=== PATIENT | female | born 1970 | race American Indian/Alaskan Native ===

== ENCOUNTER 2016-11-16 16:31 | Emergency (ER) | payer MEDICAID ==
[2016-11-16 16:31] VITALS: BMI 25.8
--- NOTE | 2016-11-16 17:23 | C.PDOC ---
History Of Present Illness 46 y/o female presents to the ED with complains of chest pain and abdominal pain. Pt has been seen multiple times in ED for the same. Pt was being seen by Lacey Corley today complaining of chest pain so sent patient to ED for evaluation. Pt also complains of productive cough with yellow sputum and fever. Denies vomiting, SOB, or any other complaints. History limited. PMHx parkinson's disease. Time Seen by Provider: 11/16/16 17:04 Chief Complaint (Nursing): Chest Pain History Per: Patient History/Exam Limitations: no limitations Onset/Duration Of Symptoms: Hrs Current Symptoms Are (Timing): Still Present Severity: Mild Quality: "Pain" Alleviating Factors: None Recent travel outside of the [place]: No Past Medical History Reviewed: Historical Data, Nursing Documentation, Vital Signs Vital Signs: Last Vital Signs Temp 98.5 F 11/16/16 16:43 Pulse 92 H 11/16/16 16:43 Resp 18 11/16/16 16:43 BP Pulse Ox 95 11/16/16 17:29 - Medical History PMH: Anemia (secondary to heavy menstruation), Anxiety, Arthritis, Asthma, CAD, CHF, CVA, Depression, Diabetes, Gastritis, Gastrointestinal Ulcer, HTN, Hypercholesterolemia, Hyperlipidemia, Hyperthyroidism (HYPERPARATHYROID), Kidney Stones, Multiple Sclerosis, Parkinson's Disease, Pneumonia (06-04-15), Chronic Kidney Disease, TIA Surgical History: Hernia Repair (Umbilical hernia repair) - [facility] Procedures CLOSURE SKIN & SUBCUTANEOUS NEC (01/07/13) ESOPHAGOGASTRODUODENOSCOPY [EGD] W/CLOSED BIOPSY (02/05/15) INJECT/INFUSE NEC (02/17/15) NEBULIZER THERAPY (06/20/13) PACKED CELL TRANSFUSION (01/28/15) TETANUS TOXOID ADMINIST (01/07/13) VACCINATION NEC (08/03/14) Family History: States: Unknown Family Hx - Social History Hx Tobacco Use: No Hx Alcohol Use: No Hx Substance Use: No - Immunization History Hx Tetanus Toxoid Vaccination: Yes Hx Influenza Vaccination: Yes Hx Pneumococcal Vaccination: Yes Review Of Systems Except As Marked, All Systems Reviewed And Found Negative. Constitutional: Positive for: Fever Cardiovascular: Positive for: Chest Pain Respiratory: Positive for: Cough. Negative for: Shortness of Breath Gastrointestinal: Positive for: Abdominal Pain. Negative for: Vomiting Physical Exam - Physical Exam Appears: Non-toxic, No Acute Distress, Other (constant involuntary movements) Skin: Warm, Dry, No Rash Head: Atraumatic, Normacephalic Neck: Normal, Normal ROM, Supple Chest: Symmetrical, No Tenderness Cardiovascular: Rhythm Regular, No Murmur Respiratory: Normal Breath Sounds, No Rales, No Rhonchi, No Wheezing Gastrointestinal/Abdominal: Normal Exam, Soft, No Tenderness, No Guarding, No Rebound Extremity: Bilateral: Atraumatic Neurological/Psych: Oriented x3, Normal Speech ED Course And Treatment - Laboratory Results Result Diagrams: 11/16/16 17:45 11/16/16 17:34 Lab Interpretation: Abnormal Interpretation Of Abnormal: Mild anemia, K+ 2.8 corrected orally with 60meq Kdur ECG: Interpreted By Me ECG Rhythm: Sinus Rhythm ECG Interpretation: No Acute Changes O2 Sat by Pulse Oximetry: 95 (room air) Pulse Ox Interpretation: Normal Progress Note: Plan: EKG, labs, CXR, IV fluids Reevaluation Time: 20:21 Reassessment Condition: Improved (She is resting quietly. Patient requesting Motrin and something to eat.) - Physician Consult Information Time Consulting Physician Contacted: 20:21 Physician Contacted: Ranulfo Corley Outcome Of Conversation: he will see her in the office in follow up Disposition Counseled Patient/Family Regarding: Studies Performed, Diagnosis, Need For Followup - Disposition Disposition: HOME/ ROUTINE Disposition Time: 20:25 Condition: IMPROVED Instructions: Noncardiac Chest Pain (ED) - Clinical Impression Clinical Impression: Atypical chest pain - Scribe Statement The provider has reviewed the documentation as recorded by the Christina Burdick Provider Attestation: All medical record entries made by the Christina were at my direction and personally dictated by me. I have reviewed the chart and agree that the record accurately reflects my personal performance of the history, physical exam, medical decision making, and the department course for this patient. I have also personally directed, reviewed, and agree with the discharge instructions and disposition.
[2016-11-16 17:39] LABS: BASO # 0.1 K/uL (0.0-0.2); BASO % 1.1 % (0.0-2.0); EOS % 0.9 % (0.0-4.0); HEMATOCRIT 30.6 % (34.0-47.0); LYMPH # 1.6 K/uL (1.0-4.3); LYMPH % 32.2 % (20.0-40.0); MEAN CELL VOLUME 78.4 fL (81.0-99.0); MEAN CORPUSCULAR HEMOGLOBIN 23.8 pg (27.0-31.0); MEAN CORPUSCULAR HGB CONC 30.4 g/dL (33.0-37.0); MEAN PLATELET VOLUME 8.2 fL (7.2-11.7); MONO # 0.4 K/uL (0.0-0.8); MONO % 7.9 % (0.0-10.0); NRBC % 0.1 % (0.0-2.0); RED CELL DISTRIBUTION WIDTH 16.3 % (11.5-14.5); WHITE BLOOD COUNT 5.1 K/uL (4.8-10.8)
[2016-11-16 17:46] LABS: CHLORIDE 100 mmol/L (98-107)
[2016-11-16 17:47] LABS: POTASSIUM 2.8 mmol/L (3.6-5.2); SODIUM 140 mmol/L (132-148)
[2016-11-16 17:49] LABS: ALB/GLOB RATIO 1.2 (1.0-2.1); ALKALINE PHOSPHATASE 54 U/L (38-126); ALT/SGPT 17 U/L (9-52); AST/SGOT 20 U/L (14-36); BILIRUBIN,TOTAL 0.6 mg/dL (0.2-1.3); BLOOD UREA NITROGEN 17 mg/dL (7-17); CARBON DIOXIDE 30 mmol/L (22-30); GFR AFRICAN-AMERICAN > 60; TOTAL PROTEIN 7.4 g/dL (6.3-8.3)
[2016-11-16 17:50] LABS: CALCIUM 10.2 mg/dl (8.6-10.4); GLUCOSE,RANDOM 104 mg/dL (65-105)
--- NOTE | 2016-11-16 17:56 | RAD ---
HISTORY: chest pain COMPARISON: Chest x-ray performed 08/04/16 TECHNIQUE: Chest, one view. FINDINGS: Examination limited by habitus. LUNGS: Mild pulmonary venous congestion. No focal consolidation. Please note that chest x-ray has limited sensitivity for the detection of pulmonary masses. PLEURA: No significant pleural effusion identified. No definite pneumothorax . CARDIOVASCULAR: Enlargement of the cardiomediastinal silhouette. OSSEOUS STRUCTURES: High-riding right humeral head may be seen in setting of chronic rotator cuff injury. VISUALIZED UPPER ABDOMEN: Unremarkable. OTHER FINDINGS: None. IMPRESSION: Enlarged cardiomediastinal silhouette. Recommend further evaluation of the mediastinum with contrast-enhanced CT of the chest. Mild pulmonary venous congestion.
[2016-11-16] MEDS ORDERED: Potassium Chloride 20 mEq ER Tab PO STA (18:27)
[2016-11-16] MEDS ORDERED: Potassium Chloride 20 mEq/15 ml LIQ UD ONE (18:40)
[2016-11-16 21:18] VITALS: BP 155/111; PULSE 87; RESP 20; TEMP 98.8; O2SAT 100
--- NOTE | 2016-11-18 19:38 | CARD ---
APPROVED REPORT EKG Measurement Heart [id number] FL 166P [id number] <Conclusion> Arm leads reversal Baseline artifact Abnormal ECG PLEASE REPEAT
== END 2016-11-16 21:17 | disposition home or self-care (01) ==
LOC: C.ER 16:31
DX: R07.89 Other chest pain (principal)

== ENCOUNTER 2016-11-30 17:43 | Inpatient (IN) | payer MEDICAID ==
[2016-11-30 17:48] VITALS: BMI 22.7
[2016-11-30] MEDS ORDERED: Albuterol-Ipratrop 3 mg / 0.5 (3 ml) UD IH STA (19:04)
[2016-11-30 19:45] LABS: CHLORIDE 105 mmol/L (98-107)
[2016-11-30 19:46] LABS: SODIUM 140 mmol/L (132-148)
[2016-11-30 19:47] LABS: BASO % 0.3 % (0.0-2.0); EOS # 0.1 K/uL (0.0-0.7); EOS % 1.1 % (0.0-4.0); HEMATOCRIT 30.1 % (34.0-47.0); LYMPH # 1.7 K/uL (1.0-4.3); LYMPH % 31.8 % (20.0-40.0); MEAN CELL VOLUME 78.1 fL (81.0-99.0); MEAN CORPUSCULAR HEMOGLOBIN 23.8 pg (27.0-31.0); MEAN CORPUSCULAR HGB CONC 30.5 g/dL (33.0-37.0); MEAN PLATELET VOLUME 8.7 fL (7.2-11.7); MONO # 0.6 K/uL (0.0-0.8); MONO % 10.2 % (0.0-10.0); POTASSIUM 3.4 mmol/L (3.6-5.2); RED CELL DISTRIBUTION WIDTH 16.5 % (11.5-14.5); WHITE BLOOD COUNT 5.5 K/uL (4.8-10.8)
[2016-11-30 19:49] LABS: ALB/GLOB RATIO 1.2 (1.0-2.1); ALKALINE PHOSPHATASE 62 U/L (38-126); ALT/SGPT 18 U/L (9-52); AST/SGOT 32 U/L (14-36); BILIRUBIN,TOTAL 0.7 mg/dL (0.2-1.3); BLOOD UREA NITROGEN 19 mg/dL (7-17); CARBON DIOXIDE 30 mmol/L (22-30); GFR AFRICAN-AMERICAN > 60; GLUCOSE,RANDOM 74 mg/dL (65-105); TOTAL PROTEIN 7.6 g/dL (6.3-8.3)
--- NOTE | 2016-11-30 20:38 | C.PDOC ---
History Of Present Illness 46 year old patient presents to the ED complaining of chest pain that returned today. Patient also complains of a cough with yellow-rain sputum and a low grade fever of 100.1. Patient states she has been using her Ventolin without relief. She was seen by her tare worker, Dr. Duarte, and PMD, Dr. Lacey Corley, recently. Her PMD sent her to the ED for further evaluation. Patient denies nausea, vomiting or shortness of breath. Time Seen by Provider: 11/30/16 18:50 Chief Complaint (Nursing): Chest Pain History Per: Patient History/Exam Limitations: clinical condition Onset/Duration Of Symptoms: Worse Since (today) Current Symptoms Are (Timing): Still Present Context: Other Severity: Mild Pain Scale Rating Of: 3 Quality: "Pain" Exacerbating Factors: None Alleviating Factors: None Recent travel outside of the [place]: No Past Medical History Reviewed: Historical Data, Nursing Documentation, Vital Signs Vital Signs: Last Vital Signs Temp 99 F 11/30/16 17:56 Pulse 79 11/30/16 17:56 Resp 18 11/30/16 17:56 BP 186/84 H 11/30/16 17:56 Pulse Ox 100 11/30/16 21:02 - Medical History PMH: Anemia (secondary to heavy menstruation), Anxiety, Arthritis, Asthma, CAD, CHF, CVA, Depression, Diabetes, Gastritis, Gastrointestinal Ulcer, HTN, Hypercholesterolemia, Hyperlipidemia, Hyperthyroidism (HYPERPARATHYROID), Kidney Stones, Multiple Sclerosis, Parkinson's Disease, Pneumonia (06-04-15), Chronic Kidney Disease, TIA Surgical History: Hernia Repair (Umbilical hernia repair) - [facility] Procedures CLOSURE SKIN & SUBCUTANEOUS NEC (01/07/13) ESOPHAGOGASTRODUODENOSCOPY [EGD] W/CLOSED BIOPSY (02/05/15) INJECT/INFUSE NEC (02/17/15) NEBULIZER THERAPY (06/20/13) PACKED CELL TRANSFUSION (01/28/15) TETANUS TOXOID ADMINIST (01/07/13) VACCINATION NEC (08/03/14) Family History: States: Unknown Family Hx - Social History Hx Tobacco Use: No Hx Alcohol Use: No Hx Substance Use: No - Immunization History Hx Tetanus Toxoid Vaccination: Yes Hx Influenza Vaccination: Yes Hx Pneumococcal Vaccination: Yes Review Of Systems Except As Marked, All Systems Reviewed And Found Negative. Constitutional: Positive for: Fever Cardiovascular: Positive for: Chest Pain Respiratory: Positive for: Cough. Negative for: Shortness of Breath Gastrointestinal: Negative for: Nausea, Vomiting Physical Exam - Physical Exam Appears: Well, No Acute Distress, Other (hx of cerebral palsy. speech is not comprehensible. ) Skin: Normal Color, Warm, Dry Head: Atraumatic Oral Mucosa: Moist Tongue: Normal Appearing Neck: Normal, Supple Lymphatic: No Adenopathy Cardiovascular: Rhythm Regular Respiratory: No Decreased Breath Sounds, No Rales, No Rhonchi, Wheezing (mild diffuse) Gastrointestinal/Abdominal: Soft, No Tenderness Back: No CVA Tenderness Extremity: Bilateral: Atraumatic ED Course And Treatment - Laboratory Results Result Diagrams: 11/30/16 19:28 11/30/16 19:28 Lab Interpretation: No Changes Compared To Prior Results ECG: Interpreted By Me, Viewed By Me ECG Rhythm: Sinus Rhythm ECG Interpretation: Normal Interpretation Of ECG: LVH. No acute ST-T wave changes. Rate From EC (bpm) O2 Sat by Pulse Oximetry: 100 (room air) Pulse Ox Interpretation: Normal - Radiology CXR: Interpreted by Me CXR Interpretation: Yes: No Acute Disease, Other (Unchanged from prior films) Reevaluation Time: 20:57 Reassessment Condition: Improved - Physician Consult Information Time Consulting Physician Contacted: 21:58 Physician Contacted: Ranulfo Corley Outcome Of Conversation: Patient to be admitted for chest pain observation and exacerbation of asthma. Medical Decision Making Medical Decision Making: Plan: * EKG * Chest x-ray * Duoneb * Labs Disposition - Disposition Disposition: HOSPITALIZED Disposition Time: 21:59 Condition: STABLE - POA Present On Arrival: None - Clinical Impression Clinical Impression: Chest discomfort, Bronchial asthma - Scribe Statement The provider has reviewed the documentation as recorded by the Christina Corley Provider Attestation: All medical record entries made by the Owenibsoha were at my direction and personally dictated by me. I have reviewed the chart and agree that the record accurately reflects my personal performance of the history, physical exam, medical decision making, and the department course for this patient. I have also personally directed, reviewed, and agree with the discharge instructions and disposition.
[2016-11-30] MEDS ORDERED: Albuterol-Ipratrop 3 mg / 0.5 (3 ml) UD ONE (21:10)
[2016-12-01 01:01] VITALS: RESP 20
[2016-12-01] MEDS ORDERED: Potassium Chloride 20 mEq ER Tab PO STA ×2 (01:57→07:33)
[2016-12-01 04:49] LABS: CHLORIDE 100 mmol/L (98-107)
[2016-12-01 04:50] LABS: POTASSIUM 3.5 mmol/L (3.6-5.2); SODIUM 139 mmol/L (132-148)
[2016-12-01 04:52] LABS: ALB/GLOB RATIO 1.2 (1.0-2.1); AST/SGOT 23 U/L (14-36); BASO % 0.6 % (0.0-2.0); BILIRUBIN,TOTAL 0.5 mg/dL (0.2-1.3); CARBON DIOXIDE 30 mmol/L (22-30); EOS # 0.1 K/uL (0.0-0.7); EOS % 1.6 % (0.0-4.0); GFR AFRICAN-AMERICAN > 60; HEMATOCRIT 29.9 % (34.0-47.0); LYMPH # 1.8 K/uL (1.0-4.3); LYMPH % 36.4 % (20.0-40.0); MEAN CELL VOLUME 77.9 fL (81.0-99.0); MEAN CORPUSCULAR HEMOGLOBIN 23.6 pg (27.0-31.0); MEAN CORPUSCULAR HGB CONC 30.3 g/dL (33.0-37.0); MEAN PLATELET VOLUME 8.4 fL (7.2-11.7); MONO # 0.5 K/uL (0.0-0.8); MONO % 11.3 % (0.0-10.0); RED CELL DISTRIBUTION WIDTH 15.8 % (11.5-14.5); TOTAL PROTEIN 7.2 g/dL (6.3-8.3); WHITE BLOOD COUNT 4.8 K/uL (4.8-10.8)
[2016-12-01 04:53] LABS: ALKALINE PHOSPHATASE 63 U/L (38-126); ALT/SGPT 25 U/L (9-52); BLOOD UREA NITROGEN 14 mg/dL (7-17); CALCIUM 10.6 mg/dl (8.6-10.4); GLUCOSE,RANDOM 85 mg/dL (65-105)
[2016-12-01] MEDS: Moxifloxacin IV 400mg/250ml NS 400 MG/250 ML BAG IVPB SCH ×2 (08:35→15:43)
[2016-12-01] MEDS: Enoxaparin 40 mg Syringe SC SCH (09:06)
--- NOTE | 2016-12-01 09:50 | RAD ---
PROCEDURE: CHEST RADIOGRAPH, 1 VIEW HISTORY: chest pain COMPARISON: None available. FINDINGS: LUNGS: Patchy consolidative markings in both lungs. PLEURA: As above. CARDIOVASCULAR: Cardiomegaly. OSSEOUS STRUCTURES: Degenerative changes in the spine and shoulders. VISUALIZED UPPER ABDOMEN: Normal. OTHER FINDINGS: None. IMPRESSION: Patchy consolidative markings in both lungs. Clinical correlation.
--- NOTE | 2016-12-01 12:46 | CT ---
CT chest without IV contrast Indication: Pneumonia Technique: Contiguous axial images were obtained through the chest without intravenous contrast enhancement. Sagittal and coronal reconstructions were generated and reviewed. This CT exam was performed using 1 or more of the falling dose reduction techniques: Automated exposure control, adjustment of the MAA and/or kV according to patient size, and/or use of iterative reconstruction technique. Radiation dose (DLP): 351.08 MGy-cm. Comparison: Chest x-ray performed 11/30/16 Findings: Visualized portions of the inferior thyroid gland appear heterogeneous. The unenhanced mediastinal and hilar vascular structures appear grossly unremarkable. The heart appears within normal limits of size. Hazy nodular soft tissue densities within prevascular space. Mild linear atelectasis, left lung base. No focal consolidation. No pleural effusion. No pneumothorax. No suspicious pulmonary nodules measuring greater than 5 mm. Limited visualization of the noncontrast upper abdomen demonstrates hyperdense foci at the level the gallbladder, possibly calculi. Degenerative changes of the spine. Impression: Heterogeneous appearance of the included inferior thyroid gland. Recommend correlation with thyroid function tests and dedicated ultrasound. Hazy nodular soft tissue densities within the anterior mediastinum/ prevascular space, possibly residual thymic tissue. Alternatives including tiny lymph nodes considered less likely but not excluded. Recommend clinical correlation and short-term follow-up CT with IV contrast upon resolution of treatment for acute symptoms, if indicated. Mild linear atelectasis, left lung base. Hyperdense foci at the level the gallbladder, possibly calculi. Right upper quadrant ultrasound may be considered for further evaluation if indicated.
--- NOTE | 2016-12-01 15:51 | CP.PCM.PN ---
Subjective - Date & Time of Evaluation Date of Evaluation: 12/01/16 Time of Evaluation: 10:15 - Subjective Subjective: PGY2 Medicine Note - Dr. Lacey Corley's service: Patient is 46 year old female with PMHx of cerebral palsy, anemia, anxiety, cAD , CHF, CVA, depression, DM, gastritis, GI ulcer, HTN, hyperlipidemia, hyperthyroidism, kidney stones, MS, Parkinson's, pneumonia and CKD who presented to ER for chest tightness. Patient says she has cough productive of yellow phlegm for a few days. She reports history of penumonia so she got scared that she needs abx. Patient reports wheezing. Objective - Vital Signs/Intake and Output Vital Signs (last 24 hours): Temp Pulse Resp BP Pulse Ox 98.1 F 65 20 171/94 H 99 12/01/16 07:35 12/01/16 07:35 12/01/16 07:35 12/01/16 07:35 12/01/16 07:35 Intake and Output: 12/01/16 12/01/16 06:59 18:59 Intake Total 400 Balance 400 - Medications Medications: Current Medications Amlodipine Besylate (Norvasc) 10 mg PO DAILY [facility] Last Admin: 12/01/16 09:06 Dose: 10 mg Aspirin (Aspirin) 325 mg PO DAILY [facility] Last Admin: 12/01/16 09:06 Dose: 325 mg Enoxaparin Sodium (Lovenox) 40 mg SC DAILY [facility] Last Admin: 12/01/16 09:06 Dose: 40 mg Famotidine (Pepcid) 20 mg PO BID [facility] Last Admin: 12/01/16 09:06 Dose: 20 mg Gabapentin (Neurontin) 300 mg PO BID [facility] Last Admin: 12/01/16 09:06 Dose: 300 mg Moxifloxacin HCl (Avelox Iv 400mg/250ml Ns) 400 mg in 250 mls @ 167 mls/hr IVPB Q24H [facility] Last Admin: 12/01/16 15:43 Dose: Not Given Losartan Potassium (Cozaar) 100 mg PO DAILY [facility] Last Admin: 12/01/16 09:06 Dose: 100 mg - Labs Labs: 12/01/16 04:38 12/01/16 04:38 - Constitutional Appears: Non-toxic, No Acute Distress, Chronically Ill - Head Exam Head Exam: NORMAL INSPECTION - Eye Exam Eye Exam: EOMI - Respiratory Exam Respiratory Exam: Wheezes, NORMAL BREATHING PATTERN. absent: Clear to Ausculation Bilateral, Rhonchi, Respiratory Distress - Cardiovascular Exam Cardiovascular Exam: REGULAR RHYTHM, +S1, +S2. absent: Gallop, Rubs - GI/Abdominal Exam GI & Abdominal Exam: Soft, Normal Bowel Sounds. absent: Tenderness - Extremities Exam Extremities Exam: absent: Pedal Edema - Neurological Exam Neurological Exam: Alert, Awake, Oriented x3 Additional comments: slurred speech - Psychiatric Exam Psychiatric exam: Normal Affect, Normal Mood - Skin Skin Exam: Normal Color, Warm Assessment and Plan - Assessment and Plan (Free Text) Assessment: Chest Pain ROMIs neg x 3 Likely secondary to cough ASA 81mg PO daily Asthma Duonebs Q6 [facility] Solu-Medrol 40mg IV Q12 Pneumonia CXR 11/30/16 - patchy consolidative markings in both lungs. (please see full report) Chest CT 12/01/16 - heterogeneous appearance of the included inferior thyroid gland. Hazy nodular soft tissue densities within the anterior mediastinum/ prevascular space, possibly residual thymic tissue. Alternatives including tiny lymph nodes considerely less likely but not excluded. Mild linear atelectasis, left lung base. Hyperdense foci at the level of the gallbladder, possibly calculi. Right upper quadrant ultrasound may be considered for further evaluation if indicated. (please see full report) Patient does not have IV access Avelox 400mg PO daily Midline tomorrow Hyperthyroid F/U TSH F/U thyroid US HTN Norvasc 10mg PO daily added Losartan 100mg PO daily (home med) Hydralazine 25mg PO QID added Prophylaxis Pepcid 20mg PO BID Lovenox 40mg SC daily Management per dr. Lacey Corley
--- NOTE | 2016-12-01 17:13 | US ---
THYROID ULTRASOUND HISTORY: THYROID NODULE. COMPARISON: CT SCAN 12/01/2016 Technique: Real-time sonography was performed through the thyroid. Findings: Right lobe: 5.3 x 2.1 x 2.3 centimeters. Heterogeneous echotexture. Normal flow. Midpole complex mixed echogenic solid/cystic nodule measuring 1.6 x 1.1 x 1.8 centimeters. Left lobe: 3.3 x 1.3 x 1.8 centimeters. Heterogeneous echotexture. Normal flow. Thyroid isthmus measures 2 millimeters. Heterogeneous echotexture. Normal flow. Impression: Midpole complex mixed echogenic solid/cystic nodule in the right lobe of the thyroid measuring 1.8 centimeters.
--- NOTE | 2016-12-01 17:15 | CP.PCM.HP ---
Past Patient History - Infectious Disease Hx of Infectious Diseases: None - Tetanus Immunizations Tetanus Immunization: Unknown - Past Medical History & Family History Past Medical History?: Yes - Past Social History Smoking Status: Never Smoked - CARDIAC Hx Cardiac Disorders: Yes Hx Congestive Heart Failure: Yes Hx Hypercholesterolemia: Yes Hx Hypertension: Yes - PULMONARY Hx Respiratory Disorders: Yes Hx Asthma: Yes Hx Pneumonia: Yes (06-04-15) - NEUROLOGICAL Hx Neurological Disorder: Yes Hx Multiple Sclerosis: Yes Hx Parkinson's Disease: Yes Hx Transient Ischemic Attacks (TIA): Yes - HEENT Hx HEENT Problems: No - RENAL Hx Chronic Kidney Disease: Yes Hx Kidney Stones: Yes - ENDOCRINE/METABOLIC Hx Endocrine Disorders: Yes Hx Diabetes Mellitus Type 2: Yes Hx Hyperthyroidism: Yes (hyperthyroidism) - HEMATOLOGICAL/ONCOLOGICAL Hx Blood Disorders: Yes Hx Anemia: Yes (secondary to heavy menstruation) - INTEGUMENTARY Hx Dermatological Problems: No - MUSCULOSKELETAL/RHEUMATOLOGICAL Hx Musculoskeletal Disorders: Yes Hx Arthritis: Yes Hx Falls: Yes - GASTROINTESTINAL Hx Gastrointestinal Disorders: Yes Hx Gastritis: Yes - GENITOURINARY/GYNECOLOGICAL Hx Genitourinary Disorders: Yes Hx Urinary Tract Infection: Yes - PSYCHIATRIC Hx Psychophysiologic Disorder: Yes Hx Anxiety: Yes Hx Depression: Yes Hx Substance Use: No - SURGICAL HISTORY Hx Surgeries: Yes Hx Section: Yes (1994) Hx Herniorrhaphy: Yes - ANESTHESIA Hx Anesthesia: Yes Hx Anesthesia Reactions: No Hx Malignant Hyperthermia: No Meds Allergies/Adverse Reactions: Allergies Allergy/AdvReac Type Severity Reaction Status Date / Time aspirin Allergy SHORTNESS Verified 11/30/16 17:45 OF BREATH codeine Allergy RASH Verified 11/30/16 17:45 iodine Allergy SHORTNESS Verified 11/30/16 17:45 OF BREATH ketorolac Allergy SHORTNESS Verified 11/30/16 17:45 OF BREATH ketorolac tromethamine Allergy RASH Verified 11/30/16 17:45 [From Toradol] Latex, Natural Rubber Allergy SHORTNESS Verified 11/30/16 17:45 OF BREATH metoprolol Allergy SHORTNESS Verified 11/30/16 17:45 OF BREATH morphine Allergy SHORTNESS Verified 11/30/16 17:45 OF BREATH orange juice Allergy SHORTNESS Verified 11/30/16 17:45 OF BREATH Penicillins Allergy SHORTNESS Verified 11/30/16 17:45 OF BREATH simvastatin Allergy RASH Verified 11/30/16 17:45 Sulfa (Sulfonamide Allergy RASH Verified 11/30/16 17:45 Antibiotics) tomato Allergy ITCHING Verified 11/30/16 17:45 tramadol Allergy SHORTNESS Verified 11/30/16 17:45 OF BREATH ondansetron HCl AdvReac Intermediate RASH Verified 11/30/16 17:45 [From Zofran (as hydrochloride)] Physical Exam - Constitutional Appears: Well - Head Exam Head Exam: ATRAUMATIC, NORMAL INSPECTION, NORMOCEPHALIC - Eye Exam Eye Exam: EOMI, Normal appearance, PERRL - ENT Exam ENT Exam: Mucous Membranes Moist, Normal Exam - Neck Exam Neck exam: Positive for: Normal Inspection - Respiratory Exam Respiratory Exam: Decreased Breath Sounds - Cardiovascular Exam Cardiovascular Exam: REGULAR RHYTHM, +S1, +S2 - GI/Abdominal Exam GI & Abdominal Exam: Diminished Bowel Sounds, Soft - Rectal Exam Rectal Exam: Deferred Results - Vital Signs Recent Vital Signs: Last Vital Signs Temp 97.7 F 12/01/16 16:00 Pulse 60 12/01/16 16:00 Resp 20 12/01/16 16:00 BP 151/76 H 12/01/16 16:00 Pulse Ox 100 12/01/16 16:00 - Labs Result Diagrams: 12/01/16 04:38 12/01/16 04:38 Labs: Laboratory Results - last 24 hr 12/01/16 12/01/16 12/01/16 01:47 04:38 04:38 WBC 4.8 RBC 3.83 Hgb 9.0 L Hct 29.9 L MCV 77.9 L MCH 23.6 L MCHC 30.3 L RDW 15.8 H Plt Count 234 MPV 8.4 Neut % (Auto) 50.1 Lymph % (Auto) 36.4 Piatt % (Auto) 11.3 H Eos % (Auto) 1.6 Baso % (Auto) 0.6 Neut # 2.4 Lymph # 1.8 Piatt # 0.5 Eos # 0.1 Baso # 0.0 Sodium 139 Potassium 3.5 L Chloride 100 Carbon Dioxide 30 Anion Gap 13 BUN 14 Creatinine 0.7 Est GFR ( Amer) > 60 Est GFR (Non-Af Amer) > 60 POC Glucose (mg/dL) 127 H Random Glucose 85 Calcium 10.6 H Total Bilirubin 0.5 AST 23 ALT 25 Alkaline Phosphatase 63 Total Creatine Kinase CK-MB (Mass) Troponin I, Quant Total Protein 7.2 Albumin 4.0 Globulin 3.2 Albumin/Globulin Ratio 1.2 12/01/16 12/01/16 12/01/16 04:38 07:21 11:18 WBC RBC Hgb Hct MCV MCH MCHC RDW Plt Count MPV Neut % (Auto) Lymph % (Auto) Piatt % (Auto) Eos % (Auto) Baso % (Auto) Neut # Lymph # Piatt # Eos # Baso # Sodium Potassium Chloride Carbon Dioxide Anion Gap BUN Creatinine Est GFR ( Amer) Est GFR (Non-Af Amer) POC Glucose (mg/dL) 80 63 L Random Glucose Calcium Total Bilirubin AST ALT Alkaline Phosphatase Total Creatine Kinase 95 CK-MB (Mass) 3.24 Troponin I, Quant < 0.0120 Total Protein Albumin Globulin Albumin/Globulin Ratio 12/01/16 12/01/16 12/01/16 11:42 13:33 16:21 WBC RBC Hgb Hct MCV MCH MCHC RDW Plt Count MPV Neut % (Auto) Lymph % (Auto) Piatt % (Auto) Eos % (Auto) Baso % (Auto) Neut # Lymph # Piatt # Eos # Baso # Sodium Potassium Chloride Carbon Dioxide Anion Gap BUN Creatinine Est GFR ( Amer) Est GFR (Non-Af Amer) POC Glucose (mg/dL) 74 82 Random Glucose Calcium Total Bilirubin AST ALT Alkaline Phosphatase Total Creatine Kinase 92 CK-MB (Mass) 3.69 H Troponin I, Quant < 0.0120 Total Protein Albumin Globulin Albumin/Globulin Ratio
[2016-12-01] MEDS: Albuterol-Ipratrop 3 mg / 0.5 (3 ml) UD INH SCH (20:07)
[2016-12-01] MEDS: MethylPREDNISolone 40 mg Vial IV SCH ×2 (21:51→21:54)
[2016-12-02] MEDS: Albuterol-Ipratrop 3 mg / 0.5 (3 ml) UD INH SCH ×4 (01:13→21:07)
[2016-12-02 07:38] LABS: BASO % 0.7 % (0.0-2.0); EOS # 0.1 K/uL (0.0-0.7); EOS % 1.6 % (0.0-4.0); HEMATOCRIT 34.1 % (34.0-47.0); LYMPH # 1.6 K/uL (1.0-4.3); LYMPH % 35.8 % (20.0-40.0); MEAN CORPUSCULAR HEMOGLOBIN 24.1 pg (27.0-31.0); MEAN CORPUSCULAR HGB CONC 30.5 g/dL (33.0-37.0); MEAN PLATELET VOLUME 8.7 fL (7.2-11.7); MONO # 0.4 K/uL (0.0-0.8); MONO % 9.2 % (0.0-10.0); NRBC % 0.1 % (0.0-2.0); RED CELL DISTRIBUTION WIDTH 16.8 % (11.5-14.5); WHITE BLOOD COUNT 4.5 K/uL (4.8-10.8)
[2016-12-02 07:42] LABS: CHLORIDE 106 mmol/L (98-107)
[2016-12-02 07:43] LABS: POTASSIUM 3.9 mmol/L (3.6-5.2); SODIUM 143 mmol/L (132-148)
[2016-12-02 07:46] LABS: ALB/GLOB RATIO 1.2 (1.0-2.1); ALKALINE PHOSPHATASE 62 U/L (38-126); ALT/SGPT 13 U/L (9-52); AST/SGOT 20 U/L (14-36); BILIRUBIN,TOTAL 0.7 mg/dL (0.2-1.3); BLOOD UREA NITROGEN 15 mg/dL (7-17); CALCIUM 11.2 mg/dl (8.6-10.4); CARBON DIOXIDE 28 mmol/L (22-30); GFR AFRICAN-AMERICAN > 60; GLUCOSE,RANDOM 65 mg/dL (65-105); TOTAL PROTEIN 7.9 g/dL (6.3-8.3)
[2016-12-02 08:10] LABS: THYROID STIMULATING HORMONE 1.37 mIU/L (0.46-4.68)
[2016-12-02] MEDS: MethylPREDNISolone 40 mg Vial IV SCH ×2 (10:56→21:22)
[2016-12-02] MEDS: Enoxaparin 40 mg Syringe SC SCH (10:56)
--- NOTE | 2016-12-02 12:14 | CP.PCM.PN ---
Subjective - Date & Time of Evaluation Date of Evaluation: 12/02/16 Time of Evaluation: 08:20 - Subjective Subjective: clinically same Objective - Vital Signs/Intake and Output Vital Signs (last 24 hours): Temp Pulse Resp BP Pulse Ox 98.2 F 66 20 155/89 H 98 12/02/16 07:56 12/02/16 07:56 12/02/16 07:56 12/02/16 07:56 12/02/16 07:56 Intake and Output: 12/02/16 12/02/16 06:59 18:59 Intake Total 500 Balance 500 - Medications Medications: Current Medications Acetaminophen (Tylenol 325mg Tab) 650 mg PO Q6 PRN PRN Reason: pain Last Admin: 12/01/16 19:01 Dose: 650 mg Albuterol/Ipratropium (Duoneb 3 Mg/0.5 Mg (3 Ml) Ud) 3 ml INH RQ6 [facility] Last Admin: 12/02/16 09:10 Dose: 3 ml Amlodipine Besylate (Norvasc) 10 mg PO DAILY [facility] Last Admin: 12/02/16 10:59 Dose: 10 mg Aspirin (Aspirin) 325 mg PO DAILY [facility] Last Admin: 12/02/16 10:56 Dose: 325 mg Enoxaparin Sodium (Lovenox) 40 mg SC DAILY [facility] Last Admin: 12/02/16 10:56 Dose: 40 mg Famotidine (Pepcid) 20 mg PO BID [facility] Last Admin: 12/02/16 10:56 Dose: 20 mg Gabapentin (Neurontin) 300 mg PO BID [facility] Last Admin: 12/02/16 10:56 Dose: 300 mg Hydralazine HCl (Apresoline) 50 mg PO QID [facility] Last Admin: 12/02/16 10:57 Dose: 50 mg Losartan Potassium (Cozaar) 100 mg PO DAILY [facility] Last Admin: 12/02/16 10:56 Dose: 100 mg Methylprednisolone (Solu-Medrol) 40 mg IV Q12 [facility] Last Admin: 12/02/16 10:56 Dose: 40 mg Moxifloxacin HCl (Avelox) 400 mg PO DAILY [facility] Last Admin: 12/02/16 10:57 Dose: 400 mg - Labs Labs: 12/02/16 07:16 12/02/16 07:16 - Constitutional Appears: Well - Head Exam Head Exam: ATRAUMATIC, NORMAL INSPECTION, NORMOCEPHALIC - Eye Exam Eye Exam: EOMI, Normal appearance, PERRL Pupil Exam: NORMAL ACCOMODATION, PERRL - ENT Exam ENT Exam: Mucous Membranes Moist, Normal Exam - Neck Exam Neck Exam: Full ROM, Normal Inspection. absent: Lymphadenopathy - Respiratory Exam Respiratory Exam: Decreased Breath Sounds - Cardiovascular Exam Cardiovascular Exam: REGULAR RHYTHM, +S1, +S2 - GI/Abdominal Exam GI & Abdominal Exam: Soft, Diminished Bowel Sounds - Rectal Exam Rectal Exam: Deferred
--- NOTE | 2016-12-02 12:17 | CP.PCM.PN ---
Subjective - Date & Time of Evaluation Date of Evaluation: 12/02/16 Time of Evaluation: 08:40 - Subjective Subjective: clinically same Objective - Vital Signs/Intake and Output Vital Signs (last 24 hours): Temp Pulse Resp BP Pulse Ox 98.2 F 66 20 155/89 H 98 12/02/16 07:56 12/02/16 07:56 12/02/16 07:56 12/02/16 07:56 12/02/16 07:56 Intake and Output: 12/02/16 12/02/16 06:59 18:59 Intake Total 500 Balance 500 - Medications Medications: Current Medications Acetaminophen (Tylenol 325mg Tab) 650 mg PO Q6 PRN PRN Reason: pain Last Admin: 12/01/16 19:01 Dose: 650 mg Albuterol/Ipratropium (Duoneb 3 Mg/0.5 Mg (3 Ml) Ud) 3 ml INH RQ6 [facility] Last Admin: 12/02/16 09:10 Dose: 3 ml Amlodipine Besylate (Norvasc) 10 mg PO DAILY [facility] Last Admin: 12/02/16 10:59 Dose: 10 mg Aspirin (Aspirin) 325 mg PO DAILY [facility] Last Admin: 12/02/16 10:56 Dose: 325 mg Enoxaparin Sodium (Lovenox) 40 mg SC DAILY [facility] Last Admin: 12/02/16 10:56 Dose: 40 mg Famotidine (Pepcid) 20 mg PO BID [facility] Last Admin: 12/02/16 10:56 Dose: 20 mg Gabapentin (Neurontin) 300 mg PO BID [facility] Last Admin: 12/02/16 10:56 Dose: 300 mg Hydralazine HCl (Apresoline) 50 mg PO QID [facility] Last Admin: 12/02/16 10:57 Dose: 50 mg Losartan Potassium (Cozaar) 100 mg PO DAILY [facility] Last Admin: 12/02/16 10:56 Dose: 100 mg Methylprednisolone (Solu-Medrol) 40 mg IV Q12 [facility] Last Admin: 12/02/16 10:56 Dose: 40 mg Moxifloxacin HCl (Avelox) 400 mg PO DAILY [facility] Last Admin: 12/02/16 10:57 Dose: 400 mg - Labs Labs: 12/02/16 07:16 12/02/16 07:16 - Constitutional Appears: Well - Head Exam Head Exam: ATRAUMATIC, NORMAL INSPECTION, NORMOCEPHALIC - Eye Exam Eye Exam: EOMI, Normal appearance, PERRL Pupil Exam: NORMAL ACCOMODATION, PERRL - ENT Exam ENT Exam: Mucous Membranes Moist, Normal Exam - Neck Exam Neck Exam: Full ROM, Normal Inspection. absent: Lymphadenopathy - Respiratory Exam Respiratory Exam: Decreased Breath Sounds - Cardiovascular Exam Cardiovascular Exam: REGULAR RHYTHM, +S1, +S2 - GI/Abdominal Exam GI & Abdominal Exam: Soft, Diminished Bowel Sounds - Rectal Exam Rectal Exam: Deferred
--- NOTE | 2016-12-02 14:21 | CP.PCM.PN ---
Subjective - Date & Time of Evaluation Date of Evaluation: 12/02/16 Time of Evaluation: 08:30 - Subjective Subjective: PGY2 Medicine Note - Dr. Lacey Corley's service: Patient seen and examined at bedside this AM. Patient reports cough and wheezing. Patient reports left shoulder pain that is chronic. Patient denies fever, chills, chest pain. Objective - Vital Signs/Intake and Output Vital Signs (last 24 hours): Temp Pulse Resp BP Pulse Ox 98.2 F 66 20 155/89 H 98 12/02/16 07:56 12/02/16 07:56 12/02/16 07:56 12/02/16 07:56 12/02/16 07:56 Intake and Output: 12/02/16 12/02/16 06:59 18:59 Intake Total 500 Balance 500 - Medications Medications: Current Medications Acetaminophen (Tylenol 325mg Tab) 650 mg PO Q6 PRN PRN Reason: pain Last Admin: 12/02/16 13:55 Dose: 650 mg Albuterol/Ipratropium (Duoneb 3 Mg/0.5 Mg (3 Ml) Ud) 3 ml INH RQ6 [facility] Last Admin: 12/02/16 09:10 Dose: 3 ml Amlodipine Besylate (Norvasc) 10 mg PO DAILY [facility] Last Admin: 12/02/16 10:59 Dose: 10 mg Aspirin (Aspirin) 325 mg PO DAILY [facility] Last Admin: 12/02/16 10:56 Dose: 325 mg Enoxaparin Sodium (Lovenox) 40 mg SC DAILY [facility] Last Admin: 12/02/16 10:56 Dose: 40 mg Famotidine (Pepcid) 20 mg PO BID [facility] Last Admin: 12/02/16 10:56 Dose: 20 mg Gabapentin (Neurontin) 300 mg PO BID [facility] Last Admin: 12/02/16 10:56 Dose: 300 mg Hydralazine HCl (Apresoline) 50 mg PO QID [facility] Last Admin: 12/02/16 13:50 Dose: 50 mg Losartan Potassium (Cozaar) 100 mg PO DAILY [facility] Last Admin: 12/02/16 10:56 Dose: 100 mg Methylprednisolone (Solu-Medrol) 40 mg IV Q12 [facility] Last Admin: 12/02/16 10:56 Dose: 40 mg Moxifloxacin HCl (Avelox) 400 mg PO DAILY [facility] Last Admin: 12/02/16 10:57 Dose: 400 mg - Labs Labs: 12/02/16 07:16 12/02/16 07:16 - Constitutional Appears: Non-toxic, No Acute Distress - Head Exam Head Exam: NORMAL INSPECTION - Eye Exam Eye Exam: EOMI - ENT Exam ENT Exam: Mucous Membranes Moist - Respiratory Exam Respiratory Exam: Wheezes, NORMAL BREATHING PATTERN. absent: Accessory Muscle Use, Respiratory Distress - Cardiovascular Exam Cardiovascular Exam: REGULAR RHYTHM, +S1, +S2. absent: Gallop, Rubs, Murmur - GI/Abdominal Exam GI & Abdominal Exam: Soft, Normal Bowel Sounds. absent: Tenderness - Extremities Exam Extremities Exam: absent: Pedal Edema - Neurological Exam Neurological Exam: Alert, Awake Additional comments: slurred speech, dyskinetic movements - Psychiatric Exam Psychiatric exam: Normal Affect, Normal Mood - Skin Skin Exam: Normal Color, Warm Assessment and Plan - Assessment and Plan (Free Text) Assessment: Chest Pain ROMIs neg x 3 Likely secondary to cough ASA 81mg PO daily Asthma Duonebs Q6 [facility] Solu-Medrol 40mg IV Q12 Pneumonia CXR 11/30/16 - patchy consolidative markings in both lungs. (please see full report) Chest CT 12/01/16 - heterogeneous appearance of the included inferior thyroid gland. Hazy nodular soft tissue densities within the anterior mediastinum/ prevascular space, possibly residual thymic tissue. Alternatives including tiny lymph nodes considerely less likely but not excluded. Mild linear atelectasis, left lung base. Hyperdense foci at the level of the gallbladder, possibly calculi. Right upper quadrant ultrasound may be considered for further evaluation if indicated. (please see full report) Patient does not have IV access Avelox 400mg PO daily Midline tomorrow Hyperthyroid TSH within normal limits thyroid US shows a midpole complex mixed echogenic solid/cystic 1.8 cm nodule in the right lobe Endocrinology consult - Dr. Villareal - f/u recs Biopsy consult HTN Norvasc 10mg PO daily added Losartan 100mg PO daily (home med) Hydralazine 25mg PO QID added Prophylaxis Pepcid 20mg PO BID Lovenox 40mg SC daily Management per dr. Lacey Corley
[2016-12-03] MEDS: Albuterol-Ipratrop 3 mg / 0.5 (3 ml) UD INH SCH ×4 (01:04→19:17)
[2016-12-03 06:38] LABS: CHLORIDE 104 mmol/L (98-107); POTASSIUM 3.9 mmol/L (3.6-5.2); SODIUM 138 mmol/L (132-148)
[2016-12-03 06:40] LABS: BILIRUBIN,TOTAL 0.6 mg/dL (0.2-1.3); GFR AFRICAN-AMERICAN > 60
[2016-12-03 06:41] LABS: ALB/GLOB RATIO 1.1 (1.0-2.1); ALKALINE PHOSPHATASE 56 U/L (38-126); ALT/SGPT 15 U/L (9-52); AST/SGOT 14 U/L (14-36); BLOOD UREA NITROGEN 19 mg/dL (7-17); CALCIUM 10.7 mg/dl (8.6-10.4); CARBON DIOXIDE 25 mmol/L (22-30); GLUCOSE,RANDOM 117 mg/dL (65-105)
[2016-12-03 06:50] LABS: T4 7.79 ug/dL (5.5-11.0)
[2016-12-03 07:03] LABS: THYROID STIMULATING HORMONE 0.27 mIU/L (0.46-4.68)
[2016-12-03] MEDS: MethylPREDNISolone 40 mg Vial IV SCH ×2 (09:05→21:38)
--- NOTE | 2016-12-03 10:17 | CP.PCM.PN ---
Subjective - Date & Time of Evaluation Date of Evaluation: 12/03/16 Time of Evaluation: 08:20 - Subjective Subjective: clinically same Objective - Vital Signs/Intake and Output Vital Signs (last 24 hours): Temp Pulse Resp BP Pulse Ox 98.4 F 79 20 153/86 H 99 12/03/16 00:00 12/03/16 00:00 12/03/16 00:00 12/03/16 00:00 12/03/16 00:00 Intake and Output: 12/03/16 12/03/16 06:59 18:59 Intake Total 480 240 Balance 480 240 - Medications Medications: Current Medications Acetaminophen (Tylenol 325mg Tab) 650 mg PO Q6 PRN PRN Reason: pain Last Admin: 12/03/16 09:03 Dose: 650 mg Albuterol/Ipratropium (Duoneb 3 Mg/0.5 Mg (3 Ml) Ud) 3 ml INH RQ6 [facility] Last Admin: 12/03/16 07:56 Dose: 3 ml Amlodipine Besylate (Norvasc) 10 mg PO DAILY [facility] Last Admin: 12/03/16 09:03 Dose: 10 mg Aspirin (Aspirin) 325 mg PO DAILY [facility] Last Admin: 12/03/16 09:03 Dose: 325 mg Enoxaparin Sodium (Lovenox) 40 mg SC DAILY [facility] Last Admin: 12/02/16 10:56 Dose: 40 mg Famotidine (Pepcid) 20 mg PO BID [facility] Last Admin: 12/03/16 09:03 Dose: 20 mg Gabapentin (Neurontin) 300 mg PO BID [facility] Last Admin: 12/03/16 09:03 Dose: 300 mg Hydralazine HCl (Apresoline) 50 mg PO QID [facility] Last Admin: 12/03/16 09:03 Dose: 50 mg Losartan Potassium (Cozaar) 100 mg PO DAILY [facility] Last Admin: 12/03/16 09:03 Dose: 100 mg Methylprednisolone (Solu-Medrol) 40 mg IV Q12 [facility] Last Admin: 12/03/16 09:05 Dose: 40 mg Moxifloxacin HCl (Avelox) 400 mg PO DAILY [facility] Last Admin: 12/02/16 10:57 Dose: 400 mg - Labs Labs: 12/03/16 06:13 - Constitutional Appears: Well - Head Exam Head Exam: ATRAUMATIC, NORMAL INSPECTION, NORMOCEPHALIC - Eye Exam Eye Exam: EOMI, Normal appearance, PERRL Pupil Exam: NORMAL ACCOMODATION, PERRL - ENT Exam ENT Exam: Mucous Membranes Moist, Normal Exam - Neck Exam Neck Exam: Full ROM, Normal Inspection. absent: Lymphadenopathy - Respiratory Exam Respiratory Exam: Decreased Breath Sounds - Cardiovascular Exam Cardiovascular Exam: REGULAR RHYTHM, +S1, +S2 - GI/Abdominal Exam GI & Abdominal Exam: Soft, Diminished Bowel Sounds - Rectal Exam Rectal Exam: Deferred
--- NOTE | 2016-12-03 10:36 | CON ---
DATE: 12/02/2016 ROOM: 350. HISTORY OF PRESENT ILLNESS: This is a 46-year-old female with acute exacerbation of COPD and current ly on IV steroid therapy with an incidental finding of a thyroid nodule and is being referred for end ocrine evaluation and management. PAST MEDICAL HISTORY: As mentioned above, history of chronic asthma with underlying COPD and has mul tiple admissions for exacerbations of asthmatic bronchitis, history of coronary artery disease with p revious admissions for congestive heart failure, also history of generalized anxiety and depression a nd psychotropic medications, history of hypertension and dyslipidemia, history of cerebrovascular dis ease with no residual weakness at this time. Also significant history of multiple sclerosis with con comitant Parkinson disease also and is being followed closely by neurology as noted. 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 FAMILY HISTORY: Positive for hypertension and heart disease. SOCIAL HISTORY: The patient has supportive family. Has a previous history of smoking. No other ill icit drug use. REVIEW OF SYSTEMS: As mentioned above, admits to generalized body weakness with easy fatigability an d tiredness and suboptimal energy level with episodic dizziness and lightheadedness, worse on the day of admission. Admits to precordial chest pain with progressive shortness of breath, initially on ex ertion and then at rest with paroxysmal nocturnal dyspnea. Also admits to bronchorrhea with producti ve cough, but denies any pleuritic chest pain. Her oral intake has been variable with nausea, dyspep jaye, and vague upper abdominal pains. No alterations of bowel or urinary patterns. PHYSICAL EXAMINATION: GENERAL: This is an average built female in no apparent distress. VITAL SIGNS: Blood pressure of 150/90, pulse of 70 beats per minute, regular, temperature 98, respir ations 20. Height is 5 feet 7, weight is 165 pounds. HEENT: Head normocephalic. Eyes anicteric with pink conjunctivae. Fundoscopy not possible at this time. Ears, nose and throat otherwise normal. NECK: Supple. Thyroid gland is normal size. No carotid bruits or any cervical adenopathy. CARDIOPULMONARY: Some adynamic precordium. S1, S2 is rapid and regular. LUNGS: Show scattered rhonchi. ABDOMEN: Flat, soft with positive bowel sounds. EXTREMITIES: No peripheral edema. Pulses are +2 bilaterally. LABORATORY DATA: Chemistry showed a BUN of 15, sodium 143, potassium 3.9, chloride 106, CO2 28, gluc ose 65 and creatinine 0.8. Her calcium level is 11.2 and albumin of 4.2. Glucose levels have ranged from 100-137 mg/dL. The thyroid ultrasound showed right lobe measuring 5.3 cm x 2.1 cm and left lob e measuring 3.3 cm x 1.3 cm with bilateral small nodules of mixed echogenicity as noted thereof. Her TSH actually was 1.37. ASSESSMENT: This is a 46-year-old female with acute exacerbation of asthmatic bronchitis, currently on IV steroid therapy and also has an incidental finding of a multinodular goiter confirmed radiologi linda with no overt neck compressive symptoms or obstructive manifestations thereof. She is clinical ly and biochemically euthyroid at this time as noted. PLAN OF MANAGEMENT: There is no indication at this time for any kind of thyroid pharmacotherapy, but we will follow very closely her thyroid studies and do confirmatory thyroid testing tomorrow. We wi ll also send out a thyroglobulin antibody and a thyroid peroxidase antibody, which will confirm and/o r negate the presence of underlying thyroid autoimmunity. There is no indication for any kind of thy roid suppressive therapy at this time and we will observe her clinical and biochemical testing serial ly as noted thereof. There is also no indication for any kind of fine needle aspiration biopsy, as w e are dealing with bilateral nodules in both right and left thyroid lobes with no dominant solid nodu le otherwise. We will also obtain a parathyroid hormone intact level, as she also has concomitant pr imary hyperparathyroidism with hypercalcemia as noted. We will follow and advise accordingly. Edwina Villareal MD cc: [id number] TT: 12/03/2016 10:35:22 Confirmation # [id number] Dictation # [id number]
[2016-12-03] MEDS: Enoxaparin 40 mg Syringe SC SCH (11:18)
[2016-12-03] MEDS: Aluminum Hydroxide/Magnesium Hydroxide Susp (30 mL) PO SCH (17:39)
--- NOTE | 2016-12-03 18:05 | PN ---
DATE: 12/03/2016 ROOM: 350 SUBJECTIVE: This is a 46-year-old female with recent acute exacerbation of asthmatic bronchitis, cur rently on IV steroid therapy and also has a concomitant multinodular goiter noted both clinically and radiologically and is being followed closely for metabolic management. Her latest chemistry showed a BUN of 19, sodium 138, potassium 3.9, chloride 104, CO2 25, glucose 117, and creatinine 0.6. She a lso has underlying known history of hypercalcemia related to hyperparathyroidism and her latest calci um now is 10.7. Her thyroid study showed a T4 of 7.79 with a free T4 of 1.04 and a TSH of 0.27, whic h is expected in the so-called acute sick euthyroid syndrome with transient TSH suppression from the intercurrent IV steroid therapy as given. Her thyroid ultrasound confirmed the presence of a nodular goiter with small bilateral nodules as noted. There is no indication at this time for any kind of t hyroid pharmacotherapy and will obtain serial thyroid studies and serial chemistries and supplement a ccordingly as needed. Edwina Villareal MD cc: [id number] TT: 12/03/2016 18:04:03 Confirmation # [id number] Dictation # [id number]
[2016-12-04] MEDS: Aluminum Hydroxide/Magnesium Hydroxide Susp (30 mL) PO SCH ×5 (00:05→23:52)
[2016-12-04] MEDS: Albuterol-Ipratrop 3 mg / 0.5 (3 ml) UD INH SCH ×4 (00:59→19:49)
[2016-12-04] MEDS: Enoxaparin 40 mg Syringe SC SCH (09:10)
[2016-12-04] MEDS: MethylPREDNISolone 40 mg Vial IV SCH ×2 (09:10→22:41)
--- NOTE | 2016-12-04 14:55 | PN ---
DATE: 12/04/2016 This is a 46-year-old female with recent acute exacerbation of asthmatic bronchitis, currently on IV steroid therapy and was also found to have an incidental finding of a multinodular goiter and is bein g followed closely for metabolic management. She has no overt compressive neck symptoms or any signs of any obstructive manifestations thereof. She remains clinically and biochemically euthyroid at th is time. Her latest chemistries showed a BUN of 19, sodium 138, potassium 3.9, chloride 104, CO2 25, glucose 117, and creatinine 0.6. Her glucose levels are slightly fluctuating, ranging from 107 to 1 29 and 138 mg/dL. Her latest thyroid study showed a T4 of 7.79 mcg/dL with a free T4 of 1.04 and a T SH of 0.27. The transient TSH suppression is related to the intercurrent IV steroid therapy as given and should improve accordingly as her clinical status improves. There is no indication at this time for any kind of thyroid pharmacotherapy. We will obtain serial chemistries and serial thyroid levels accordingly. Edwina Villareal MD cc: [id number] TT: 12/04/2016 14:54:40 Confirmation # [id number] Dictation # [id number]
[2016-12-04 22:05] LABS: BASO % 0.1 % (0.0-2.0); HEMATOCRIT 29.7 % (34.0-47.0); LYMPH # 1.3 K/uL (1.0-4.3); MEAN CELL VOLUME 78.7 fL (81.0-99.0); MEAN CORPUSCULAR HEMOGLOBIN 23.7 pg (27.0-31.0); MEAN CORPUSCULAR HGB CONC 30.1 g/dL (33.0-37.0); MEAN PLATELET VOLUME 8.7 fL (7.2-11.7); MONO # 1.4 K/uL (0.0-0.8); MONO % 8.7 % (0.0-10.0); PLATELET COUNT 268 K/uL (130-400); RED CELL DISTRIBUTION WIDTH 17.5 % (11.5-14.5)
[2016-12-04 22:11] LABS: CHLORIDE 104 mmol/L (98-107); SODIUM 138 mmol/L (132-148)
[2016-12-04 22:12] LABS: POTASSIUM 3.9 mmol/L (3.6-5.2)
[2016-12-04 22:13] LABS: GFR AFRICAN-AMERICAN > 60
[2016-12-04 22:14] LABS: ALB/GLOB RATIO 1.2 (1.0-2.1); ALKALINE PHOSPHATASE 57 U/L (38-126); ALT/SGPT 19 U/L (9-52); AST/SGOT 15 U/L (14-36); BILIRUBIN,TOTAL 0.3 mg/dL (0.2-1.3); BLOOD UREA NITROGEN 21 mg/dL (7-17); CARBON DIOXIDE 26 mmol/L (22-30); GLUCOSE,RANDOM 115 mg/dL (65-105); PHOSPHOROUS 2.1 mg/dL (2.5-4.5); TOTAL PROTEIN 7.4 g/dL (6.3-8.3)
[2016-12-04 22:15] LABS: CALCIUM 10.9 mg/dl (8.6-10.4); MAGNESIUM 2.1 mg/dL (1.6-2.3)
--- NOTE | 2016-12-04 22:22 | PCM.RRTMUL ---
<Lakeshia Villalpando - Last Filed: 12/04/16 22:19> BURNING SUPERVISOR Nurses Assessment - Situation BURNING SUPERVISOR Responder Arrival Time:: 21:00 Room Number:: 350 B BURNING SUPERVISOR Reason for Call: Chest Pain BURNING SUPERVISOR Called By: RN - IV IV Inserted during BURNING SUPERVISOR?: No - Respiratory Oxygen Delivery Method:: Nasal Cannula - Medication Medications Administered During BURNING SUPERVISOR :: Sub lingual Nitro x 1 dose. Dilaudid 0.23 mg IV x 1 dose - Diagnostic Test Ordered EKG:: Yes - Stat Labs Ordered BURNING SUPERVISOR Stat Labs Ordered:: CBC, TROPONIN BURNING SUPERVISOR Other Labs Ordered:: CMP, Mg, Phos CPR started during BURNING SUPERVISOR?: No - Vital Signs Blood Pressure:: 161/98 (Repeat 113/65) Pulse Rate:: 112 Respiratory Rate:: 20 Oxygen Saturation:: 96 - B) Neurological Status (Select all that apply): Alert, Responsive, Oriented, Verbal, Follows Commands - C) Respiratory Oxygen Delivery Method: Nasal Cannula @L/min - Constitutional Appears: Non-toxic, No Acute Distress - Head Head Exam: ATRAUMATIC, NORMAL INSPECTION - Eyes Eye Exam: EOMI, Normal appearance - Respiratory Exam Respiratory Exam: Clear to Ausculation Bilateral, NORMAL BREATHING PATTERN. absent: Rales, Rhonchi, Wheezes - Cardiovascular Exam Cardiovascular Exam: Tachycardia, REGULAR RHYTHM, +S1, +S2 - GI/Abdominal Exam GI & Abdominal Exam: Soft, Normal Bowel Sounds. absent: Distended, Firm, Guarding, Tenderness - Neurological Exam Neurological Exam: Alert, Awake, Oriented x3 Plan - B. Assessment of Findings&Treatment Plan EKG no acute changes, will monitor and follow up labs <Randall Kolb - Last Filed: 12/07/16 14:37> Attending/Attestation - Attestation I have personally seen and examined this patient.: Yes I have fully participated in the care of the patient.: Yes I have reviewed all pertinent clinical information, including history, physical exam and plan: Yes
[2016-12-04] MEDS ORDERED: HYDROmorphone 1 mg/ml ISec IVP ONE (22:30)
[2016-12-05 00:04] LABS: NEUTROPHIL 86 % (50-75); NUCLEATED RED BLOOD CELL 0 % (0-0); TOTAL CELLS COUNTED 100
[2016-12-05] MEDS: Albuterol-Ipratrop 3 mg / 0.5 (3 ml) UD INH SCH ×4 (01:03→18:52)
[2016-12-05] MEDS: Aluminum Hydroxide/Magnesium Hydroxide Susp (30 mL) PO SCH ×3 (06:24→17:53)
--- NOTE | 2016-12-05 07:15 | CP.PCM.PN ---
Subjective - Date & Time of Evaluation Date of Evaluation: 12/05/16 Time of Evaluation: 07:30 - Subjective Subjective: Medicine Note- Dr. Corley's service Patient was seen and examined at bedside. Patient reports that she is doing okay today. She said she had chest pain previously during the night. Communication is limited due to patient's inability to express herself well. She says she wants to go to rehab. Objective - Vital Signs/Intake and Output Vital Signs (last 24 hours): Temp Pulse Resp BP Pulse Ox 98.3 F 95 H 20 155/65 H 100 12/05/16 00:00 12/05/16 00:00 12/05/16 00:00 12/05/16 00:00 12/05/16 00:00 Intake and Output: 12/05/16 12/05/16 06:59 18:59 Intake Total 650 Balance 650 - Medications Medications: Current Medications Acetaminophen (Tylenol 325mg Tab) 650 mg PO Q6 PRN PRN Reason: pain Last Admin: 12/05/16 06:24 Dose: 650 mg Al Hydrox/Mg Hydrox/Simethicone (Maalox 30 Ml) 30 ml PO Q6 [facility] Last Admin: 12/05/16 06:24 Dose: 30 ml Albuterol/Ipratropium (Duoneb 3 Mg/0.5 Mg (3 Ml) Ud) 3 ml INH RQ6 [facility] Last Admin: 12/05/16 01:03 Dose: 3 ml Amlodipine Besylate (Norvasc) 10 mg PO DAILY [facility] Last Admin: 12/04/16 09:09 Dose: 10 mg Aspirin (Aspirin) 325 mg PO DAILY [facility] Last Admin: 12/04/16 09:08 Dose: 325 mg Docusate Sodium (Colace) 100 mg PO DAILY [facility] Last Admin: 12/04/16 09:09 Dose: 100 mg Enoxaparin Sodium (Lovenox) 40 mg SC DAILY [facility] Last Admin: 12/04/16 09:10 Dose: 40 mg Famotidine (Pepcid) 20 mg PO BID [facility] Last Admin: 12/04/16 17:18 Dose: 20 mg Gabapentin (Neurontin) 300 mg PO BID [facility] Last Admin: 12/04/16 17:12 Dose: 300 mg Hydralazine HCl (Apresoline) 50 mg PO QID [facility] Last Admin: 12/04/16 22:40 Dose: 50 mg Losartan Potassium (Cozaar) 100 mg PO DAILY [facility] Last Admin: 12/04/16 09:09 Dose: 100 mg Methylprednisolone (Solu-Medrol) 40 mg IV Q12 [facility] Last Admin: 12/04/16 22:41 Dose: 40 mg Moxifloxacin HCl (Avelox) 400 mg PO DAILY [facility] Last Admin: 12/04/16 09:09 Dose: 400 mg - Labs Labs: 12/04/16 21:57 12/04/16 21:57 - Constitutional Appears: Non-toxic, No Acute Distress - Head Exam Head Exam: ATRAUMATIC, NORMAL INSPECTION, NORMOCEPHALIC - Eye Exam Pupil Exam: NORMAL ACCOMODATION, PERRL - ENT Exam ENT Exam: Mucous Membranes Moist, Normal Exam - Respiratory Exam Respiratory Exam: Rales, NORMAL BREATHING PATTERN - Cardiovascular Exam Cardiovascular Exam: REGULAR RHYTHM, +S1, +S2 - GI/Abdominal Exam GI & Abdominal Exam: Soft, Normal Bowel Sounds. absent: Tenderness, Diminished Bowel Sounds, Hypoactive Bowel Sounds, Pulsatile Mass - Extremities Exam Extremities Exam: Normal Capillary Refill, Normal Inspection - Neurological Exam Neurological Exam: Alert, Awake, Oriented x3 - Psychiatric Exam Psychiatric exam: Normal Affect, Normal Mood - Skin Skin Exam: Dry, Intact, Warm Assessment and Plan - Assessment and Plan (Free Text) Assessment: Chest Pain ROMIs neg x 3 Likely secondary to cough ASA 81mg PO daily Asthma Duonebs Q6 [facility] Solu-Medrol 40mg IV Q12 Pneumonia CXR 11/30/16 - patchy consolidative markings in both lungs. (please see full report) Chest CT 12/01/16 - heterogeneous appearance of the included inferior thyroid gland. Hazy nodular soft tissue densities within the anterior mediastinum/ prevascular space, possibly residual thymic tissue. Alternatives including tiny lymph nodes considerely less likely but not excluded. Mild linear atelectasis, left lung base. Hyperdense foci at the level of the gallbladder, possibly calculi. Right upper quadrant ultrasound may be considered for further evaluation if indicated. (please see full report) Patient does not have IV access Avelox 400mg PO daily Midline tomorrow Hyperthyroid TSH within normal limits thyroid US shows a midpole complex mixed echogenic solid/cystic 1.8 cm nodule in the right lobe Endocrinology consult - Dr. Villareal - f/u recs Biopsy consult HTN Norvasc 10mg PO daily added Losartan 100mg PO daily (home med) Hydralazine 25mg PO QID added Prophylaxis Pepcid 20mg PO BID Lovenox 40mg SC daily Management per dr. Lacey Corley
[2016-12-05 07:42] LABS: BASO % 0.1 % (0.0-2.0); HEMATOCRIT 28.7 % (34.0-47.0); LYMPH # 0.6 K/uL (1.0-4.3); MEAN CORPUSCULAR HEMOGLOBIN 23.9 pg (27.0-31.0); MEAN CORPUSCULAR HGB CONC 30.3 g/dL (33.0-37.0); MEAN PLATELET VOLUME 8.9 fL (7.2-11.7); MONO # 0.5 K/uL (0.0-0.8); MONO % 4.6 % (0.0-10.0); PLATELET COUNT 221 K/uL (130-400); RED CELL DISTRIBUTION WIDTH 17.3 % (11.5-14.5); WHITE BLOOD COUNT 10.3 K/uL (4.8-10.8)
[2016-12-05 08:39] LABS: T4 6.87 ug/dL (5.5-11.0)
[2016-12-05 08:41] LABS: CHLORIDE 102 mmol/L (98-107)
[2016-12-05 08:42] LABS: POTASSIUM 3.9 mmol/L (3.6-5.2); SODIUM 136 mmol/L (132-148)
[2016-12-05 08:44] LABS: ALB/GLOB RATIO 1.2 (1.0-2.1); BILIRUBIN,TOTAL 0.5 mg/dL (0.2-1.3); CARBON DIOXIDE 27 mmol/L (22-30); GFR AFRICAN-AMERICAN > 60; TOTAL PROTEIN 6.5 g/dL (6.3-8.3)
[2016-12-05 08:45] LABS: ALKALINE PHOSPHATASE 51 U/L (38-126); ALT/SGPT 15 U/L (9-52); AST/SGOT 11 U/L (14-36); BLOOD UREA NITROGEN 18 mg/dL (7-17); CALCIUM 10.5 mg/dl (8.6-10.4); GLUCOSE,RANDOM 111 mg/dL (65-105)
[2016-12-05] MEDS ORDERED: Potassium & Sodium Phosphate PO ONE (08:51)
[2016-12-05 08:52] LABS: THYROID STIMULATING HORMONE 0.33 mIU/L (0.46-4.68)
[2016-12-05 09:30] LABS: NEUTROPHIL 92 % (50-75); TOTAL CELLS COUNTED 100
[2016-12-05] MEDS: Enoxaparin 40 mg Syringe SC SCH (11:09)
[2016-12-05] MEDS: MethylPREDNISolone 40 mg Vial IV SCH ×2 (11:10→22:10)
--- NOTE | 2016-12-05 16:00 | CP.PCM.PN ---
Subjective - Date & Time of Evaluation Date of Evaluation: 12/05/16 Time of Evaluation: 08:20 - Subjective Subjective: clinically same Objective - Vital Signs/Intake and Output Vital Signs (last 24 hours): Temp Pulse Resp BP Pulse Ox 97.9 F 72 20 135/81 97 12/05/16 08:05 12/05/16 14:33 12/05/16 08:05 12/05/16 14:33 12/05/16 14:33 Intake and Output: 12/05/16 12/05/16 06:59 18:59 Intake Total 650 300 Balance 650 300 - Medications Medications: Current Medications Acetaminophen (Tylenol 325mg Tab) 650 mg PO Q6 PRN PRN Reason: pain Last Admin: 12/05/16 12:27 Dose: 650 mg Al Hydrox/Mg Hydrox/Simethicone (Maalox 30 Ml) 30 ml PO Q6 [facility] Last Admin: 12/05/16 11:34 Dose: 30 ml Albuterol/Ipratropium (Duoneb 3 Mg/0.5 Mg (3 Ml) Ud) 3 ml INH RQ6 [facility] Last Admin: 12/05/16 15:15 Dose: Not Given Amlodipine Besylate (Norvasc) 10 mg PO DAILY [facility] Last Admin: 12/05/16 11:10 Dose: 10 mg Aspirin (Aspirin) 325 mg PO DAILY [facility] Last Admin: 12/05/16 11:09 Dose: 325 mg Docusate Sodium (Colace) 100 mg PO DAILY [facility] Last Admin: 12/05/16 11:09 Dose: 100 mg Enoxaparin Sodium (Lovenox) 40 mg SC DAILY [facility] Last Admin: 12/05/16 11:09 Dose: 40 mg Famotidine (Pepcid) 20 mg PO BID [facility] Last Admin: 12/05/16 11:09 Dose: 20 mg Gabapentin (Neurontin) 300 mg PO BID [facility] Last Admin: 12/05/16 11:09 Dose: 300 mg Hydralazine HCl (Apresoline) 50 mg PO QID [facility] Last Admin: 12/05/16 14:36 Dose: 50 mg Losartan Potassium (Cozaar) 100 mg PO DAILY [facility] Last Admin: 12/05/16 11:08 Dose: 100 mg Methylprednisolone (Solu-Medrol) 40 mg IV Q12 [facility] Last Admin: 12/05/16 11:10 Dose: 40 mg Moxifloxacin HCl (Avelox) 400 mg PO DAILY [facility] Last Admin: 12/05/16 11:09 Dose: 400 mg - Labs Labs: 12/05/16 07:24 12/05/16 07:24 - Constitutional Appears: Well - Head Exam Head Exam: ATRAUMATIC, NORMAL INSPECTION, NORMOCEPHALIC - Eye Exam Eye Exam: EOMI, Normal appearance, PERRL Pupil Exam: NORMAL ACCOMODATION, PERRL - ENT Exam ENT Exam: Mucous Membranes Moist, Normal Exam - Neck Exam Neck Exam: Full ROM, Normal Inspection. absent: Lymphadenopathy - Respiratory Exam Respiratory Exam: Decreased Breath Sounds - Cardiovascular Exam Cardiovascular Exam: REGULAR RHYTHM, +S1, +S2 - GI/Abdominal Exam GI & Abdominal Exam: Soft, Diminished Bowel Sounds - Rectal Exam Rectal Exam: Deferred
--- NOTE | 2016-12-05 16:28 | PN ---
DATE: 12/05/2016 ROOM: 350 This is a 46-year-old female with recent uncontrolled type 2 insulin-requiring diabetes, now being fo llowed closely for metabolic management. Her glycemic levels are fluctuating, but much improved at t his time and the latest glucose levels have ranged from 102-126 mg/dL. Her latest chemistry showed a BUN of 18, sodium 136, potassium 3.9, chloride 102, CO2 of 27, glucose 111 and creatinine 0.6. Her calcium is 10.5 with albumin of 3.0 and a corrected calcium of 11.5. She is still on the IV Solu-Med rol given at 40 mg IV q. 12 hours as tapered down. She remains clinically and biochemically euthyroi d at this time. She has an underlying multinodular goiter with no overt neck compressive symptoms as noted. Her latest thyroid study showed a T4 of 6.87 with a TSH of 0.33. This is indicative of the so-called acute sick euthyroid syndrome with superimposed TSH suppression from the intercurrent IV st eroid therapy as given. There is no indication at this time for any kind of fine needle aspiration b iopsy of the small thyroid nodules nor any need for initiation of thyroid pharmacotherapy. We will o btain serial chemistries and serial thyroid studies accordingly. Edwina Villareal MD cc: [id number] TT: 12/05/2016 16:27:32 Confirmation # [id number] Dictation # [id number]
--- NOTE | 2016-12-05 20:53 | CARD ---
APPROVED REPORT EKG Measurement Heart [id number] <Conclusion> Normal sinus rhythm Moderate voltage criteria for LVH, may be normal variant Cannot rule out Anterior infarct, age undetermined Abnormal ECG
[2016-12-06] MEDS: Aluminum Hydroxide/Magnesium Hydroxide Susp (30 mL) PO SCH ×4 (00:30→17:22)
[2016-12-06] MEDS: Albuterol-Ipratrop 3 mg / 0.5 (3 ml) UD INH SCH ×4 (01:59→19:55)
[2016-12-06 06:36] LABS: BASO % 0.2 % (0.0-2.0); HEMATOCRIT 31.6 % (34.0-47.0); LYMPH # 0.6 K/uL (1.0-4.3); LYMPH % 5.7 % (20.0-40.0); MEAN CELL VOLUME 79.7 fL (81.0-99.0); MEAN CORPUSCULAR HEMOGLOBIN 23.8 pg (27.0-31.0); MEAN CORPUSCULAR HGB CONC 29.9 g/dL (33.0-37.0); MEAN PLATELET VOLUME 8.9 fL (7.2-11.7); MONO # 0.3 K/uL (0.0-0.8); MONO % 2.4 % (0.0-10.0); PLATELET COUNT 241 K/uL (130-400); RED CELL DISTRIBUTION WIDTH 17.7 % (11.5-14.5); WHITE BLOOD COUNT 11.4 K/uL (4.8-10.8)
[2016-12-06 06:45] LABS: CHLORIDE 103 mmol/L (98-107); SODIUM 140 mmol/L (132-148)
[2016-12-06 06:46] LABS: POTASSIUM 4.3 mmol/L (3.6-5.2)
[2016-12-06 06:47] LABS: GFR AFRICAN-AMERICAN > 60
[2016-12-06 06:48] LABS: ALB/GLOB RATIO 1.2 (1.0-2.1); ALKALINE PHOSPHATASE 56 U/L (38-126); ALT/SGPT 15 U/L (9-52); AST/SGOT 12 U/L (14-36); BILIRUBIN,TOTAL 0.5 mg/dL (0.2-1.3); BLOOD UREA NITROGEN 19 mg/dL (7-17); CARBON DIOXIDE 30 mmol/L (22-30); GLUCOSE,RANDOM 113 mg/dL (65-105); PHOSPHOROUS 2.6 mg/dL (2.5-4.5); TOTAL PROTEIN 7.2 g/dL (6.3-8.3)
[2016-12-06 06:49] LABS: CALCIUM 10.9 mg/dl (8.6-10.4); MAGNESIUM 2.4 mg/dL (1.6-2.3)
[2016-12-06 08:34] LABS: NEUTROPHIL 89 % (50-75); TOTAL CELLS COUNTED 100
--- NOTE | 2016-12-06 09:38 | CP.PCM.PN ---
Subjective - Date & Time of Evaluation Date of Evaluation: 12/06/16 Time of Evaluation: 07:40 - Subjective Subjective: Medicine Note- Dr. Corley's service Patient was seen and examined at bedside. Patient reports that she feels like she was wheezing and that she had diarrhea last night. No additional acute complaints. No events overnight. Objective - Vital Signs/Intake and Output Vital Signs (last 24 hours): Temp Pulse Resp BP Pulse Ox 97.5 F L 70 20 165/83 H 96 12/06/16 07:00 12/06/16 07:00 12/06/16 07:00 12/06/16 07:00 12/06/16 07:00 Intake and Output: 12/06/16 12/06/16 06:59 18:59 Intake Total 700 Balance 700 - Medications Medications: Current Medications Acetaminophen (Tylenol 325mg Tab) 650 mg PO Q6 PRN PRN Reason: pain Last Admin: 12/06/16 01:05 Dose: 650 mg Al Hydrox/Mg Hydrox/Simethicone (Maalox 30 Ml) 30 ml PO Q6 [facility] Last Admin: 12/06/16 06:39 Dose: 30 ml Albuterol/Ipratropium (Duoneb 3 Mg/0.5 Mg (3 Ml) Ud) 3 ml INH RQ6 [facility] Last Admin: 12/06/16 08:26 Dose: 3 ml Amlodipine Besylate (Norvasc) 10 mg PO DAILY [facility] Last Admin: 12/05/16 11:10 Dose: 10 mg Aspirin (Aspirin) 325 mg PO DAILY [facility] Last Admin: 12/05/16 11:09 Dose: 325 mg Docusate Sodium (Colace) 100 mg PO DAILY [facility] Last Admin: 12/05/16 11:09 Dose: 100 mg Enoxaparin Sodium (Lovenox) 40 mg SC DAILY [facility] Last Admin: 12/05/16 11:09 Dose: 40 mg Famotidine (Pepcid) 20 mg PO BID [facility] Last Admin: 12/05/16 17:53 Dose: 20 mg Gabapentin (Neurontin) 300 mg PO BID [facility] Last Admin: 12/05/16 17:53 Dose: 300 mg Hydralazine HCl (Apresoline) 50 mg PO QID [facility] Last Admin: 12/05/16 22:17 Dose: 50 mg Losartan Potassium (Cozaar) 100 mg PO DAILY [facility] Last Admin: 12/05/16 11:08 Dose: 100 mg Methylprednisolone (Solu-Medrol) 40 mg IV Q12 [facility] Last Admin: 12/05/16 22:10 Dose: 40 mg Moxifloxacin HCl (Avelox) 400 mg PO DAILY [facility] Last Admin: 12/05/16 11:09 Dose: 400 mg - Labs Labs: 12/06/16 06:21 12/06/16 06:21 - Constitutional Appears: Non-toxic, No Acute Distress - Head Exam Head Exam: ATRAUMATIC, NORMAL INSPECTION, NORMOCEPHALIC - Eye Exam Eye Exam: EOMI Pupil Exam: NORMAL ACCOMODATION, PERRL - ENT Exam ENT Exam: Mucous Membranes Moist - Respiratory Exam Respiratory Exam: Clear to Ausculation Bilateral, NORMAL BREATHING PATTERN. absent: Prolonged Expiratory Phase, Rales, Rhonchi, Wheezes - Cardiovascular Exam Cardiovascular Exam: REGULAR RHYTHM, +S1, +S2 - Extremities Exam Extremities Exam: Normal Capillary Refill, Normal Inspection - Neurological Exam Neurological Exam: Alert, Awake, Oriented x3 Additional comments: motor tics present - Psychiatric Exam Psychiatric exam: Normal Affect, Normal Mood - Skin Skin Exam: Dry, Intact, Normal Color, Warm Assessment and Plan - Assessment and Plan (Free Text) Assessment: Chest Pain ROMIs neg x 3 Likely secondary to cough ASA 81mg PO daily Asthma Duonebs Q6 [facility] Solu-Medrol 40mg IV Q12 Pneumonia CXR 11/30/16 - patchy consolidative markings in both lungs. (please see full report) Chest CT 12/01/16 - heterogeneous appearance of the included inferior thyroid gland. Hazy nodular soft tissue densities within the anterior mediastinum/ prevascular space, possibly residual thymic tissue. Alternatives including tiny lymph nodes considerely less likely but not excluded. Mild linear atelectasis, left lung base. Hyperdense foci at the level of the gallbladder, possibly calculi. Right upper quadrant ultrasound may be considered for further evaluation if indicated. (please see full report) Patient does not have IV access Avelox 400mg PO daily Midline tomorrow Hyperthyroid TSH within normal limits thyroid US shows a midpole complex mixed echogenic solid/cystic 1.8 cm nodule in the right lobe Endocrinology consult - Dr. Villareal Biopsy consult HTN Norvasc 10mg PO daily added Losartan 100mg PO daily (home med) Hydralazine 25mg PO QID added Prophylaxis Pepcid 20mg PO BID Lovenox 40mg SC daily Management per dr. Lacey Corley DC Planning
[2016-12-06] MEDS: Enoxaparin 40 mg Syringe SC SCH (09:46)
[2016-12-06] MEDS: MethylPREDNISolone 40 mg Vial IV SCH (09:51)
--- NOTE | 2016-12-06 15:24 | PN ---
DATE: 12/06/2016 ENDO FOLLOWUP NOTE LOCATION: Room 350. This is a 46-year-old female with uncontrolled type 2 insulin-requiring diabetes, also precipitated w ith the intercurrent IV steroid therapy for acute exacerbation of COPD and is now being followed clos adam for metabolic management. Her glycemic levels are fluctuating, but much improved at this time an d are ranging from 88-111 and 152 mg/dL. LABORATORY DATA: Her latest chemistries showed a BUN of 19, sodium 140, potassium 4.3, chloride 103, CO2 of 30, glucose 113, and creatinine 0.6. She remains clinically and biochemically euthyroid with transient TSH suppression from the intercurre nt IV steroid therapy as given. Her thyroid ultrasound confirmed the presence of a small nodular goi ter with bilateral nodules as noted thereof. No overt compressive or obstructive symptoms are presen t, and we will hold off on fine-needle aspiration biopsy and also hold off levothyroxine suppressive therapy. We will continue serial chemistries and supplement accordingly as needed. We will follow u p. Edwina Villareal MD cc: [id number] TT: 12/06/2016 15:24:19 Confirmation # [id number] Dictation # [id number]
--- NOTE | 2016-12-06 15:24 | CP.PCM.PN ---
Subjective - Date & Time of Evaluation Date of Evaluation: 12/06/16 Time of Evaluation: 08:20 - Subjective Subjective: clinically same Objective - Vital Signs/Intake and Output Vital Signs (last 24 hours): Temp Pulse Resp BP Pulse Ox 97.5 F L 70 20 138/78 96 12/06/16 07:00 12/06/16 07:00 12/06/16 07:00 12/06/16 14:26 12/06/16 07:00 Intake and Output: 12/06/16 12/06/16 06:59 18:59 Intake Total 700 800 Balance 700 800 - Medications Medications: Current Medications Acetaminophen (Tylenol 325mg Tab) 650 mg PO Q6 PRN PRN Reason: pain Last Admin: 12/06/16 01:05 Dose: 650 mg Al Hydrox/Mg Hydrox/Simethicone (Maalox 30 Ml) 30 ml PO Q6 [facility] Last Admin: 12/06/16 12:44 Dose: 30 ml Albuterol/Ipratropium (Duoneb 3 Mg/0.5 Mg (3 Ml) Ud) 3 ml INH RQ6 [facility] Last Admin: 12/06/16 14:19 Dose: 3 ml Amlodipine Besylate (Norvasc) 10 mg PO DAILY [facility] Last Admin: 12/06/16 09:45 Dose: 10 mg Aspirin (Aspirin) 325 mg PO DAILY [facility] Last Admin: 12/06/16 09:43 Dose: 325 mg Docusate Sodium (Colace) 100 mg PO DAILY [facility] Last Admin: 12/06/16 09:44 Dose: 100 mg Enoxaparin Sodium (Lovenox) 40 mg SC DAILY [facility] Last Admin: 12/06/16 09:46 Dose: 40 mg Famotidine (Pepcid) 20 mg PO BID [facility] Last Admin: 12/06/16 09:43 Dose: 20 mg Gabapentin (Neurontin) 300 mg PO BID [facility] Last Admin: 12/06/16 09:44 Dose: 300 mg Hydralazine HCl (Apresoline) 50 mg PO QID [facility] Last Admin: 12/06/16 13:06 Dose: 50 mg Losartan Potassium (Cozaar) 100 mg PO DAILY [facility] Last Admin: 12/06/16 10:30 Dose: 100 mg Methylprednisolone (Solu-Medrol) 40 mg IV Q12 [facility] Last Admin: 12/06/16 09:51 Dose: 40 mg Moxifloxacin HCl (Avelox) 400 mg PO DAILY [facility] Last Admin: 12/06/16 10:30 Dose: 400 mg - Labs Labs: 12/06/16 06:21 12/06/16 06:21 - Constitutional Appears: Well - Head Exam Head Exam: ATRAUMATIC, NORMAL INSPECTION, NORMOCEPHALIC - Eye Exam Eye Exam: EOMI, Normal appearance, PERRL Pupil Exam: NORMAL ACCOMODATION, PERRL - ENT Exam ENT Exam: Mucous Membranes Moist, Normal Exam - Neck Exam Neck Exam: Full ROM, Normal Inspection. absent: Lymphadenopathy - Respiratory Exam Respiratory Exam: Decreased Breath Sounds - Cardiovascular Exam Cardiovascular Exam: REGULAR RHYTHM, +S1, +S2 - GI/Abdominal Exam GI & Abdominal Exam: Soft, Diminished Bowel Sounds - Rectal Exam Rectal Exam: Deferred
[2016-12-06 17:49] VITALS: BP 131/66; PULSE 81; TEMP 98.8; O2SAT 95
--- NOTE | 2016-12-06 18:41 | CP.PCM.PN ---
Subjective - Date & Time of Evaluation Date of Evaluation: 12/06/16 Time of Evaluation: 06:20 - Subjective Subjective: House Doctor Note: Dr. Orlando (PGY-1) I was called for removal of PICC line in patient's right forearm in order for patient to be discharged. Patient's PICC line was removed with PICC line tip fully intact. Pressure was applied with 4x4 gauze, which was then secured with tegaderm on patient's right forearm. Patient tolerated removal of the PICC line very well. Objective - Vital Signs/Intake and Output Vital Signs (last 24 hours): Temp Pulse Resp BP Pulse Ox 98.8 F 81 20 131/66 95 12/06/16 15:00 12/06/16 15:00 12/06/16 15:00 12/06/16 15:00 12/06/16 15:00 Intake and Output: 12/06/16 12/06/16 06:59 18:59 Intake Total 700 800 Balance 700 800 - Medications Medications: Current Medications Acetaminophen (Tylenol 325mg Tab) 650 mg PO Q6 PRN PRN Reason: pain Last Admin: 12/06/16 01:05 Dose: 650 mg Al Hydrox/Mg Hydrox/Simethicone (Maalox 30 Ml) 30 ml PO Q6 [facility] Last Admin: 12/06/16 17:22 Dose: 30 ml Albuterol/Ipratropium (Duoneb 3 Mg/0.5 Mg (3 Ml) Ud) 3 ml INH RQ6 [facility] Last Admin: 12/06/16 14:19 Dose: 3 ml Amlodipine Besylate (Norvasc) 10 mg PO DAILY [facility] Last Admin: 12/06/16 09:45 Dose: 10 mg Aspirin (Aspirin) 325 mg PO DAILY [facility] Last Admin: 12/06/16 09:43 Dose: 325 mg Docusate Sodium (Colace) 100 mg PO DAILY [facility] Last Admin: 12/06/16 09:44 Dose: 100 mg Enoxaparin Sodium (Lovenox) 40 mg SC DAILY [facility] Last Admin: 12/06/16 09:46 Dose: 40 mg Famotidine (Pepcid) 20 mg PO BID [facility] Last Admin: 12/06/16 17:22 Dose: 20 mg Gabapentin (Neurontin) 300 mg PO BID [facility] Last Admin: 12/06/16 17:22 Dose: 300 mg Hydralazine HCl (Apresoline) 50 mg PO QID [facility] Last Admin: 12/06/16 17:22 Dose: 50 mg Losartan Potassium (Cozaar) 100 mg PO DAILY [facility] Last Admin: 12/06/16 10:30 Dose: 100 mg Methylprednisolone (Solu-Medrol) 40 mg IV Q12 [facility] Last Admin: 12/06/16 09:51 Dose: 40 mg Moxifloxacin HCl (Avelox) 400 mg PO DAILY [facility] Last Admin: 12/06/16 10:30 Dose: 400 mg - Labs Labs: 12/06/16 06:21 12/06/16 06:21
== END 2016-12-06 20:44 | DRG 541 ==
LOC: C.ER 17:43 → C.9E 22:00 → C.3T 22:31 → OBSVTOIN 12-02 11:30
PROVIDERS: ADMIT Internal Medicine Nephrology; ATTEND Internal Medicine Nephrology
PROC: 02PYX3Z Removal of Infusion Device from Great Vessel, External Approach (ICD-10-PCS; principal; 2016-12-06)
DX: J44.0 Chronic obstructive pulmonary disease with (acute) lower respiratory infection (principal); J18.9 Pneumonia, unspecified organism; E11.22 Type 2 diabetes mellitus with diabetic chronic kidney disease; I13.0 Hypertensive heart and chronic kidney disease with heart failure and stage 1 through stage 4 chronic kidney disease, or unspecified chronic kidney disease; G20 Parkinson's disease; I50.9 Heart failure, unspecified; J45.901 Unspecified asthma with (acute) exacerbation; G35 Multiple sclerosis; N18.9 Chronic kidney disease, unspecified; D50.0 Iron deficiency anemia secondary to blood loss (chronic); E05.90 Thyrotoxicosis, unspecified without thyrotoxic crisis or storm; E11.65 Type 2 diabetes mellitus with hyperglycemia; I25.10 Atherosclerotic heart disease of native coronary artery without angina pectoris; J44.1 Chronic obstructive pulmonary disease with (acute) exacerbation; Z86.73 Personal history of transient ischemic attack (TIA), and cerebral infarction without residual deficits; F32.9 Major depressive disorder, single episode, unspecified; E78.00 Pure hypercholesterolemia, unspecified; E78.5 Hyperlipidemia, unspecified; G80.9 Cerebral palsy, unspecified; N92.0 Excessive and frequent menstruation with regular cycle; F41.9 Anxiety disorder, unspecified; K21.9 Gastro-esophageal reflux disease without esophagitis; Z87.891 Personal history of nicotine dependence; E83.52 Hypercalcemia; E07.81 Sick-euthyroid syndrome; Z79.4 Long term (current) use of insulin

== ENCOUNTER 2016-12-14 17:25 | Emergency (ER) | payer MEDICAID ==
[2016-12-14 17:25] VITALS: BMI 22.7
[2016-12-14] MEDS ORDERED: Sodium Chloride 0.9% 1,000 ML IV ONE (18:10)
--- NOTE | 2016-12-14 18:17 | C.PDOC ---
History Of Present Illness 46 y/o female presents to the ED with complaints of chest pain. Pt was admitted last week for chest pain, after 3 days discharged to [facility]. Pt states was well today until chest pain onset radiating to left arm with associated vomiting and diarrhea. prison sent patient to ED for further evaluation. Pt with multiple visits and admissions from ED for same symptoms. Denies fever, chills, SOB or any other complaints. Time Seen by Provider: 12/14/16 17:55 Chief Complaint (Nursing): Chest Pain History Per: Patient History/Exam Limitations: no limitations Onset/Duration Of Symptoms: Hrs Current Symptoms Are (Timing): Still Present Severity: Moderate Quality: "Pain" Modifying Factors: None Alleviating Factors: None Recent travel outside of the [place]: No Past Medical History Reviewed: Historical Data, Nursing Documentation, Vital Signs Vital Signs: Last Vital Signs Temp 98.9 F 12/14/16 17:38 Pulse 95 H 12/14/16 17:38 Resp 18 12/14/16 17:38 BP 128/82 12/14/16 17:38 Pulse Ox 95 12/14/16 18:18 - Medical History PMH: Anemia (secondary to heavy menstruation), Anxiety, Arthritis, Asthma, CAD, CHF, COPD (asthma;bronchitis), CVA, Depression, Diabetes, Gastritis, Gastrointestinal Ulcer, HTN, Hypercholesterolemia, Hyperlipidemia, Hyperthyroidism (hyperthyroidism), Kidney Stones, Multiple Sclerosis, Parkinson' s Disease, Pneumonia (06-04-15), Chronic Kidney Disease, TIA Surgical History: Hernia Repair (Umbilical hernia repair) - [facility] Procedures CLOSURE SKIN & SUBCUTANEOUS NEC (01/07/13) ESOPHAGOGASTRODUODENOSCOPY [EGD] W/CLOSED BIOPSY (02/05/15) INJECT/INFUSE NEC (02/17/15) NEBULIZER THERAPY (06/20/13) PACKED CELL TRANSFUSION (01/28/15) REMOVAL OF INFUSION DEV FROM GREAT VESSEL, ORACLE FUSION MIDDLEWARE ARCHITECT APPROACH (12/02/16) TETANUS TOXOID ADMINIST (01/07/13) VACCINATION NEC (08/03/14) Family History: States: Unknown Family Hx - Social History Hx Tobacco Use: No Hx Alcohol Use: No Hx Substance Use: No - Immunization History Hx Tetanus Toxoid Vaccination: Yes Hx Influenza Vaccination: Yes Hx Pneumococcal Vaccination: Yes Review Of Systems Except As Marked, All Systems Reviewed And Found Negative. Constitutional: Negative for: Fever Cardiovascular: Positive for: Chest Pain (radiating to left arm) Respiratory: Negative for: Shortness of Breath Gastrointestinal: Positive for: Vomiting, Diarrhea Physical Exam - Physical Exam Appears: Non-toxic, No Acute Distress Skin: Warm, Dry, No Rash Head: Atraumatic, Normacephalic Oral Mucosa: Moist Neck: Normal, Normal ROM, Supple Chest: Symmetrical Cardiovascular: Rhythm Regular, No Murmur Respiratory: Normal Breath Sounds, No Rales, No Rhonchi, No Wheezing Gastrointestinal/Abdominal: Normal Exam, Soft, No Tenderness Extremity: Normal ROM, No Tenderness, No Swelling Extremity: Bilateral: Atraumatic Pulses: Left Radial: Normal Neurological/Psych: Oriented x3, Normal Motor, Normal Sensation ED Course And Treatment - Laboratory Results Result Diagrams: 12/14/16 19:05 12/14/16 19:05 Lab Interpretation: Abnormal Interpretation Of Abnormal: chronic anemia Hgb 8.2 ECG: Interpreted By Me ECG Rhythm: Sinus Rhythm ECG Interpretation: Normal O2 Sat by Pulse Oximetry: 95 (room air) Pulse Ox Interpretation: Normal Reevaluation Time: 20:27 Reassessment Condition: Improved - Physician Consult Information Time Consulting Physician Contacted: 20:27 Physician Contacted: Ranulfo Corley Outcome Of Conversation: Patient well known to him. He will follow up and treat with iron at the [facility]. Disposition Counseled Patient/Family Regarding: Studies Performed, Diagnosis, Need For Followup - Disposition Referrals: Ranulfo Corley MD [Staff Provider] - Disposition: TRANSF TO SNF Disposition Time: 20:28 Condition: STABLE Instructions: Chest Pain (ED) - Clinical Impression Clinical Impression: Non-cardiac chest pain - Scribe Statement The provider has reviewed the documentation as recorded by the Christina Burdick Provider Attestation: All medical record entries made by the Christina were at my direction and personally dictated by me. I have reviewed the chart and agree that the record accurately reflects my personal performance of the history, physical exam, medical decision making, and the department course for this patient. I have also personally directed, reviewed, and agree with the discharge instructions and disposition.
[2016-12-14] MEDS ORDERED: Sodium Chloride 0.9% 1,000 ML ONE (18:33)
[2016-12-14 19:15] LABS: BASO % 0.5 % (0.0-2.0); HEMATOCRIT 27.4 % (34.0-47.0); LYMPH # 0.8 K/uL (1.0-4.3); LYMPH % 8.6 % (20.0-40.0); MEAN CELL VOLUME 78.8 fL (81.0-99.0); MEAN CORPUSCULAR HEMOGLOBIN 23.7 pg (27.0-31.0); MEAN CORPUSCULAR HGB CONC 30.1 g/dL (33.0-37.0); MONO # 0.4 K/uL (0.0-0.8); MONO % 4.3 % (0.0-10.0); PLATELET COUNT 233 K/uL (130-400); RED CELL DISTRIBUTION WIDTH 17.6 % (11.5-14.5); WHITE BLOOD COUNT 8.9 K/uL (4.8-10.8)
[2016-12-14 19:22] LABS: CHLORIDE 101 mmol/L (98-107)
[2016-12-14 19:23] LABS: POTASSIUM 4.2 mmol/L (3.6-5.2); SODIUM 134 mmol/L (132-148)
[2016-12-14 19:25] LABS: ALB/GLOB RATIO 1.2 (1.0-2.1); ALKALINE PHOSPHATASE 56 U/L (38-126); AST/SGOT 14 U/L (14-36); BILIRUBIN,TOTAL 0.5 mg/dL (0.2-1.3); BLOOD UREA NITROGEN 20 mg/dL (7-17); CARBON DIOXIDE 26 mmol/L (22-30); GFR AFRICAN-AMERICAN > 60; GLUCOSE,RANDOM 94 mg/dL (65-105); TOTAL PROTEIN 6.2 g/dL (6.3-8.3)
[2016-12-14 19:26] LABS: ALT/SGPT 24 U/L (9-52); CALCIUM 9.8 mg/dl (8.6-10.4)
[2016-12-14 20:10] LABS: NEUTROPHIL 89 % (50-75); NUCLEATED RED BLOOD CELL 1 % (0-0); TOTAL CELLS COUNTED 100
[2016-12-14 22:28] VITALS: BP 142/88; PULSE 82; RESP 16; TEMP 97.6; O2SAT 98
--- NOTE | 2016-12-16 06:40 | CARD ---
APPROVED REPORT EKG Measurement Heart [id number] <Conclusion> Normal sinus rhythm Normal ECG
== END 2016-12-14 22:34 ==
LOC: C.ER 17:25
DX: R07.89 Other chest pain (principal)
CPT/HCPCS: 80053; 84484; 85025; 99284; J7040

== ENCOUNTER 2017-01-15 09:32 | Emergency (ER) | payer MEDICAID ==
[2017-01-15 09:32] VITALS: BMI 22.7
--- NOTE | 2017-01-15 09:53 | C.PDOC ---
History Of Present Illness 46-year-old female, PMHx includes Anemia, Anxiety, Arthritis, Asthma, CAD, CHF, COPD, CVA, Depression, Diabetes, Gastritis, Gastrointestinal Ulcer, Hypertension , Hypercholesterolemia, Hyperlipidemia, Hyperthyroidism, Kidney Stones, Multiple Sclerosis, Parkinson's Disease, brought to the emergency department with complaints of left sided shoulder, chest, B/L knee and hand pain she developed after she fell onto left side. Patient denies head trauma, LOC, syncope, SOB, dizziness, palpitations, sensory changes. 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) Quality: "Pain" Severity: Mild Past Medical History Reviewed: Historical Data, Nursing Documentation, Vital Signs Vital Signs: Last Vital Signs Temp 97.9 F 01/15/17 15:10 Pulse 71 01/15/17 15:10 Resp 19 01/15/17 15:10 BP 159/91 H 01/15/17 15:10 Pulse Ox 97 01/15/17 15:10 - Medical History PMH: Anemia (secondary to heavy menstruation), Anxiety, Arthritis, Asthma, CAD, CHF, COPD (asthma;bronchitis), CVA, Depression, Diabetes, Gastritis, Gastrointestinal Ulcer, HTN, Hypercholesterolemia, Hyperlipidemia, Hyperthyroidism (hyperthyroidism), Kidney Stones, Multiple Sclerosis, Parkinson' s Disease, Pneumonia (06-04-15), Chronic Kidney Disease, TIA Surgical History: Hernia Repair (Umbilical hernia repair) - [facility] Procedures CLOSURE SKIN & SUBCUTANEOUS NEC (01/07/13) ESOPHAGOGASTRODUODENOSCOPY [EGD] W/CLOSED BIOPSY (02/05/15) INJECT/INFUSE NEC (02/17/15) NEBULIZER THERAPY (06/20/13) PACKED CELL TRANSFUSION (01/28/15) REMOVAL OF INFUSION DEV FROM GREAT VESSEL, SENIOR LIVING ADVISOR APPROACH (12/02/16) TETANUS TOXOID ADMINIST (01/07/13) VACCINATION NEC (08/03/14) Family History: States: No Known Family Hx - Social History Hx Tobacco Use: No Hx Alcohol Use: No Hx Substance Use: No - Immunization History Hx Tetanus Toxoid Vaccination: Yes Hx Influenza Vaccination: Yes Hx Pneumococcal Vaccination: Yes Review Of Systems Except As Marked, All Systems Reviewed And Found Negative. Constitutional: Negative for: Fever, Chills Cardiovascular: Positive for: Chest Pain. Negative for: Palpitations Respiratory: Negative for: Cough, Shortness of Breath Gastrointestinal: Negative for: Nausea, Vomiting, Abdominal Pain, Diarrhea Musculoskeletal: Positive for: Shoulder Pain, Arm Pain, Hand Pain, Leg Pain. Negative for: Neck Pain, Back Pain Neurological: Negative for: Weakness, Numbness, Headache, Dizziness Physical Exam - Physical Exam Appears: Well, Non-toxic, In Acute Distress (in mild pain) Skin: Warm, Dry, No Rash Head: Atraumatic, Normacephalic Eye(s): bilateral: Normal Inspection, PERRL, EOMI Oral Mucosa: Moist Neck: Normal, Normal ROM, No Midline Cervical Tenderness, No Paracervical Tenderness, No Step Off Deformity, Supple Chest: Symmetrical, Tenderness (mild diffuse tenderness to palpation at left upper chest), No Ecchymosis, No Subcutaneous Emphysema Cardiovascular: Rhythm Regular Respiratory: Normal Breath Sounds, No Rales, No Rhonchi, No Wheezing, Other ( Equal breath sounds bilaterally) Gastrointestinal/Abdominal: Normal Exam, Bowel Sounds, Soft, No Tenderness Extremity: Normal ROM, Tenderness (diffuse TTP at right hand, upper arm/shoulder ), Capillary Refill (<2 seconds all digits ), No Deformity, No Swelling, Other ( Left upper EXT: Second digit w/ mild swelling and tenderness. L arm and shoulder without deformity or swelling) Extremity: Bilateral: Normal Color And Temperature, Normal ROM Pulses: Left Radial: Normal, Right Radial: Normal Neurological/Psych: Oriented x3, Normal Motor, Normal Sensation Gait: Steady ED Course And Treatment ECG: Interpreted By Me, Viewed By Me (NSR 79 bpm, normal axis, no acute ST/T wave changes) ECG Interpretation: Normal, No Acute Changes O2 Sat by Pulse Oximetry: 97 (RA) Pulse Ox Interpretation: Normal - Other Rad left hand X-Ray: Interpreted by Me, Viewed By Me (left 2nd digits distal fx) left shoulder xray X-Ray: Interpreted by Me, Viewed By Me (no fracture/dislocation) knees B/L Xrays X-Ray: Interpreted by Me, Viewed By Me (no fractures/dislocations) rib series/cxr X-Ray: Interpreted by Me, Viewed By Me (no rib fxs, no ptx) Progress Note: Xrays of left hand, left shoulder, B/L knees, left ribs/chest ordered and reviewed. Patient treated with PO Tylenol for pain. Patient refused Tyenol, PO Tramadol given. Xray of shoulder read by radiologist as dislocation, however on physical exam patient has full ROM left shoulder and no visible deformity. Attempt made to obtain CT scan of LUE, however patient refusing CT at this time. Will discharge patient with shoulder sling, pain medication and instructed for orthopedic follow up withibn 1 week. Patient also seen by PMD in ER, and he is in agreement with discharge and follow up with him in the office. Reevaluation Time: 15:00 Reassessment Condition: Improved (Patient reassessed,states she feels much better, is ambulating normally in ED. Rx given for pain, instructed to follow up with orthopedics within1 week, and with PMD in 1-2 days. Patient understands she should return to ED if symptoms worsen.) - Physician Consult Information Physician Contacted: Ranulfo Corley Outcome Of Conversation: Saw/evaluation his patient in ED Medical Decision Making Medical Decision Making: MYK[facility] RX reviewed: 11/13/2016 1 11/10/2016 TRAMADOL HCL 50 MG TABLET 20.0 5 DORIS [id number] POMAR ( 6640) 0 20.0 [place] 05/14/2016 3 05/14/2016 TRAMADOL HCL 50 MG TABLET 30.0 10 NC EL- [id number] VINLA ( 6706) 0 15.0 [place] 03/21/2016 2 03/19/2016 ALPRAZOLAM 0.25 MG TABLET 30 15 Th Kul [id number] SV PH ( 8083) 0 [place] 03/21/2016 2 03/19/2016 TRAMADOL HCL 50 MG TABLET 40 20 Th Kul [id number] SV PH ( 8083) 0 10.0 [place] Disposition Counseled Patient/Family Regarding: Studies Performed, Diagnosis, Need For Followup, Rx Given - Disposition Referrals: Ranulfo Corley MD [Staff Provider] - Darrell Adkins MD [Staff Provider] - Bryant Staton MD [Staff Provider] - Disposition: HOME/ ROUTINE Disposition Time: 15:00 Condition: STABLE Additional Instructions: FOLLOW UP WITH HAND SURGEON WITHIN 1 WEEK USE PAIN MEDICATION NEEDED RETURN TO ER IF SYMPTOMS WORSEN Prescriptions: traMADol [Ultram] 50 mg PO BID PRN #12 tab PRN Reason: pain Instructions: Knee Sprain (ED), Finger Fracture (ED), Shoulder Sprain (ED), Rib Contusion (ED) Forms: [employer] (Maori) Print Language: YORUBA - POA Present On Arrival: Falls Or Trauma - Clinical Impression Clinical Impression: Fracture of finger of right hand, Contusion, Sprain of shoulder, right - Scribe Statement The provider has reviewed the documentation as recorded by the Scribe (Binta Louis) All medical record entries made by the Scribe were at my direction and personally dictated by me. I have reviewed the chart and agree that the record accurately reflects my personal performance of the history, physical exam, medical decision making, and the department course for this patient. I have also personally directed, reviewed, and agree with the discharge instructions and disposition.
--- NOTE | 2017-01-15 12:09 | RAD ---
PROCEDURE: Radiographs of the Left Shoulder HISTORY: Left shoulder pain after fall COMPARISON: No prior. FINDINGS: BONES: No acute displaced fracture. JOINTS: Posterior superior glenohumeral dislocation. There is mild degenerative osteoarthrosis in the acromioclavicular joint. SOFT TISSUES: Normal. OTHER FINDINGS: None. IMPRESSION: Posterior superior glenohumeral dislocation. No acute displaced fracture.
--- NOTE | 2017-01-15 13:50 | RAD ---
PROCEDURE: Bilateral Knee Radiographs. HISTORY: b/l knee pain after fall COMPARISON: None. FINDINGS: BONES: Right Knee: Normal. No fracture. Left Knee: Normal. No fracture. JOINTS: There is moderate tricompartmental degenerative osteoarthrosis with reduced joint forces and marginal osteophytes, worse in the left medial compartment and right lateral compartment. There are small suprapatellar joint effusions. SOFT TISSUES: Right Knee: Normal. Left Knee: Normal. OTHER FINDINGS: None. IMPRESSION: No acute displaced fracture or dislocation.
[2017-01-15 16:11] VITALS: BP 159/91; PULSE 71; RESP 19; TEMP 97.9; O2SAT 97
--- NOTE | 2017-01-17 08:50 | RAD ---
PROCEDURE: CT chest 12/01/2016 HISTORY: left upper chest/rib pain after fall COMPARISON: CT chest 12/01/2016 TECHNIQUE: Frontal radiograph of the chest and multiple oblique radiographs of the left ribs were obtained. FINDINGS: LEFT RIBS: No fracture or focal lesion visualized. LUNGS: No consolidation. Shallow lung volumes PLEURA: No pneumothorax or pleural fluid. CARDIOVASCULAR: Cardiomegaly with mild central pulmonary vascular congestion suggested. The current cardiomegaly is not specifically suggested on the CT prior exam OTHER FINDINGS: Even allowing for technique, superior mediastinum appears widened -however this is not significantly changed with the prior CT exam. Please note that report. IMPRESSION: No pneumothorax. No left rib fracture. Interval of cardiomegaly with mild central pulmonary venous congestion suspect.
--- NOTE | 2017-01-17 08:52 | RAD ---
PROCEDURE: Left Hand Radiographs. HISTORY: left hand pain after fall . History of parkinsonism COMPARISON: None. FINDINGS: BONES: Comminuted fracture 2nd distal phalanx with mild distraction of fracture fragments 1 to 2 mm. The chronicity of this is not known JOINTS: No gross osteoarthritic changes. SOFT TISSUES: Normal. OTHER FINDINGS: Limited exam given patient's ability to cooperate and motion -involuntary tremors IMPRESSION: Comminuted fracture -distal phalanx -2nd digit appear
--- NOTE | 2017-01-17 12:40 | CARD ---
APPROVED REPORT EKG Measurement Heart [id number] <Conclusion> Normal sinus rhythm Normal ECG
== END 2017-01-15 16:11 | disposition home or self-care (01) ==
LOC: C.ER 09:32
DX: S62.631A Displaced fracture of distal phalanx of left index finger, initial encounter for closed fracture (principal); S43.401A Unspecified sprain of right shoulder joint, initial encounter; T14.8 Other injury of unspecified body region; W19.XXXA Unspecified fall, initial encounter; G35 Multiple sclerosis; E78.00 Pure hypercholesterolemia, unspecified; G20 Parkinson's disease; M19.90 Unspecified osteoarthritis, unspecified site; E11.9 Type 2 diabetes mellitus without complications; I12.9 Hypertensive chronic kidney disease with stage 1 through stage 4 chronic kidney disease, or unspecified chronic kidney disease; N18.9 Chronic kidney disease, unspecified

== ENCOUNTER 2017-01-23 09:36 | Observation (INO) | payer MEDICAID ==
[2017-01-23 09:37] VITALS: BMI 22.7
[2017-01-23] MEDS ORDERED: Albuterol-Ipratrop 3 mg / 0.5 (3 ml) UD INH STA (10:23)
[2017-01-23 10:53] LABS: BASO % 0.8 % (0.0-2.0); EOS # 0.1 K/uL (0.0-0.7); HEMATOCRIT 28.5 % (34.0-47.0); LYMPH # 1.2 K/uL (1.0-4.3); LYMPH % 21.6 % (20.0-40.0); MEAN CELL VOLUME 76.3 fL (81.0-99.0); MEAN CORPUSCULAR HEMOGLOBIN 23.1 pg (27.0-31.0); MEAN CORPUSCULAR HGB CONC 30.3 g/dL (33.0-37.0); MEAN PLATELET VOLUME 8.6 fL (7.2-11.7); MONO # 0.5 K/uL (0.0-0.8); MONO % 8.7 % (0.0-10.0); NRBC % 0.1 % (0.0-2.0); RED CELL DISTRIBUTION WIDTH 17.8 % (11.5-14.5); WHITE BLOOD COUNT 5.7 K/uL (4.8-10.8)
[2017-01-23 10:55] LABS: CHLORIDE 104 mmol/L (98-107); POTASSIUM 4.4 mmol/L (3.6-5.2); SODIUM 139 mmol/L (132-148)
[2017-01-23 10:57] LABS: GFR AFRICAN-AMERICAN > 60
[2017-01-23] MEDS ORDERED: Albuterol-Ipratrop 3 mg / 0.5 (3 ml) UD ONE (10:57)
[2017-01-23 10:58] LABS: ALKALINE PHOSPHATASE 56 U/L (38-126); ALT/SGPT 19 U/L (9-52); AST/SGOT 21 U/L (14-36); BILIRUBIN,TOTAL 0.6 mg/dL (0.2-1.3); BLOOD UREA NITROGEN 12 mg/dL (7-17); CALCIUM 10.2 mg/dl (8.6-10.4); CARBON DIOXIDE 23 mmol/L (22-30); GLUCOSE,RANDOM 71 mg/dL (65-105); TOTAL PROTEIN 6.7 g/dL (6.3-8.3)
--- NOTE | 2017-01-23 11:27 | C.PDOC ---
History Of Present Illness 46 yr old female with PMHx of Parkinson Disease, HTN and gastritis, presents to the ER with complaints of left sided chest pain, radiating to left arm for the past 3 days. Patient denies fever, chills, SOB, nausea, vomiting, abdominal pain , headache or dizziness. Time Seen by Provider: 01/23/17 09:52 Chief Complaint (Nursing): Chest Pain History Per: Patient History/Exam Limitations: no limitations Onset/Duration Of Symptoms: Days (3) Current Symptoms Are (Timing): Still Present Past Medical History Reviewed: Historical Data, Nursing Documentation, Vital Signs Vital Signs: Last Vital Signs Temp 99.3 F 01/23/17 09:41 Pulse 76 01/23/17 09:41 Resp 16 01/23/17 09:41 BP 157/91 H 01/23/17 09:41 Pulse Ox 99 01/23/17 13:36 - Medical History PMH: Anemia (secondary to heavy menstruation), Anxiety, Arthritis, Asthma, CAD, CHF, COPD (asthma;bronchitis), CVA, Depression, Diabetes, Gastritis, Gastrointestinal Ulcer, HTN, Hypercholesterolemia, Hyperlipidemia, Hyperthyroidism (hyperthyroidism), Kidney Stones, Multiple Sclerosis, Parkinson' s Disease, Pneumonia (06-04-15), Chronic Kidney Disease, TIA Surgical History: Hernia Repair (Umbilical hernia repair) - [facility] Procedures CLOSURE SKIN & SUBCUTANEOUS NEC (01/07/13) ESOPHAGOGASTRODUODENOSCOPY [EGD] W/CLOSED BIOPSY (02/05/15) INJECT/INFUSE NEC (02/17/15) NEBULIZER THERAPY (06/20/13) PACKED CELL TRANSFUSION (01/28/15) REMOVAL OF INFUSION DEV FROM GREAT VESSEL, RENEWABLE ENERGY TRADER APPROACH (12/02/16) TETANUS TOXOID ADMINIST (01/07/13) VACCINATION NEC (08/03/14) Family History: States: No Known Family Hx - Social History Hx Tobacco Use: No Hx Alcohol Use: No Hx Substance Use: No - Immunization History Hx Tetanus Toxoid Vaccination: Yes Hx Influenza Vaccination: Yes Hx Pneumococcal Vaccination: Yes Review Of Systems Constitutional: Positive for: Fever. Negative for: Chills Cardiovascular: Positive for: Chest Pain (Left sided chest pain, radiating down to the left arm) Respiratory: Negative for: Shortness of Breath Gastrointestinal: Negative for: Nausea, Vomiting, Abdominal Pain Neurological: Negative for: Headache, Dizziness Physical Exam - Physical Exam Appears: Non-toxic, No Acute Distress, Other ((+) Uncontrolable movements.) Skin: Warm, Dry, No Rash Head: Atraumatic, Normacephalic Oral Mucosa: Moist Teeth: Edentulous Chest: Symmetrical, No Tenderness Cardiovascular: Rhythm Regular, No Murmur Respiratory: No Rales, No Rhonchi, Wheezing (Slight expirtory wheezing left base ) Gastrointestinal/Abdominal: Normal Exam, Soft, No Tenderness, No Guarding, No Rebound Extremity: No Swelling Neurological/Psych: Oriented x3, Normal Speech, Normal Motor ED Course And Treatment - Laboratory Results Result Diagrams: 01/23/17 10:38 01/23/17 10:38 O2 Sat by Pulse Oximetry: 99 (RA) Pulse Ox Interpretation: Normal Medical Decision Making Medical Decision Making: PLAN: * EKG * Troponin * CBC * CMP * HCG * Urinalysis * Albuterol INH * Pepcid IVP 128 pm pt still with chest pain; was not given pepcid yet, (no iv access). discussed with Dr Lorena Corley; will admit for further workup. 135 pm pt not given aspirin due to allergy. Disposition Discussed With Dr.: Ranulfo Corley Doctor Will See Patient In The: Hospital - Disposition Disposition Time: 13:30 Condition: STABLE Forms: [facility] (Macedonian) - Clinical Impression Clinical Impression: Chest pain, Anemia - PA / INTERVENTIONAL RADIOLOGY RN / Resident Statement MD/DO has reviewed & agrees with the documentation as recorded. - Scribe Statement The provider has reviewed the documentation as recorded by the Scribe Dianelys Wong All medical record entries made by the Scribe were at my direction and personally dictated by me. I have reviewed the chart and agree that the record accurately reflects my personal performance of the history, physical exam, medical decision making, and the department course for this patient. I have also personally directed, reviewed, and agree with the discharge instructions and disposition. Decision To Admit - Pt Status Changed To: Hospital Disposition Of: Observation - . Bed Request Type: Telemetry Admitting Physician: Ranulfo Corley Patient Diagnosis: Chest pain, Anemia
[2017-01-23 11:32] LABS: RBC URINE < 1 /hpf (0-3); URINE BILIRUBIN NEGATIVE (NEGATIVE); URINE BLOOD NEGATIVE (NEGATIVE); URINE COLOR Yellow (YELLOW); URINE GLUCOSE (UA) NORMAL (Normal); URINE KETONE NEGATIVE (NEGATIVE); URINE LEUKOCYTE ESTERASE NEG Leu/uL (Negative); URINE PROTEIN NEGATIVE (NEGATIVE); URINE UROBILINOGEN NORMAL mg/dL (0.2-1.0); WBC URINE 3 /hpf (0-5)
--- NOTE | 2017-01-23 16:24 | CT ---
CT chest, abdomen, and pelvis without IV contrast Indication: Epigastric pain Technique: Contiguous axial images of the chest, abdomen, and pelvis without oral or IV contrast. Coronal and Sagittal reformats generated and reviewed. This CT exam was performed using 1 or more of the falling dose reduction techniques: Automated exposure control, adjustment of the MAA and/or kV according to patient size, and/or use of iterative reconstruction technique. Radiation dose: Total exam DLP = 1227.00 MGy-cm. Comparison: CT chest without contrast performed 12/01/16 Findings: Examination limited by streak and motion artifact. Borderline cardiomegaly. Prevascular lymph node, nonspecific. Hazy soft tissue density in the anterior mediastinum, nonspecific. Trace coronary artery calcifications. Question enlarged soft tissue nodule or lymph node this region versus a vascular structure measuring approximately 2.0 x 1.3 cm (for example series 3, image 26). No focal consolidation. No pleural effusion. No pneumothorax. Motion artifact limits evaluation for small nodules ; no suspicious pulmonary nodules are appreciated. Examination limited by paucity of intra-abdominal and intrapelvic fat. Probable gallstone within the gallbladder. The noncontrast liver, spleen, kidneys, pancreas, and adrenal glands appear grossly unremarkable. The stomach is nondistended. Lack of oral contrast limits evaluation for bowel pathology. The bowel loops appear within normal limits of caliber without evidence of intestinal obstruction. There is no definite free air. The appendix appears within normal limits of caliber. No secondary signs of acute appendicitis. [id number] constipation. Uterus is present. Suspect bilateral ovarian cysts. Small pelvic free fluid. The urinary bladder appears unremarkable. Degenerative changes. Impression: Limited study. Hazy soft tissue density in the anterior mediastinum, nonspecific. Trace coronary artery calcifications. Question enlarged soft tissue nodule or lymph node this region versus a vascular structure measuring approximately 2.0 x [address] of the chest with IV contrast for further evaluation. Cholelithiasis. Suspect bilateral ovarian cysts. Small pelvic free fluid. Recommend further evaluation with pelvic ultrasound. Mild moderate constipation. Additional findings as above.
--- NOTE | 2017-01-23 17:50 | CP.PCM.HP ---
History of Present Illness - History of Present Illness History of Present Illness: 46 yo F with extensive PMH including CVA and speech impairment, Multiple Sclerosis, HTN, HLD, DM, Gastritis presents to ED with c/o chest pain radiating down left arm. Chest pain left sided and ongoing since 3 days. Pt reports also epigastric pain. Denies diaphoresis, palpiations, fever, chills, sob, n/v/d, headache, vision changes or dizziness. Review of Systems - Cardiovascular Cardiovascular: As Per HPI, Chest Pain Additional comments: radiating down left arm - Gastrointestinal Gastrointestinal: Abdominal Pain Past Patient History - Infectious Disease Hx of Infectious Diseases: None - Tetanus Immunizations Tetanus Immunization: Unknown - Past Medical History & Family History Past Medical History?: Yes - Past Social History Smoking Status: Never Smoked - CARDIAC Hx Congestive Heart Failure: Yes Hx Hypercholesterolemia: Yes Hx Hypertension: Yes - PULMONARY Hx Asthma: Yes Hx Chronic Obstructive Pulmonary Disease (COPD): Yes (asthma;bronchitis) Hx Pneumonia: Yes (06-04-15) - NEUROLOGICAL Hx Multiple Sclerosis: Yes Hx Parkinson's Disease: Yes Hx Transient Ischemic Attacks (TIA): Yes - HEENT Hx HEENT Problems: No - RENAL Hx Chronic Kidney Disease: Yes Hx Kidney Stones: Yes - ENDOCRINE/METABOLIC Hx Hyperthyroidism: Yes (hyperthyroidism) - HEMATOLOGICAL/ONCOLOGICAL Hx Anemia: Yes (secondary to heavy menstruation) - INTEGUMENTARY Hx Dermatological Problems: No - MUSCULOSKELETAL/RHEUMATOLOGICAL Hx Arthritis: Yes - GASTROINTESTINAL Hx Gastritis: Yes - GENITOURINARY/GYNECOLOGICAL Hx Genitourinary Disorders: Yes Hx Urinary Tract Infection: Yes - PSYCHIATRIC Hx Anxiety: Yes Hx Depression: Yes Hx Substance Use: No - SURGICAL HISTORY Hx Surgeries: Yes Hx Section: Yes (1994) Hx Herniorrhaphy: Yes - ANESTHESIA Hx Anesthesia: Yes Hx Anesthesia Reactions: No Hx Malignant Hyperthermia: No Meds Allergies/Adverse Reactions: Allergies Allergy/AdvReac Type Severity Reaction Status Date / Time acetaminophen Allergy ITCHING Verified 02/08/17 07:37 codeine Allergy RASH Verified 02/08/17 07:37 iodine Allergy ITCHING Verified 02/08/17 07:37 ketorolac Allergy ITCHING Verified 02/08/17 07:37 ketorolac tromethamine Allergy RASH Verified 02/08/17 07:37 [From Toradol] Latex, Natural Rubber Allergy ITCHING Verified 02/08/17 07:37 morphine Allergy ITCHING Verified 02/08/17 07:37 orange juice Allergy ITCHING Verified 02/08/17 07:37 Penicillins Allergy ITCHING Verified 02/08/17 07:37 Sulfa (Sulfonamide Allergy RASH Verified 02/08/17 07:37 Antibiotics) tomato Allergy ITCHING Verified 02/08/17 07:37 tramadol Allergy ITCHING Verified 02/08/17 07:37 ondansetron HCl AdvReac Intermediate RASH Verified 02/08/17 07:37 [From Zofran (as hydrochloride)] Physical Exam - Constitutional Appears: Well - Head Exam Head Exam: ATRAUMATIC, NORMAL INSPECTION, NORMOCEPHALIC - Eye Exam Eye Exam: EOMI, Normal appearance, PERRL Pupil Exam: NORMAL ACCOMODATION, PERRL - ENT Exam ENT Exam: Mucous Membranes Moist, Normal Exam - Neck Exam Neck exam: Positive for: Normal Inspection - Respiratory Exam Respiratory Exam: Decreased Breath Sounds - Cardiovascular Exam Cardiovascular Exam: REGULAR RHYTHM, +S1, +S2 - GI/Abdominal Exam GI & Abdominal Exam: Diminished Bowel Sounds, Soft - Rectal Exam Rectal Exam: Deferred - Neurological Exam Neurological exam: Alert, Oriented x3 Results - Vital Signs Recent Vital Signs: Last Vital Signs Temp 98.4 F 01/23/17 17:17 Pulse 97 H 01/23/17 17:17 Resp 18 01/23/17 17:17 BP 149/92 H 01/23/17 17:17 Pulse Ox 97 01/23/17 14:30 - Labs Result Diagrams: 01/23/17 10:38 01/23/17 10:38 Labs: Laboratory Results - last 24 hr 01/23/17 01/23/17 15:54 16:55 POC Glucose (mg/dL) 77 Total Creatine Kinase 76 CK-MB (Mass) 2.83 Troponin I, Quant < 0.0120 Assessment & Plan (1) Abdominal cramps Status: Acute (2) Abdominal pain Status: Acute Priority: Low Onset Date: 01/13/16 (3) Abdominal pain in female Status: Acute (4) Acute bronchitis Status: Acute (5) Acute gastroenteritis Status: Acute (6) Anemia Status: Acute (7) Anemia Status: Acute (8) Arm pain, left Status: Acute (9) Arthritis Status: Acute (10) Atypical chest pain Status: Acute (11) Bronchitis Status: Acute (12) Chest discomfort Status: Acute (13) Chest pain Status: Acute (14) Chest pain Status: Acute (15) Chest pain at rest Status: Acute (16) Chronic abdominal pain Status: Acute (17) Chronic anemia Status: Acute (18) Chronic pain Status: Acute (19) Chronic pain Status: Acute (20) Common cold Status: Acute (21) Constipation Status: Acute (22) Constipation - functional Status: Acute (23) Contusion Status: Acute (24) DVT prophylaxis Status: Acute (25) Dehydration Status: Acute (26) Depressive disorder Status: Acute (27) Diarrhea Status: Acute (28) Diarrhea Status: Acute (29) Diarrhea with dehydration Status: Acute (30) Drug-seeking behavior Status: Acute (31) Dysmenorrhea Status: Acute (32) Dyspnea Status: Acute (33) Encounter for medical screening examination Status: Acute (34) Enteritis Status: Acute (35) Exacerbation of multiple sclerosis Status: Acute (36) Flu-like symptoms Status: Acute (37) Fracture of finger of right hand Status: Acute (38) Gastroenteritis Status: Acute (39) Generalized pruritus Status: Acute (40) Generalized weakness Status: Acute (41) H/O TIA (transient ischemic attack) and stroke Status: Acute (42) History of CVA (cerebrovascular accident) Status: Acute (43) Hypercalcemia Status: Acute (44) Hyperlipidemia Status: Acute (45) Hyperparathyroidism Status: Acute Priority: High (46) Hypertension Status: Acute (47) Hypokalemia Status: Acute (48) Influenza Status: Acute (49) Influenza-like illness Status: Acute (50) Iron deficiency anemia Status: Acute (51) Knee injury Status: Acute (52) Knee pain Status: Acute (53) Left arm numbness Status: Acute (54) Leukocytopenia Status: Acute (55) Low back pain Status: Acute (56) Malingering Status: Acute (57) Moderate major depression Status: Acute (58) Moderate recurrent major depression Status: Acute (59) Mononucleosis syndrome Status: Acute (60) Multiple somatic complaints Status: Acute (61) Muscle pain Status: Acute (62) Muscle strain Status: Acute (63) Musculoskeletal chest pain Status: Acute (64) Myalgia Status: Acute (65) Narcotic dependence Status: Acute (66) Nausea Status: Acute (67) Non-cardiac chest pain Status: Acute (68) Pain Status: Acute (69) Pleuritic pain Status: Acute (70) Pneumonia Status: Acute (71) Prophylactic measure Status: Acute (72) Sprain of shoulder, right Status: Acute (73) UTI (urinary tract infection) Status: Acute (74) Upper respiratory infection Status: Acute (75) Viral syndrome Status: Acute (76) Vomiting Status: Acute (77) Bronchial asthma Status: Chronic Priority: Medium (78) Cerebral palsy Status: Chronic (79) Chest pain Status: Chronic (80) Diabetes mellitus Status: Chronic (81) History of CVA with residual deficit Status: Chronic Priority: Medium (82) Multiple sclerosis Status: Chronic Priority: Medium (83) Uncontrolled hypertension Status: Chronic Priority: High (84) Hypovitaminosis D Status: Suspected - Assessment and Plan (Free Text) Plan: MAGGI x3 Dr Norris GI Dr munoz cardio pepcid duoneb cyndi other meds as ordered f/u labs regular diet
[2017-01-24] MEDS: Aluminum Hydroxide/Magnesium Hydroxide Susp (30 mL) PO SCH ×5 (00:40→23:53)
[2017-01-24] MEDS: Albuterol-Ipratrop 3 mg / 0.5 (3 ml) UD INH SCH ×4 (01:20→20:25)
--- NOTE | 2017-01-24 08:11 | CARD ---
APPROVED REPORT EKG Measurement Heart [id number] <Conclusion> Normal sinus rhythm Nonspecific ST abnormality Abnormal ECG
--- NOTE | 2017-01-24 08:49 | CP.PCM.CON ---
<Shai Corley - Last Filed: 01/24/17 08:50> History of Present Illness - History of Present Illness History of Present Illness: PGY4 Initial GI Consult Note Bisi Rosales is a 46F w/ multiple comorbidities who presented to the Ed with complaints of left sided arm pain. Pt also concurrently complained of epigastric burning and discomfort. Pt states that the onset of the left arm pain has been for a few day and subsequently is undergoing cardiac work-up; so far troponins and EKG WNL. Pt describes that the epigastric burning as intermittent, which worsens with certain foods and when she lays down. She states that she only gets some relief with Pepcid ans usually supplements with maalox. Pt states that she has tried PPI in the past, but it only worked minimally (unsure of duration and maximum dose reached). Pt denies nay sig weight loss. Denies any abd pain. Denies any hematemsis, melena, Hematachezia. She states that her GI doctor is based out of [facility]. She had an endoscopy last year for recurrent GERD with no sig findings. Denies nay previous colonoscopy PMHx:Anemia (secondary to heavy menstruation), Anxiety, Arthritis, Asthma, CAD, CHF, COPD (asthma;bronchitis), CVA, Depression, Diabetes, Gastritis, Gastrointestinal Ulcer, HTN, Hypercholesterolemia, Hyperlipidemia, Hyperthyroidism (hyperthyroidism), Kidney Stones, Multiple Sclerosis, Parkinson' s Disease, Pneumonia (06-04-15), Chronic Kidney Disease, TIA PSHx: Hernia Repair (Umbilical hernia repair) Social hx: Denies smoking, Etoh, or illicit drugs Family hx: None as per pt Endoscopy hx: EGD 2014: no sig findings other than gastritis, EGD 2016 for recurrent GERD at [facility] (no sig findings as per pt) Past Patient History - Infectious Disease Hx of Infectious Diseases: None - Tetanus Immunizations Tetanus Immunization: Unknown - Past Medical History & Family History Past Medical History?: Yes - Past Social History Smoking Status: Never Smoked - CARDIAC Hx Congestive Heart Failure: Yes Hx Hypercholesterolemia: Yes Hx Hypertension: Yes - PULMONARY Hx Asthma: Yes Hx Chronic Obstructive Pulmonary Disease (COPD): Yes (asthma;bronchitis) Hx Pneumonia: Yes (06-04-15) - NEUROLOGICAL Hx Multiple Sclerosis: Yes Hx Parkinson's Disease: Yes Hx Transient Ischemic Attacks (TIA): Yes - HEENT Hx HEENT Problems: No - RENAL Hx Chronic Kidney Disease: Yes Hx Kidney Stones: Yes - ENDOCRINE/METABOLIC Hx Hyperthyroidism: Yes (hyperthyroidism) - HEMATOLOGICAL/ONCOLOGICAL Hx Anemia: Yes (secondary to heavy menstruation) - INTEGUMENTARY Hx Dermatological Problems: No - MUSCULOSKELETAL/RHEUMATOLOGICAL Hx Arthritis: Yes - GASTROINTESTINAL Hx Gastritis: Yes - GENITOURINARY/GYNECOLOGICAL Hx Genitourinary Disorders: Yes Hx Urinary Tract Infection: Yes - PSYCHIATRIC Hx Anxiety: Yes Hx Depression: Yes Hx Substance Use: No - SURGICAL HISTORY Hx Surgeries: Yes Hx Section: Yes (1994) Hx Herniorrhaphy: Yes - ANESTHESIA Hx Anesthesia: Yes Hx Anesthesia Reactions: No Hx Malignant Hyperthermia: No Meds Allergies/Adverse Reactions: Allergies Allergy/AdvReac Type Severity Reaction Status Date / Time aspirin Allergy SHORTNESS Verified 01/23/17 09:44 OF BREATH codeine Allergy RASH Verified 01/23/17 09:44 iodine Allergy SHORTNESS Verified 01/23/17 09:44 OF BREATH ketorolac Allergy SHORTNESS Verified 01/23/17 09:44 OF BREATH ketorolac tromethamine Allergy RASH Verified 01/23/17 09:44 [From Toradol] Latex, Natural Rubber Allergy SHORTNESS Verified 01/23/17 09:44 OF BREATH metoprolol Allergy SHORTNESS Verified 01/23/17 09:44 OF BREATH morphine Allergy SHORTNESS Verified 01/23/17 09:44 OF BREATH orange juice Allergy SHORTNESS Verified 01/23/17 09:44 OF BREATH Penicillins Allergy SHORTNESS Verified 01/23/17 09:44 OF BREATH simvastatin Allergy RASH Verified 01/15/17 09:51 Sulfa (Sulfonamide Allergy RASH Verified 01/15/17 09:51 Antibiotics) tomato Allergy ITCHING Verified 01/15/17 09:51 tramadol Allergy SHORTNESS Unverified 01/15/17 13:00 OF BREATH ondansetron HCl AdvReac Intermediate RASH Verified 01/15/17 09:51 [From Zofran (as hydrochloride)] - Medications Medications: Current Medications Acetaminophen (Tylenol 325mg Tab) 650 mg PO Q6 PRN PRN Reason: pain Last Admin: 01/23/17 21:52 Dose: 650 mg Al Hydrox/Mg Hydrox/Simethicone (Maalox 30 Ml) 30 ml PO Q6 [facility] Last Admin: 01/24/17 05:14 Dose: 30 ml Albuterol/Ipratropium (Duoneb 3 Mg/0.5 Mg (3 Ml) Ud) 3 ml INH RQ6 [facility] Last Admin: 01/24/17 07:33 Dose: 3 ml Amlodipine Besylate (Norvasc) 10 mg PO DAILY [facility] Aspirin (Aspirin) 325 mg PO DAILY [facility] Docusate Sodium (Colace) 100 mg PO DAILY [facility] Enoxaparin Sodium (Lovenox) 40 mg SC DAILY [facility] Famotidine (Pepcid) 20 mg PO BID [facility] Last Admin: 01/23/17 21:54 Dose: 20 mg Gabapentin (Neurontin) 300 mg PO BID [facility] Last Admin: 01/23/17 21:52 Dose: 300 mg Hydralazine HCl (Apresoline) 50 mg PO QID [facility] Last Admin: 01/23/17 21:52 Dose: 50 mg Losartan Potassium (Cozaar) 100 mg PO DAILY [facility] Tramadol HCl (Ultram) 50 mg PO BID PRN PRN Reason: pain Physical Exam - Head Exam Head Exam: ATRAUMATIC, NORMOCEPHALIC - Eye Exam Eye Exam: Normal appearance - ENT Exam ENT Exam: Mucous Membranes Moist, Normal Exam - Neck Exam Neck exam: Positive for: Normal Inspection - Respiratory Exam Respiratory Exam: Clear to Auscultation Bilateral, NORMAL BREATHING PATTERN. absent: Rales, Rhonchi, Wheezes, Respiratory Distress - Cardiovascular Exam Cardiovascular Exam: REGULAR RHYTHM, +S1, +S2 - GI/Abdominal Exam GI & Abdominal Exam: Normal Bowel Sounds, Soft. absent: Diminished Bowel Sounds , Distended, Guarding, Organomegaly, Rebound, Rigid, Tenderness - Extremities Exam Extremities exam: Negative for: joint swelling, pedal edema, tenderness - Neurological Exam Neurological exam: Alert, Oriented x3 - Psychiatric Exam Psychiatric exam: Normal Affect, Normal Mood - Skin Skin Exam: Dry, Intact, Normal Color, Warm Results - Vital Signs Recent Vital Signs: Last Vital Signs Temp 98.2 F 01/23/17 22:56 Pulse 62 01/24/17 04:36 Resp 18 01/23/17 22:56 BP 164/76 H 01/23/17 22:56 Pulse Ox 98 01/23/17 22:56 - Labs Result Diagrams: 01/23/17 10:38 01/23/17 10:38 Labs: Laboratory Results - last 24 hr 01/23/17 01/23/17 01/23/17 15:54 16:55 21:20 POC Glucose (mg/dL) 77 106 Total Creatine Kinase 76 CK-MB (Mass) 2.83 Troponin I, Quant < 0.0120 01/23/17 01/24/17 23:06 06:48 POC Glucose (mg/dL) 70 Total Creatine Kinase 66 CK-MB (Mass) 2.98 Troponin I, Quant < 0.0120 Assessment & Plan - Assessment and Plan (Free Text) Assessment: Lexi Rosales is a 46F w/ a sig PMHX (see above) including parkinsons who presented to the ED with complaints of CP and epigastric discomfort. Based on her clinical presentation, she has long standing recurrent GERD 1. GERD 2. Anemia 3. Chest pain, rule out ACS Plan: -can switch pepcid to protonix 40mg daily -contine maalox PRN -encourage outpt followup with primary GI -recommend eventual colonoscopy for anemia workup -pt needs lifestyle mod to decrease incidence GERD including diet -will sign off D/W Dr. Norris <Andrew Norris - Last Filed: 01/24/17 12:18> Meds - Medications Medications: Current Medications Acetaminophen (Tylenol 325mg Tab) 650 mg PO Q6 PRN PRN Reason: pain Last Admin: 01/23/17 21:52 Dose: 650 mg Al Hydrox/Mg Hydrox/Simethicone (Maalox 30 Ml) 30 ml PO Q6 [facility] Last Admin: 01/24/17 05:14 Dose: 30 ml Albuterol/Ipratropium (Duoneb 3 Mg/0.5 Mg (3 Ml) Ud) 3 ml INH RQ6 [facility] Last Admin: 01/24/17 07:33 Dose: 3 ml Amlodipine Besylate (Norvasc) 10 mg PO DAILY [facility] Last Admin: 01/24/17 09:18 Dose: 10 mg Aspirin (Aspirin) 325 mg PO DAILY [facility] Last Admin: 01/24/17 09:18 Dose: 325 mg Docusate Sodium (Colace) 100 mg PO DAILY [facility] Last Admin: 01/24/17 09:18 Dose: 100 mg Enoxaparin Sodium (Lovenox) 40 mg SC DAILY [facility] Last Admin: 01/24/17 09:20 Dose: Not Given Gabapentin (Neurontin) 300 mg PO BID [facility] Last Admin: 01/24/17 09:18 Dose: 300 mg Hydralazine HCl (Apresoline) 50 mg PO QID [facility] Last Admin: 01/24/17 08:51 Dose: 50 mg Losartan Potassium (Cozaar) 100 mg PO DAILY [facility] Last Admin: 01/24/17 09:18 Dose: 100 mg Pantoprazole Sodium (Protonix Ec Tab) 40 mg PO DAILY [facility] Tramadol HCl (Ultram) 50 mg PO BID PRN PRN Reason: pain Last Admin: 01/24/17 09:18 Dose: 50 mg Results - Vital Signs Recent Vital Signs: Last Vital Signs Temp 98.3 F 01/24/17 08:00 Pulse 98 H 01/24/17 08:00 Resp 20 01/24/17 08:00 BP 130/79 01/24/17 08:00 Pulse Ox 97 01/24/17 08:00 - Labs Result Diagrams: 01/23/17 10:38 01/23/17 10:38 Labs: Laboratory Results - last 24 hr 01/23/17 01/23/17 01/23/17 15:54 16:55 21:20 POC Glucose (mg/dL) 77 106 Total Creatine Kinase 76 CK-MB (Mass) 2.83 Troponin I, Quant < 0.0120 01/23/17 01/24/17 23:06 06:48 POC Glucose (mg/dL) 70 Total Creatine Kinase 66 CK-MB (Mass) 2.98 Troponin I, Quant < 0.0120 Attending/Attestation - Attestation I have personally seen and examined this patient.: Yes I have fully participated in the care of the patient.: Yes I have reviewed all pertinent clinical information: Yes Notes (Text): 01/24/17 12:13 I have seen and examined patient with GI fellow. Agree with above documentation with the following additions. In brief, this is a 46 year old female with history of asthma, COPD, CHF, DM, HTN, CKD, Parkinson's disease who presents to hospital with complaint of epigastric abdominal discomfort radiating to substernal region with associated L arm pain. She describes symptoms progressively getting worse over the past three days. She does report significant heartburn which is worsened by spicy food consumption and when lying flat after meals. She otherwise denies nausea, vomiting, fever/chills, weight loss, rectal bleeding, or change in bowel habits. She had an EGD one year ago for recurrent GERD symptoms which was normal as per patient, no prior colonoscopy. COPD CHF DM / HTN CKD Parkinson's disease Abdominal / chest pain - h/o heartburn, GERD - Diet as tolerated - Cardiac workup in progress given complaints of substernal chest discomfort with associated L arm pain, follow up recommendations - Had an extensive discussion with patient regarding importance of dietary modification in order to reduce frequency of reflux symptoms - Suggest trial of oral PPI therapy for planned 2 week treatment duration - Patient has outpatient private GI physician who she will follow up with after hospital discharge - No further planned inpatient intervention, will sign off case. Please reconsult as necessary, thank you.
[2017-01-24 09:07] VITALS: RESP 20
[2017-01-24] MEDS: Enoxaparin 40 mg Syringe SC SCH ×2 (09:17→09:20)
[2017-01-24] MEDS: Pantoprazole 40 mg EC Tab PO SCH (10:00)
--- NOTE | 2017-01-24 18:05 | CP.PCM.PN ---
Subjective - Date & Time of Evaluation Date of Evaluation: 01/24/17 Time of Evaluation: 09:40 - Subjective Subjective: clinically same s/p dr blanca Objective - Vital Signs/Intake and Output Vital Signs (last 24 hours): Temp Pulse Resp BP Pulse Ox 98.6 F 80 20 171/103 H 100 01/24/17 16:00 01/24/17 16:00 01/24/17 16:00 01/24/17 16:00 01/24/17 16:00 Intake and Output: 01/24/17 01/24/17 06:59 18:59 Intake Total 350 500 Balance 350 500 - Medications Medications: Current Medications Acetaminophen (Tylenol 325mg Tab) 650 mg PO Q6 PRN PRN Reason: pain Last Admin: 01/23/17 21:52 Dose: 650 mg Al Hydrox/Mg Hydrox/Simethicone (Maalox 30 Ml) 30 ml PO Q6 [facility] Last Admin: 01/24/17 13:07 Dose: 30 ml Albuterol/Ipratropium (Duoneb 3 Mg/0.5 Mg (3 Ml) Ud) 3 ml INH RQ6 [facility] Last Admin: 01/24/17 13:10 Dose: 3 ml Amlodipine Besylate (Norvasc) 10 mg PO DAILY [facility] Last Admin: 01/24/17 09:18 Dose: 10 mg Aspirin (Aspirin) 325 mg PO DAILY [facility] Last Admin: 01/24/17 09:18 Dose: 325 mg Docusate Sodium (Colace) 100 mg PO DAILY [facility] Last Admin: 01/24/17 09:18 Dose: 100 mg Enoxaparin Sodium (Lovenox) 40 mg SC DAILY [facility] Last Admin: 01/24/17 09:20 Dose: Not Given Gabapentin (Neurontin) 300 mg PO BID [facility] Last Admin: 01/24/17 09:18 Dose: 300 mg Hydralazine HCl (Apresoline) 50 mg PO QID [facility] Last Admin: 01/24/17 14:09 Dose: 50 mg Losartan Potassium (Cozaar) 100 mg PO DAILY [facility] Last Admin: 01/24/17 09:18 Dose: 100 mg Pantoprazole Sodium (Protonix Ec Tab) 40 mg PO DAILY [facility] Last Admin: 01/24/17 10:00 Dose: Not Given Tramadol HCl (Ultram) 50 mg PO BID PRN PRN Reason: pain Last Admin: 01/24/17 09:18 Dose: 50 mg - Constitutional Appears: Well - Head Exam Head Exam: ATRAUMATIC, NORMAL INSPECTION, NORMOCEPHALIC - Eye Exam Eye Exam: EOMI, Normal appearance, PERRL Pupil Exam: NORMAL ACCOMODATION, PERRL - ENT Exam ENT Exam: Mucous Membranes Moist, Normal Exam - Neck Exam Neck Exam: Full ROM, Normal Inspection. absent: Lymphadenopathy - Respiratory Exam Respiratory Exam: Decreased Breath Sounds - Cardiovascular Exam Cardiovascular Exam: REGULAR RHYTHM, +S1, +S2 - GI/Abdominal Exam GI & Abdominal Exam: Soft, Diminished Bowel Sounds - Rectal Exam Rectal Exam: Deferred - Neurological Exam Neurological Exam: Alert, Oriented x3 Assessment and Plan (1) Abdominal cramps Status: Acute (2) Abdominal pain Status: Acute (3) Abdominal pain in female Status: Acute (4) Acute bronchitis Status: Acute (5) Acute gastroenteritis Status: Acute (6) Anemia Status: Acute (7) Anemia Status: Acute (8) Arm pain, left Status: Acute (9) Arthritis Status: Acute (10) Atypical chest pain Status: Acute (11) Bronchitis Status: Acute (12) Chest discomfort Status: Acute (13) Chest pain Status: Acute (14) Chest pain Status: Acute (15) Chest pain at rest Status: Acute (16) Chronic abdominal pain Status: Acute (17) Chronic anemia Status: Acute (18) Chronic pain Status: Acute (19) Chronic pain Status: Acute (20) Common cold Status: Acute (21) Constipation Status: Acute (22) Constipation - functional Status: Acute (23) Contusion Status: Acute (24) DVT prophylaxis Status: Acute (25) Dehydration Status: Acute (26) Depressive disorder Status: Acute (27) Diarrhea Status: Acute (28) Diarrhea Status: Acute (29) Diarrhea with dehydration Status: Acute (30) Drug-seeking behavior Status: Acute (31) Dysmenorrhea Status: Acute (32) Dyspnea Status: Acute (33) Encounter for medical screening examination Status: Acute (34) Enteritis Status: Acute (35) Exacerbation of multiple sclerosis Status: Acute (36) Flu-like symptoms Status: Acute (37) Fracture of finger of right hand Status: Acute (38) Gastroenteritis Status: Acute (39) Generalized pruritus Status: Acute (40) Generalized weakness Status: Acute (41) H/O TIA (transient ischemic attack) and stroke Status: Acute (42) History of CVA (cerebrovascular accident) Status: Acute (43) Hypercalcemia Status: Acute (44) Hyperlipidemia Status: Acute (45) Hyperparathyroidism Status: Acute (46) Hypertension Status: Acute (47) Hypokalemia Status: Acute (48) Influenza Status: Acute (49) Influenza-like illness Status: Acute (50) Iron deficiency anemia Status: Acute (51) Knee injury Status: Acute (52) Knee pain Status: Acute (53) Left arm numbness Status: Acute (54) Leukocytopenia Status: Acute (55) Low back pain Status: Acute (56) Malingering Status: Acute (57) Moderate major depression Status: Acute (58) Moderate recurrent major depression Status: Acute (59) Mononucleosis syndrome Status: Acute (60) Multiple somatic complaints Status: Acute (61) Muscle pain Status: Acute (62) Muscle strain Status: Acute (63) Musculoskeletal chest pain Status: Acute (64) Myalgia Status: Acute (65) Narcotic dependence Status: Acute (66) Nausea Status: Acute (67) Non-cardiac chest pain Status: Acute (68) Pain Status: Acute (69) Pleuritic pain Status: Acute (70) Pneumonia Status: Acute (71) Prophylactic measure Status: Acute (72) Sprain of shoulder, right Status: Acute (73) UTI (urinary tract infection) Status: Acute (74) Upper respiratory infection Status: Acute (75) Viral syndrome Status: Acute (76) Vomiting Status: Acute (77) Bronchial asthma Status: Chronic (78) Cerebral palsy Status: Chronic (79) Chest pain Status: Chronic (80) Diabetes mellitus Status: Chronic (81) History of CVA with residual deficit Status: Chronic (82) Multiple sclerosis Status: Chronic (83) Uncontrolled hypertension Status: Chronic (84) Hypovitaminosis D Status: Suspected - Assessment and Plan (Free Text) Plan: CT imaging results appreciated protonix meds as ordered dr blanca on board dr munoz consult f/u labs pt/ot speech therapy
--- NOTE | 2017-01-24 19:30 | CP.PCM.CON ---
History of Present Illness - History of Present Illness History of Present Illness: I was asked to see patient by Dr. Lorena Corley Patient is a 46 ear old female with HTN, CVA, DM who presents with epigastic pain radiating to the chest. The patient states symptoms begin in the upper abdomen. There is no associated dyspnea. By report she had previous endoscopy and is being treated for gastritis. Review of Systems - Constitutional Constitutional: absent: As Per HPI, Anorexia, Chills, Daytime Sleepiness, Excessive Sweating, Fatigue, Fever, Frequent Falls, Headache, Increased Appetite , Lethargy, Malaise, Night Sweats, Snoring, Sleep Apnea, Weight Gain, Weight Loss, Weakness, Other - EENT Eyes: absent: As Per HPI, Blind Spots, Blurred Vision, Change in Vision, Decreased Night Vision, Diplopia, Discharge, Dry Eye, Exophthalmos, Floaters, Irritation, Itchy Eyes, Loss of Peripheral Vision, Pain, Photophobia, Requires Corrective Lenses, Sees Flashes, Spots in Vision, Tunnel Vision, Other Visual Disturbances, Loss of Vision, Other Ears: absent: As Per HPI, Decreased Hearing, Ear Discharge, Ear Pain, Tinnitus, Abnormal Hearing, Disequilibrium, Dizziness, Other Nose/Mouth/Throat: absent: As Per HPI, Epistaxis, Nasal Congestion, Nasal Discharge, Nasal Obstruction, Nasal Trauma, Nose Pain, Post Nasal Drip, Sinus Pain, Sinus Pressure, Bleeding Gums, Change in Voice, Dental Pain, Dry Mouth, Dysphagia, Halitosis, Hoarsness, Lip Swelling, Mouth Lesions, Mouth Pain, Odynophagia, Sore Throat, Throat Swelling, Tongue Swelling, Facial Pain, Neck Pain, Neck Mass, Other - Cardiovascular Cardiovascular: Chest Pain - Respiratory Respiratory: absent: As Per HPI, Cough, Dyspnea, Hemoptysis, Dyspnea on Exertion , Wheezing, Snoring, Stridor, Pain on Inspiration, Chest Congestion, Excessive Mucous Production, Change in Mucous Color, Pain with Coughing, Other - Gastrointestinal Gastrointestinal: Dyspepsia - Musculoskeletal Musculoskeletal: absent: As Per HPI, Abnormal Gait, Arthralgias, Atrophy, Back Pain, Deformity, Joint Swelling, Limited Range of Motion, Loss of Height, Muscle Cramps, Muscle Weakness, Myalgias, Neck Pain, Numbness, Radiating Pain into Limb, Stiffness, Tingling, Other - Integumentary Integumentary: absent: As Per HPI, Acne, Alopecia, Bleeding Lesions, Change in Hair, Change in Nails, Change in Pigmentation, Changing Lesions, Dry Skin, Erythema, Furuncle, Hirsutism, Lesions, New Lesions, Non-Healing Lesions, Photosensitivity, Pruritus, Rash, Skin Pain, Skin Ulcer, Sores, Striae, Swelling , Unusual Bruising, Wounds, Jaundice, Other - Neurological Neurological: absent: As Per HPI, Abnormal Gait, Abnormal Hearing, Abnormal Movements, Abnormal Speech, Behavioral Changes, Burning Sensations, Confusion, Convulsions, Disequilibrium, Dizziness, Numbness, Focal Weakness, Frequent Falls , Headaches, Lack of Coordination, Loss of Vision, Memory Loss, Paresthesias, Radicular Pain, Restless Legs, Sensory Deficit, Syncope, Tingling, Tremor, Vertigo, Weakness, Other Visual Disturbances, Other - Psychiatric Psychiatric: absent: As Per HPI, Abnormal Sleep Pattern, Anhedonia, Anxiety, Auditory Hallucinations, Behavioral Changes, Change in Appetite, Change in Libido, Confusion, Depression, Difficulty Concentrating, Hallucinations, Homicidal Ideation, Hopelessness, Irritability, Memory Loss, Mood Swings, Panic Attacks, Paranoia, Suicidal Ideation, Visual Hallucinations, Tactile Hallucinations, Other - Endocrine Endocrine: absent: As Per HPI, Change in Body Appearance, Change in Libido, Cold Intolorance, Deepening of Voice, Excessive Sweating, Fatigue, Flushing, Heat Intolorance, Increase in Ring/Shoe/Hat Size, Palpitations, Polydipsia, Polyphagia, Polyuria, Other - Hematologic/Lymphatic Hematologic: absent: As Per HPI, Easy Bleeding, Easy Bruising, Lymphadenopathy, Other Past Patient History - Infectious Disease Hx of Infectious Diseases: None - Tetanus Immunizations Tetanus Immunization: Unknown - Past Medical History & Family History Past Medical History?: Yes - Past Social History Smoking Status: Never Smoked - CARDIAC Hx Congestive Heart Failure: Yes Hx Hypercholesterolemia: Yes Hx Hypertension: Yes - PULMONARY Hx Chronic Obstructive Pulmonary Disease (COPD): Yes (asthma;bronchitis) - NEUROLOGICAL Hx Multiple Sclerosis: Yes Hx Parkinson's Disease: Yes Hx Transient Ischemic Attacks (TIA): Yes - HEENT Hx HEENT Problems: No - RENAL Hx Chronic Kidney Disease: Yes Hx Kidney Stones: Yes - ENDOCRINE/METABOLIC Hx Hyperthyroidism: Yes (hyperthyroidism) - HEMATOLOGICAL/ONCOLOGICAL Hx Anemia: Yes (secondary to heavy menstruation) - INTEGUMENTARY Hx Dermatological Problems: No - MUSCULOSKELETAL/RHEUMATOLOGICAL Hx Arthritis: Yes - GASTROINTESTINAL Hx Gastritis: Yes - GENITOURINARY/GYNECOLOGICAL Hx Genitourinary Disorders: Yes Hx Urinary Tract Infection: Yes - PSYCHIATRIC Hx Anxiety: Yes Hx Depression: Yes Hx Substance Use: No - SURGICAL HISTORY Hx Surgeries: Yes Hx Section: Yes (1994) Hx Herniorrhaphy: Yes - ANESTHESIA Hx Anesthesia: Yes Hx Anesthesia Reactions: No Hx Malignant Hyperthermia: No Meds Allergies/Adverse Reactions: Allergies Allergy/AdvReac Type Severity Reaction Status Date / Time aspirin Allergy SHORTNESS Verified 01/23/17 09:44 OF BREATH codeine Allergy RASH Verified 01/23/17 09:44 iodine Allergy SHORTNESS Verified 01/23/17 09:44 OF BREATH ketorolac Allergy SHORTNESS Verified 01/23/17 09:44 OF BREATH ketorolac tromethamine Allergy RASH Verified 01/23/17 09:44 [From Toradol] Latex, Natural Rubber Allergy SHORTNESS Verified 01/23/17 09:44 OF BREATH metoprolol Allergy SHORTNESS Verified 01/23/17 09:44 OF BREATH morphine Allergy SHORTNESS Verified 01/23/17 09:44 OF BREATH orange juice Allergy SHORTNESS Verified 01/23/17 09:44 OF BREATH Penicillins Allergy SHORTNESS Verified 01/23/17 09:44 OF BREATH simvastatin Allergy RASH Verified 01/15/17 09:51 Sulfa (Sulfonamide Allergy RASH Verified 01/15/17 09:51 Antibiotics) tomato Allergy ITCHING Verified 01/15/17 09:51 tramadol Allergy SHORTNESS Unverified 01/15/17 13:00 OF BREATH ondansetron HCl AdvReac Intermediate RASH Verified 01/15/17 09:51 [From Zofran (as hydrochloride)] - Medications Medications: Current Medications Acetaminophen (Tylenol 325mg Tab) 650 mg PO Q6 PRN PRN Reason: pain Last Admin: 01/23/17 21:52 Dose: 650 mg Al Hydrox/Mg Hydrox/Simethicone (Maalox 30 Ml) 30 ml PO Q6 [facility] Last Admin: 01/24/17 18:54 Dose: 30 ml Albuterol/Ipratropium (Duoneb 3 Mg/0.5 Mg (3 Ml) Ud) 3 ml INH RQ6 [facility] Last Admin: 01/24/17 13:10 Dose: 3 ml Amlodipine Besylate (Norvasc) 10 mg PO DAILY [facility] Last Admin: 01/24/17 09:18 Dose: 10 mg Aspirin (Aspirin) 325 mg PO DAILY [facility] Last Admin: 01/24/17 09:18 Dose: 325 mg Docusate Sodium (Colace) 100 mg PO DAILY [facility] Last Admin: 01/24/17 09:18 Dose: 100 mg Enoxaparin Sodium (Lovenox) 40 mg SC DAILY [facility] Last Admin: 01/24/17 09:20 Dose: Not Given Gabapentin (Neurontin) 300 mg PO BID [facility] Last Admin: 01/24/17 18:55 Dose: 300 mg Hydralazine HCl (Apresoline) 50 mg PO QID [facility] Last Admin: 01/24/17 18:55 Dose: 50 mg Losartan Potassium (Cozaar) 100 mg PO DAILY [facility] Last Admin: 01/24/17 09:18 Dose: 100 mg Pantoprazole Sodium (Protonix Ec Tab) 40 mg PO DAILY [facility] Last Admin: 01/24/17 10:00 Dose: Not Given Tramadol HCl (Ultram) 50 mg PO BID PRN PRN Reason: pain Last Admin: 01/24/17 19:01 Dose: 50 mg Physical Exam - Constitutional Appears: Non-toxic - Head Exam Head Exam: NORMAL INSPECTION - Eye Exam Eye Exam: Normal appearance - ENT Exam ENT Exam: Mucous Membranes Moist - Neck Exam Neck exam: Positive for: Full Rom - Respiratory Exam Respiratory Exam: NORMAL BREATHING PATTERN - Cardiovascular Exam Cardiovascular Exam: REGULAR RHYTHM - GI/Abdominal Exam GI & Abdominal Exam: Normal Bowel Sounds - Rectal Exam Rectal Exam: Deferred - Extremities Exam Extremities exam: Negative for: pedal edema - Back Exam Back exam: NORMAL INSPECTION - Neurological Exam Neurological exam: Alert, Oriented x3 - Psychiatric Exam Psychiatric exam: Normal Affect - Skin Skin Exam: Normal Color Results - Vital Signs Recent Vital Signs: Last Vital Signs Temp 98.6 F 01/24/17 16:00 Pulse 74 01/24/17 16:35 Resp 20 01/24/17 16:00 BP 171/103 H 01/24/17 16:00 Pulse Ox 100 01/24/17 16:00 - Labs Result Diagrams: 01/23/17 10:38 01/23/17 10:38 Labs: Laboratory Results - last 24 hr 01/23/17 01/23/17 01/24/17 21:20 23:06 06:48 POC Glucose (mg/dL) 106 70 Total Creatine Kinase 66 CK-MB (Mass) 2.98 Troponin I, Quant < 0.0120 01/24/17 16:34 POC Glucose (mg/dL) 89 Total Creatine Kinase CK-MB (Mass) Troponin I, Quant - EKG Data EKG Interpreted by: Myself EKG shows normal: Sinus rhythm Assessment & Plan (1) Chest pain Assessment and Plan: Patient ruled out for myocardial infarction. I reviewed the echocardiogram with the patient. The left ventricular function is normal. The patient's symptoms do not appear to be cardiac in origin. Recommend medical therapy. will sign off. Please reconsult as necessary Status: Acute (2) Hyperlipidemia Assessment and Plan: statin therapy Status: Acute (3) Hypertension Assessment and Plan: blood pressure control Status: Acute
[2017-01-25] MEDS: Albuterol-Ipratrop 3 mg / 0.5 (3 ml) UD INH SCH ×4 (01:27→19:53)
[2017-01-25] MEDS: Aluminum Hydroxide/Magnesium Hydroxide Susp (30 mL) PO SCH ×3 (05:54→18:15)
--- NOTE | 2017-01-25 08:37 | CP.PCM.PN ---
Subjective - Date & Time of Evaluation Date of Evaluation: 01/25/17 Time of Evaluation: 07:55 - Subjective Subjective: PGY-[address] Corley Patient see and examined at bedside. No acute events reported overnight. Patient is tolerating PO intake well. Patient reports the epigastric pain is improving. Patient denies headache, fever, chills, shortness of breath, chest pain, nausea, vomiting, or diarrhea. Objective - Vital Signs/Intake and Output Vital Signs (last 24 hours): Temp Pulse Resp BP Pulse Ox 98.1 F 74 20 127/75 95 01/24/17 23:21 01/25/17 01:00 01/24/17 23:21 01/24/17 23:21 01/24/17 23:21 Intake and Output: 01/25/17 01/25/17 06:59 18:59 Intake Total 450 Balance 450 - Medications Medications: Current Medications Acetaminophen (Tylenol 325mg Tab) 650 mg PO Q6 PRN PRN Reason: pain Last Admin: 01/23/17 21:52 Dose: 650 mg Al Hydrox/Mg Hydrox/Simethicone (Maalox 30 Ml) 30 ml PO Q6 [facility] Last Admin: 01/25/17 05:54 Dose: 30 ml Albuterol/Ipratropium (Duoneb 3 Mg/0.5 Mg (3 Ml) Ud) 3 ml INH RQ6 [facility] Last Admin: 01/25/17 07:43 Dose: 3 ml Amlodipine Besylate (Norvasc) 10 mg PO DAILY [facility] Last Admin: 01/24/17 09:18 Dose: 10 mg Aspirin (Aspirin) 325 mg PO DAILY [facility] Last Admin: 01/24/17 09:18 Dose: 325 mg Docusate Sodium (Colace) 100 mg PO DAILY [facility] Last Admin: 01/24/17 09:18 Dose: 100 mg Enoxaparin Sodium (Lovenox) 40 mg SC DAILY [facility] Last Admin: 01/24/17 09:20 Dose: Not Given Gabapentin (Neurontin) 300 mg PO BID [facility] Last Admin: 01/24/17 18:55 Dose: 300 mg Hydralazine HCl (Apresoline) 50 mg PO QID [facility] Last Admin: 01/24/17 21:30 Dose: 50 mg Losartan Potassium (Cozaar) 100 mg PO DAILY [facility] Last Admin: 01/24/17 09:18 Dose: 100 mg Pantoprazole Sodium (Protonix Ec Tab) 40 mg PO DAILY [facility] Last Admin: 01/24/17 10:00 Dose: Not Given Tramadol HCl (Ultram) 50 mg PO BID PRN PRN Reason: pain Last Admin: 01/25/17 03:24 Dose: 50 mg - Constitutional Appears: Non-toxic, No Acute Distress - Head Exam Head Exam: ATRAUMATIC, NORMAL INSPECTION - Eye Exam Eye Exam: Normal appearance - ENT Exam ENT Exam: Mucous Membranes Moist - Neck Exam Neck Exam: Normal Inspection - Respiratory Exam Respiratory Exam: Clear to Ausculation Bilateral, NORMAL BREATHING PATTERN. absent: Respiratory Distress - Cardiovascular Exam Cardiovascular Exam: REGULAR RHYTHM, +S1, +S2. absent: Murmur - GI/Abdominal Exam GI & Abdominal Exam: Soft, Normal Bowel Sounds. absent: Tenderness - Extremities Exam Extremities Exam: absent: Pedal Edema, Tenderness Additional comments: left UE and LE weakness due to prior CVA - Neurological Exam Neurological Exam: Alert, Awake, Oriented x3 Additional comments: aphasic speech at baseline - Psychiatric Exam Psychiatric exam: Normal Affect, Normal Mood - Skin Skin Exam: Normal Color, Warm Assessment and Plan - Assessment and Plan (Free Text) Assessment: Chest pain r/o ACS -Likely GERD in nature -Troponin negative x3 -Cardiology review echo with the patient, normal EF, cardiac origin unlikely. Recommends medical therapy -GI recommends PPI therapy for 2 weeks HTN -Norvasc 10mg -Hdralazine 50mg -Cozaar 100mg dialy Abnormal CT abdomen -Hazy soft tissue density in the anterior mediastinum, nonspecific -Questionable enlarged soft tissue nodule or lymph node -Recommended patient follow CT as outpatient Prophylactic measures -Lovenox -Protonix Disposition: patient is blacklisted at [facility], placement pending Case discussed with Dr. Corley. All management per Dr. Corley.
[2017-01-25] MEDS: Enoxaparin 40 mg Syringe SC SCH ×2 (10:39→10:44)
[2017-01-25] MEDS: Pantoprazole 40 mg EC Tab PO SCH (10:39)
--- NOTE | 2017-01-25 11:10 | CP.PCM.PN ---
Subjective - Date & Time of Evaluation Date of Evaluation: 01/25/17 Time of Evaluation: 11:10 Objective - Vital Signs/Intake and Output Vital Signs (last 24 hours): Temp Pulse Resp BP Pulse Ox 97.4 F L 74 20 176/94 H 99 01/25/17 08:00 01/25/17 08:00 01/25/17 08:00 01/25/17 08:00 01/25/17 08:00 Intake and Output: 01/25/17 01/25/17 06:59 18:59 Intake Total 450 Balance 450 - Medications Medications: Current Medications Acetaminophen (Tylenol 325mg Tab) 650 mg PO Q6 PRN PRN Reason: pain Last Admin: 01/23/17 21:52 Dose: 650 mg Al Hydrox/Mg Hydrox/Simethicone (Maalox 30 Ml) 30 ml PO Q6 [facility] Last Admin: 01/25/17 05:54 Dose: 30 ml Albuterol/Ipratropium (Duoneb 3 Mg/0.5 Mg (3 Ml) Ud) 3 ml INH RQ6 [facility] Last Admin: 01/25/17 07:43 Dose: 3 ml Amlodipine Besylate (Norvasc) 10 mg PO DAILY [facility] Last Admin: 01/25/17 10:39 Dose: 10 mg Aspirin (Aspirin) 325 mg PO DAILY [facility] Last Admin: 01/25/17 10:39 Dose: 325 mg Docusate Sodium (Colace) 100 mg PO DAILY [facility] Last Admin: 01/25/17 10:39 Dose: 100 mg Enoxaparin Sodium (Lovenox) 40 mg SC DAILY [facility] Last Admin: 01/25/17 10:44 Dose: Not Given Gabapentin (Neurontin) 300 mg PO BID [facility] Last Admin: 01/25/17 10:39 Dose: 300 mg Hydralazine HCl (Apresoline) 50 mg PO QID [facility] Last Admin: 01/25/17 10:39 Dose: 50 mg Losartan Potassium (Cozaar) 100 mg PO DAILY [facility] Last Admin: 01/25/17 10:39 Dose: 100 mg Pantoprazole Sodium (Protonix Ec Tab) 40 mg PO DAILY [facility] Last Admin: 01/25/17 10:39 Dose: 40 mg Tramadol HCl (Ultram) 50 mg PO BID PRN PRN Reason: pain Last Admin: 01/25/17 03:24 Dose: 50 mg
--- NOTE | 2017-01-25 18:59 | CP.PCM.PN ---
Subjective - Date & Time of Evaluation Date of Evaluation: 01/25/17 Time of Evaluation: 09:40 - Subjective Subjective: clinically same pt reports continued chest pain/epigastric pain s/p eval by GI Dr Blanca and cardio Dr Perkins Objective - Vital Signs/Intake and Output Vital Signs (last 24 hours): Temp Pulse Resp BP Pulse Ox 98.5 F 94 H 20 133/77 99 01/25/17 15:00 01/25/17 15:00 01/25/17 15:00 01/25/17 15:00 01/25/17 15:00 Intake and Output: 01/25/17 01/25/17 06:59 18:59 Intake Total 450 Balance 450 - Medications Medications: Current Medications Acetaminophen (Tylenol 325mg Tab) 650 mg PO Q6 PRN PRN Reason: pain Last Admin: 01/23/17 21:52 Dose: 650 mg Al Hydrox/Mg Hydrox/Simethicone (Maalox 30 Ml) 30 ml PO Q6 [facility] Last Admin: 01/25/17 18:15 Dose: 30 ml Albuterol/Ipratropium (Duoneb 3 Mg/0.5 Mg (3 Ml) Ud) 3 ml INH RQ6 [facility] Last Admin: 01/25/17 13:19 Dose: 3 ml Amlodipine Besylate (Norvasc) 10 mg PO DAILY [facility] Last Admin: 01/25/17 10:39 Dose: 10 mg Aspirin (Aspirin) 325 mg PO DAILY [facility] Last Admin: 01/25/17 10:39 Dose: 325 mg Docusate Sodium (Colace) 100 mg PO DAILY [facility] Last Admin: 01/25/17 10:39 Dose: 100 mg Enoxaparin Sodium (Lovenox) 40 mg SC DAILY [facility] Last Admin: 01/25/17 10:44 Dose: Not Given Gabapentin (Neurontin) 300 mg PO BID [facility] Last Admin: 01/25/17 18:15 Dose: 300 mg Hydralazine HCl (Apresoline) 50 mg PO QID [facility] Last Admin: 01/25/17 18:15 Dose: 50 mg Losartan Potassium (Cozaar) 100 mg PO DAILY [facility] Last Admin: 01/25/17 10:39 Dose: 100 mg Pantoprazole Sodium (Protonix Ec Tab) 40 mg PO DAILY [facility] Last Admin: 01/25/17 10:39 Dose: 40 mg Tramadol HCl (Ultram) 50 mg PO BID PRN PRN Reason: pain Last Admin: 01/25/17 14:34 Dose: 50 mg - Constitutional Appears: Well - Head Exam Head Exam: ATRAUMATIC, NORMAL INSPECTION, NORMOCEPHALIC - Eye Exam Eye Exam: EOMI, Normal appearance, PERRL Pupil Exam: NORMAL ACCOMODATION, PERRL - ENT Exam ENT Exam: Mucous Membranes Moist, Normal Exam - Neck Exam Neck Exam: Full ROM, Normal Inspection. absent: Lymphadenopathy - Respiratory Exam Respiratory Exam: Decreased Breath Sounds - Cardiovascular Exam Cardiovascular Exam: REGULAR RHYTHM, +S1, +S2 - GI/Abdominal Exam GI & Abdominal Exam: Soft, Diminished Bowel Sounds - Rectal Exam Rectal Exam: Deferred - Neurological Exam Neurological Exam: Alert, Oriented x3 Assessment and Plan (1) Abdominal cramps Status: Acute (2) Abdominal pain Status: Acute (3) Abdominal pain in female Status: Acute (4) Acute bronchitis Status: Acute (5) Acute gastroenteritis Status: Acute (6) Anemia Status: Acute (7) Anemia Status: Acute (8) Arm pain, left Status: Acute (9) Arthritis Status: Acute (10) Atypical chest pain Status: Acute (11) Bronchitis Status: Acute (12) Chest discomfort Status: Acute (13) Chest pain Status: Acute (14) Chest pain Status: Acute (15) Chest pain at rest Status: Acute (16) Chronic abdominal pain Status: Acute (17) Chronic anemia Status: Acute (18) Chronic pain Status: Acute (19) Chronic pain Status: Acute (20) Common cold Status: Acute (21) Constipation Status: Acute (22) Constipation - functional Status: Acute (23) Contusion Status: Acute (24) DVT prophylaxis Status: Acute (25) Dehydration Status: Acute (26) Depressive disorder Status: Acute (27) Diarrhea Status: Acute (28) Diarrhea Status: Acute (29) Diarrhea with dehydration Status: Acute (30) Drug-seeking behavior Status: Acute (31) Dysmenorrhea Status: Acute (32) Dyspnea Status: Acute (33) Encounter for medical screening examination Status: Acute (34) Enteritis Status: Acute (35) Exacerbation of multiple sclerosis Status: Acute (36) Flu-like symptoms Status: Acute (37) Fracture of finger of right hand Status: Acute (38) Gastroenteritis Status: Acute (39) Generalized pruritus Status: Acute (40) Generalized weakness Status: Acute (41) H/O TIA (transient ischemic attack) and stroke Status: Acute (42) History of CVA (cerebrovascular accident) Status: Acute (43) Hypercalcemia Status: Acute (44) Hyperlipidemia Status: Acute (45) Hyperparathyroidism Status: Acute (46) Hypertension Status: Acute (47) Hypokalemia Status: Acute (48) Influenza Status: Acute (49) Influenza-like illness Status: Acute (50) Iron deficiency anemia Status: Acute (51) Knee injury Status: Acute (52) Knee pain Status: Acute (53) Left arm numbness Status: Acute (54) Leukocytopenia Status: Acute (55) Low back pain Status: Acute (56) Malingering Status: Acute (57) Moderate major depression Status: Acute (58) Moderate recurrent major depression Status: Acute (59) Mononucleosis syndrome Status: Acute (60) Multiple somatic complaints Status: Acute (61) Muscle pain Status: Acute (62) Muscle strain Status: Acute (63) Musculoskeletal chest pain Status: Acute (64) Myalgia Status: Acute (65) Narcotic dependence Status: Acute (66) Nausea Status: Acute (67) Non-cardiac chest pain Status: Acute (68) Pain Status: Acute (69) Pleuritic pain Status: Acute (70) Pneumonia Status: Acute (71) Prophylactic measure Status: Acute (72) Sprain of shoulder, right Status: Acute (73) UTI (urinary tract infection) Status: Acute (74) Upper respiratory infection Status: Acute (75) Viral syndrome Status: Acute (76) Vomiting Status: Acute (77) Bronchial asthma Status: Chronic (78) Cerebral palsy Status: Chronic (79) Chest pain Status: Chronic (80) Diabetes mellitus Status: Chronic (81) History of CVA with residual deficit Status: Chronic (82) Multiple sclerosis Status: Chronic (83) Uncontrolled hypertension Status: Chronic (84) Hypovitaminosis D Status: Suspected - Assessment and Plan (Free Text) Plan: cyndi meds as ordered f/u with dr perkins and dr blanca discharge planning
[2017-01-26] MEDS: Aluminum Hydroxide/Magnesium Hydroxide Susp (30 mL) PO SCH ×4 (00:13→17:08)
[2017-01-26] MEDS: Albuterol-Ipratrop 3 mg / 0.5 (3 ml) UD INH SCH ×3 (00:43→13:17)
--- NOTE | 2017-01-26 07:45 | CP.PCM.PN ---
Subjective - Date & Time of Evaluation Date of Evaluation: 01/26/17 Time of Evaluation: 07:45 - Subjective Subjective: Medicine Progress Note for Dr. Corley's Service Pt seen and examined at bedside. No acute events overnight as per nursing staff. Patient reports continued chest/epigastric pain but improving. Patient denies headache, fever, chills, shortness of breath, nausea, vomiting, or diarrhea. Objective - Vital Signs/Intake and Output Vital Signs (last 24 hours): Temp Pulse Resp BP Pulse Ox 98.1 F 89 20 118/69 98 01/25/17 23:23 01/25/17 23:23 01/25/17 23:23 01/25/17 23:23 01/25/17 23:23 - Medications Medications: Current Medications Acetaminophen (Tylenol 325mg Tab) 650 mg PO Q6 PRN PRN Reason: pain Last Admin: 01/23/17 21:52 Dose: 650 mg Al Hydrox/Mg Hydrox/Simethicone (Maalox 30 Ml) 30 ml PO Q6 [facility] Last Admin: 01/26/17 06:50 Dose: Not Given Albuterol/Ipratropium (Duoneb 3 Mg/0.5 Mg (3 Ml) Ud) 3 ml INH RQ6 [facility] Last Admin: 01/26/17 00:43 Dose: 3 ml Amlodipine Besylate (Norvasc) 10 mg PO DAILY [facility] Last Admin: 01/25/17 10:39 Dose: 10 mg Aspirin (Aspirin) 325 mg PO DAILY [facility] Last Admin: 01/25/17 10:39 Dose: 325 mg Docusate Sodium (Colace) 100 mg PO DAILY [facility] Last Admin: 01/25/17 10:39 Dose: 100 mg Enoxaparin Sodium (Lovenox) 40 mg SC DAILY [facility] Last Admin: 01/25/17 10:44 Dose: Not Given Gabapentin (Neurontin) 300 mg PO BID [facility] Last Admin: 01/25/17 18:15 Dose: 300 mg Hydralazine HCl (Apresoline) 50 mg PO QID [facility] Last Admin: 01/25/17 22:52 Dose: 50 mg Losartan Potassium (Cozaar) 100 mg PO DAILY [facility] Last Admin: 01/25/17 10:39 Dose: 100 mg Pantoprazole Sodium (Protonix Ec Tab) 40 mg PO DAILY [facility] Last Admin: 01/25/17 10:39 Dose: 40 mg Tramadol HCl (Ultram) 50 mg PO TID PRN PRN Reason: Pain, moderate (4-7) Last Admin: 01/26/17 00:37 Dose: 50 mg - Constitutional Appears: No Acute Distress - Head Exam Head Exam: ATRAUMATIC, NORMAL INSPECTION - Eye Exam Eye Exam: EOMI - ENT Exam ENT Exam: Mucous Membranes Moist - Respiratory Exam Respiratory Exam: Clear to Ausculation Bilateral, NORMAL BREATHING PATTERN - Cardiovascular Exam Cardiovascular Exam: REGULAR RHYTHM - GI/Abdominal Exam GI & Abdominal Exam: Soft. absent: Tenderness - Neurological Exam Neurological Exam: Alert, Awake, Oriented x3 Assessment and Plan - Assessment and Plan (Free Text) Plan: Chest pain r/o ACS Likely GERD Troponin negative x3 Echo: completed, follow up reading GI consulted, recs appreciated PPI therapy for 2 weeks Continue with protonix 40mg PO daily Tramadol PRN pain mod-sev Tylenol PRN pain mild-mod Continue with Maalox 30mL AST/ALT- WNL Patient continues to have symptoms of epigastric/chest pain HTN Continue home BP meds: Norvasc 10mg daily Hydralazine 50mg daily Cozaar 100mg daily Abnormal CT abdomen Hazy soft tissue density in the anterior mediastinum, nonspecific Questionable enlarged soft tissue nodule or lymph node Recommended patient follow CT as outpatient Prophylactic measures Continue: Lovenox Protonix Disposition: patient is blacklisted at [facility], placement pending Case discussed with Dr. Corley. All management per Dr. Corley.
[2017-01-26] MEDS: Enoxaparin 40 mg Syringe SC SCH (09:40)
[2017-01-26] MEDS: Pantoprazole 40 mg EC Tab PO SCH (09:40)
[2017-01-26 09:44] VITALS: TEMP 97.3
[2017-01-26 11:15] VITALS: BP 171/82; PULSE 87
--- NOTE | 2017-01-26 16:25 | CP.PCM.PN ---
Subjective - Date & Time of Evaluation Date of Evaluation: 01/26/17 Time of Evaluation: 09:20 - Subjective Subjective: clinically same Objective - Vital Signs/Intake and Output Vital Signs (last 24 hours): Temp Pulse Resp BP Pulse Ox 97.3 F L 87 20 171/82 H 100 01/26/17 08:00 01/26/17 09:44 01/26/17 08:00 01/26/17 09:44 01/26/17 08:00 - Medications Medications: Current Medications Acetaminophen (Tylenol 325mg Tab) 650 mg PO Q6 PRN PRN Reason: pain Last Admin: 01/23/17 21:52 Dose: 650 mg Al Hydrox/Mg Hydrox/Simethicone (Maalox 30 Ml) 30 ml PO Q6 [facility] Last Admin: 01/26/17 11:26 Dose: 30 ml Albuterol/Ipratropium (Duoneb 3 Mg/0.5 Mg (3 Ml) Ud) 3 ml INH RQ6 [facility] Last Admin: 01/26/17 13:17 Dose: 3 ml Amlodipine Besylate (Norvasc) 10 mg PO DAILY [facility] Last Admin: 01/26/17 09:40 Dose: 10 mg Aspirin (Aspirin) 325 mg PO DAILY [facility] Last Admin: 01/26/17 09:39 Dose: 325 mg Docusate Sodium (Colace) 100 mg PO DAILY [facility] Last Admin: 01/26/17 09:40 Dose: 100 mg Enoxaparin Sodium (Lovenox) 40 mg SC DAILY [facility] Last Admin: 01/26/17 09:40 Dose: 40 mg Gabapentin (Neurontin) 300 mg PO BID [facility] Last Admin: 01/26/17 09:40 Dose: 300 mg Hydralazine HCl (Apresoline) 50 mg PO QID [facility] Last Admin: 01/26/17 13:25 Dose: 50 mg Losartan Potassium (Cozaar) 100 mg PO DAILY [facility] Last Admin: 01/26/17 09:40 Dose: 100 mg Pantoprazole Sodium (Protonix Ec Tab) 40 mg PO DAILY [facility] Last Admin: 01/26/17 09:40 Dose: 40 mg Tramadol HCl (Ultram) 50 mg PO TID PRN PRN Reason: Pain, moderate (4-7) Last Admin: 01/26/17 09:40 Dose: 50 mg - Constitutional Appears: Well - Head Exam Head Exam: ATRAUMATIC, NORMAL INSPECTION, NORMOCEPHALIC - Eye Exam Eye Exam: EOMI, Normal appearance, PERRL Pupil Exam: NORMAL ACCOMODATION, PERRL - ENT Exam ENT Exam: Mucous Membranes Moist, Normal Exam - Neck Exam Neck Exam: Full ROM, Normal Inspection. absent: Lymphadenopathy - Respiratory Exam Respiratory Exam: Decreased Breath Sounds - Cardiovascular Exam Cardiovascular Exam: REGULAR RHYTHM, +S1, +S2 - GI/Abdominal Exam GI & Abdominal Exam: Soft, Diminished Bowel Sounds - Rectal Exam Rectal Exam: Deferred - Neurological Exam Neurological Exam: Alert, Oriented x3 Assessment and Plan (1) Abdominal cramps Status: Acute (2) Abdominal pain Status: Acute (3) Abdominal pain in female Status: Acute (4) Acute bronchitis Status: Acute (5) Acute gastroenteritis Status: Acute (6) Anemia Status: Acute (7) Anemia Status: Acute (8) Arm pain, left Status: Acute (9) Arthritis Status: Acute (10) Atypical chest pain Status: Acute (11) Bronchitis Status: Acute (12) Chest discomfort Status: Acute (13) Chest pain Status: Acute (14) Chest pain Status: Acute (15) Chest pain at rest Status: Acute (16) Chronic abdominal pain Status: Acute (17) Chronic anemia Status: Acute (18) Chronic pain Status: Acute (19) Chronic pain Status: Acute (20) Common cold Status: Acute (21) Constipation Status: Acute (22) Constipation - functional Status: Acute (23) Contusion Status: Acute (24) DVT prophylaxis Status: Acute (25) Dehydration Status: Acute (26) Depressive disorder Status: Acute (27) Diarrhea Status: Acute (28) Diarrhea Status: Acute (29) Diarrhea with dehydration Status: Acute (30) Drug-seeking behavior Status: Acute (31) Dysmenorrhea Status: Acute (32) Dyspnea Status: Acute (33) Encounter for medical screening examination Status: Acute (34) Enteritis Status: Acute (35) Exacerbation of multiple sclerosis Status: Acute (36) Flu-like symptoms Status: Acute (37) Fracture of finger of right hand Status: Acute (38) Gastroenteritis Status: Acute (39) Generalized pruritus Status: Acute (40) Generalized weakness Status: Acute (41) H/O TIA (transient ischemic attack) and stroke Status: Acute (42) History of CVA (cerebrovascular accident) Status: Acute (43) Hypercalcemia Status: Acute (44) Hyperlipidemia Status: Acute (45) Hyperparathyroidism Status: Acute (46) Hypertension Status: Acute (47) Hypokalemia Status: Acute (48) Influenza Status: Acute (49) Influenza-like illness Status: Acute (50) Iron deficiency anemia Status: Acute (51) Knee injury Status: Acute (52) Knee pain Status: Acute (53) Left arm numbness Status: Acute (54) Leukocytopenia Status: Acute (55) Low back pain Status: Acute (56) Malingering Status: Acute (57) Moderate major depression Status: Acute (58) Moderate recurrent major depression Status: Acute (59) Mononucleosis syndrome Status: Acute (60) Multiple somatic complaints Status: Acute (61) Muscle pain Status: Acute (62) Muscle strain Status: Acute (63) Musculoskeletal chest pain Status: Acute (64) Myalgia Status: Acute (65) Narcotic dependence Status: Acute (66) Nausea Status: Acute (67) Non-cardiac chest pain Status: Acute (68) Pain Status: Acute (69) Pleuritic pain Status: Acute (70) Pneumonia Status: Acute (71) Prophylactic measure Status: Acute (72) Sprain of shoulder, right Status: Acute (73) UTI (urinary tract infection) Status: Acute (74) Upper respiratory infection Status: Acute (75) Viral syndrome Status: Acute (76) Vomiting Status: Acute (77) Bronchial asthma Status: Chronic (78) Cerebral palsy Status: Chronic (79) Chest pain Status: Chronic (80) Diabetes mellitus Status: Chronic (81) History of CVA with residual deficit Status: Chronic (82) Multiple sclerosis Status: Chronic (83) Uncontrolled hypertension Status: Chronic (84) Hypovitaminosis D Status: Suspected - Assessment and Plan (Free Text) Plan: discharge planning cyndi meds as ordered f/u outpatient as instructed
--- NOTE | 2017-01-28 08:01 | CARD ---
APPROVED REPORT EXAM: Two-dimensional and M-mode echocardiogram with Doppler and color Doppler. Other Information Quality : Technically LimitedRhythm : NSR INDICATION CVA/TIA Dyspnea Chest Pain ANEMIA RISK FACTORS Hyperlipidemia Diabetes M-Mode DIMENSIONS RVDd2.41 (2.1-3.2cm)Left Atrium (MM)1.89 (2.5-4.0cm) IVSd1.30 (0.7-1.1cm)Aortic Root2.70 (2.2-3.7cm) LVDd4.69 (4.0-5.6cm)Aortic Cusp Exc.1.92 (1.5-2.0cm) PWd1.30 (0.7-1.1cm)FS (%) 39 % LVDs2.86 (2.0-3.8cm)LVEF (%)69 (>50%) Aortic Valve AoV Peak Igrsszze932.3cm/Mann Peak GR.8mmHg Mitral Valve MV E Gcqbtacz117.5cm/sMV A Fssydkrf41.6cm/sE/A ratio1.2 TDI E/Lateral E'0.0E/Medial E'0.0 Tricuspid Valve TR Peak Jadrdmfj197os/sTR Peak Gr.[id number] LEFT VENTRICLE The left ventricle is normal size. There is normal left ventricular wall thickness. The left ventricular function is normal. The left ventricular ejection fraction is within the normal range. The Ejection Fraction is >55%. No regional wall motion abnormalities noted. The left ventricular diastolic function is normal. No left ventricle thrombus noted on this study. There is no ventricular septal defect visualized. There is no left ventricular aneurysm. There is no mass noted in the left ventricle. RIGHT VENTRICLE The right ventricle is normal size. There is normal right ventricular wall thickness. The right ventricular systolic function is normal. ATRIA The left atrium size is normal. The right atrium size is normal. The interatrial septum is intact with no evidence for an atrial septal defect. AORTIC VALVE The aortic valve is normal in structure and function. No aortic regurgitation is present. There is no aortic valvular stenosis. There is no aortic valvular vegetation. MITRAL VALVE The mitral valve is normal in structure and function. There is no evidence of mitral valve prolapse. There is no mitral valve stenosis. There is no mitral valve regurgitation noted. TRICUSPID VALVE The tricuspid valve is normal in structure and function. There is trace tricuspid regurgitation. Right ventricular systolic pressure is estimated at 30-40 mmHg. There is mild pulmonary hypertension. There is no tricuspid valve prolapse or vegetation. There is no tricuspid valve stenosis. PULMONIC VALVE The pulmonary valve is normal in structure and function. There is no pulmonic valvular regurgitation. There is no pulmonic valvular stenosis. GREAT VESSELS The aortic root is normal in size. The ascending aorta is normal in size. The pulmonary artery is normal. The IVC is normal in size and collapses >50% with inspiration. PERICARDIAL EFFUSION The pericardium appears normal. There is no pleural effusion. <Conclusion> The left ventricle is normal size. There is normal left ventricular wall thickness. The left ventricular function is normal. The left ventricular ejection fraction is within the normal range. The Ejection Fraction is >55%.
[2017-02-02 13:43] VITALS: O2SAT 99
== END 2017-01-26 17:20 | disposition home or self-care (01) ==
LOC: C.ER 09:36 → C.9E 13:33 → C.5T 15:44
PROVIDERS: ADMIT Internal Medicine Nephrology; ATTEND Internal Medicine Nephrology
DX: N92.0 Excessive and frequent menstruation with regular cycle (principal); D64.9 Anemia, unspecified; E78.5 Hyperlipidemia, unspecified; G20 Parkinson's disease; K21.9 Gastro-esophageal reflux disease without esophagitis; I13.0 Hypertensive heart and chronic kidney disease with heart failure and stage 1 through stage 4 chronic kidney disease, or unspecified chronic kidney disease; I50.9 Heart failure, unspecified
CPT/HCPCS: 71250; 74176; 80053; 81001; 82948; 84484; 84703; 85025; 93005; 93306; 94640; 97116; 97163; 97530; 99284; G0378; G8978; G8979; J1650

== ENCOUNTER 2017-02-06 07:45 | Emergency (ER) | payer MEDICAID ==
[2017-02-06 07:46] VITALS: BMI 22.7
[2017-02-06 07:59] VITALS: RESP 20; TEMP 98.7; O2SAT 99
[2017-02-06] MEDS ORDERED: Sodium Chloride 0.9% 1,000 ML IV SCH (08:15)
[2017-02-06] MEDS ORDERED: Sodium Chloride 0.9% 1,000 ML ONE (08:26)
[2017-02-06 08:44] LABS: BASO % 1.1 % (0.0-2.0); EOS # 0.1 K/uL (0.0-0.7); EOS % 2.1 % (0.0-4.0); HEMATOCRIT 28.9 % (34.0-47.0); LYMPH # 1.1 K/uL (1.0-4.3); LYMPH % 32.1 % (20.0-40.0); MEAN CELL VOLUME 74.6 fL (81.0-99.0); MEAN CORPUSCULAR HEMOGLOBIN 21.9 pg (27.0-31.0); MEAN CORPUSCULAR HGB CONC 29.4 g/dL (33.0-37.0); MEAN PLATELET VOLUME 7.9 fL (7.2-11.7); MONO # 0.3 K/uL (0.0-0.8); MONO % 9.6 % (0.0-10.0); NRBC % 0.1 % (0.0-2.0); RED CELL DISTRIBUTION WIDTH 17.4 % (11.5-14.5); WHITE BLOOD COUNT 3.6 K/uL (4.8-10.8)
[2017-02-06 08:59] LABS: ALB/GLOB RATIO 1.2 (1.0-2.1); ALKALINE PHOSPHATASE 49 U/L (38-126); ALT/SGPT 22 U/L (9-52); AST/SGOT 18 U/L (14-36); BILIRUBIN,TOTAL 0.5 mg/dL (0.2-1.3); BLOOD UREA NITROGEN 14 mg/dL (7-17); CALCIUM 10.5 mg/dl (8.6-10.4); CARBON DIOXIDE 26 mmol/L (22-30); CHLORIDE 107 mmol/L (98-107); GFR AFRICAN-AMERICAN > 60; GLUCOSE,RANDOM 68 mg/dL (65-105); POTASSIUM 3.4 mmol/L (3.6-5.2); SODIUM 142 mmol/L (132-148); TOTAL PROTEIN 6.5 g/dL (6.3-8.3)
--- NOTE | 2017-02-06 09:21 | RAD ---
PROCEDURE: CHEST RADIOGRAPH, 1 VIEW HISTORY: chest pain COMPARISON: 01/15/2017 FINDINGS: LUNGS: Clear. PLEURA: No pneumothorax or pleural fluid seen. CARDIOVASCULAR: Normal. OSSEOUS STRUCTURES: Right rotator cuff insufficiency with superior subluxation of humeral head. VISUALIZED UPPER ABDOMEN: Normal. OTHER FINDINGS: None. IMPRESSION: No active disease.
--- NOTE | 2017-02-06 09:40 | C.PDOC ---
History Of Present Illness A 46 year old female, whose past medical history includes Anemia (secondary to heavy menstruation), Anxiety, Arthritis, Asthma, CAD, CHF, COPD (asthma; bronchitis), CVA, Depression, Diabetes, Gastritis, Gastrointestinal Ulcer, HTN, Hypercholesterolemia, Hyperlipidemia, Hyperthyroidism (hyperthyroidism), Kidney Stones, Multiple Sclerosis, Parkinson's Disease, Pneumonia (06-04-15), Chronic Kidney Disease, and a TIA, presents to the emergency department complaining of left sided body pain with chest pain, which began 3 days ago. THe patient denies any shortness of breath, vomiting, fever, cough, or any other complaints at this time. The patient has had many emergency department visits that are exactly the same to this visit and the duration is the same. Time Seen by Provider: 02/06/17 08:01 Chief Complaint (Nursing): Upper Extremity Problem/Injury History Per: Patient History/Exam Limitations: no limitations Onset/Duration Of Symptoms: Days (3 days ) Current Symptoms Are (Timing): Still Present Quality: "Pain" Recent travel outside of the [place]: No Past Medical History Vital Signs: Last Vital Signs Temp 98.7 F 02/06/17 07:54 Pulse 73 02/06/17 10:40 Resp 20 02/06/17 10:40 BP 167/77 H 02/06/17 10:40 Pulse Ox 99 02/06/17 11:03 - Medical History PMH: Anemia (secondary to heavy menstruation), Anxiety, Arthritis, Asthma, CAD, CHF, COPD (asthma;bronchitis), CVA, Depression, Diabetes, Gastritis, Gastrointestinal Ulcer, HTN, Hypercholesterolemia, Hyperlipidemia, Hyperthyroidism (hyperthyroidism), Kidney Stones, Multiple Sclerosis, Parkinson' s Disease, Pneumonia (06-04-15), Chronic Kidney Disease, TIA Surgical History: Hernia Repair (Umbilical hernia repair) - [facility] Procedures CLOSURE SKIN & SUBCUTANEOUS NEC (01/07/13) ESOPHAGOGASTRODUODENOSCOPY [EGD] W/CLOSED BIOPSY (02/05/15) INJECT/INFUSE NEC (02/17/15) NEBULIZER THERAPY (06/20/13) PACKED CELL TRANSFUSION (01/28/15) REMOVAL OF INFUSION DEV FROM GREAT VESSEL, PROPERTY CLAIMS MANAGER APPROACH (12/02/16) TETANUS TOXOID ADMINIST (01/07/13) VACCINATION NEC (08/03/14) Family History: States: No Known Family Hx - Social History Hx Tobacco Use: No Hx Alcohol Use: No Hx Substance Use: No - Immunization History Hx Tetanus Toxoid Vaccination: Yes Hx Influenza Vaccination: Yes Hx Pneumococcal Vaccination: Yes Review Of Systems Except As Marked, All Systems Reviewed And Found Negative. Constitutional: Negative for: Fever Respiratory: Negative for: Cough Gastrointestinal: Negative for: Nausea, Vomiting Musculoskeletal: Positive for: Other (Left sided chest pain) Physical Exam - Physical Exam Appears: Well, Other (Thin ) Skin: Normal Color, Warm, Dry Head: Atraumatic, Normacephalic Eye(s): bilateral: Normal Inspection Ear(s): Bilateral: Normal Nose: Normal Throat: Normal Neck: Normal, Normal ROM Chest: Other (Left sided chest pain ) Cardiovascular: Rhythm Regular Respiratory: Normal Breath Sounds Gastrointestinal/Abdominal: Normal Exam Back: Normal Inspection Extremity: Other (Involuntary movements due to secondary cerebral palsy & parkinsons disease) Extremity: Bilateral: Atraumatic Neurological/Psych: Oriented x3, Normal Speech ED Course And Treatment - Laboratory Results Result Diagrams: 02/06/17 08:38 02/06/17 08:38 O2 Sat by Pulse Oximetry: 99 (RA ) Pulse Ox Interpretation: Normal - Radiology CXR: Viewed By Me, Read By Radiologist CXR Interpretation: Yes: No Acute Disease Medical Decision Making Medical Decision Making: Treatment: -- EKG -- IV Fluids EK BPM NSR Normal intervals, normal axis Disposition - Disposition Referrals: Ranulfo Corley MD [Staff Provider] - Disposition: HOME/ ROUTINE Disposition Time: 09:20 Condition: GOOD Additional Instructions: Thank you for letting us take care of you today. Your provider was Dr. Davis. You were treated for general body pain. The emergency medical care you received today was directed at your acute symptoms. If you were prescribed any medication, please fill it and take as directed. It may take several days for your symptoms to resolve. Return to the Emergency Department if your symptoms worsen, do not improve, or if you have any other problems. Please contact your doctor or call one of the physicians/clinics you have been referred to that are listed on the Patient Visit Information form that is included in your discharge packet. Bring any paperwork you were given at discharge with you along with any medications you are taking to your follow up visit. Our treatment cannot replace ongoing medical care by a primary care provider (PCP) outside of the emergency department. Thank you for allowing the [facility] team to be part of your care today. Follow up with Dr. Corley in 2-3 days for re-evaluation and further management of you chronic pain. Instructions: Chronic Pain (ED) Forms: [facility] (Macedonian) - Clinical Impression Clinical Impression: Chronic pain - Scribe Statement The provider has reviewed the documentation as recorded by the Scribe Radha Wilson All medical record entries made by the Scribe were at my direction and personally dictated by me. I have reviewed the chart and agree that the record accurately reflects my personal performance of the history, physical exam, medical decision making, and the department course for this patient. I have also personally directed, reviewed, and agree with the discharge instructions and disposition.
[2017-02-06 10:41] VITALS: BP 167/77; PULSE 73
--- NOTE | 2017-02-07 11:42 | CARD ---
APPROVED REPORT EKG Measurement Heart [id number] <Conclusion> Undetermined rhythm Septal infarct, age undetermined Abnormal ECG
== END 2017-02-06 12:00 | disposition home or self-care (01) ==
LOC: C.ER 07:45
DX: G89.29 Other chronic pain (principal)
CPT/HCPCS: 71010; 80053; 84484; 85025; 93005; 96360; 96361; 99285; J7040

== ENCOUNTER 2017-02-21 10:10 | Emergency (ER) | payer MEDICAID ==
[2017-02-21 10:10] VITALS: BMI 22.7
--- NOTE | 2017-02-21 10:27 | C.PDOC ---
History Of Present Illness 46 year old female was brought to the ED by EMS with complaints of generalized bodyaches beginning prior to arrival. Patient has significant past medical history which includes Anemia, Anxiety, Arthritis, CAD, CHF, COPD, CVA, Depression, Diabetes, Gastritis, HTN Hypercholesterolemia, Hyperlipidemia, Hyperthyroidism, Kidney Stones, Multiple Sclerosis, Parkinson's Disease, Chronic Kidney Disease, and a TIA. She notes she took ibuprofen with no relief. Patient denies vomiting, diarrhea, or fever. Time Seen by Provider: 02/21/17 10:40 Chief Complaint (Nursing): Abdominal Pain History Per: Patient, EMS History/Exam Limitations: no limitations Onset/Duration Of Symptoms: Hrs Current Symptoms Are (Timing): Still Present Reports Recently: Seen In ED Recent travel outside of the [place]: No Additional History Per: Prior Records Past Medical History Reviewed: Historical Data, Nursing Documentation, Vital Signs Vital Signs: Last Vital Signs Temp 99 F 02/21/17 10:24 Pulse 82 02/21/17 12:21 Resp 18 02/21/17 12:21 BP 170/94 H 02/21/17 12:21 Pulse Ox 96 02/21/17 12:21 - Medical History PMH: Anemia (secondary to heavy menstruation), Anxiety, Arthritis, Asthma, CAD, CHF, COPD (asthma;bronchitis), CVA, Depression, Diabetes, Gastritis, Gastrointestinal Ulcer, HTN, Hypercholesterolemia, Hyperlipidemia, Hyperthyroidism (hyperthyroidism), Kidney Stones, Multiple Sclerosis, Parkinson' s Disease, Pneumonia (06-04-15), Chronic Kidney Disease, TIA Surgical History: Hernia Repair (Umbilical hernia repair) - [facility] Procedures CLOSURE SKIN & SUBCUTANEOUS NEC (01/07/13) ESOPHAGOGASTRODUODENOSCOPY [EGD] W/CLOSED BIOPSY (02/05/15) INJECT/INFUSE NEC (02/17/15) NEBULIZER THERAPY (06/20/13) PACKED CELL TRANSFUSION (01/28/15) REMOVAL OF INFUSION DEV FROM GREAT VESSEL, SURGICAL AIDE APPROACH (12/02/16) TETANUS TOXOID ADMINIST (01/07/13) VACCINATION NEC (08/03/14) Family History: States: Unknown Family Hx - Social History Hx Tobacco Use: No Hx Alcohol Use: No Hx Substance Use: No - Immunization History Hx Tetanus Toxoid Vaccination: Yes Hx Influenza Vaccination: Yes Hx Pneumococcal Vaccination: Yes Review Of Systems Constitutional: Positive for: Other (generalized body aches ). Negative for: Fever, Chills Cardiovascular: Negative for: Chest Pain, Palpitations Respiratory: Positive for: Shortness of Breath. Negative for: Cough Gastrointestinal: Negative for: Nausea, Vomiting, Abdominal Pain, Diarrhea Physical Exam - Physical Exam Appears: Non-toxic, No Acute Distress Skin: Warm, Dry Head: Atraumatic Eye(s): bilateral: Normal Inspection Oral Mucosa: Moist Neck: Supple Chest: Symmetrical, No Deformity Cardiovascular: Rhythm Regular Respiratory: No Accessory Muscle Use, No Rales, No Rhonchi, Wheezing ( Expiratory wheeze ) Gastrointestinal/Abdominal: Soft, No Tenderness, No Distention, No Guarding, No Rebound Neurological/Psych: Oriented x3 ED Course And Treatment - Laboratory Results Result Diagrams: 02/21/17 10:52 02/21/17 10:52 Lab Interpretation: No Acute Changes Progress Note: Blood work was ordered and patient was given albuterol and toradol. Medical Decision Making Medical Decision Making: Impression: "Body pain" Previous records reviewed, patient was seen in the emergency department on for body aches. She had labs ordered and treated with Toradol. No acute findings and was discharged. Patient was also seen 02/06/17 for body aches and chronic pain. Patient has had many emergency department visits for similar complaints. Plan: * Labs * Toradol * Progress: Labs reviewed with no acute findings or significant changes from prior visits. H /H stable. [id number] Lorena Corley who knows patient well and agrees patient is stable for discharge and can follow up outpatient Disposition Counseled Patient/Family Regarding: Diagnosis, Need For Followup - Disposition Referrals: Ranulfo Corley MD [Staff Provider] - Disposition: HOME/ ROUTINE Disposition Time: 11:48 Condition: GOOD Additional Instructions: Please continue with your usual medications and follow up with Dr Lorena Corley in his office Return to the emergency department at any time if symptoms persist or worsen. Instructions: Chronic Pain (DC) Forms: [facility] (Bengali) - POA Present On Arrival: None - Clinical Impression Clinical Impression: Chronic pain, Myalgia - PA / ROASTER OPERATOR / Resident Statement MD/DO has reviewed & agrees with the documentation as recorded. - Scribe Statement The provider has reviewed the documentation as recorded by the Scribe Airam Garcia All medical record entries made by the Scribe were at my direction and personally dictated by me. I have reviewed the chart and agree that the record accurately reflects my personal performance of the history, physical exam, medical decision making, and the department course for this patient. I have also personally directed, reviewed, and agree with the discharge instructions and disposition.
[2017-02-21 10:32] VITALS: RESP 18; TEMP 99; O2SAT 96
[2017-02-21] MEDS ORDERED: Albuterol 0.083% Inhal Sol (2.5 mg/3 mL) UD IH STA (10:48)
[2017-02-21] MEDS ORDERED: Albuterol 0.083% Inhal Sol (2.5 mg/3 mL) UD ONE (10:55)
[2017-02-21 10:59] LABS: MEAN CELL VOLUME 73.2 fL (81.0-99.0); MEAN CORPUSCULAR HEMOGLOBIN 21.8 pg (27.0-31.0); MEAN CORPUSCULAR HGB CONC 29.8 g/dL (33.0-37.0); MEAN PLATELET VOLUME 8.2 fL (7.2-11.7); RED CELL DISTRIBUTION WIDTH 17.6 % (11.5-14.5)
[2017-02-21 11:05] LABS: HEMATOCRIT 29.6 % (34.0-47.0); WHITE BLOOD COUNT 5.8 K/uL (4.8-10.8)
[2017-02-21 11:13] LABS: ALKALINE PHOSPHATASE 58 U/L (38-126); ALT/SGPT 23 U/L (9-52); AST/SGOT 24 U/L (14-36); BILIRUBIN,TOTAL 0.5 mg/dL (0.2-1.3); BLOOD UREA NITROGEN 13 mg/dL (7-17); CALCIUM 11.2 mg/dl (8.6-10.4); CARBON DIOXIDE 25 mmol/L (22-30); CHLORIDE 103 mmol/L (98-107); GFR AFRICAN-AMERICAN > 60; GLUCOSE,RANDOM 78 mg/dL (65-105); POTASSIUM 3.8 mmol/L (3.6-5.2); SODIUM 141 mmol/L (132-148); TOTAL PROTEIN 7.4 g/dL (6.3-8.3)
[2017-02-21 12:22] VITALS: BP 170/94; PULSE 82
== END 2017-02-21 12:33 | disposition home or self-care (01) ==
LOC: C.ER 10:10
DX: G89.29 Other chronic pain (principal); M79.1 Myalgia
CPT/HCPCS: 80053; 85027; 94640; 96374; 99284; J1885

== ENCOUNTER 2017-03-05 17:52 | Emergency (ER) | payer MEDICAID ==
[2017-03-05 17:52] VITALS: BMI 22.7
[2017-03-05] MEDS ORDERED: Sodium Chloride 0.9% 1,000 ML IV ONE (20:08)
[2017-03-05] MEDS ORDERED: Albuterol 0.042% Inhal Sol (1.25 mg/3 mL) UD INH STA (20:09)
[2017-03-05 20:29] LABS: BASO % 0.8 % (0.0-2.0); EOS # 0.1 K/uL (0.0-0.7); EOS % 1.5 % (0.0-4.0); HEMATOCRIT 26.8 % (34.0-47.0); LYMPH # 1.9 K/uL (1.0-4.3); LYMPH % 32.3 % (20.0-40.0); MEAN CELL VOLUME 73.2 fL (81.0-99.0); MEAN CORPUSCULAR HGB CONC 30.1 g/dL (33.0-37.0); MEAN PLATELET VOLUME 8.8 fL (7.2-11.7); MONO # 0.7 K/uL (0.0-0.8); MONO % 11.4 % (0.0-10.0); NRBC % 0.1 % (0.0-2.0); RED CELL DISTRIBUTION WIDTH 17.6 % (11.5-14.5); WHITE BLOOD COUNT 5.9 K/uL (4.8-10.8)
[2017-03-05 20:36] LABS: ALB/GLOB RATIO 1.1 (1.0-2.1); ALKALINE PHOSPHATASE 41 U/L (38-126); ALT/SGPT 23 U/L (9-52); AST/SGOT 23 U/L (14-36); BILIRUBIN,TOTAL 0.4 mg/dL (0.2-1.3); BLOOD UREA NITROGEN 16 mg/dL (7-17); CALCIUM 10.8 mg/dl (8.6-10.4); CARBON DIOXIDE 28 mmol/L (22-30); CHLORIDE 104 mmol/L (98-107); GFR AFRICAN-AMERICAN > 60; GLUCOSE,RANDOM 74 mg/dL (65-105); POTASSIUM 3.7 mmol/L (3.6-5.2); SODIUM 142 mmol/L (132-148)
--- NOTE | 2017-03-05 21:15 | CT ---
EXAM: CT Chest Without Intravenous Contrast EXAM DATE/TIME: Exam ordered 03/05/2017 8:08 PM CLINICAL HISTORY: 46 years old, female; Signs and symptoms; Shortness of breath; Additional info: SOB TECHNIQUE: Axial computed tomography images of the chest without intravenous contrast. All CT scans at this facility use one or more dose reduction techniques, viz.: automated exposure control; ma/kV adjustment per patient size (including targeted exams where dose is matched to indication; i.e. head); or iterative reconstruction technique. Coronal and sagittal reformatted images were created and reviewed. COMPARISON: CT - CHEST W/O CONTRAST 12/01/2016 9:32:28 AM FINDINGS: Lungs: Unremarkable. No mass. No consolidation. Pleural space: Unremarkable. No pneumothorax. No significant effusion. Heart: Unremarkable. No cardiomegaly. No significant pericardial effusion. Mediastinum: Trachea is positioned to the right of midline. The degenerative changes are noted within the thoracic spine particularly at T11-12. Thyroid: There is a 9 mm low density lesion right lobe of the thyroid. Bones/joints: Moderately advanced degenerative changes are seen at the left glenohumeral joint and of the lower cervical spine. Soft tissues: Unremarkable. Vasculature: The superior vena cava appears dilated measuring 3 cm just above the level of the azygos.. No thoracic aortic aneurysm. Lymph nodes: Again noted is hazy density within the anterior mediastinal fat. . This may represent fatty replacement of the thymic tissue Several small subcentimeter lymph nodes are noted in the right paratracheal region. IMPRESSION: 1. Stable appearance of the anterior mediastinal fat. 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 2. No pulmonary parenchymal abnormalities. 3. 9 mm low density lesion in the right lobe of the thyroid. Thyroid ultrasound might be considered. 4. The superior vena cava appears dilated measuring 3 cm in diameter above the level of the azygous. No varices are seen..
[2017-03-05] MEDS ORDERED: Sodium Chloride 0.9% 1,000 ML ONE (21:27)
[2017-03-05] MEDS ORDERED: Albuterol 0.042% Inhal Sol (1.25 mg/3 mL) UD ONE (21:27)
--- NOTE | 2017-03-05 21:39 | C.PDOC ---
History Of Present Illness 46 year old mentally challenged female with a Hx of COPD who presents to the ER with a complaint of generalized body aches, and SOB. Denies fever or chills. Chief Complaint (Nursing): Back Pain History Per: Patient History/Exam Limitations: no limitations Onset/Duration Of Symptoms: Hrs Current Symptoms Are (Timing): Still Present Quality Of Discomfort: Unable To Describe Previous Symptoms: None Associated Symptoms: None Recent travel outside of the [place]: No Past Medical History Reviewed: Historical Data, Nursing Documentation, Vital Signs Vital Signs: Last Vital Signs Temp 98.8 F 03/05/17 18:03 Pulse 89 03/05/17 18:03 Resp BP 175/88 H 03/05/17 18:03 Pulse Ox 98 03/05/17 22:11 - Medical History PMH: Anemia (secondary to heavy menstruation), Anxiety, Arthritis, Asthma, CAD, CHF, COPD (asthma;bronchitis), CVA, Depression, Diabetes, Gastritis, Gastrointestinal Ulcer, HTN, Hypercholesterolemia, Hyperlipidemia, Hyperthyroidism (hyperthyroidism), Kidney Stones, Multiple Sclerosis, Parkinson' s Disease, Pneumonia (06-04-15), Chronic Kidney Disease, TIA Surgical History: Hernia Repair (Umbilical hernia repair) - [facility] Procedures CLOSURE SKIN & SUBCUTANEOUS NEC (01/07/13) ESOPHAGOGASTRODUODENOSCOPY [EGD] W/CLOSED BIOPSY (02/05/15) INJECT/INFUSE NEC (02/17/15) NEBULIZER THERAPY (06/20/13) PACKED CELL TRANSFUSION (01/28/15) REMOVAL OF INFUSION DEV FROM GREAT VESSEL, REMEDIAL PROJECT MANAGER APPROACH (12/02/16) TETANUS TOXOID ADMINIST (01/07/13) VACCINATION NEC (08/03/14) Family History: States: Unknown Family Hx - Social History Hx Tobacco Use: No Hx Alcohol Use: No Hx Substance Use: No - Immunization History Hx Tetanus Toxoid Vaccination: Yes Hx Influenza Vaccination: Yes Hx Pneumococcal Vaccination: Yes Review Of Systems Constitutional: Negative for: Fever, Chills Cardiovascular: Positive for: Chest Pain Respiratory: Positive for: Shortness of Breath Musculoskeletal: Positive for: Other (Generalized body aches) Neurological: Positive for: Other (Mentally challenged) Physical Exam - Physical Exam Appears: Non-toxic, Other (Mild distress) Skin: Normal Color, Warm, Dry Head: Atraumatic, Normacephalic Oral Mucosa: Moist Chest: Symmetrical, No Tenderness Cardiovascular: Rhythm Regular, No Murmur Respiratory: No Rales, No Rhonchi, Wheezing (Expiratory) Gastrointestinal/Abdominal: Soft, No Tenderness Neurological/Psych: Oriented x3, Normal Speech, Normal Cognition ED Course And Treatment - Laboratory Results Result Diagrams: 03/05/17 20:21 03/05/17 20:21 ECG: Interpreted By Me, Viewed By Me ECG Rhythm: Sinus Rhythm ECG Interpretation: No Acute Changes, Abnormal Interpretation Of ECG: NSR with Premature junctional beats, no acute changes. Rate From EC O2 Sat by Pulse Oximetry: 98 (Room air) Pulse Ox Interpretation: Normal - CT Scan/US CT Chest Other Rad Studies (CT/US): Read By Radiologist, Radiology Report Reviewed CT/US Interpretation: EXAM: CT Chest Without Intravenous Contrast. EXAM DATE/ TIME: Exam ordered 03/05/2017 8:08 PM. CLINICAL HISTORY: 46 years old, female ; Signs and symptoms; Shortness of breath; Additional info: SOB. TECHNIQUE: Axial computed tomography images of the chest without intravenous contrast. All CT scans at this. facility use one or more dose reduction techniques, viz.: automated exposure control; ma/kV. adjustment per patient size (including targeted exams where dose is matched to indication; i.e. head);. or iterative reconstruction technique. Coronal and sagittal reformatted images were created and reviewed. COMPARISON: CT - CHEST W/O CONTRAST 12/01/2016 9:32:28 AM. FINDINGS: Lungs: Unremarkable. No mass. No consolidation. Pleural space: Unremarkable. No pneumothorax. No significant effusion. Heart: Unremarkable. No cardiomegaly. No significant pericardial effusion. Mediastinum: Trachea is positioned to the right of midline. The degenerative changes are noted. within the thoracic spine particularly at T11-12. Thyroid: There is a 9 mm low density lesion right lobe of the thyroid. Bones/joints: Moderately advanced degenerative changes are seen at the left glenohumeral joint. and of the lower cervical spine. Soft tissues: Unremarkable. Vasculature: The superior vena cava appears dilated measuring 3 cm just above the level of the. azygos.. No thoracic aortic aneurysm. Lymph nodes: Again noted is hazy density within the anterior mediastinal fat. . This may represent. fatty replacement of the thymic tissue Several small subcentimeter lymph nodes are noted in the right. paratracheal region. IMPRESSION: 1. Stable appearance of the anterior mediastinal fat. 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 2. No pulmonary parenchymal abnormalities. 3. 9 mm low density lesion in the right lobe of the thyroid. Thyroid ultrasound might be considered. 4. The superior vena cava appears dilated measuring 3 cm in diameter above the level of the azygous. No varices are seen.. Progress Note: CT chest, blood work, and EKG ordered. Duoneb and IV fluids administered. Disposition Counseled Patient/Family Regarding: Diagnosis - Disposition Referrals: [facility] [Outside] Disposition: HOME/ ROUTINE Disposition Time: 22:04 Condition: STABLE Prescriptions: Cyclobenzaprine [Cyclobenzaprine HCl] 10 mg PO TID #14 tab Naproxen [Naprosyn Tab] 375 mg PO TIDPC #20 tab Instructions: COPD (Chronic Obstructive Pulmonary Disease) (ED), Muscle Spasm ( ED) Forms: [employer] (Azerbaijani) - POA Present On Arrival: None - Clinical Impression Clinical Impression: COPD (chronic obstructive pulmonary disease), Muscle ache - Scribe Statement The provider has reviewed the documentation as recorded by the Scribsoha Tenorio All medical record entries made by the Owenibsoha were at my direction and personally dictated by me. I have reviewed the chart and agree that the record accurately reflects my personal performance of the history, physical exam, medical decision making, and the department course for this patient. I have also personally directed, reviewed, and agree with the discharge instructions and disposition.
[2017-03-06 03:34] VITALS: BP 170/96; PULSE 74; RESP 18; TEMP 98; O2SAT 100
--- NOTE | 2017-03-06 15:54 | CARD ---
APPROVED REPORT EKG Measurement Heart [id number] P51 [id number] <Conclusion> Sinus rhythm with frequent PAC's. Right axis deviation Abnormal ECG
== END 2017-03-06 04:27 | disposition home or self-care (01) ==
LOC: C.ER 17:52
DX: J44.9 Chronic obstructive pulmonary disease, unspecified (principal); M79.1 Myalgia
CPT/HCPCS: 71250; 80053; 83880; 84484; 85025; 85378; 93005; 99284; J7040

== ENCOUNTER 2017-03-08 14:50 | Emergency (ER) | payer MEDICAID ==
[2017-03-08 14:50] VITALS: BMI 22.7
[2017-03-08 14:54] VITALS: RESP 18
--- NOTE | 2017-03-08 15:21 | C.PDOC ---
History Of Present Illness CO GEN PAIN, CP UNK DURATION. DENIES OTHER ASSOC SX. past medical history includes Anemia (secondary to heavy menstruation), Anxiety, Arthritis, Asthma, CAD, CHF, COPD (asthma;bronchitis), CVA, Depression, Diabetes, Gastritis, Gastrointestinal Ulcer, HTN Hypercholesterolemia, Hyperlipidemia, Hyperthyroidism, Kidney Stones, Multiple Sclerosis, Parkinson's Disease, Pneumonia (06-04-15), Chronic Kidney Disease, and a TIA 6 ER VISITS FOR SAME SINCE 01/23. NEG CT CHEST X 2. NEG LABS. EXAM NEG Chief Complaint (Nursing): Pain, Chronic History Per: Patient History/Exam Limitations: no limitations Onset/Duration Of Symptoms: Unknown Current Symptoms Are (Timing): Still Present Reports Recently: Seen In ED Recent travel outside of the [place]: No Past Medical History Reviewed: Historical Data, Nursing Documentation, Vital Signs Vital Signs: Last Vital Signs Temp 98.7 F 03/08/17 14:52 Pulse 71 03/08/17 14:52 Resp 18 03/08/17 14:52 BP 159/84 H 03/08/17 14:52 Pulse Ox 98 03/08/17 17:05 - Medical History PMH: Anemia (secondary to heavy menstruation), Anxiety, Arthritis, Asthma, CAD, CHF, COPD (asthma;bronchitis), CVA, Depression, Diabetes, Gastritis, Gastrointestinal Ulcer, HTN, Hypercholesterolemia, Hyperlipidemia, Hyperthyroidism (hyperthyroidism), Kidney Stones, Multiple Sclerosis, Parkinson' s Disease, Pneumonia (06-04-15), Chronic Kidney Disease, TIA Surgical History: Hernia Repair (Umbilical hernia repair) - [facility] Procedures CLOSURE SKIN & SUBCUTANEOUS NEC (01/07/13) ESOPHAGOGASTRODUODENOSCOPY [EGD] W/CLOSED BIOPSY (02/05/15) INJECT/INFUSE NEC (02/17/15) NEBULIZER THERAPY (06/20/13) PACKED CELL TRANSFUSION (01/28/15) REMOVAL OF INFUSION DEV FROM GREAT VESSEL, STAFF FORESTER APPROACH (12/02/16) TETANUS TOXOID ADMINIST (01/07/13) VACCINATION NEC (08/03/14) Family History: States: Unknown Family Hx - Social History Hx Tobacco Use: No Hx Alcohol Use: No Hx Substance Use: No - Immunization History Hx Tetanus Toxoid Vaccination: Yes Hx Influenza Vaccination: Yes Hx Pneumococcal Vaccination: Yes Review Of Systems Except As Marked, All Systems Reviewed And Found Negative. Constitutional: Positive for: Malaise. Negative for: Fever, Chills Cardiovascular: Positive for: Chest Pain. Negative for: Palpitations Respiratory: Negative for: Cough, Shortness of Breath, Wheezing Gastrointestinal: Negative for: Nausea, Vomiting, Abdominal Pain, Diarrhea Genitourinary: Negative for: Dysuria, Hematuria Skin: Negative for: Rash Neurological: Negative for: Headache, Dizziness Physical Exam - Physical Exam Appears: Non-toxic, No Acute Distress Skin: Normal Color, Warm, Dry Head: Atraumatic, Normacephalic Oral Mucosa: Moist Neck: Normal ROM, Supple Chest: Symmetrical, No Tenderness Cardiovascular: Rhythm Regular, No Murmur Respiratory: Normal Breath Sounds, No Rales, No Rhonchi, No Wheezing Gastrointestinal/Abdominal: Soft, No Tenderness, No Guarding, No Rebound Back: Normal Inspection, No CVA Tenderness Extremity: Normal ROM, Capillary Refill (< 2 sec.) Neurological/Psych: Oriented x3, Normal Speech, Normal Cognition ED Course And Treatment - Laboratory Results Result Diagrams: 03/08/17 16:11 03/08/17 16:11 O2 Sat by Pulse Oximetry: 98 (RA) Pulse Ox Interpretation: Normal - Radiology CXR: Interpreted by Me CXR Interpretation: Yes: No Acute Disease, Cardiomegaly Progress - Re-Evaluation Re-evaluation Note: 03/08/17 17:05 PT REFUSING TORADOL DUE TO RASH. PT HAS HAD TORADOL MULTIPLE TIMES ON PRIOR VISITS WO DIFF. PT REQUESTING IBUPROFEN. 03/08/17 17:31 D/W DR SALVADOR AGREES W ER PLAN, FU OFFICE - Data Reviewed Data Reviewed: Lab, Diagnostic imaging, EKG, Old records Disposition Counseled Patient/Family Regarding: Studies Performed, Diagnosis - Disposition Disposition: HOME/ ROUTINE Disposition Time: 17:32 Condition: IMPROVED Instructions: Noncardiac Chest Pain (ED) Forms: [employer] (Romanian) - Clinical Impression Clinical Impression: Chronic chest pain - Scribe Statement The provider has reviewed the documentation as recorded by the Scribe SM All medical record entries made by the Scribe were at my direction and personally dictated by me. I have reviewed the chart and agree that the record accurately reflects my personal performance of the history, physical exam, medical decision making, and the department course for this patient. I have also personally directed, reviewed, and agree with the discharge instructions and disposition.
[2017-03-08 16:22] LABS: CHLORIDE 106 mmol/L (98-107); POTASSIUM 3.4 mmol/L (3.6-5.2); SODIUM 140 mmol/L (132-148)
[2017-03-08 16:24] LABS: GFR AFRICAN-AMERICAN > 60
[2017-03-08 16:25] LABS: BLOOD UREA NITROGEN 11 mg/dL (7-17); CALCIUM 10.8 mg/dl (8.6-10.4); CARBON DIOXIDE 26 mmol/L (22-30); GLUCOSE,RANDOM 70 mg/dL (65-105)
[2017-03-08 16:37] LABS: BASO # 0.1 K/uL (0.0-0.2); BASO % 1.4 % (0.0-2.0); EOS # 0.1 K/uL (0.0-0.7); EOS % 0.9 % (0.0-4.0); LYMPH # 1.9 K/uL (1.0-4.3); LYMPH % 31.4 % (20.0-40.0); MEAN CELL VOLUME 72.8 fL (81.0-99.0); MEAN CORPUSCULAR HEMOGLOBIN 22.2 pg (27.0-31.0); MEAN CORPUSCULAR HGB CONC 30.5 g/dL (33.0-37.0); MEAN PLATELET VOLUME 8.6 fL (7.2-11.7); MONO # 0.4 K/uL (0.0-0.8); MONO % 7.1 % (0.0-10.0); NRBC % 0.1 % (0.0-2.0); RED CELL DISTRIBUTION WIDTH 17.4 % (11.5-14.5); WHITE BLOOD COUNT 6.2 K/uL (4.8-10.8)
--- NOTE | 2017-03-08 17:00 | RAD ---
HISTORY: chest pain COMPARISON: Chest x-ray performed 02/06/17, CT chest without IV contrast performed 03/05/17 TECHNIQUE: Chest, one view. FINDINGS: Examination limited by habitus. LUNGS: No focal consolidation. Please note that chest x-ray has limited sensitivity for the detection of pulmonary masses. PLEURA: No significant pleural effusion identified. No definite pneumothorax . CARDIOVASCULAR: Enlargement of the cardiomediastinal silhouette, grossly similar to prior study. OSSEOUS STRUCTURES: Degenerative the changes. VISUALIZED UPPER ABDOMEN: Unremarkable. OTHER FINDINGS: None. IMPRESSION: Enlarged cardiomediastinal silhouette, grossly similar to prior study.
[2017-03-08 21:18] VITALS: BP 163/96; PULSE 76; TEMP 99; O2SAT 99
== END 2017-03-08 22:20 | disposition home or self-care (01) ==
LOC: C.ER 14:50
DX: R07.9 Chest pain, unspecified (principal); G89.29 Other chronic pain; I13.0 Hypertensive heart and chronic kidney disease with heart failure and stage 1 through stage 4 chronic kidney disease, or unspecified chronic kidney disease; I50.9 Heart failure, unspecified; N18.9 Chronic kidney disease, unspecified; E11.22 Type 2 diabetes mellitus with diabetic chronic kidney disease; G35 Multiple sclerosis; G20 Parkinson's disease
CPT/HCPCS: 71010; 80048; 84484; 85025; 96374; 96375; 99285; C9113

== ENCOUNTER 2017-03-10 17:11 | Emergency (ER) | payer MEDICAID ==
[2017-03-10 17:12] VITALS: BMI 22.7
--- NOTE | 2017-03-10 18:00 | C.PDOC ---
History Of Present Illness 46 y/o female presents to the ED after being referred by her PMD for evaluation of digitally reproducible sternal discomfort. This visit is patient's fourth visit this month. Patient was seen on 03/03 and 03/08 concerning similar symptoms. Patient states she is allergic to most medications except Dilaudid. Patient has history of substance abuse. She denies fever, chills, shortness of breath, cough, nausea, vomiting, extremity numbness/weakness at this time. Time Seen by Provider: 03/10/17 17:46 Chief Complaint (Nursing): Chest Pain Past Medical History Vital Signs: Last Vital Signs Temp 99.4 F 03/10/17 18:24 Pulse 82 03/10/17 18:24 Resp 16 03/10/17 18:24 BP 172/64 H 03/10/17 18:24 Pulse Ox 97 03/10/17 20:58 - Medical History PMH: Anemia (secondary to heavy menstruation), Anxiety, Arthritis, Asthma, CAD, CHF, COPD (asthma;bronchitis), CVA, Depression, Diabetes, Gastritis, Gastrointestinal Ulcer, HTN, Hypercholesterolemia, Hyperlipidemia, Hyperthyroidism (hyperthyroidism), Kidney Stones, Multiple Sclerosis, Parkinson' s Disease, Pneumonia (06-04-15), Chronic Kidney Disease, TIA Surgical History: Hernia Repair (Umbilical hernia repair) - [facility] Procedures CLOSURE SKIN & SUBCUTANEOUS NEC (01/07/13) ESOPHAGOGASTRODUODENOSCOPY [EGD] W/CLOSED BIOPSY (02/05/15) INJECT/INFUSE NEC (02/17/15) NEBULIZER THERAPY (06/20/13) PACKED CELL TRANSFUSION (01/28/15) REMOVAL OF INFUSION DEV FROM GREAT VESSEL, RN CARDIAC APPROACH (12/02/16) TETANUS TOXOID ADMINIST (01/07/13) VACCINATION NEC (08/03/14) Family History: States: Unknown Family Hx - Social History Hx Tobacco Use: No Hx Alcohol Use: No Hx Substance Use: No - Immunization History Hx Tetanus Toxoid Vaccination: Yes Hx Influenza Vaccination: Yes Hx Pneumococcal Vaccination: Yes Review Of Systems Constitutional: Negative for: Fever, Chills Cardiovascular: Positive for: Chest Pain Respiratory: Negative for: Cough, Shortness of Breath Gastrointestinal: Negative for: Nausea, Vomiting Neurological: Negative for: Weakness, Numbness Physical Exam - Physical Exam Appears: Non-toxic, No Acute Distress, 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 ) Skin: Normal Color, Warm, Dry Head: Atraumatic, Normacephalic Eye(s): bilateral: Normal Inspection Oral Mucosa: Moist Neck: Supple Chest: Symmetrical, No Deformity, Tenderness (digitally and positionally reproducible to sternum ) Cardiovascular: Rhythm Regular, No Murmur Respiratory: Normal Breath Sounds, No Rales, No Rhonchi, No Wheezing Extremity: Normal ROM, Capillary Refill (less than 2 seconds ) Neurological/Psych: Oriented x3, Normal Speech, Normal Cognition Gait: Steady ED Course And Treatment ECG: Interpreted By Me ECG Rhythm: Sinus Rhythm ECG Interpretation: Normal Rate From EC O2 Sat by Pulse Oximetry: 97 (on RA) Pulse Ox Interpretation: Normal Progress Note: Patient received Motrin PO. Medical Decision Making Medical Decision [facility] ED visit this month for digitally reproducable sternal chest discomfort. 3 prior evals wnl, lastly 2 days ago. d/w PMD, ok to d/c home with ice therapy as pt allergic to most all analgesics besides dilaudid- h/o drug seeking. Disposition Doctor Will See Patient In The: Office Counseled Patient/Family Regarding: Studies Performed, Diagnosis - Disposition Referrals: Ranulfo Corley MD [Staff Provider] - Disposition: HOME/ ROUTINE Disposition Time: 18:00 Condition: GOOD Additional Instructions: apply ice packs to the chest wall as needed. Follow-up with Dr. Corley as needed. Instructions: Costochondritis (ED) Forms: [facility] (Chinese) - Clinical Impression Clinical Impression: Chronic pain, Chest wall discomfort - Scribe Statement The provider has reviewed the documentation as recorded by the Scribe (Winnie Corley) Provider Attestation: All medical record entries made by the Scribe were at my direction and personally dictated by me. I have reviewed the chart and agree that the record accurately reflects my personal performance of the history, physical exam, medical decision making, and the department course for this patient. I have also personally directed, reviewed, and agree with the discharge instructions and disposition.
[2017-03-10 18:24] VITALS: BP 172/64; PULSE 82; RESP 16; TEMP 99.4
[2017-03-10 20:31] VITALS: O2SAT 97
== END 2017-03-10 18:47 | disposition home or self-care (01) ==
LOC: C.ER 17:11
DX: G89.29 Other chronic pain (principal); R07.89 Other chest pain

== ENCOUNTER 2017-03-15 10:49 | Emergency (ER) | payer MEDICAID ==
[2017-03-15 10:50] VITALS: BMI 22.7
[2017-03-15 10:58] VITALS: TEMP 97.8
[2017-03-15 11:19] VITALS: RESP 18
--- NOTE | 2017-03-15 11:25 | C.PDOC ---
History Of Present Illness 46 y/o female presents to ED for evaluation of chest wall pain for the last 2 days. Patient has been seen here and at [facility] and [facility] multiple times for similar complaints. Otherwise, denies shortness of breath, headache, fever, chills cough, nausea, vomiting, diarrhea, diaphoresis, jaw pain , back pain, or lower extremity pain/swelling. Time Seen by Provider: 03/15/17 11:01 Chief Complaint (Nursing): Chest Pain History Per: Patient History/Exam Limitations: no limitations Onset/Duration Of Symptoms: Days Current Symptoms Are (Timing): Still Present Severity: Mild Quality: "Pain" Associated Symptoms: denies: Nausea, Dyspnea, Diaphoresis, Syncope Modifying Factors: None Exacerbating Factors: None Alleviating Factors: None Recent travel outside of the [place]: No Additional History Per: Patient Past Medical History Reviewed: Historical Data, Nursing Documentation, Vital Signs Vital Signs: Last Vital Signs Temp 97.8 F 03/15/17 10:55 Pulse 90 03/15/17 12:40 Resp 18 03/15/17 12:40 BP 151/75 H 03/15/17 12:40 Pulse Ox 95 03/15/17 12:40 - Medical History PMH: Anemia (secondary to heavy menstruation), Anxiety, Arthritis, Asthma, Bronchitis, CAD, CHF, COPD, CVA, Depression, Diabetes, Gastritis, Gastrointestinal Ulcer, HTN, Hypercholesterolemia, Hyperlipidemia, Hyperthyroidism (hyperthyroidism), Kidney Stones, Multiple Sclerosis, Parkinson' s Disease, Pneumonia (06-04-15), Chronic Kidney Disease, TIA Surgical History: Hernia Repair (Umbilical hernia repair) - [facility] Procedures CLOSURE SKIN & SUBCUTANEOUS NEC (01/07/13) ESOPHAGOGASTRODUODENOSCOPY [EGD] W/CLOSED BIOPSY (02/05/15) INJECT/INFUSE NEC (02/17/15) NEBULIZER THERAPY (06/20/13) PACKED CELL TRANSFUSION (01/28/15) REMOVAL OF INFUSION DEV FROM GREAT VESSEL, LASTING ROOM MACHINE OPERATOR APPROACH (12/02/16) TETANUS TOXOID ADMINIST (01/07/13) VACCINATION NEC (08/03/14) Family History: States: Unknown Family Hx - Social History Hx Tobacco Use: No Hx Alcohol Use: No Hx Substance Use: No - Immunization History Hx Tetanus Toxoid Vaccination: Yes Hx Influenza Vaccination: Yes Hx Pneumococcal Vaccination: Yes Review Of Systems Except As Marked, All Systems Reviewed And Found Negative. Constitutional: Negative for: Fever, Chills Cardiovascular: Positive for: Chest Pain. Negative for: Palpitations, Edema, Light Headedness Respiratory: Negative for: Cough, Shortness of Breath Gastrointestinal: Negative for: Nausea, Vomiting, Abdominal Pain Musculoskeletal: Negative for: Neck Pain, Back Pain Skin: Negative for: Rash, Bruising Neurological: Negative for: Headache, Dizziness Physical Exam - Physical Exam Appears: Non-toxic, No Acute Distress Skin: Normal Color, Warm, Dry Head: Atraumatic, Normacephalic Eye(s): bilateral: Normal Inspection, EOMI Oral Mucosa: Moist Neck: Normal ROM, Supple Chest: Symmetrical, No Deformity, Tenderness (anterior chest wall) Cardiovascular: Rhythm Regular, No Murmur Respiratory: Normal Breath Sounds, No Rales, No Rhonchi, No Wheezing Gastrointestinal/Abdominal: Soft, No Tenderness Back: No CVA Tenderness Extremity: Normal ROM, No Pedal Edema Extremity: Bilateral: Atraumatic Neurological/Psych: Oriented x3, Normal Speech, Normal Cognition Gait: Unable To Assess ED Course And Treatment ECG: Interpreted By Me, Viewed By Me ECG Rhythm: Sinus Rhythm ECG Interpretation: Normal Rate From EC (bpm) O2 Sat by Pulse Oximetry: 98 (RA) Progress Note: EKG ordered and reviewed. Pt was given Motrin. On re-evaluation lungs clear in no distress. Discharged home advised to follow up with PMD Reassessment Condition: Improved Medical Decision Making Medical Decision Making: Patient has history of CP and has bees evaluated multiple times at [facility] ED and [place] for same complaint. Patient arrived via BLS in no distress, (+) Chest Wall tenderness Disposition Counseled Patient/Family Regarding: Diagnosis, Need For Followup - Disposition Referrals: Ranulfo Corley MD [Staff Provider] - Disposition: HOME/ ROUTINE Disposition Time: 12:00 Condition: STABLE Additional Instructions: Follow up with your PMD for further evaluation Return to ED if any increase symptoms Prescriptions: Naproxen [Naprosyn] 1 tab PO BID PRN #25 tab PRN Reason: Pain Instructions: Chest Pain (ED), Chest Wall Pain (ED) Forms: [facility] (Greek) - POA Present On Arrival: None - Clinical Impression Clinical Impression: Chest wall pain - PA / DIRECTOR INSTITUTION / Resident Statement MD/DO has reviewed & agrees with the documentation as recorded. - Scribe Statement The provider has reviewed the documentation as recorded by the Scribe Debbie Corley All medical record entries made by the Owenibsoha were at my direction and personally dictated by me. I have reviewed the chart and agree that the record accurately reflects my personal performance of the history, physical exam, medical decision making, and the department course for this patient. I have also personally directed, reviewed, and agree with the discharge instructions and disposition.
[2017-03-15 13:06] VITALS: BP 151/75; PULSE 90
[2017-03-15 15:23] VITALS: O2SAT 98
--- NOTE | 2017-03-20 12:59 | CARD ---
APPROVED REPORT EKG Measurement Heart [id number] <Conclusion> Normal sinus rhythm Normal ECG
== END 2017-03-15 14:41 | disposition home or self-care (01) ==
LOC: C.ER 10:49
DX: R07.89 Other chest pain (principal)

== ENCOUNTER 2017-03-23 20:48 | Emergency (ER) | payer MEDICAID ==
[2017-03-23 20:49] VITALS: BMI 22.6
[2017-03-23 22:51] LABS: BASO % 0.9 % (0.0-2.0); EOS # 0.1 K/uL (0.0-0.7); EOS % 1.2 % (0.0-4.0); HEMATOCRIT 29.2 % (34.0-47.0); LYMPH # 1.8 K/uL (1.0-4.3); LYMPH % 34.4 % (20.0-40.0); MEAN CELL VOLUME 75.1 fL (81.0-99.0); MEAN CORPUSCULAR HGB CONC 30.6 g/dL (33.0-37.0); MEAN PLATELET VOLUME 8.7 fL (7.2-11.7); MONO # 0.4 K/uL (0.0-0.8); MONO % 8.5 % (0.0-10.0); NRBC % 0.1 % (0.0-2.0); RED CELL DISTRIBUTION WIDTH 19.2 % (11.5-14.5); WHITE BLOOD COUNT 5.1 K/uL (4.8-10.8)
[2017-03-23 22:53] LABS: CHLORIDE 100 mmol/L (98-107)
[2017-03-23 22:54] LABS: POTASSIUM 3.6 mmol/L (3.6-5.2); SODIUM 136 mmol/L (132-148)
[2017-03-23 22:56] LABS: ALB/GLOB RATIO 1.1 (1.0-2.1); AST/SGOT 22 U/L (14-36); BILIRUBIN,TOTAL 0.5 mg/dL (0.2-1.3); BLOOD UREA NITROGEN 21 mg/dL (7-17); CARBON DIOXIDE 27 mmol/L (22-30); GFR AFRICAN-AMERICAN > 60
[2017-03-23 22:57] LABS: ALKALINE PHOSPHATASE 42 U/L (38-126); ALT/SGPT 24 U/L (9-52); CALCIUM 11.2 mg/dl (8.6-10.4); GLUCOSE,RANDOM 91 mg/dL (65-105)
[2017-03-23 23:53] VITALS: RESP 20
--- NOTE | 2017-03-24 00:37 | C.PDOC ---
History Of Present Illness 46 year old female who presents to the ER with a complaint of chronic body pain. Patient was discharged from [facility] yesterday and has had many past ER visits for the same complaint. Denies fever or cough. Chief Complaint (Nursing): Back Pain History Per: Patient History/Exam Limitations: no limitations Onset/Duration Of Symptoms: Days Current Symptoms Are (Timing): Still Present Quality Of Discomfort: Unable To Describe Previous Symptoms: Chronic Pain Associated Symptoms: None Recent travel outside of the [place]: No Past Medical History Reviewed: Historical Data, Nursing Documentation, Vital Signs Vital Signs: Last Vital Signs Temp 98.1 F 03/24/17 01:15 Pulse 78 03/24/17 01:15 Resp 20 03/24/17 01:15 BP 123/66 03/24/17 01:15 Pulse Ox 100 03/24/17 01:15 - Medical History PMH: Anemia (secondary to heavy menstruation), Anxiety, Arthritis, Asthma, Bronchitis, CAD, CHF, COPD, CVA, Depression, Diabetes, Gastritis, Gastrointestinal Ulcer, HTN, Hypercholesterolemia, Hyperlipidemia, Hyperthyroidism (hyperthyroidism), Kidney Stones, Multiple Sclerosis, Parkinson' s Disease, Pneumonia (06-04-15), Chronic Kidney Disease, TIA Surgical History: Hernia Repair (Umbilical hernia repair) - [facility] Procedures CLOSURE SKIN & SUBCUTANEOUS NEC (01/07/13) ESOPHAGOGASTRODUODENOSCOPY [EGD] W/CLOSED BIOPSY (02/05/15) INJECT/INFUSE NEC (02/17/15) NEBULIZER THERAPY (06/20/13) PACKED CELL TRANSFUSION (01/28/15) REMOVAL OF INFUSION DEV FROM GREAT VESSEL, PATENT ATTORNEY APPROACH (12/02/16) TETANUS TOXOID ADMINIST (01/07/13) TRANSFUSE NONAUT RED BLOOD CELLS IN PERIPH VEIN, PERC (03/17/17) VACCINATION NEC (08/03/14) Family History: States: Unknown Family Hx - Social History Hx Tobacco Use: No Hx Alcohol Use: No Hx Substance Use: No - Immunization History Hx Tetanus Toxoid Vaccination: Yes Hx Influenza Vaccination: Yes Hx Pneumococcal Vaccination: Yes Review Of Systems Constitutional: Negative for: Fever, Chills Respiratory: Negative for: Cough Gastrointestinal: Negative for: Nausea, Vomiting, Abdominal Pain Genitourinary: Negative for: Dysuria, Hematuria Musculoskeletal: Positive for: Other (Body aches) Physical Exam - Physical Exam Appears: Non-toxic, No Acute Distress, Other (Sleeping) Skin: Normal Color, Warm, Dry Head: Atraumatic, Normacephalic Oral Mucosa: Moist Chest: Symmetrical, No Tenderness Cardiovascular: Rhythm Regular Respiratory: Normal Breath Sounds, No Rales, No Rhonchi, No Wheezing Gastrointestinal/Abdominal: Soft, No Tenderness Extremity: Normal ROM (x4) Neurological/Psych: Oriented x3, Normal Speech, Normal Cognition ED Course And Treatment - Laboratory Results Result Diagrams: 03/23/17 22:37 03/23/17 22:37 ECG: Interpreted By Me, Viewed By Me ECG Rhythm: Sinus Rhythm ECG Interpretation: Normal Rate From EC O2 Sat by Pulse Oximetry: 98 (Room air) Pulse Ox Interpretation: Normal Progress Note: EKG, blood work, and CXR ordered. Motrin administered Disposition - Disposition Referrals: Marcelino Heredia, [Non-Staff] - Disposition: HOME/ ROUTINE Disposition Time: 23:00 Condition: GOOD Additional Instructions: Thank you for letting us take care of you today. Your provider was Dr. Davis. You were treated for non-cardiac chest pain. The emergency medical care you received today was directed at your acute symptoms. If you were prescribed any medication, please fill it and take as directed. It may take several days for your symptoms to resolve. Return to the Emergency Department if your symptoms worsen, do not improve, or if you have any other problems. Please contact your doctor or call one of the physicians/clinics you have been referred to that are listed on the Patient Visit Information form that is included in your discharge packet. Bring any paperwork you were given at discharge with you along with any medications you are taking to your follow up visit. Our treatment cannot replace ongoing medical care by a primary care provider (PCP) outside of the emergency department. Thank you for allowing the [facility] team to be part of your care today. Follow up with your primary doctor as scheduled for further management. Instructions: Noncardiac Chest Pain (ED) - Clinical Impression Clinical Impression: Chronic chest pain - Scribe Statement The provider has reviewed the documentation as recorded by the Scribe Dougie Tenorio All medical record entries made by the Scribe were at my direction and personally dictated by me. I have reviewed the chart and agree that the record accurately reflects my personal performance of the history, physical exam, medical decision making, and the department course for this patient. I have also personally directed, reviewed, and agree with the discharge instructions and disposition.
[2017-03-24 01:16] VITALS: BP 123/66; PULSE 78; TEMP 98.1
--- NOTE | 2017-03-24 08:36 | RAD ---
PROCEDURE: CHEST RADIOGRAPH, 1 VIEW HISTORY: chest pain COMPARISON: Portable chest 03/08/2017. FINDINGS: LUNGS: Borderline left perihilar airspace disease is in question. Prominent upper left mediastinal density appears to be a function of lymphadenopathy at the anterior mediastinum combined with aortic ectasis. PLEURA: No pneumothorax or pleural fluid seen. CARDIOVASCULAR: An element of pulmonary venous congestion may be developing. OSSEOUS STRUCTURES: No significant abnormalities. VISUALIZED UPPER ABDOMEN: Normal. OTHER FINDINGS: None. IMPRESSION: Pulmonary venous congestion is questioned developing. Left perihilar airspace disease may be developing as well. Clinical correlation as well as radiographic follow-up.
[2017-03-25 00:45] VITALS: O2SAT 98
== END 2017-03-24 01:16 | disposition home or self-care (01) ==
LOC: C.ER 20:48
DX: R07.9 Chest pain, unspecified (principal); G89.29 Other chronic pain

== ENCOUNTER 2017-04-13 11:56 | Emergency (ER) | payer MEDICAID ==
[2017-04-13 11:56] VITALS: BMI 22.6
[2017-04-13 12:01] VITALS: BP 121/73; PULSE 74; RESP 16; TEMP 98.1; O2SAT 98
--- NOTE | 2017-04-13 13:18 | C.PDOC ---
Time Seen by Provider: 04/13/17 13:10 Chief Complaint (Nursing): Lower Extremity Problem/Injury Past Medical History Vital Signs: Last Vital Signs Temp 98.1 F 04/13/17 12:00 Pulse 74 04/13/17 12:00 Resp 16 04/13/17 12:00 BP 121/73 04/13/17 12:00 Pulse Ox 98 04/13/17 12:00 - Medical History PMH: Anemia (secondary to heavy menstruation), Anxiety, Arthritis, Asthma, Bronchitis, CAD, CHF, COPD, CVA, Depression, Diabetes, Gastritis, Gastrointestinal Ulcer, HTN, Hypercholesterolemia, Hyperlipidemia, Hyperthyroidism (hyperthyroidism), Kidney Stones, Multiple Sclerosis, Parkinson' s Disease, Pneumonia (06-04-15), Chronic Kidney Disease, TIA Surgical History: Hernia Repair (Umbilical hernia repair) - [facility] Procedures CLOSURE SKIN & SUBCUTANEOUS NEC (01/07/13) ESOPHAGOGASTRODUODENOSCOPY [EGD] W/CLOSED BIOPSY (02/05/15) INJECT/INFUSE NEC (02/17/15) NEBULIZER THERAPY (06/20/13) PACKED CELL TRANSFUSION (01/28/15) REMOVAL OF INFUSION DEV FROM GREAT VESSEL, DRAMATIC READER APPROACH (12/02/16) TETANUS TOXOID ADMINIST (01/07/13) TRANSFUSE NONAUT RED BLOOD CELLS IN PERIPH VEIN, PERC (03/17/17) VACCINATION NEC (08/03/14) Family History: States: Unknown Family Hx - Social History Hx Tobacco Use: No Hx Alcohol Use: No Hx Substance Use: No - Immunization History Hx Tetanus Toxoid Vaccination: Yes Hx Influenza Vaccination: Yes Hx Pneumococcal Vaccination: Yes ED Course And Treatment O2 Sat by Pulse Oximetry: 98 Disposition - Disposition Forms: CC video (Turkmen)
--- NOTE | 2017-04-13 13:40 | C.PDOC ---
History Of Present Illness 46 yr old female presents to the ER with vague body aches and pain to various joints. Patient has more than 30 ER visits for same vague complaints, with normal work ups. Patient has a long history of substance abuse, currently living at a subacute rehab. Patient is seen by DR. Geronimo regularly. Denies fever, nausea, vomiting or rash. Time Seen by Provider: 04/13/17 13:10 Chief Complaint (Nursing): Lower Extremity Problem/Injury History Per: Patient History/Exam Limitations: no limitations Onset/Duration Of Symptoms: Days Past Medical History Reviewed: Historical Data, Nursing Documentation, Vital Signs Vital Signs: Last Vital Signs Temp 98.1 F 04/13/17 12:00 Pulse 74 04/13/17 12:00 Resp 16 04/13/17 12:00 BP 121/73 04/13/17 12:00 Pulse Ox 98 04/13/17 13:40 - Medical History PMH: Anemia (secondary to heavy menstruation), Anxiety, Arthritis, Asthma, Bronchitis, CAD, CHF, COPD, CVA, Depression, Diabetes, Gastritis, Gastrointestinal Ulcer, HTN, Hypercholesterolemia, Hyperlipidemia, Hyperthyroidism (hyperthyroidism), Kidney Stones, Multiple Sclerosis, Parkinson' s Disease, Pneumonia (06-04-15), Chronic Kidney Disease, TIA Surgical History: Hernia Repair (Umbilical hernia repair) - [facility] Procedures CLOSURE SKIN & SUBCUTANEOUS NEC (01/07/13) ESOPHAGOGASTRODUODENOSCOPY [EGD] W/CLOSED BIOPSY (02/05/15) INJECT/INFUSE NEC (02/17/15) NEBULIZER THERAPY (06/20/13) PACKED CELL TRANSFUSION (01/28/15) REMOVAL OF INFUSION DEV FROM GREAT VESSEL, ESTATE CONSERVATOR APPROACH (12/02/16) TETANUS TOXOID ADMINIST (01/07/13) TRANSFUSE NONAUT RED BLOOD CELLS IN PERIPH VEIN, PERC (03/17/17) VACCINATION NEC (08/03/14) Family History: States: No Known Family Hx - Social History Hx Tobacco Use: No Hx Alcohol Use: No Hx Substance Use: No - Immunization History Hx Tetanus Toxoid Vaccination: Yes Hx Influenza Vaccination: Yes Hx Pneumococcal Vaccination: Yes Review Of Systems Except As Marked, All Systems Reviewed And Found Negative. Constitutional: Positive for: Other ((+) Vague body aches. Pain to various joints.). Negative for: Fever Gastrointestinal: Negative for: Nausea, Vomiting Skin: Negative for: Rash Physical Exam - Physical Exam Appears: Non-toxic, No Acute Distress Skin: Warm, Dry, Rash Head: Atraumatic, Normacephalic Chest: Symmetrical, No Tenderness Cardiovascular: Rhythm Regular, No Murmur Respiratory: Normal Breath Sounds, No Rales, No Rhonchi, No Stridor, No Wheezing Extremity: Other ((+) Minor joint deformity, which is baseline. ) Neurological/Psych: Oriented x3, Normal Speech, Normal Motor Gait: Steady ED Course And Treatment O2 Sat by Pulse Oximetry: 98 (RA) Pulse Ox Interpretation: Normal Medical Decision Making Medical Decision Making: chronic pain issues, no new complaints >30 ED visits this year for same similar complaints. defer re-eval of same without any significant s/s/exam changes. Spoke to DR. Geronimo who states no further workup required. Disposition Doctor Will See Patient In The: Office Counseled Patient/Family Regarding: Studies Performed, Diagnosis - Disposition Referrals: Ranulfo Corley MD [Staff Provider] - Disposition: HOME/ ROUTINE Disposition Time: 13:40 Condition: GOOD Additional Instructions: follow-up with Dr. Lacey Corley for your chronic pain issues. Instructions: Chronic Pain (ED) Forms: [facility] (Czech) - Clinical Impression Clinical Impression: Chronic pain disorder - Scribe Statement The provider has reviewed the documentation as recorded by the Owenibsoha Wong Provider Attestation: All medical record entries made by the Owenibsoha were at my direction and personally dictated by me. I have reviewed the chart and agree that the record accurately reflects my personal performance of the history, physical exam, medical decision making, and the department course for this patient. I have also personally directed, reviewed, and agree with the discharge instructions and disposition.
== END 2017-04-13 13:50 | disposition home or self-care (01) ==
LOC: C.ER 11:56
DX: G89.29 Other chronic pain (principal)

== ENCOUNTER 2017-06-03 13:53 | Emergency (ER) | payer MEDICAID ==
[2017-06-03 13:53] VITALS: BMI 22.6
[2017-06-03 14:17] VITALS: RESP 20; O2SAT 99
--- NOTE | 2017-06-03 14:58 | C.PDOC ---
History Of Present Illness 46 y/o female bought to the ER by ambulance for evaluation of vague body aches, bilateral knee discomfort, questionable dry cough and sore throat. Patient reports that she has visited the ER 4 times in the last month for vague pain syndromes. She states that this is well known to this physician. She reports that she lives with her aunt. Time Seen by Provider: 06/03/17 14:26 Chief Complaint (Nursing): Cough, Cold, Congestion History Per: Patient Onset/Duration Of Symptoms: Hrs Current Symptoms Are (Timing): Still Present Past Medical History Reviewed: Historical Data, Nursing Documentation, Vital Signs Vital Signs: Last Vital Signs Temp 98 F 06/03/17 18:00 Pulse 98 H 06/03/17 18:00 Resp 20 06/03/17 18:00 BP 165/82 H 06/03/17 18:00 Pulse Ox 99 06/03/17 21:27 - Medical History PMH: Anemia (secondary to heavy menstruation), Anxiety, Arthritis, Asthma, Bronchitis, CAD, CHF, COPD, CVA, Depression, Diabetes, Gastritis, Gastrointestinal Ulcer, HTN, Hypercholesterolemia, Hyperlipidemia, Hyperthyroidism (hyperthyroidism), Kidney Stones, Multiple Sclerosis, Parkinson' s Disease, Pneumonia (06-04-15), Chronic Kidney Disease, TIA Denies: Benign Prostatic Hyperplasia Surgical History: Hernia Repair (Umbilical hernia repair) - [facility] Procedures CLOSURE SKIN & SUBCUTANEOUS NEC (01/07/13) ESOPHAGOGASTRODUODENOSCOPY [EGD] W/CLOSED BIOPSY (02/05/15) INJECT/INFUSE NEC (02/17/15) NEBULIZER THERAPY (06/20/13) PACKED CELL TRANSFUSION (01/28/15) REMOVAL OF INFUSION DEV FROM GREAT VESSEL, DISTRIBUTION SPECIALIST APPROACH (12/02/16) TETANUS TOXOID ADMINIST (01/07/13) TRANSFUSE NONAUT RED BLOOD CELLS IN PERIPH VEIN, PERC (03/17/17) VACCINATION NEC (08/03/14) Family History: States: No Known Family Hx - Social History Hx Tobacco Use: No Hx Alcohol Use: No Hx Substance Use: No - Immunization History Hx Tetanus Toxoid Vaccination: Yes Hx Influenza Vaccination: Yes Hx Pneumococcal Vaccination: Yes Review Of Systems Except As Marked, All Systems Reviewed And Found Negative. Constitutional: Positive for: Malaise (vague body aches) Respiratory: Positive for: Cough (dry cough) Musculoskeletal: Positive for: Leg Pain (bilateral knee discomfort) Physical Exam - Physical Exam Appears: Other (no apparent distress) Skin: Normal Color Head: Atraumatic, Normacephalic Eye(s): bilateral: Normal Inspection Ear(s): Bilateral: Normal Nose: Normal Extremity: No Tenderness, No Swelling, Other (bilateral knees are mildly chronic , but patient can walk) Neurological/Psych: Other (choreatic movements) ED Course And Treatment ECG: Interpreted By Me, Viewed By Me ECG Rhythm: Sinus Rhythm (NSR 76) O2 Sat by Pulse Oximetry: 99 (RA) Pulse Ox Interpretation: Normal Medical Decision Making Medical Decision Making: vague c/o symptoms, but normal eval, normal exam, normal BP NOrmal workups x 4 in past 2 months. KNees evaluated 04/24/17 and unchanged from prior. no apparent pain nor fever and multiple "allergies" to meds other than narcotics [place] [employer] reviewed, no current chronic narc meds. ok to f/u w PMD Disposition Doctor Will See Patient In The: Office Counseled Patient/Family Regarding: Studies Performed, Diagnosis - Disposition Referrals: Ranulfo Corley MD [Staff Provider] - Disposition: HOME/ ROUTINE Disposition Time: 14:58 Condition: GOOD Additional Instructions: normal medication regimen and OTC pain meds as able Follow-up with Dr. Corley Instructions: Chronic Pain (ED) Forms: [facility] (Serbian) - Clinical Impression Clinical Impression: Body aches - Scribe Statement The provider has reviewed the documentation as recorded by the Christina Nolan Provider Attestation: All medical record entries made by the Owenibe were at my direction and personally dictated by me. I have reviewed the chart and agree that the record accurately reflects my personal performance of the history, physical exam, medical decision making, and the department course for this patient. I have also personally directed, reviewed, and agree with the discharge instructions and disposition.
[2017-06-03 19:39] VITALS: BP 165/82; PULSE 98; TEMP 98
== END 2017-06-03 18:10 | disposition home or self-care (01) ==
LOC: C.ER 13:53
DX: R52 Pain, unspecified (principal); E78.00 Pure hypercholesterolemia, unspecified; G35 Multiple sclerosis; G20 Parkinson's disease; I50.9 Heart failure, unspecified; I13.0 Hypertensive heart and chronic kidney disease with heart failure and stage 1 through stage 4 chronic kidney disease, or unspecified chronic kidney disease; N18.9 Chronic kidney disease, unspecified; J44.9 Chronic obstructive pulmonary disease, unspecified; I25.10 Atherosclerotic heart disease of native coronary artery without angina pectoris

== ENCOUNTER 2017-06-28 15:12 | Emergency (ER) | payer MEDICAID ==
[2017-06-28 15:12] VITALS: BMI 22.6
[2017-06-28 15:33] VITALS: O2SAT 97
--- NOTE | 2017-06-28 15:51 | C.PDOC ---
History Of Present Illness 46 y/o female with extensive PMHx including MS presents to ED with complaints of generalized chest pain and pain to both arms and legs. Patient states she fell 3 days ago and reports spasms on left hand and forearm. Patient denies loc , head injury, vision changes, weakness, numbness, sob or any other complaints at this time. Time Seen by Provider: 06/28/17 15:39 Chief Complaint (Nursing): Medical Clearance History Per: Patient History/Exam Limitations: no limitations Onset/Duration Of Symptoms: Days Current Symptoms Are (Timing): Still Present Past Medical History Reviewed: Historical Data, Nursing Documentation, Vital Signs Vital Signs: Last Vital Signs Temp 99.7 F H 06/28/17 15:33 Pulse 74 06/28/17 15:33 Resp 18 06/28/17 15:33 BP 141/78 06/28/17 15:33 Pulse Ox 97 06/28/17 15:56 - Medical History PMH: Anemia (secondary to heavy menstruation), Anxiety, Arthritis, Asthma, Bronchitis, CAD, CHF, COPD, CVA, Depression, Diabetes, Gastritis, Gastrointestinal Ulcer, HTN, Hypercholesterolemia, Hyperlipidemia, Hyperthyroidism (hyperthyroidism), Kidney Stones, Multiple Sclerosis, Parkinson' s Disease, Pneumonia (06-04-), Chronic Kidney Disease, TIA Surgical History: Hernia Repair (Umbilical hernia repair) - [facility] Procedures CLOSURE SKIN & SUBCUTANEOUS NEC (01/07/13) ESOPHAGOGASTRODUODENOSCOPY [EGD] W/CLOSED BIOPSY (02/05/15) INJECT/INFUSE NEC (02/17/15) NEBULIZER THERAPY (06/20/13) PACKED CELL TRANSFUSION (01/28/15) REMOVAL OF INFUSION DEV FROM GREAT VESSEL, LICENSED CLUB MANAGER APPROACH (12/02/16) TETANUS TOXOID ADMINIST (01/07/13) TRANSFUSE NONAUT RED BLOOD CELLS IN PERIPH VEIN, PERC (03/17/17) VACCINATION NEC (08/03/14) Family History: States: No Known Family Hx - Social History Hx Tobacco Use: No Hx Alcohol Use: No Hx Substance Use: No - Immunization History Hx Tetanus Toxoid Vaccination: Yes Hx Influenza Vaccination: Yes Hx Pneumococcal Vaccination: Yes Review Of Systems Constitutional: Negative for: Fever, Chills Eyes: Negative for: Vision Change Cardiovascular: Positive for: Chest Pain Respiratory: Negative for: Shortness of Breath Gastrointestinal: Negative for: Nausea, Vomiting Musculoskeletal: Positive for: Arm Pain, Leg Pain Skin: Negative for: Rash Neurological: Negative for: Weakness, Numbness Physical Exam - Physical Exam Appears: Non-toxic, No Acute Distress Skin: Normal Color, Warm, Dry, No Rash Head: Atraumatic, Normacephalic Eye(s): bilateral: Normal Inspection Oral Mucosa: Moist Neck: Normal ROM, Supple Cardiovascular: Rhythm Regular Respiratory: Normal Breath Sounds, No Rales, No Rhonchi, No Wheezing Gastrointestinal/Abdominal: Soft, No Tenderness, No Guarding, No Rebound Extremity: No Calf Tenderness, Capillary Refill (<2 seconds), No Deformity, Swelling (Right knee) Extremity: Bilateral: Normal ROM Pulses: Left Dorsalis Pedis: Normal, Right Dorsalis Pedis: Normal Neurological/Psych: Oriented x3, Normal Motor, Normal Sensation ED Course And Treatment - Laboratory Results Result Diagrams: 06/28/17 16:06 06/28/17 16:06 Lab Interpretation: No Acute Changes O2 Sat by Pulse Oximetry: 97 (RA) Pulse Ox Interpretation: Normal Reevaluation Time: 17:06 Reassessment Condition: Improved (Patient comfortable and eating a sandwich in ED.) Disposition Counseled Patient/Family Regarding: Studies Performed, Diagnosis, Need For Followup - Disposition Disposition: HOME/ ROUTINE Disposition Time: 17:07 Condition: STABLE Instructions: Chronic Pain (ED) Forms: [facility] (Spanish) - Clinical Impression Clinical Impression: Chronic pain, Musculoskeletal chest pain, Multiple sclerosis - Scribe Statement The provider has reviewed the documentation as recorded by the Christina Valencia All medical record entries made by the Owenibsoha were at my direction and personally dictated by me. I have reviewed the chart and agree that the record accurately reflects my personal performance of the history, physical exam, medical decision making, and the department course for this patient. I have also personally directed, reviewed, and agree with the discharge instructions and disposition.
[2017-06-28 16:12] LABS: BASO % 0.6 % (0.0-2.0); EOS % 0.9 % (0.0-4.0); LYMPH # 1.4 K/uL (1.0-4.3); LYMPH % 29.3 % (20.0-40.0); MEAN CELL VOLUME 85.4 fL (81.0-99.0); MEAN CORPUSCULAR HGB CONC 30.4 g/dL (33.0-37.0); MEAN PLATELET VOLUME 9.1 fL (7.2-11.7); MONO # 0.4 K/uL (0.0-0.8); NEUT # 2.9 K/uL (1.8-7.0); NEUT % 61.2 % (50.0-75.0); NRBC % 0.2 % (0.0-2.0); RBC 4.24 Mil/uL (3.80-5.20); RED CELL DISTRIBUTION WIDTH 15.5 % (11.5-14.5); WHITE BLOOD COUNT 4.7 K/uL (4.8-10.8)
[2017-06-28 16:21] LABS: ALB/GLOB RATIO 1.1 (1.0-2.1); ALBUMIN 4.1 g/dL (3.5-5.0); CALCIUM 10.5 mg/dl (8.6-10.4); GFR AFRICAN-AMERICAN > 60; GFR NON-AFRICAN AMERICAN > 60
[2017-06-28 16:26] LABS: ALT/SGPT 19 U/L (9-52); AST/SGOT 33 U/L (14-36); BLOOD UREA NITROGEN 16 mg/dL (7-17)
[2017-06-28 16:54] LABS: SQUAMOUS EPITHIAL 1 /hpf (0-5); URINE AMORPHOUS SEDIMENT RARE /ul (<OCC); URINE BILIRUBIN NEGATIVE (NEGATIVE); URINE BLOOD NEGATIVE (NEGATIVE); URINE CLARITY Hazy (Clear); URINE COLOR Yellow (YELLOW); URINE GLUCOSE (UA) NORMAL (Normal); URINE LEUKOCYTE ESTERASE NEG Leu/uL (Negative); URINE NITRATE NEGATIVE (NEGATIVE); URINE PROTEIN NEGATIVE (NEGATIVE); URINE UROBILINOGEN NORMAL mg/dL (0.2-1.0)
[2017-06-28 17:23] VITALS: BP 135/72; PULSE 80; RESP 16; TEMP 98.6
== END 2017-06-28 20:36 | disposition home or self-care (01) ==
LOC: C.ER 15:12
DX: R07.89 Other chest pain (principal); G35 Multiple sclerosis

== ENCOUNTER 2017-07-06 10:11 | Observation (INO) | payer MEDICAID ==
[2017-07-06 10:13] VITALS: BMI 22.6
[2017-07-06] MEDS ORDERED: Albuterol-Ipratrop 3 mg / 0.5 (3 ml) UD INH STA ×3 (11:13→15:48)
--- NOTE | 2017-07-06 11:15 | C.PDOC ---
History Of Present Illness 46 y/o female with multiple medical problems, c/o generalized cp, worse with cough, pain in both arms, and cough with yellow sputum. pt seen in [place] ED 4 days ago for same with neg cxr. started on z=pack. pt sts she isn't feeling better. Time Seen by Provider: 07/06/17 10:35 Chief Complaint (Nursing): Chest Pain History Per: Patient History/Exam Limitations: no limitations Onset/Duration Of Symptoms: Days Current Symptoms Are (Timing): Worse Quality: Other (stabbing) Severity: Moderate Associated Symptoms: Productive Cough Reports Recently: Seen In ED Past Medical History Reviewed: Historical Data, Nursing Documentation, Vital Signs Vital Signs: Last Vital Signs Temp 99.6 F 07/06/17 12:24 Pulse 88 07/06/17 17:25 Resp 17 07/06/17 17:25 BP 171/88 H 07/06/17 17:25 Pulse Ox 98 07/06/17 18:16 - Medical History PMH: Anemia (secondary to heavy menstruation), Anxiety, Arthritis, Asthma, Bronchitis, CAD, CHF, COPD, CVA, Depression, Diabetes, Gastritis, Gastrointestinal Ulcer, HTN, Hypercholesterolemia, Hyperlipidemia, Hyperthyroidism (hyperthyroidism), Kidney Stones, Multiple Sclerosis, Parkinson' s Disease, Pneumonia (06-04-15), Chronic Kidney Disease, TIA Denies: Benign Prostatic Hyperplasia Surgical History: Hernia Repair (Umbilical hernia repair) - [facility] Procedures CLOSURE SKIN & SUBCUTANEOUS NEC (01/07/13) ESOPHAGOGASTRODUODENOSCOPY [EGD] W/CLOSED BIOPSY (02/05/15) INJECT/INFUSE NEC (02/17/15) NEBULIZER THERAPY (06/20/13) PACKED CELL TRANSFUSION (01/28/15) REMOVAL OF INFUSION DEV FROM GREAT VESSEL, ANNEALING FURNACE OPERATOR APPROACH (12/02/16) TETANUS TOXOID ADMINIST (01/07/13) TRANSFUSE NONAUT RED BLOOD CELLS IN PERIPH VEIN, PERC (03/17/17) VACCINATION NEC (08/03/14) Family History: States: Unknown Family Hx - Social History Hx Tobacco Use: No Hx Alcohol Use: No Hx Substance Use: No - Immunization History Hx Tetanus Toxoid Vaccination: Yes Hx Influenza Vaccination: Yes Hx Pneumococcal Vaccination: Yes Review Of Systems Constitutional: Negative for: Fever, Chills Cardiovascular: Positive for: Chest Pain Respiratory: Positive for: Cough, Wheezing Gastrointestinal: Negative for: Nausea, Vomiting, Abdominal Pain, Diarrhea Neurological: Negative for: Weakness, Numbness Physical Exam - Physical Exam Appears: Non-toxic, No Acute Distress Skin: Normal Color, Warm Head: Atraumatic, Normacephalic Teeth: Edentulous Neck: Normal ROM Chest: Symmetrical, No Deformity, Tenderness (sternal and left chest reproducibile tenderness) Cardiovascular: Rhythm Regular, No Murmur Respiratory: Decreased Breath Sounds, Wheezing (scattered) Gastrointestinal/Abdominal: Soft, No Tenderness ED Course And Treatment - Laboratory Results Result Diagrams: 07/06/17 17:51 07/06/17 17:24 O2 Sat by Pulse Oximetry: 98 Medical Decision Making Medical Decision Making: pt with wheezing; neb ordered. pt still wheezing after, second neb ordered. pt appears well,. talking on phone, in no acute distress. Progress: 171: Patient still complaining of reproducible pain similar to pain in past and refuses to go home 530 pt with clear lungs after 3 nebs, still c/o cp. discussed wiuth Dr Mcdonnell (covering for Dr Corley). to to be placed on obs on his service. pt reports allergy to aspirin (itching) so none given in ed. Disposition Discussed With .: Cesar Mcdonnell Doctor Will See Patient In The: Hospital - Disposition Disposition Time: 18:21 Forms: [facility] (Tongan) - Clinical Impression Clinical Impression: Chest pain
[2017-07-06] MEDS ORDERED: Albuterol-Ipratrop 3 mg / 0.5 (3 ml) UD ONE ×3 (11:38→19:57)
[2017-07-06 17:47] LABS: ALB/GLOB RATIO 1.1 (1.0-2.1); ALT/SGPT 22 U/L (9-52); AST/SGOT 31 U/L (14-36); BLOOD UREA NITROGEN 16 mg/dL (7-17); CALCIUM 11.1 mg/dl (8.6-10.4); GFR AFRICAN-AMERICAN > 60; GFR NON-AFRICAN AMERICAN > 60
[2017-07-06 17:58] LABS: BASO # 0.1 K/uL (0.0-0.2); BASO % 0.9 % (0.0-2.0); EOS # 0.1 K/uL (0.0-0.7); EOS % 1.1 % (0.0-4.0); HEMOGLOBIN 11.2 g/dL (11.0-16.0); LYMPH # 1.5 K/uL (1.0-4.3); LYMPH % 27.9 % (20.0-40.0); MEAN CORPUSCULAR HEMOGLOBIN 26.9 pg (27.0-31.0); MEAN CORPUSCULAR HGB CONC 31.6 g/dL (33.0-37.0); MEAN PLATELET VOLUME 8.5 fL (7.2-11.7); MONO # 0.4 K/uL (0.0-0.8); MONO % 8.1 % (0.0-10.0); NEUT # 3.3 K/uL (1.8-7.0); RBC 4.15 Mil/uL (3.80-5.20); RED CELL DISTRIBUTION WIDTH 15.5 % (11.5-14.5); WHITE BLOOD COUNT 5.4 K/uL (4.8-10.8)
--- NOTE | 2017-07-06 18:48 | RAD ---
HISTORY: chest pain COMPARISON: Chest x-ray performed 03/23/17, ct chest without IV contrast performed 03/05/17 TECHNIQUE: Chest, one view. FINDINGS: LUNGS: Mild to moderate pulmonary venous congestion. Please note that chest x-ray has limited sensitivity for the detection of pulmonary masses. PLEURA: No significant pleural effusion identified. No definite pneumothorax . CARDIOVASCULAR: Re-identified enlarged cardiomediastinal silhouette. OSSEOUS STRUCTURES: No acute osseous abnormality identified. VISUALIZED UPPER ABDOMEN: Unremarkable. OTHER FINDINGS: None. IMPRESSION: Re-identified enlarged cardiomediastinal silhouette. [id number] pulmonary venous congestion. Findings discussed with Chelsey Gonzáles on 07/06/17 at 641 pm.
[2017-07-07] MEDS ORDERED: Diclofenac Sodium Delayed Release 50 mg EC Tab PO PRN (01:33)
[2017-07-07 03:09] LABS: CK-MB 3.79 ng/mL (0.0-3.38)
[2017-07-07 08:07] LABS: BASO % 0.6 % (0.0-2.0); EOS # 0.1 K/uL (0.0-0.7); EOS % 1.3 % (0.0-4.0); HEMOGLOBIN 10.6 g/dL (11.0-16.0); LYMPH # 1.5 K/uL (1.0-4.3); LYMPH % 35.1 % (20.0-40.0); MEAN CELL VOLUME 85.2 fL (81.0-99.0); MEAN CORPUSCULAR HEMOGLOBIN 28.1 pg (27.0-31.0); MEAN CORPUSCULAR HGB CONC 32.9 g/dL (33.0-37.0); MEAN PLATELET VOLUME 9.2 fL (7.2-11.7); MONO # 0.4 K/uL (0.0-0.8); MONO % 9.4 % (0.0-10.0); NEUT # 2.3 K/uL (1.8-7.0); NEUT % 53.6 % (50.0-75.0); NRBC % 0.1 % (0.0-2.0); RBC 3.78 Mil/uL (3.80-5.20); RED CELL DISTRIBUTION WIDTH 15.7 % (11.5-14.5); WHITE BLOOD COUNT 4.2 K/uL (4.8-10.8)
[2017-07-07] MEDS: (Novolin R) Insulin Human Regular 100 units/ml vial SC SCH ×4 (08:25→21:58)
[2017-07-07 08:37] LABS: ALB/GLOB RATIO 1.1 (1.0-2.1); ALBUMIN 3.6 g/dL (3.5-5.0); ALT/SGPT 22 U/L (9-52); AST/SGOT 25 U/L (14-36); BLOOD UREA NITROGEN 18 mg/dL (7-17); CALCIUM 10.7 mg/dl (8.6-10.4); GFR AFRICAN-AMERICAN > 60; GFR NON-AFRICAN AMERICAN > 60
[2017-07-07] MEDS: Multiple Vitamins Tab PO SCH (10:42)
[2017-07-07] MEDS: Pantoprazole 40 mg EC Tab PO SCH (10:42)
[2017-07-07] MEDS: Enoxaparin 40 mg Syringe SC SCH (10:43)
--- NOTE | 2017-07-07 10:59 | CARD ---
APPROVED REPORT EKG Measurement Heart [id number] <Conclusion> Sinus rhythm,baseline artifacts. please repeat
--- NOTE | 2017-07-07 11:00 | CARD ---
APPROVED REPORT EKG Measurement Heart [id number] <Conclusion> Sinus rhythm.baseline artifacts. please repeat Abnormal ECG
[2017-07-07 12:13] LABS: CK-MB 3.71 ng/mL (0.0-3.38)
--- NOTE | 2017-07-07 15:51 | CP.PCM.HP ---
Past Patient History - Infectious Disease Hx of Infectious Diseases: None - Tetanus Immunizations Tetanus Immunization: Unknown - Past Medical History & Family History Past Medical History?: Yes - Past Social History Smoking Status: Never Smoked - CARDIAC Hx Congestive Heart Failure: Yes Hx Hypercholesterolemia: Yes Hx Hypertension: Yes - PULMONARY Hx Chronic Obstructive Pulmonary Disease (COPD): Yes - NEUROLOGICAL Hx Multiple Sclerosis: Yes Hx Parkinson's Disease: Yes Hx Transient Ischemic Attacks (TIA): Yes - HEENT Hx HEENT Problems: No - RENAL Hx Chronic Kidney Disease: Yes Hx Kidney Stones: Yes - ENDOCRINE/METABOLIC Hx Hyperthyroidism: Yes (hyperthyroidism) - HEMATOLOGICAL/ONCOLOGICAL Hx Anemia: Yes (secondary to heavy menstruation) - INTEGUMENTARY Hx Dermatological Problems: No - MUSCULOSKELETAL/RHEUMATOLOGICAL Hx Falls: Yes ("long time ago") - GASTROINTESTINAL Hx Gastritis: Yes - PSYCHIATRIC Hx Substance Use: No - SURGICAL HISTORY Hx Surgeries: Yes Hx Section: Yes (1994) - ANESTHESIA Hx Anesthesia: Yes Hx Anesthesia Reactions: No Hx Malignant Hyperthermia: No Meds Allergies/Adverse Reactions: Allergies Allergy/AdvReac Type Severity Reaction Status Date / Time acetaminophen Allergy ITCHING Verified 07/06/17 10:27 codeine Allergy RASH Verified 07/06/17 10:27 iodine Allergy ITCHING Verified 07/06/17 10:27 ketorolac Allergy ITCHING Verified 07/06/17 10:27 ketorolac tromethamine Allergy RASH Verified 07/06/17 10:27 [From Toradol] Latex, Natural Rubber Allergy ITCHING Verified 07/06/17 10:27 morphine Allergy ITCHING Verified 07/06/17 10:27 orange juice Allergy ITCHING Verified 07/06/17 10:27 Penicillins Allergy ITCHING Verified 07/06/17 10:27 Sulfa (Sulfonamide Allergy RASH Verified 07/06/17 10:27 Antibiotics) tomato Allergy ITCHING Verified 07/06/17 10:27 tramadol Allergy ITCHING Verified 07/06/17 10:27 ondansetron HCl AdvReac Intermediate RASH Verified 07/06/17 10:27 [From Zofran (as hydrochloride)] Results - Vital Signs Recent Vital Signs: Last Vital Signs Temp 98.2 F 07/07/17 07:20 Pulse 81 07/07/17 08:46 Resp 20 07/07/17 07:20 BP 136/85 07/07/17 07:20 Pulse Ox 96 07/07/17 07:20 - Labs Result Diagrams: 07/07/17 07:47 07/07/17 07:47 Labs: Laboratory Results - last 24 hr 07/06/17 07/06/17 07/07/17 17:24 17:51 02:42 WBC 5.4 RBC 4.15 Hgb 11.2 Hct 35.3 MCV 85.0 MCH 26.9 L MCHC 31.6 L RDW 15.5 H Plt Count 175 MPV 8.5 Neut % (Auto) 62.0 Lymph % (Auto) 27.9 [place] % (Auto) 8.1 Eos % (Auto) 1.1 Baso % (Auto) 0.9 Neut # 3.3 Lymph # 1.5 [place] # 0.4 Eos # 0.1 Baso # 0.1 Sodium 137 Potassium 3.8 Chloride 104 Carbon Dioxide 26 Anion Gap 11 BUN 16 Creatinine 0.7 Est GFR ( Amer) > 60 Est GFR (Non-Af Amer) > 60 POC Glucose (mg/dL) Random Glucose 83 Calcium 11.1 H Total Bilirubin 0.8 AST 31 ALT 22 Alkaline Phosphatase 63 Total Creatine Kinase 149 H CK-MB (Mass) 3.79 H Troponin I < 0.0120 < 0.0120 Total Protein 7.7 Albumin 4.0 Globulin 3.7 Albumin/Globulin Ratio 1.1 07/07/17 07/07/17 07/07/17 06:28 07:47 07:47 WBC 4.2 L RBC 3.78 L Hgb 10.6 L Hct 32.2 L MCV 85.2 MCH 28.1 MCHC 32.9 L RDW 15.7 H Plt Count 170 MPV 9.2 Neut % (Auto) 53.6 Lymph % (Auto) 35.1 [place] % (Auto) 9.4 Eos % (Auto) 1.3 Baso % (Auto) 0.6 Neut # 2.3 Lymph # 1.5 [place] # 0.4 Eos # 0.1 Baso # 0.0 Sodium 138 Potassium 3.5 L Chloride 103 Carbon Dioxide 29 Anion Gap 9 L BUN 18 H Creatinine 0.7 Est GFR ( Amer) > 60 Est GFR (Non-Af Amer) > 60 POC Glucose (mg/dL) 91 Random Glucose 76 Calcium 10.7 H Total Bilirubin 0.5 AST 25 ALT 22 Alkaline Phosphatase 51 Total Creatine Kinase CK-MB (Mass) Troponin I Total Protein 6.8 Albumin 3.6 Globulin 3.2 Albumin/Globulin Ratio 1.1 07/07/17 11:09 WBC RBC Hgb Hct MCV MCH MCHC RDW Plt Count MPV Neut % (Auto) Lymph % (Auto) [place] % (Auto) Eos % (Auto) Baso % (Auto) Neut # Lymph # [place] # Eos # Baso # Sodium Potassium Chloride Carbon Dioxide Anion Gap BUN Creatinine Est GFR ( Amer) Est GFR (Non-Af Amer) POC Glucose (mg/dL) Random Glucose Calcium Total Bilirubin AST ALT Alkaline Phosphatase Total Creatine Kinase 133 CK-MB (Mass) 3.71 H Troponin I < 0.0120 Total Protein Albumin Globulin Albumin/Globulin Ratio
[2017-07-07] MEDS: Albuterol-Ipratrop 3 mg / 0.5 (3 ml) UD INH PRN (20:39)
[2017-07-08] MEDS: (Novolin R) Insulin Human Regular 100 units/ml vial SC SCH ×4 (07:47→21:57)
[2017-07-08] MEDS: Econazole 1% Cream(15 gm) TOP SCH ×2 (09:55→17:27)
[2017-07-08] MEDS: Pantoprazole 40 mg EC Tab PO SCH (09:55)
[2017-07-08] MEDS: Multiple Vitamins Tab PO SCH (09:55)
[2017-07-08] MEDS: Enoxaparin 40 mg Syringe SC SCH (09:56)
[2017-07-08] MEDS: Albuterol-Ipratrop 3 mg / 0.5 (3 ml) UD INH PRN ×2 (11:01→20:12)
[2017-07-08 15:39] VITALS: RESP 20
--- NOTE | 2017-07-08 15:58 | CP.PCM.PN ---
<Cesar Mcdonnell - Last Filed: 07/08/17 15:57> Subjective - Date & Time of Evaluation Date of Evaluation: 07/08/17 Time of Evaluation: 15:58 Objective - Vital Signs/Intake and Output Vital Signs (last 24 hours): Temp Pulse Resp BP Pulse Ox 98.6 F 78 20 152/87 H 95 07/08/17 15:38 07/08/17 15:38 07/08/17 15:38 07/08/17 15:38 07/08/17 15:38 Intake and Output: 07/08/17 07/08/17 06:59 18:59 Intake Total 500 400 Balance 500 400 - Medications Medications: Current Medications Albuterol/Ipratropium (Duoneb 3 Mg/0.5 Mg (3 Ml) Ud) 3 ml INH RQ6 PRN PRN Reason: Shortness of Breath Last Admin: 07/08/17 11:01 Dose: 3 ml Amlodipine Besylate (Norvasc) 10 mg PO DAILY [facility] Last Admin: 07/08/17 09:55 Dose: 10 mg Econazole Nitrate (Spectazole Cr) 1 gm TOP BID [facility] Last Admin: 07/08/17 09:55 Dose: 1 applic Enoxaparin Sodium (Lovenox) 40 mg SC DAILY [facility] Last Admin: 07/08/17 09:56 Dose: Not Given Gabapentin (Neurontin) 300 mg PO TID [facility] Last Admin: 07/08/17 13:17 Dose: 300 mg Ibuprofen (Motrin Tab) 600 mg PO Q12H PRN PRN Reason: Pain, Mild (1-3) Last Admin: 07/08/17 07:31 Dose: 600 mg Insulin Human Regular (Novolin R) 0 unit SC [facility] PRN Reason: Protocol Last Admin: 07/08/17 11:55 Dose: Not Given Losartan Potassium (Cozaar) 50 mg PO DAILY [facility] Last Admin: 07/08/17 10:41 Dose: 50 mg Multivitamins (Hexavitamin) 1 tab PO DAILY [facility] Last Admin: 07/08/17 09:55 Dose: 1 tab Pantoprazole Sodium (Protonix Ec Tab) 40 mg PO DAILY [facility] Last Admin: 07/08/17 09:55 Dose: 40 mg Pneumococcal Polyvalent Vaccine (Pneumovax 23 Vaccine) 0.5 ml IM .ONCE ONE Stop: 07/09/17 14:01 - Labs Labs: 07/07/17 07:47 07/07/17 07:47 <Joy Miranda S - Last Filed: 07/08/17 17:42> Objective - Vital Signs/Intake and Output Vital Signs (last 24 hours): Temp Pulse Resp BP Pulse Ox 98.6 F 78 20 152/87 H 95 07/08/17 15:38 07/08/17 15:38 07/08/17 15:38 07/08/17 15:38 07/08/17 15:38 Intake and Output: 07/08/17 07/08/17 06:59 18:59 Intake Total 500 400 Balance 500 400 - Medications Medications: Current Medications Albuterol/Ipratropium (Duoneb 3 Mg/0.5 Mg (3 Ml) Ud) 3 ml INH RQ6 PRN PRN Reason: Shortness of Breath Last Admin: 07/08/17 11:01 Dose: 3 ml Amlodipine Besylate (Norvasc) 10 mg PO DAILY [facility] Last Admin: 07/08/17 09:55 Dose: 10 mg Econazole Nitrate (Spectazole Cr) 1 gm TOP BID [facility] Last Admin: 07/08/17 17:27 Dose: 1 applic Enoxaparin Sodium (Lovenox) 40 mg SC DAILY [facility] Last Admin: 07/08/17 09:56 Dose: Not Given Gabapentin (Neurontin) 300 mg PO TID [facility] Last Admin: 07/08/17 17:26 Dose: 300 mg Ibuprofen (Motrin Tab) 600 mg PO Q12H PRN PRN Reason: Pain, Mild (1-3) Last Admin: 07/08/17 07:31 Dose: 600 mg Insulin Human Regular (Novolin R) 0 unit SC [facility] PRN Reason: Protocol Last Admin: 07/08/17 16:24 Dose: Not Given Losartan Potassium (Cozaar) 50 mg PO DAILY [facility] Last Admin: 07/08/17 10:41 Dose: 50 mg Multivitamins (Hexavitamin) 1 tab PO DAILY [facility] Last Admin: 07/08/17 09:55 Dose: 1 tab Pantoprazole Sodium (Protonix Ec Tab) 40 mg PO DAILY [facility] Last Admin: 07/08/17 09:55 Dose: 40 mg Pneumococcal Polyvalent Vaccine (Pneumovax 23 Vaccine) 0.5 ml IM .ONCE ONE Stop: 07/09/17 14:01 - Labs Labs: 07/07/17 07:47 07/07/17 07:47 Assessment and Plan - Assessment and Plan (Free Text) Assessment: Patient admitted with chest pain, awake alert, follows commands. Cleared by DR Silveira, Discussed with DR Mcdonnell, plan to discharge home in am.
--- NOTE | 2017-07-08 17:43 | CP.PCM.PN ---
Subjective - Date & Time of Evaluation Date of Evaluation: 07/08/17 Time of Evaluation: 11:00 - Subjective Subjective: Alert, awake, has chronic involuntary movements, sec to Parkinson's disease, NAD. Objective - Vital Signs/Intake and Output Vital Signs (last 24 hours): Temp Pulse Resp BP Pulse Ox 98.6 F 78 20 152/87 H 95 07/08/17 15:38 07/08/17 15:38 07/08/17 15:38 07/08/17 15:38 07/08/17 15:38 Intake and Output: 07/08/17 07/08/17 06:59 18:59 Intake Total 500 400 Balance 500 400 - Medications Medications: Current Medications Albuterol/Ipratropium (Duoneb 3 Mg/0.5 Mg (3 Ml) Ud) 3 ml INH RQ6 PRN PRN Reason: Shortness of Breath Last Admin: 07/08/17 11:01 Dose: 3 ml Amlodipine Besylate (Norvasc) 10 mg PO DAILY [facility] Last Admin: 07/08/17 09:55 Dose: 10 mg Econazole Nitrate (Spectazole Cr) 1 gm TOP BID [facility] Last Admin: 07/08/17 17:27 Dose: 1 applic Enoxaparin Sodium (Lovenox) 40 mg SC DAILY [facility] Last Admin: 07/08/17 09:56 Dose: Not Given Gabapentin (Neurontin) 300 mg PO TID [facility] Last Admin: 07/08/17 17:26 Dose: 300 mg Ibuprofen (Motrin Tab) 600 mg PO Q12H PRN PRN Reason: Pain, Mild (1-3) Last Admin: 07/08/17 07:31 Dose: 600 mg Insulin Human Regular (Novolin R) 0 unit SC [facility] PRN Reason: Protocol Last Admin: 07/08/17 16:24 Dose: Not Given Losartan Potassium (Cozaar) 50 mg PO DAILY [facility] Last Admin: 07/08/17 10:41 Dose: 50 mg Multivitamins (Hexavitamin) 1 tab PO DAILY [facility] Last Admin: 07/08/17 09:55 Dose: 1 tab Pantoprazole Sodium (Protonix Ec Tab) 40 mg PO DAILY [facility] Last Admin: 07/08/17 09:55 Dose: 40 mg Pneumococcal Polyvalent Vaccine (Pneumovax 23 Vaccine) 0.5 ml IM .ONCE ONE Stop: 07/09/17 14:01 - Labs Labs: 07/07/17 07:47 07/07/17 07:47 Assessment and Plan - Assessment and Plan (Free Text) Assessment: Patient is seen and examined. Awake, alert, make needs known. Complaints of generalized pain. Cleared by DR Silveira from cardiac point. Discussed with DR Mcdonnell, plan to discharge home. Discussed with the family, has no one to pick her up, so asked the nurse to arrange transportation by case management rn in the am. No acute distress, will continue with present meds.
[2017-07-09 07:58] VITALS: BP 168/88; PULSE 60; TEMP 97.5; O2SAT 97
[2017-07-09] MEDS: (Novolin R) Insulin Human Regular 100 units/ml vial SC SCH (08:08)
[2017-07-09] MEDS: Albuterol-Ipratrop 3 mg / 0.5 (3 ml) UD INH PRN (11:18)
[2017-07-09] MEDS ORDERED: Pneumococcal 23-Valent Vaccine IM ONE ×2 (11:30→14:00)
[2017-07-09] MEDS: Pantoprazole 40 mg EC Tab PO SCH (11:44)
[2017-07-09] MEDS: Multiple Vitamins Tab PO SCH (11:44)
[2017-07-09] MEDS: Econazole 1% Cream(15 gm) TOP SCH (11:44)
[2017-07-09] MEDS: Enoxaparin 40 mg Syringe SC SCH (11:46)
--- NOTE | 2017-07-09 13:06 | CP.PCM.CON ---
History of Present Illness - History of Present Illness History of Present Illness: 46 F c/o generalized body pains and chest pains Non exertional and reproducible Review Of Systems Constitutional: Negative for: Fever, Chills Cardiovascular: Positive for: Chest Pain Respiratory: Positive for: Cough, Wheezing Gastrointestinal: Negative for: Nausea, Vomiting, Abdominal Pain, Diarrhea Neurological: Negative for: Weakness, Numbness Physical Exam - Physical Exam Appears: Non-toxic, No Acute Distress Skin: Normal Color, Warm Head: Atraumatic, Normacephalic Teeth: Edentulous Neck: Normal ROM Chest: Symmetrical, No Deformity, Tenderness (sternal and left chest reproducibile tenderness) Cardiovascular: Rhythm Regular, No Murmur Respiratory: Decreased Breath Sounds, Wheezing (scattered) Gastrointestinal/Abdominal: Soft, No Tenderness Past Patient History - Infectious Disease Hx of Infectious Diseases: None - Tetanus Immunizations Tetanus Immunization: Unknown - Past Medical History & Family History Past Medical History?: Yes - Past Social History Smoking Status: Never Smoked - CARDIAC Hx Congestive Heart Failure: Yes Hx Hypercholesterolemia: Yes Hx Hypertension: Yes - PULMONARY Hx Chronic Obstructive Pulmonary Disease (COPD): Yes - NEUROLOGICAL Hx Multiple Sclerosis: Yes Hx Parkinson's Disease: Yes Hx Transient Ischemic Attacks (TIA): Yes - HEENT Hx HEENT Problems: No - RENAL Hx Chronic Kidney Disease: Yes Hx Kidney Stones: Yes - ENDOCRINE/METABOLIC Hx Hyperthyroidism: Yes (hyperthyroidism) - HEMATOLOGICAL/ONCOLOGICAL Hx Anemia: Yes (secondary to heavy menstruation) - INTEGUMENTARY Hx Dermatological Problems: No - MUSCULOSKELETAL/RHEUMATOLOGICAL Hx Falls: Yes ("long time ago") - GASTROINTESTINAL Hx Gastritis: Yes - PSYCHIATRIC Hx Substance Use: No - SURGICAL HISTORY Hx Surgeries: Yes Hx Section: Yes (1994) - ANESTHESIA Hx Anesthesia: Yes Hx Anesthesia Reactions: No Hx Malignant Hyperthermia: No Meds Allergies/Adverse Reactions: Allergies Allergy/AdvReac Type Severity Reaction Status Date / Time acetaminophen Allergy ITCHING Verified 07/06/17 10:27 codeine Allergy RASH Verified 07/06/17 10:27 iodine Allergy ITCHING Verified 07/06/17 10:27 ketorolac Allergy ITCHING Verified 07/06/17 10:27 ketorolac tromethamine Allergy RASH Verified 07/06/17 10:27 [From Toradol] Latex, Natural Rubber Allergy ITCHING Verified 07/06/17 10:27 morphine Allergy ITCHING Verified 07/06/17 10:27 orange juice Allergy ITCHING Verified 07/06/17 10:27 Penicillins Allergy ITCHING Verified 07/06/17 10:27 Sulfa (Sulfonamide Allergy RASH Verified 07/06/17 10:27 Antibiotics) tomato Allergy ITCHING Verified 07/06/17 10:27 tramadol Allergy ITCHING Verified 07/06/17 10:27 ondansetron HCl AdvReac Intermediate RASH Verified 07/06/17 10:27 [From Zofran (as hydrochloride)] - Medications Medications: Current Medications Albuterol/Ipratropium (Duoneb 3 Mg/0.5 Mg (3 Ml) Ud) 3 ml INH RQ6 PRN PRN Reason: Shortness of Breath Last Admin: 07/09/17 11:18 Dose: 3 ml Amlodipine Besylate (Norvasc) 10 mg PO DAILY [facility] Last Admin: 07/09/17 11:44 Dose: 10 mg Econazole Nitrate (Spectazole Cr) 1 gm TOP BID [facility] Last Admin: 07/09/17 11:44 Dose: 1 applic Enoxaparin Sodium (Lovenox) 40 mg SC DAILY [facility] Last Admin: 07/09/17 11:46 Dose: Not Given Gabapentin (Neurontin) 300 mg PO TID [facility] Last Admin: 07/09/17 11:44 Dose: 300 mg Ibuprofen (Motrin Tab) 600 mg PO Q12H PRN PRN Reason: Pain, Mild (1-3) Last Admin: 07/09/17 08:31 Dose: 600 mg Insulin Human Regular (Novolin R) 0 unit SC [facility] PRN Reason: Protocol Last Admin: 07/09/17 08:08 Dose: Not Given Losartan Potassium (Cozaar) 50 mg PO DAILY [facility] Last Admin: 07/09/17 11:44 Dose: 50 mg Multivitamins (Hexavitamin) 1 tab PO DAILY [facility] Last Admin: 07/09/17 11:44 Dose: 1 tab Pantoprazole Sodium (Protonix Ec Tab) 40 mg PO DAILY [facility] Last Admin: 07/09/17 11:44 Dose: 40 mg Results - Vital Signs Recent Vital Signs: Last Vital Signs Temp 97.5 F L 07/09/17 07:15 Pulse 60 07/09/17 08:56 Resp 20 07/09/17 07:15 BP 168/88 H 07/09/17 07:15 Pulse Ox 97 07/09/17 07:15 - Labs Result Diagrams: 07/07/17 07:47 07/07/17 07:47 Labs: Laboratory Results - last 24 hr 07/08/17 07/08/17 07/09/17 16:03 21:45 06:30 POC Glucose (mg/dL) 83 104 76 07/09/17 11:10 POC Glucose (mg/dL) 83 Assessment & Plan - Assessment and Plan (Free Text) Assessment: Non exertional reprodicible chest pains Troponin x 3 negative EKG: No ischemic changes ECHO: Normal Wall motion and EF Non cardiac chest pain. No further cardiac work up recommended at this time Continue pain mgt Thank you
== END 2017-07-09 14:55 | disposition home or self-care (01) ==
LOC: C.ER 10:11 → C.9E 18:19 → C.6T 21:18 → C.9E 22:30 → C.5S 22:31
PROVIDERS: ADMIT Internal Medicine Critical Care Medicine; ATTEND Internal Medicine Critical Care Medicine
DX: R07.89 Other chest pain (principal); J44.9 Chronic obstructive pulmonary disease, unspecified; I50.9 Heart failure, unspecified; I13.0 Hypertensive heart and chronic kidney disease with heart failure and stage 1 through stage 4 chronic kidney disease, or unspecified chronic kidney disease; I25.10 Atherosclerotic heart disease of native coronary artery without angina pectoris; N18.9 Chronic kidney disease, unspecified; G35 Multiple sclerosis; G20 Parkinson's disease; E78.00 Pure hypercholesterolemia, unspecified; E11.22 Type 2 diabetes mellitus with diabetic chronic kidney disease; M19.90 Unspecified osteoarthritis, unspecified site; F41.9 Anxiety disorder, unspecified; F32.9 Major depressive disorder, single episode, unspecified; E05.90 Thyrotoxicosis, unspecified without thyrotoxic crisis or storm; D64.9 Anemia, unspecified; Z88.8 Allergy status to other drugs, medicaments and biological substances; Z88.5 Allergy status to narcotic agent; Z91.040 Latex allergy status; Z88.0 Allergy status to penicillin; Z88.2 Allergy status to sulfonamides; Z91.018 Allergy to other foods; Z79.899 Other long term (current) drug therapy
CPT/HCPCS: 36415; 71045; 80053; 82948; 84484; 85025; 85378; 93005; 94640; 97116; 97162; 99285; G0378; G8978; G8979; J1650

== ENCOUNTER 2017-07-10 19:46 | Emergency (ER) | payer MEDICAID ==
[2017-07-10 19:47] VITALS: BMI 24.5
[2017-07-11 00:36] LABS: BASO # 0.1 K/uL (0.0-0.2); BASO % 1.2 % (0.0-2.0); EOS # 0.1 K/uL (0.0-0.7); EOS % 1.1 % (0.0-4.0); HEMOGLOBIN 11.1 g/dL (11.0-16.0); LYMPH # 1.9 K/uL (1.0-4.3); LYMPH % 30.6 % (20.0-40.0); MEAN CELL VOLUME 85.6 fL (81.0-99.0); MEAN CORPUSCULAR HEMOGLOBIN 27.5 pg (27.0-31.0); MEAN CORPUSCULAR HGB CONC 32.2 g/dL (33.0-37.0); MEAN PLATELET VOLUME 8.4 fL (7.2-11.7); MONO # 0.6 K/uL (0.0-0.8); MONO % 10.5 % (0.0-10.0); NEUT # 3.5 K/uL (1.8-7.0); NEUT % 56.6 % (50.0-75.0); RBC 4.03 Mil/uL (3.80-5.20); RED CELL DISTRIBUTION WIDTH 16.4 % (11.5-14.5); WHITE BLOOD COUNT 6.2 K/uL (4.8-10.8)
[2017-07-11 00:53] LABS: ALB/GLOB RATIO 1.1 (1.0-2.1); ALBUMIN 4.2 g/dL (3.5-5.0); ALT/SGPT 26 U/L (9-52); AST/SGOT 23 U/L (14-36); BLOOD UREA NITROGEN 20 mg/dL (7-17); CALCIUM 10.7 mg/dl (8.6-10.4); GFR AFRICAN-AMERICAN > 60; GFR NON-AFRICAN AMERICAN > 60
--- NOTE | 2017-07-11 03:27 | C.PDOC ---
History Of Present Illness 46 year old female presents to ED with complaints of chest pain and is evaluated at [facility] regularly. Patient brings a prescription from Dr. Cuate Corley for an assessment of her chest pain. Patient has a past medical history of HTN, stroke, Parkinson's, neuropathy. Patient notes associated back pain. Upon reviewing old records, patient was admitted on July 06 for generalized chest pain. Patient was also seen at [place] ED on July 02 and was prescribed a Z-Pack. Patient refuses to go home due to reproducible pain. Dr. Mcdonnell covering for Dr. Cuate Corley. Time Seen by Provider: 07/10/17 23:27 Chief Complaint (Nursing): Chest Pain History Per: Patient History/Exam Limitations: no limitations Onset/Duration Of Symptoms: Persistent Current Symptoms Are (Timing): Still Present Additional History Per: Prior Records Past Medical History Reviewed: Historical Data, Nursing Documentation, Vital Signs Vital Signs: Last Vital Signs Temp 98 F 07/11/17 06:02 Pulse 74 07/11/17 06:02 Resp 18 07/11/17 06:02 BP 104/74 07/11/17 06:02 Pulse Ox 100 07/11/17 06:31 - Medical History PMH: Anemia (secondary to heavy menstruation), Anxiety, Arthritis, Asthma, Bronchitis, CAD, CHF, COPD, CVA, Depression, Diabetes, Gastritis, Gastrointestinal Ulcer, HTN, Hypercholesterolemia, Hyperlipidemia, Hyperthyroidism (hyperthyroidism), Kidney Stones, Multiple Sclerosis, Parkinson' s Disease, Pneumonia (06-04-15), Chronic Kidney Disease, TIA Denies: Benign Prostatic Hyperplasia Surgical History: Hernia Repair (Umbilical hernia repair) - [facility] Procedures CLOSURE SKIN & SUBCUTANEOUS NEC (01/07/13) ESOPHAGOGASTRODUODENOSCOPY [EGD] W/CLOSED BIOPSY (02/05/15) INJECT/INFUSE NEC (02/17/15) NEBULIZER THERAPY (06/20/13) PACKED CELL TRANSFUSION (01/28/15) REMOVAL OF INFUSION DEV FROM [employer], BEFORE AND AFTER [employer] WORKER APPROACH (12/02/16) TETANUS TOXOID ADMINIST (01/07/13) TRANSFUSE NONAUT RED BLOOD CELLS IN PERIPH VEIN, PERC (03/17/17) VACCINATION NEC (08/03/14) Family History: States: Unknown Family Hx - Social History Hx Tobacco Use: No Hx Alcohol Use: No Hx Substance Use: No - Immunization History Hx Tetanus Toxoid Vaccination: Yes Hx Influenza Vaccination: Yes Hx Pneumococcal Vaccination: Yes Review Of Systems Except As Marked, All Systems Reviewed And Found Negative. Cardiovascular: Positive for: Chest Pain Physical Exam - Physical Exam Appears: Well, No Acute Distress Skin: Normal Color, Warm, Dry Eye(s): bilateral: Normal Inspection, PERRL, EOMI Nose: Normal Throat: Normal Neck: Normal Cardiovascular: Rhythm Regular Respiratory: Normal Breath Sounds Gastrointestinal/Abdominal: Normal Exam Back: Normal Inspection Extremity: Normal ROM ED Course And Treatment - Laboratory Results Result Diagrams: 07/11/17 00:33 07/11/17 00:33 O2 Sat by Pulse Oximetry: 100 (RA) Pulse Ox Interpretation: Normal Medical Decision Making Medical Decision Makin Initial order: * labs 0033 Chemistry negative. White count 6.2 0626 Labs reviewed: unremarkable Patient is stable for discharge home. Scribe Attestation: Documented by Becky Orozco acting as a scribe for Cony Mitchell MD. Scribe Attestation: All medical record entries made by the Scribe were at my direction and personally dictated by me. I have reviewed the chart and agree that the record accurately reflects my personal performance of the history, physical exam, medical decision making, and the department course for this patient. I have also personally directed, reviewed, and agree with the discharge instructions and disposition. Disposition Counseled Patient/Family Regarding: Diagnosis - Disposition Referrals: [facility] [place]Outside] [facility] at [facility] [Outside] [facility] at [facility] [Outside] Disposition: HOME/ ROUTINE Disposition Time: 06:26 Condition: STABLE Additional Instructions: RETURN TO ED NEEDED Forms: [employer] (Vietnamese) - POA Core Measure Indicators: Chest Pain - Clinical Impression Clinical Impression: Precordial pain, Chest pain
[2017-07-11 06:02] VITALS: BP 104/74; PULSE 74; RESP 18; TEMP 98
[2017-07-11 06:26] VITALS: O2SAT 100
--- NOTE | 2017-07-11 23:06 | CARD ---
APPROVED REPORT EKG Measurement Heart [id number] <Conclusion> Normal sinus rhythm Left ventricular hypertrophy with repolarization abnormality Prolonged QT Abnormal ECG
== END 2017-07-11 06:37 | disposition home or self-care (01) ==
LOC: C.ER 19:46
DX: R07.2 Precordial pain (principal); I25.10 Atherosclerotic heart disease of native coronary artery without angina pectoris; I13.0 Hypertensive heart and chronic kidney disease with heart failure and stage 1 through stage 4 chronic kidney disease, or unspecified chronic kidney disease; I50.9 Heart failure, unspecified; N18.9 Chronic kidney disease, unspecified; E11.22 Type 2 diabetes mellitus with diabetic chronic kidney disease; E78.00 Pure hypercholesterolemia, unspecified; Z86.73 Personal history of transient ischemic attack (TIA), and cerebral infarction without residual deficits

== ENCOUNTER 2017-07-12 13:14 | Emergency (ER) | payer MEDICAID ==
[2017-07-12 13:14] VITALS: BMI 24.5
[2017-07-12 14:23] VITALS: BP 144/89; PULSE 95; RESP 20; TEMP 99.8; O2SAT 98
--- NOTE | 2017-07-12 15:19 | C.PDOC ---
History Of Present Illness 46 year old female presents to the ED c/o of chest pain radiating towards her left arm. Patient was admitted to the hospital on 07/06 for bronchitis was hospitalized for 3 days and treated with antibiotics at that time, she was also complaining of chest pain at that time and was seen by Dr. Silveira who cleared her from a cardiac standpoint. Patient came back to this ED on 07/10 and 07/11 for chest pain and both days she was evaluated and d/c home. Patient presents again today with chest pain. Patient denies fever, chills, cough, SOB, diaphoresis, abdominal pain. Time Seen by Provider: 07/12/17 14:55 Chief Complaint (Nursing): Chest Pain History Per: Patient History/Exam Limitations: no limitations Onset/Duration Of Symptoms: Days Current Symptoms Are (Timing): Still Present Quality: "Pain" Modifying Factors: None Exacerbating Factors: None Alleviating Factors: None Recent travel outside of the [place]: No Additional History Per: Patient Past Medical History Reviewed: Historical Data, Nursing Documentation, Vital Signs Vital Signs: Last Vital Signs Temp 99.8 F H 07/12/17 14:20 Pulse 95 H 07/12/17 14:20 Resp 20 07/12/17 14:20 BP 144/89 07/12/17 14:20 Pulse Ox 98 07/12/17 15:20 - Medical History PMH: Anemia (secondary to heavy menstruation), Anxiety, Arthritis, Asthma, Bronchitis, CAD, CHF, COPD, CVA, Depression, Diabetes, Gastritis, Gastrointestinal Ulcer, HTN, Hypercholesterolemia, Hyperlipidemia, Hyperthyroidism (hyperthyroidism), Kidney Stones, Multiple Sclerosis, Parkinson' s Disease, Pneumonia (06-04-15), Chronic Kidney Disease, TIA Denies: Benign Prostatic Hyperplasia Surgical History: Hernia Repair (Umbilical hernia repair) - [facility] Procedures CLOSURE SKIN & SUBCUTANEOUS NEC (01/07/13) ESOPHAGOGASTRODUODENOSCOPY [EGD] W/CLOSED BIOPSY (02/05/15) INJECT/INFUSE NEC (02/17/15) NEBULIZER THERAPY (06/20/13) PACKED CELL TRANSFUSION (01/28/15) REMOVAL OF 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 Negative for: Palpitations Respiratory: Negative for: Cough, Shortness of Breath Gastrointestinal: Negative for: Nausea, Vomiting, Abdominal Pain Skin: Negative for: Rash Neurological: Negative for: Weakness, Numbness, Headache, Dizziness Physical Exam - Physical Exam Appears: Non-toxic, No Acute Distress Skin: Normal Color, Warm, Dry Head: Atraumatic, Normacephalic Eye(s): bilateral: Normal Inspection Nose: No Discharge, No Deformity Oral Mucosa: Moist Neck: Normal ROM, Supple Chest: Symmetrical Cardiovascular: Rhythm Regular, No Murmur Respiratory: No Rales, No Rhonchi, Wheezing (Mild expiratory) Gastrointestinal/Abdominal: Soft, No Tenderness, No Guarding, No Rebound Extremity: Normal ROM, No Pedal Edema, No Calf Tenderness, No Deformity, No Swelling Neurological/Psych: Oriented x3, Normal Speech, Normal Cognition Gait: Steady ED Course And Treatment ECG: Interpreted By Me ECG Rhythm: Sinus Rhythm ECG Interpretation: No Acute Changes O2 Sat by Pulse Oximetry: 98 (On RA) Pulse Ox Interpretation: Normal Reevaluation Time: 16:42 Reassessment Condition: Improved (Patient is in usual condition in ED and is in no acute distress.) - Physician Consult Information Time Consulting Physician Contacted: 16:42 Physician Contacted: Ranulfo Corley Outcome Of Conversation: Patient to be discharged home and he will follow up in the office. Medical Decision Making Medical Decision Making: Impression : chest pain Plan: * EKG Disposition Counseled Patient/Family Regarding: Studies Performed, Diagnosis, Need For Followup - Disposition Referrals: Ranulfo Corley MD [Staff Provider] - Disposition: HOME/ ROUTINE Disposition Time: 16:42 Condition: STABLE Instructions: Noncardiac Chest Pain (ED) Forms: [facility] (Hong Konger) - Clinical Impression Clinical Impression: Chronic chest pain - Scribe Statement The provider has reviewed the documentation as recorded by the Scribe Power Pro All medical record entries made by the Scribe were at my direction and personally dictated by me. I have reviewed the chart and agree that the record accurately reflects my personal performance of the history, physical exam, medical decision making, and the department course for this patient. I have also personally directed, reviewed, and agree with the discharge instructions and disposition.
--- NOTE | 2017-07-13 12:41 | CARD ---
APPROVED REPORT EKG Measurement Heart [id number] <Conclusion> Normal sinus rhythm with sinus arrhythmia Normal EKG
== END 2017-07-12 17:11 | disposition home or self-care (01) ==
LOC: C.ER 13:14
DX: G89.29 Other chronic pain (principal); R07.9 Chest pain, unspecified

== ENCOUNTER 2017-07-14 15:46 | Emergency (ER) | payer MEDICAID ==
[2017-07-14 15:46] VITALS: BMI 24.5
[2017-07-14 16:01] VITALS: PULSE 77; RESP 20; TEMP 98.6; O2SAT 97
--- NOTE | 2017-07-14 16:44 | C.PDOC ---
History Of Present Illness 46 yr old female well known to the ER, presents with complaints of right sided chest pain and arm numbness. Patient has been evaluated multiple time, 3x this week. Denies fever, chills, nausea, vomiting or abdominal pain. Time Seen by Provider: 07/14/17 16:33 Chief Complaint (Nursing): Chest Pain History Per: Patient History/Exam Limitations: no limitations Onset/Duration Of Symptoms: Persistent Current Symptoms Are (Timing): Still Present Past Medical History Reviewed: Historical Data, Nursing Documentation, Vital Signs Vital Signs: Last Vital Signs Temp 98.6 F 07/14/17 15:59 Pulse 77 07/14/17 15:59 Resp 20 07/14/17 15:59 BP Pulse Ox 97 07/14/17 20:03 - Medical History PMH: Anemia (secondary to heavy menstruation), Anxiety, Arthritis, Asthma, Bronchitis, CAD, CHF, COPD, CVA, Depression, Diabetes, Gastritis, Gastrointestinal Ulcer, HTN, Hypercholesterolemia, Hyperlipidemia, Hyperthyroidism (hyperthyroidism), Kidney Stones, Multiple Sclerosis, Parkinson' s Disease, Pneumonia (06-04-15), Chronic Kidney Disease, TIA Surgical History: Hernia Repair (Umbilical hernia repair) - [facility] Procedures CLOSURE SKIN & SUBCUTANEOUS NEC (01/07/13) ESOPHAGOGASTRODUODENOSCOPY [EGD] W/CLOSED BIOPSY (02/05/15) INJECT/INFUSE NEC (02/17/15) NEBULIZER THERAPY (06/20/13) PACKED CELL TRANSFUSION (01/28/15) REMOVAL OF INFUSION DEV FROM GREAT VESSEL, SENIOR RELIABILITY ENGINEER APPROACH (12/02/16) TETANUS TOXOID ADMINIST (01/07/13) TRANSFUSE NONAUT RED BLOOD CELLS IN PERIPH VEIN, PERC (03/17/17) VACCINATION NEC (08/03/14) Family History: States: No Known Family Hx - Social History Hx Tobacco Use: No Hx Alcohol Use: No Hx Substance Use: No - Immunization History Hx Tetanus Toxoid Vaccination: Yes Hx Influenza Vaccination: Yes Hx Pneumococcal Vaccination: Yes Review Of Systems Except As Marked, All Systems Reviewed And Found Negative. Constitutional: Negative for: Fever, Chills Cardiovascular: Positive for: Chest Pain (right sided) Gastrointestinal: Negative for: Nausea, Vomiting, Abdominal Pain Physical Exam - Physical Exam Appears: Non-toxic, No Acute Distress Skin: Warm, Dry Oral Mucosa: Moist Chest: Symmetrical, No Tenderness Cardiovascular: Rhythm Regular, No Murmur Respiratory: Normal Breath Sounds, No Rales, No Rhonchi, No Stridor, No Wheezing Extremity: Normal ROM, No Swelling Neurological/Psych: Oriented x3, Normal Speech ED Course And Treatment ECG: Interpreted By Me, Viewed By Me ECG Rhythm: Sinus Rhythm Interpretation Of ECG: PAC. Artifact motion. Rate From EC (BPM) O2 Sat by Pulse Oximetry: 97 (RA) Pulse Ox Interpretation: Normal - Other Rad CXR X-Ray: Viewed By Me, Read By Radiologist Interpretation: HISTORY: cp. COMPARISON: Chest x-ray performed 07/06/17. TECHNIQUE: Chest PA and lateral. FINDINGS: LUNGS: Mild pulmonary venous congestion. Please note that chest x-ray has limited sensitivity for the detection of pulmonary masses. PLEURA: No significant pleural effusion identified. No definite pneumothorax . CARDIOVASCULAR: Enlarged cardiomediastinal silhouette re-identified. OSSEOUS STRUCTURES: Degenerative changes. VISUALIZED UPPER ABDOMEN: Unremarkable. OTHER FINDINGS: None. IMPRESSION: Re-identified enlarged cardiomediastinal silhouette. Mild pulmonary venous congestion. Medical Decision Making Medical Decision Making: PLAN: * CXR recently admited with cardiology clearance. labs recently neg. stable for outpt mangement. Disposition - Disposition Referrals: [facility] [Outside] [facility] [Outside] Sukh Silveira MD [Staff Provider] - Disposition: HOME/ ROUTINE Disposition Time: 10:00 Condition: STABLE Additional Instructions: follow up with specialist and clinic, return to er with worsening symptoms or concerns. Instructions: Chest Pain (ED) Forms: [facility] (Armenian) - Clinical Impression Clinical Impression: Chest pain - Scribe Statement The provider has reviewed the documentation as recorded by the Owenibsoha Wong Provider Attestation: All medical record entries made by the Owenibe were at my direction and personally dictated by me. I have reviewed the chart and agree that the record accurately reflects my personal performance of the history, physical exam, medical decision making, and the department course for this patient. I have also personally directed, reviewed, and agree with the discharge instructions and disposition.
--- NOTE | 2017-07-14 17:24 | RAD ---
HISTORY: cp COMPARISON: Chest x-ray performed 07/06/17 TECHNIQUE: Chest PA and lateral FINDINGS: LUNGS: Mild pulmonary venous congestion. Please note that chest x-ray has limited sensitivity for the detection of pulmonary masses. PLEURA: No significant pleural effusion identified. No definite pneumothorax . CARDIOVASCULAR: Enlarged cardiomediastinal silhouette re-identified. OSSEOUS STRUCTURES: Degenerative changes. VISUALIZED UPPER ABDOMEN: Unremarkable. OTHER FINDINGS: None. IMPRESSION: Re-identified enlarged cardiomediastinal silhouette. Mild pulmonary venous congestion.
== END 2017-07-14 18:47 | disposition home or self-care (01) ==
LOC: C.ER 15:46
DX: R07.9 Chest pain, unspecified (principal)

== ENCOUNTER 2017-07-14 19:34 | Emergency (ER) | payer MEDICAID ==
[2017-07-14 19:34] VITALS: BMI 24.5
[2017-07-14 20:09] VITALS: PULSE 74
--- NOTE | 2017-07-14 20:37 | C.PDOC ---
History Of Present Illness 46 yr old female presents to the ER with complaints of right sided chest pain. Patient was seen earlier today for same complaints. Denies fever, chills, weakness or numbness. Time Seen by Provider: 07/14/17 20:23 Chief Complaint (Nursing): Medical Clearance History Per: Patient History/Exam Limitations: no limitations Onset/Duration Of Symptoms: Days Past Medical History Reviewed: Historical Data, Nursing Documentation, Vital Signs Vital Signs: Last Vital Signs Temp 98.2 F 07/14/17 22:41 Pulse 74 07/14/17 22:41 Resp 18 07/14/17 22:41 BP 138/83 07/14/17 22:41 Pulse Ox 98 07/14/17 22:41 - Medical History PMH: Anemia (secondary to heavy menstruation), Anxiety, Arthritis, Asthma, Bronchitis, CAD, CHF, COPD, CVA, Depression, Diabetes, Gastritis, Gastrointestinal Ulcer, HTN, Hypercholesterolemia, Hyperlipidemia, Hyperthyroidism (hyperthyroidism), Kidney Stones, Multiple Sclerosis, Parkinson' s Disease, Pneumonia (06-04-15), Chronic Kidney Disease, TIA Surgical History: Hernia Repair (Umbilical hernia repair) - [facility] Procedures CLOSURE SKIN & SUBCUTANEOUS NEC (01/07/13) ESOPHAGOGASTRODUODENOSCOPY [EGD] W/CLOSED BIOPSY (02/05/15) INJECT/INFUSE NEC (02/17/15) NEBULIZER THERAPY (06/20/13) PACKED CELL TRANSFUSION (01/28/15) REMOVAL OF INFUSION DEV FROM GREAT VESSEL, DRIP PUMPER APPROACH (12/02/16) TETANUS TOXOID ADMINIST (01/07/13) TRANSFUSE NONAUT RED BLOOD CELLS IN PERIPH VEIN, PERC (03/17/17) VACCINATION NEC (08/03/14) Family History: States: No Known Family Hx - Social History Hx Tobacco Use: No Hx Alcohol Use: No Hx Substance Use: No - Immunization History Hx Tetanus Toxoid Vaccination: Yes Hx Influenza Vaccination: Yes Hx Pneumococcal Vaccination: Yes Review Of Systems Except As Marked, All Systems Reviewed And Found Negative. Constitutional: Negative for: Fever, Chills Cardiovascular: Positive for: Chest Pain (right sided) Neurological: Negative for: Weakness, Numbness Physical Exam - Physical Exam Appears: Non-toxic, No Acute Distress Skin: Warm, Dry, No Rash Oral Mucosa: Moist Cardiovascular: Rhythm Regular, No Murmur Respiratory: Normal Breath Sounds, No Rales, No Rhonchi, No Stridor, No Wheezing Neurological/Psych: Oriented x3, Normal Speech ED Course And Treatment - Laboratory Results Result Diagrams: 07/14/17 20:52 07/14/17 20:52 ECG: Interpreted By Me, Viewed By Me ECG Rhythm: Sinus Rhythm, Nonspecific Changes ECG Interpretation: Normal Interpretation Of ECG: no ST/T wave changes Rate From EC (bpm) O2 Sat by Pulse Oximetry: 99 (RA) Pulse Ox Interpretation: Normal - Physician Consult Information Time Consulting Physician Contacted: 22:15 Physician Contacted: Ranulfo Chan Outcome Of Conversation: Dr. Chan agreed upon discharge of the patient. Medical Decision Making Medical Decision Making: cp r/o acs- PLAN: * EKG * Troponin * CBC * CMP * BNP * HCG pt reassesed recent cxr neg. ekg no changes, trop neg. discussed with dr chan, requests dc Disposition - Disposition Referrals: Sukh Silveira MD [Staff Provider] - Disposition: HOME/ ROUTINE Disposition Time: 11:00 Condition: STABLE Additional Instructions: follow up with your doctor. return to er with worsening symptoms or concerns. Instructions: Chest Pain (ED) Forms: [facility] (Estonian) - Clinical Impression Clinical Impression: Chest pain - Scribe Statement The provider has reviewed the documentation as recorded by the Scribe Dianelys Wong Provider Attestation: All medical record entries made by the Scribe were at my direction and personally dictated by me. I have reviewed the chart and agree that the record accurately reflects my personal performance of the history, physical exam, medical decision making, and the department course for this patient. I have also personally directed, reviewed, and agree with the discharge instructions and disposition.
[2017-07-14 21:05] LABS: BASO # 0.1 K/uL (0.0-0.2); BASO % 1.3 % (0.0-2.0); EOS # 0.1 K/uL (0.0-0.7); EOS % 1.4 % (0.0-4.0); HEMOGLOBIN 10.5 g/dL (11.0-16.0); LYMPH # 1.7 K/uL (1.0-4.3); LYMPH % 33.5 % (20.0-40.0); MEAN CELL VOLUME 85.5 fL (81.0-99.0); MEAN CORPUSCULAR HEMOGLOBIN 27.8 pg (27.0-31.0); MEAN CORPUSCULAR HGB CONC 32.6 g/dL (33.0-37.0); MEAN PLATELET VOLUME 8.7 fL (7.2-11.7); MONO # 0.4 K/uL (0.0-0.8); MONO % 7.6 % (0.0-10.0); NEUT # 2.9 K/uL (1.8-7.0); NEUT % 56.2 % (50.0-75.0); NRBC % 0.1 % (0.0-2.0); RBC 3.76 Mil/uL (3.80-5.20); RED CELL DISTRIBUTION WIDTH 15.7 % (11.5-14.5); WHITE BLOOD COUNT 5.2 K/uL (4.8-10.8)
[2017-07-14 21:08] LABS: ALB/GLOB RATIO 1.1 (1.0-2.1); ALBUMIN 3.8 g/dL (3.5-5.0); ALT/SGPT 21 U/L (9-52); AST/SGOT 37 U/L (14-36); BLOOD UREA NITROGEN 17 mg/dL (7-17); CALCIUM 10.9 mg/dl (8.6-10.4); GFR AFRICAN-AMERICAN > 60; GFR NON-AFRICAN AMERICAN > 60; PROTHROMBIN TIME 11.7 SECONDS (9.7-12.2)
[2017-07-14 21:19] LABS: B-TYPE NATRIURETIC PEPTIDE 74.2 pg/mL (0-450)
[2017-07-14 22:41] VITALS: BP 138/83; RESP 18; TEMP 98.2
[2017-07-14 22:50] VITALS: O2SAT 99
== END 2017-07-14 23:09 | disposition home or self-care (01) ==
LOC: C.ER 19:34
DX: R07.9 Chest pain, unspecified (principal)

== ENCOUNTER 2017-08-20 12:06 | Observation (INO) | payer MEDICAID ==
[2017-08-20 12:06] VITALS: BMI 24.5
[2017-08-20 14:52] LABS: EOS % 0.9 % (0.0-4.0); HEMOGLOBIN 10.6 g/dL (11.0-16.0); LYMPH # 1.3 K/uL (1.0-4.3); LYMPH % 30.4 % (20.0-40.0); MEAN CELL VOLUME 86.3 fL (81.0-99.0); MEAN CORPUSCULAR HEMOGLOBIN 27.6 pg (27.0-31.0); MEAN PLATELET VOLUME 8.6 fL (7.2-11.7); MONO # 0.5 K/uL (0.0-0.8); MONO % 10.3 % (0.0-10.0); NEUT # 2.5 K/uL (1.8-7.0); NEUT % 57.4 % (50.0-75.0); RBC 3.84 Mil/uL (3.80-5.20); WHITE BLOOD COUNT 4.4 K/uL (4.8-10.8)
[2017-08-20 15:02] LABS: INR 1.1; PROTHROMBIN TIME 12.3 SECONDS (9.7-12.2)
[2017-08-20 15:06] LABS: ALB/GLOB RATIO 1.1 (1.0-2.1); ALT/SGPT 29 U/L (9-52); AST/SGOT 28 U/L (14-36); BLOOD UREA NITROGEN 17 mg/dL (7-17); CALCIUM 11.1 mg/dl (8.6-10.4); GFR AFRICAN-AMERICAN > 60; GFR NON-AFRICAN AMERICAN > 60
[2017-08-20 15:15] LABS: HCG,QUALITATIVE URINE NEGATIVE (NEGATIVE)
[2017-08-20] MEDS ORDERED: Enoxaparin 40 mg Syringe SC STA (15:25)
[2017-08-20 15:28] LABS: CK-MB 2.76 ng/mL (0.0-3.38)
[2017-08-20 15:40] LABS: SQUAMOUS EPITHIAL < 1 /hpf (0-5); URINE AMORPHOUS SEDIMENT RARE /ul (<OCC); URINE BACTERIA RARE (<OCC); URINE BILIRUBIN NEGATIVE (NEGATIVE); URINE BLOOD 1+ (NEGATIVE); URINE CLARITY Hazy (Clear); URINE COLOR Yellow (YELLOW); URINE GLUCOSE (UA) NORMAL (Normal); URINE HYALINE CAST 0-2 /lpf (0-2); URINE LEUKOCYTE ESTERASE NEG Leu/uL (Negative); URINE NITRATE NEGATIVE (NEGATIVE); URINE PROTEIN NEGATIVE (NEGATIVE); URINE UROBILINOGEN NORMAL mg/dL (0.2-1.0)
--- NOTE | 2017-08-20 15:50 | C.PDOC ---
History Of Present Illness 46 yr old female with extensive PMHx, presents to the ER with complaints of mid chest pain, SOB and generalized weakness for the past 3 days. Patient states the chest pain radiates to the back. Denies fever, chills, nausea, vomiting, abdominal pain or headache. Time Seen by Provider: 08/20/17 12:32 Chief Complaint (Nursing): Chest Pain History Per: Patient History/Exam Limitations: no limitations Onset/Duration Of Symptoms: Days (3) Current Symptoms Are (Timing): Still Present Past Medical History Reviewed: Historical Data, Nursing Documentation, Vital Signs Vital Signs: Last Vital Signs Temp 98.3 F 08/20/17 12:13 Pulse 75 08/20/17 12:13 Resp 18 08/20/17 12:13 BP 130/80 08/20/17 12:13 Pulse Ox 98 08/20/17 16:58 - Medical History PMH: Anemia, Anxiety, Arthritis, Asthma, Bronchitis, CAD, CHF, COPD, CVA, Depression, Diabetes, Gastritis, Gastrointestinal Ulcer, HTN, Hypercholesterolemia, Hyperlipidemia, Hyperthyroidism, Kidney Stones, Multiple Sclerosis, Parkinson's Disease, Pneumonia, Chronic Kidney Disease, TIA Surgical History: Hernia Repair (Umbilical hernia repair) - [facility] Procedures CLOSURE SKIN & SUBCUTANEOUS NEC (01/07/13) ESOPHAGOGASTRODUODENOSCOPY [EGD] W/CLOSED BIOPSY (02/05/15) INJECT/INFUSE NEC (02/17/15) NEBULIZER THERAPY (06/20/13) PACKED CELL TRANSFUSION (01/28/15) REMOVAL OF INFUSION DEV FROM GREAT VESSEL, HOUSING INSTALLER APPROACH (12/02/16) TETANUS TOXOID ADMINIST (01/07/13) TRANSFUSE NONAUT RED BLOOD CELLS IN PERIPH VEIN, PERC (03/17/17) VACCINATION NEC (08/03/14) Family History: States: No Known Family Hx - Social History Hx Tobacco Use: No Hx Alcohol Use: No Hx Substance Use: No - Immunization History Hx Tetanus Toxoid Vaccination: No Hx Influenza Vaccination: No Hx Pneumococcal Vaccination: No Review Of Systems Except As Marked, All Systems Reviewed And Found Negative. Constitutional: Positive for: Weakness (generalized). Negative for: Fever, Chills Cardiovascular: Positive for: Chest Pain (mid chest ) Respiratory: Positive for: Shortness of Breath Gastrointestinal: Negative for: Nausea, Vomiting, Abdominal Pain Neurological: Negative for: Headache Physical Exam - Physical Exam Appears: Non-toxic, No Acute Distress Skin: Warm, Dry, No Rash Head: Atraumatic, Normacephalic Eye(s): bilateral: Normal Inspection, PERRL, EOMI Oral Mucosa: Moist Neck: Normal, Normal ROM, Supple Cardiovascular: Rhythm Regular, No Murmur Respiratory: Normal Breath Sounds, No Rales, No Rhonchi, No Stridor, No Wheezing Gastrointestinal/Abdominal: Normal Exam, Soft, No Tenderness, No Guarding, No Rebound Extremity: Normal ROM, No Swelling Neurological/Psych: Oriented x3, Normal Speech, Normal Motor, Normal Sensation ED Course And Treatment - Laboratory Results Result Diagrams: 08/20/17 14:48 08/20/17 14:48 ECG: Interpreted By Me, Viewed By Me Interpretation Of ECG: Sinus arrhythmia. Non specific T wave changes. Rate From EC (BPM) O2 Sat by Pulse Oximetry: 98 (RA) Pulse Ox Interpretation: Normal Progress Note: Patient is accepted by Dr. Lacey Corley for chest pain. Medical Decision Making Medical Decision Making: PLAN: * VQ Scan * EKG * Labs * HCG * Urinalysis * Lovenox SC * * DDimer is elevated, called nuclear tech for VQ scan. Lovenox SQ given. Disposition - Disposition Disposition: HOSPITALIZED Disposition Time: 15:56 Condition: FAIR - Clinical Impression Clinical Impression: Chest pain - PA / [employer] / Resident Statement MD/DO has reviewed & agrees with the documentation as recorded. - Scribe Statement The provider has reviewed the documentation as recorded by the Scribe Dianelys Wong All medical record entries made by the Scribe were at my direction and personally dictated by me. I have reviewed the chart and agree that the record accurately reflects my personal performance of the history, physical exam, medical decision making, and the department course for this patient. I have also personally directed, reviewed, and agree with the discharge instructions and disposition. Decision To Admit - Pt Status Changed To: Hospital Disposition Of: Observation - . Bed Request Type: Telemetry Admitting Physician: Ranulfo Corley Patient Diagnosis: Chest pain
[2017-08-20] MEDS ORDERED: Enoxaparin 80 mg Syringe ONE (16:07)
--- NOTE | 2017-08-20 21:39 | CP.PCM.HP ---
History of Present Illness - History of Present Illness History of Present Illness: 46-year-old female with multiple admissions and multiple visits to the ER with extensive past medical history for the pain came back again for the midsternal chest pain patient been seen by the cardiology in the past patient advised to see a vp marketing again as an outpatient patient will not go see a vp marketing patient been coming to the office regularly Patient also has a pain radiating to the back Denies fever denies nausea denies vomiting denies burning urinations Present on Admission - Present on Admission Any Indicators Present on Admission: No Past Patient History - Infectious Disease Hx of Infectious Diseases: None - Tetanus Immunizations Tetanus Immunization: Unknown - Past Medical History & Family History Past Medical History?: Yes - Past Social History Smoking Status: Never Smoked - CARDIAC Hx Congestive Heart Failure: Yes Hx Hypercholesterolemia: Yes Hx Hypertension: Yes - PULMONARY Hx Asthma: Yes Hx Bronchitis: Yes Hx Chronic Obstructive Pulmonary Disease (COPD): Yes Hx Pneumonia: Yes - NEUROLOGICAL Hx Multiple Sclerosis: Yes Hx Parkinson's Disease: Yes Hx Transient Ischemic Attacks (TIA): Yes - HEENT Hx HEENT Problems: No - RENAL Hx Chronic Kidney Disease: Yes Hx Kidney Stones: Yes - ENDOCRINE/METABOLIC Hx Hyperthyroidism: Yes - HEMATOLOGICAL/ONCOLOGICAL Hx Anemia: Yes - INTEGUMENTARY Hx Dermatological Problems: No - MUSCULOSKELETAL/RHEUMATOLOGICAL Hx Arthritis: Yes - GASTROINTESTINAL Hx Gastritis: Yes - PSYCHIATRIC Hx Anxiety: Yes Hx Depression: Yes Hx Substance Use: No - SURGICAL HISTORY Hx Surgeries: Yes Hx Herniorrhaphy: Yes - ANESTHESIA Hx Anesthesia: Yes Hx Anesthesia Reactions: No Hx Malignant Hyperthermia: No Meds Allergies/Adverse Reactions: Allergies Allergy/AdvReac Type Severity Reaction Status Date / Time acetaminophen Allergy ITCHING Verified 08/20/17 12:11 codeine Allergy RASH Verified 08/20/17 12:11 iodine Allergy ITCHING Verified 08/20/17 12:11 ketorolac Allergy ITCHING Verified 08/20/17 12:11 ketorolac tromethamine Allergy RASH Verified 08/20/17 12:11 [From Toradol] Latex, Natural Rubber Allergy ITCHING Verified 08/20/17 12:11 morphine Allergy ITCHING Verified 08/20/17 12:11 orange juice Allergy ITCHING Verified 08/20/17 12:11 Penicillins Allergy ITCHING Verified 08/20/17 12:11 Sulfa (Sulfonamide Allergy RASH Verified 08/20/17 12:11 Antibiotics) tomato Allergy ITCHING Verified 08/20/17 12:11 tramadol Allergy ITCHING Verified 08/20/17 12:11 ondansetron HCl AdvReac Intermediate RASH Verified 08/20/17 12:11 [From Zofran (as hydrochloride)] Results - Vital Signs Recent Vital Signs: Last Vital Signs Temp 98.3 F 08/20/17 12:13 Pulse 75 08/20/17 12:13 Resp 18 08/20/17 12:13 BP 130/80 08/20/17 12:13 Pulse Ox 98 08/20/17 16:59 - Labs Result Diagrams: 08/20/17 14:48 08/20/17 14:48 Labs: Laboratory Results - last 24 hr 08/20/17 08/20/17 08/20/17 14:48 14:48 14:48 WBC 4.4 L RBC 3.84 Hgb 10.6 L Hct 33.1 L MCV 86.3 MCH 27.6 MCHC 32.0 L RDW 16.0 H Plt Count 237 MPV 8.6 Neut % (Auto) 57.4 Lymph % (Auto) 30.4 Surry % (Auto) 10.3 H Eos % (Auto) 0.9 Baso % (Auto) 1.0 Neut # (Auto) 2.5 Lymph # (Auto) 1.3 Surry # (Auto) 0.5 Eos # (Auto) 0.0 Baso # (Auto) 0.0 PT 12.3 H INR 1.1 APTT 32 D-Dimer, Quantitative 279 H Sodium 140 Potassium 4.2 Chloride 105 Carbon Dioxide 26 Anion Gap 13 BUN 17 Creatinine 0.6 L Est GFR ( Amer) > 60 Est GFR (Non-Af Amer) > 60 Random Glucose 70 Calcium 11.1 H Total Bilirubin 0.9 AST 28 ALT 29 Alkaline Phosphatase 65 Total Creatine Kinase 122 CK-MB (Mass) 2.76 Troponin I < 0.0120 Total Protein 7.8 Albumin 4.0 Globulin 3.8 Albumin/Globulin Ratio 1.1 Urine Color Urine Clarity Urine pH Ur Specific Plover Urine Protein Urine Glucose (UA) Urine Ketones Urine Blood Urine Nitrate Urine Bilirubin Urine Urobilinogen Ur Leukocyte Esterase Urine WBC (Auto) Urine RBC (Auto) Ur Squamous Epith Cells Amorphous Sediment Urine Bacteria Hyaline Casts Urine HCG, Qual 08/20/17 15:08 WBC RBC Hgb Hct MCV MCH MCHC RDW Plt Count MPV Neut % (Auto) Lymph % (Auto) Surry % (Auto) Eos % (Auto) Baso % (Auto) Neut # (Auto) Lymph # (Auto) Surry # (Auto) Eos # (Auto) Baso # (Auto) PT INR APTT D-Dimer, Quantitative Sodium Potassium Chloride Carbon Dioxide Anion Gap BUN Creatinine Est GFR ( Amer) Est GFR (Non-Af Amer) Random Glucose Calcium Total Bilirubin AST ALT Alkaline Phosphatase Total Creatine Kinase CK-MB (Mass) Troponin I Total Protein Albumin Globulin Albumin/Globulin Ratio Urine Color Yellow Urine Clarity Hazy Urine pH 7.0 Ur Specific Plover 1.015 Urine Protein Negative Urine Glucose (UA) Normal Urine Ketones Negative Urine Blood 1+ H Urine Nitrate Negative Urine Bilirubin Negative Urine Urobilinogen Normal Ur Leukocyte Esterase Neg Urine WBC (Auto) 3 Urine RBC (Auto) 3 Ur Squamous Epith Cells < 1 Amorphous Sediment Rare H Urine Bacteria Rare Hyaline Casts 0-2 Urine HCG, Qual Negative Assessment & Plan - Assessment and Plan (Free Text) Plan: lipitor asp ibruporfen gi and dvt prophylaxis lovenox cardio romix 3 cointi same
[2017-08-20 22:41] LABS: CK-MB 2.89 ng/mL (0.0-3.38)
[2017-08-21 04:17] LABS: CK-MB 3.58 ng/mL (0.0-3.38)
[2017-08-21] MEDS: Albuterol HFA 90 mcg/actuation (8 g) IH PRN ×2 (08:15→11:40)
--- NOTE | 2017-08-21 08:44 | RAD ---
PROCEDURE: CHEST RADIOGRAPH, 1 VIEW HISTORY: sob COMPARISON: 07/14/2017 FINDINGS: LUNGS: Clear. PLEURA: No pneumothorax or pleural fluid seen. CARDIOVASCULAR: Normal. OSSEOUS STRUCTURES: No significant abnormalities. VISUALIZED UPPER ABDOMEN: Normal. OTHER FINDINGS: None. IMPRESSION: No active disease.
[2017-08-21] MEDS: Pantoprazole 40 mg EC Tab PO SCH (09:44)
[2017-08-21] MEDS: Metoprolol Succinate 25 mg XL Tab PO SCH (09:44)
--- NOTE | 2017-08-21 09:57 | NM ---
COMPARISON: August 20, 2017. TECHNIQUE: 6.0 mCi technetium 99-m Xe-133 Gas. 5.0 mCI technetium 99-m MAA administered intravenously. FINDINGS: VENTILATION COMPONENT: Mild heterogeneous ventilation and retention of radionuclide on the washout component. PERFUSION COMPONENT: Heterogeneous distribution of radionuclide. No geographic, segmental, lobar abnormalities apparent on the present examination. IMPRESSION: Low probability ventilation perfusion scan for pulmonary embolism. Concordant results (preliminary interpretation) provided by [facility]. Procedure Completed: 19:52 Preliminary ([facility]) Report: Dictated and Authenticated: 20:13 Final Interpretation: 09:55 August 21, 2017.
[2017-08-21] MEDS: Enoxaparin 40 mg Syringe SC SCH ×2 (09:59→10:03)
[2017-08-21] MEDS ORDERED: Albuterol-Ipratrop 3 mg / 0.5 (3 ml) UD INH PRN (13:56)
--- NOTE | 2017-08-21 13:56 | CP.PCM.PN ---
Subjective - Date & Time of Evaluation Date of Evaluation: 08/21/17 Time of Evaluation: 14:00 - Subjective Subjective: Progress note. Attending: Dr. Corley. Pt seen and examined at bedside. No acute distress. No events overnight. No fevers, chills, vomiting, diarrhea. DC planning in progress. Likely dc tomorrow. Objective - Vital Signs/Intake and Output Vital Signs (last 24 hours): Temp Pulse Resp BP Pulse Ox 98.2 F 75 18 160/82 H 97 08/21/17 07:50 08/21/17 07:50 08/21/17 07:50 08/21/17 07:50 08/21/17 07:50 - Medications Medications: Current Medications Albuterol (Ventolin Hfa 90 Mcg/Actuation (8 G)) 2 puff IH RQ4 PRN PRN Reason: Shortness of Breath Last Admin: 08/21/17 11:40 Dose: 2 puff Amlodipine Besylate (Norvasc) 10 mg PO DAILY [facility] Last Admin: 08/21/17 09:44 Dose: 10 mg Aspirin (Aspirin) 325 mg PO DAILY [facility] Last Admin: 08/21/17 09:45 Dose: 325 mg Enoxaparin Sodium (Lovenox) 40 mg SC DAILY [facility] Last Admin: 08/21/17 10:03 Dose: Not Given Ibuprofen (Motrin Tab) 600 mg PO BID [facility] Last Admin: 08/21/17 09:59 Dose: 600 mg Losartan Potassium (Cozaar) 100 mg PO DAILY [facility] Last Admin: 08/21/17 09:45 Dose: 100 mg Metoprolol Succinate (Toprol Xl) 25 mg PO DAILY [facility] Last Admin: 08/21/17 09:44 Dose: 25 mg Montelukast Sodium (Singulair) 10 mg PO [facility] Pantoprazole Sodium (Protonix Ec Tab) 40 mg PO DAILY [facility] Last Admin: 08/21/17 09:44 Dose: 40 mg Rosuvastatin Calcium (Crestor) 10 mg PO [facility] - Labs Labs: 08/20/17 14:48 08/20/17 14:48 PT 12.3 SECONDS (9.7-12.2) H 08/20/17 14:48 INR 1.1 08/20/17 14:48 APTT 32 SECONDS (21-34) 08/20/17 14:48 - Constitutional Appears: No Acute Distress, Chronically Ill - Head Exam Head Exam: ATRAUMATIC, NORMAL INSPECTION, NORMOCEPHALIC - Eye Exam Eye Exam: EOMI - ENT Exam ENT Exam: Mucous Membranes Moist - Neck Exam Neck Exam: Full ROM, Normal Inspection - Respiratory Exam Respiratory Exam: NORMAL BREATHING PATTERN. absent: Respiratory Distress - Cardiovascular Exam Cardiovascular Exam: +S1, +S2 - GI/Abdominal Exam GI & Abdominal Exam: Soft, Normal Bowel Sounds. absent: Tenderness - Extremities Exam Extremities Exam: Full ROM, Normal Inspection - Neurological Exam Neurological Exam: Alert, Awake, CN II-XII Intact, Oriented x3 - Psychiatric Exam Psychiatric exam: Normal Affect, Normal Mood - Skin Skin Exam: Dry, Intact, Normal Color, Warm Assessment and Plan - Assessment and Plan (Free Text) Assessment: This is a 47 yo female with 1. Chest pain -numerous admissions for same complaint -d dimer elevated -V/Q scan low probability for PE -lovenox 40 -continue losartan daily -continue asa 325 mg daily -continue motrin bid -continue toprol 25 daily -continue crestor 10 daily -initial ekg shows sinus arrhythmia -echo from 07/20/17 shows normal wall motion and LV function 2. Shortness of breath -continue ventolin inhaler -duonebs as needed -singulair 10 daily 3. hx of HTN -continue losartan daily -continue amlodipine 10 mg po daily 4. Bradycardia -continue to monitor 5. hx of MS -? documentation in previous note. -continue to monitor. 6. hx of CVA/mental slowing and delay since childhood -continue to monitor 7. hx of cereral palsy -continue to monitor 8. GI/DVT -protonix daily -lovenox daily discussed with Dr. Corley.
[2017-08-21 15:16] LABS: ALB/GLOB RATIO 0.9 (1.0-2.1); ALBUMIN 3.8 g/dL (3.5-5.0); ALT/SGPT 16 U/L (9-52); AST/SGOT 29 U/L (14-36); BLOOD UREA NITROGEN 17 mg/dL (7-17); GFR AFRICAN-AMERICAN > 60; GFR NON-AFRICAN AMERICAN > 60
[2017-08-21 17:01] LABS: BASO % 0.6 % (0.0-2.0); EOS # 0.1 K/uL (0.0-0.7); EOS % 1.9 % (0.0-4.0); HEMOGLOBIN 11.3 g/dL (11.0-16.0); LYMPH # 1.4 K/uL (1.0-4.3); LYMPH % 30.7 % (20.0-40.0); MEAN CELL VOLUME 85.9 fL (81.0-99.0); MEAN CORPUSCULAR HEMOGLOBIN 27.3 pg (27.0-31.0); MEAN CORPUSCULAR HGB CONC 31.8 g/dL (33.0-37.0); MEAN PLATELET VOLUME 8.5 fL (7.2-11.7); MONO # 0.5 K/uL (0.0-0.8); MONO % 10.3 % (0.0-10.0); NEUT # 2.6 K/uL (1.8-7.0); NEUT % 56.5 % (50.0-75.0); NRBC % 0.1 % (0.0-2.0); RBC 4.12 Mil/uL (3.80-5.20); RED CELL DISTRIBUTION WIDTH 15.8 % (11.5-14.5); WHITE BLOOD COUNT 4.6 K/uL (4.8-10.8)
--- NOTE | 2017-08-21 19:41 | CP.PCM.PN ---
Subjective - Date & Time of Evaluation Date of Evaluation: 08/21/17 Time of Evaluation: 14:10 Objective - Vital Signs/Intake and Output Vital Signs (last 24 hours): Temp Pulse Resp BP Pulse Ox 97.3 F L 71 18 120/78 95 08/21/17 15:00 08/21/17 16:00 08/21/17 15:00 08/21/17 15:00 08/21/17 15:00 - Medications Medications: Current Medications Albuterol (Ventolin Hfa 90 Mcg/Actuation (8 G)) 2 puff IH RQ4 PRN PRN Reason: Shortness of Breath Last Admin: 08/21/17 11:40 Dose: 2 puff Albuterol/Ipratropium (Duoneb 3 Mg/0.5 Mg (3 Ml) Ud) 3 ml INH RQ6 PRN PRN Reason: Shortness of Breath Amlodipine Besylate (Norvasc) 10 mg PO DAILY [facility] Last Admin: 08/21/17 09:44 Dose: 10 mg Aspirin (Aspirin) 325 mg PO DAILY [facility] Last Admin: 08/21/17 09:45 Dose: 325 mg Enoxaparin Sodium (Lovenox) 40 mg SC DAILY [facility] Last Admin: 08/21/17 10:03 Dose: Not Given Ibuprofen (Motrin Tab) 600 mg PO BID [facility] Last Admin: 08/21/17 17:16 Dose: 600 mg Losartan Potassium (Cozaar) 100 mg PO DAILY [facility] Last Admin: 08/21/17 09:45 Dose: 100 mg Metoprolol Succinate (Toprol Xl) 25 mg PO DAILY [facility] Last Admin: 08/21/17 09:44 Dose: 25 mg Montelukast Sodium (Singulair) 10 mg PO [facility] Pantoprazole Sodium (Protonix Ec Tab) 40 mg PO DAILY [facility] Last Admin: 08/21/17 09:44 Dose: 40 mg Rosuvastatin Calcium (Crestor) 10 mg PO HS [facility] - Labs Labs: 08/21/17 16:42 08/21/17 14:24 PT 12.3 SECONDS (9.7-12.2) H 08/20/17 14:48 INR 1.1 08/20/17 14:48 APTT 32 SECONDS (21-34) 08/20/17 14:48
[2017-08-22 04:05] VITALS: RESP 20
[2017-08-22 08:18] VITALS: O2SAT 98
[2017-08-22] MEDS: Enoxaparin 40 mg Syringe SC SCH (10:34)
[2017-08-22] MEDS: Metoprolol Succinate 25 mg XL Tab PO SCH (10:35)
[2017-08-22] MEDS: Pantoprazole 40 mg EC Tab PO SCH (10:36)
[2017-08-22 11:29] LABS: BASO % 0.6 % (0.0-2.0); EOS # 0.1 K/uL (0.0-0.7); EOS % 1.9 % (0.0-4.0); HEMOGLOBIN 11.3 g/dL (11.0-16.0); LYMPH # 1.1 K/uL (1.0-4.3); LYMPH % 30.5 % (20.0-40.0); MEAN CORPUSCULAR HGB CONC 32.6 g/dL (33.0-37.0); MEAN PLATELET VOLUME 8.7 fL (7.2-11.7); MONO # 0.4 K/uL (0.0-0.8); MONO % 10.5 % (0.0-10.0); NEUT # 2.1 K/uL (1.8-7.0); NEUT % 56.5 % (50.0-75.0); NRBC % 0.1 % (0.0-2.0); RBC 4.02 Mil/uL (3.80-5.20); RED CELL DISTRIBUTION WIDTH 15.8 % (11.5-14.5); WHITE BLOOD COUNT 3.7 K/uL (4.8-10.8)
--- NOTE | 2017-08-22 11:31 | CP.PCM.PN ---
Subjective - Date & Time of Evaluation Date of Evaluation: 08/22/17 Time of Evaluation: 11:30 - Subjective Subjective: Progress note. Attending: Dr. Corley Pt seen and examined at bedside. No acute distress. No events overnight. No fevers, chills, vomiting, diarrhea. Objective - Vital Signs/Intake and Output Vital Signs (last 24 hours): Temp Pulse Resp BP Pulse Ox 98.1 F 60 20 119/82 98 08/22/17 08:17 08/22/17 08:44 08/22/17 08:17 08/22/17 08:17 08/22/17 08:17 - Medications Medications: Current Medications Albuterol (Ventolin Hfa 90 Mcg/Actuation (8 G)) 2 puff IH RQ4 PRN PRN Reason: Shortness of Breath Last Admin: 08/21/17 11:40 Dose: 2 puff Albuterol/Ipratropium (Duoneb 3 Mg/0.5 Mg (3 Ml) Ud) 3 ml INH RQ6 PRN PRN Reason: Shortness of Breath Amlodipine Besylate (Norvasc) 10 mg PO DAILY [facility] Last Admin: 08/22/17 10:35 Dose: 10 mg Aspirin (Aspirin) 325 mg PO DAILY [facility] Last Admin: 08/22/17 10:37 Dose: 325 mg Enoxaparin Sodium (Lovenox) 40 mg SC DAILY [facility] Last Admin: 08/22/17 10:34 Dose: 40 mg Ibuprofen (Motrin Tab) 600 mg PO BID [facility] Last Admin: 08/22/17 10:35 Dose: 600 mg Losartan Potassium (Cozaar) 100 mg PO DAILY [facility] Last Admin: 08/22/17 10:35 Dose: 100 mg Metoprolol Succinate (Toprol Xl) 25 mg PO DAILY [facility] Last Admin: 08/22/17 10:35 Dose: 25 mg Montelukast Sodium (Singulair) 10 mg PO HS [facility] Last Admin: 08/21/17 21:21 Dose: 10 mg Pantoprazole Sodium (Protonix Ec Tab) 40 mg PO DAILY [facility] Last Admin: 08/22/17 10:36 Dose: 40 mg Rosuvastatin Calcium (Crestor) 10 mg PO HS [facility] Last Admin: 08/21/17 21:21 Dose: 10 mg - Labs Labs: 08/21/17 16:42 08/21/17 14:24 PT 12.3 SECONDS (9.7-12.2) H 08/20/17 14:48 INR 1.1 08/20/17 14:48 APTT 32 SECONDS (21-34) 08/20/17 14:48 - Constitutional Appears: Non-toxic, No Acute Distress, Chronically Ill - Head Exam Head Exam: ATRAUMATIC, NORMAL INSPECTION - Eye Exam Eye Exam: EOMI - ENT Exam ENT Exam: Mucous Membranes Moist - Neck Exam Neck Exam: Full ROM, Normal Inspection - Respiratory Exam Respiratory Exam: NORMAL BREATHING PATTERN. absent: Respiratory Distress - Cardiovascular Exam Cardiovascular Exam: +S1, +S2 - GI/Abdominal Exam GI & Abdominal Exam: Soft, Normal Bowel Sounds. absent: Tenderness - Extremities Exam Extremities Exam: Full ROM, Normal Inspection - Back Exam Back Exam: NORMAL INSPECTION - Neurological Exam Neurological Exam: Alert, Awake, Oriented x3 - Psychiatric Exam Psychiatric exam: Normal Affect, Normal Mood - Skin Skin Exam: Dry, Intact, Normal Color, Warm Assessment and Plan - Assessment and Plan (Free Text) Assessment: This is a 47 yo female with 1. Chest pain -numerous admissions for same complaint -d dimer elevated -V/Q scan low probability for PE -lovenox 40 -continue losartan daily -continue asa 325 mg daily -continue motrin bid -continue toprol 25 daily -continue crestor 10 daily -initial ekg shows sinus arrhythmia -echo from 07/20/17 shows normal wall motion and LV function 2. Shortness of breath -continue ventolin inhaler -duonebs as needed -singulair 10 daily 3. hx of HTN -continue losartan daily -continue amlodipine 10 mg po daily 4. Bradycardia -continue to monitor 5. hx of MS -? documentation in previous note. -continue to monitor. 6. hx of CVA/mental slowing and delay since childhood -continue to monitor 7. hx of cereral palsy -continue to monitor 8. GI/DVT -protonix daily -lovenox daily DISPO: discharge planning in progress. discussed with Dr. Corley.
[2017-08-22 11:43] LABS: ALB/GLOB RATIO 1.1 (1.0-2.1); ALBUMIN 4.2 g/dL (3.5-5.0); ALT/SGPT 18 U/L (9-52); AST/SGOT 27 U/L (14-36); BLOOD UREA NITROGEN 19 mg/dL (7-17); CALCIUM 11.1 mg/dl (8.6-10.4); GFR AFRICAN-AMERICAN > 60; GFR NON-AFRICAN AMERICAN > 60
[2017-08-22 16:47] VITALS: BP 140/109; PULSE 92; TEMP 98.7
== END 2017-08-22 17:20 | disposition home or self-care (01) ==
LOC: C.ER 12:06 → C.9E 15:47 → C.6T 08-21 01:14
PROVIDERS: ADMIT Internal Medicine Nephrology; ATTEND Internal Medicine Nephrology
DX: R07.2 Precordial pain (principal); I13.0 Hypertensive heart and chronic kidney disease with heart failure and stage 1 through stage 4 chronic kidney disease, or unspecified chronic kidney disease; E11.22 Type 2 diabetes mellitus with diabetic chronic kidney disease; E78.5 Hyperlipidemia, unspecified; I25.10 Atherosclerotic heart disease of native coronary artery without angina pectoris; Z87.11 Personal history of peptic ulcer disease; I50.9 Heart failure, unspecified; J44.9 Chronic obstructive pulmonary disease, unspecified; N18.9 Chronic kidney disease, unspecified; Z79.82 Long term (current) use of aspirin; Z86.73 Personal history of transient ischemic attack (TIA), and cerebral infarction without residual deficits; Z87.01 Personal history of pneumonia (recurrent); E78.00 Pure hypercholesterolemia, unspecified; G20 Parkinson's disease; G35 Multiple sclerosis
CPT/HCPCS: 36415; 71045; 78582; 80053; 81001; 82550; 82553; 84484; 84703; 85025; 85378; 85610; 85730; 94640; 96372; 97116; 97161; 99285; A9524; A9558; G0378; G8978; G8979; J1650

== ENCOUNTER 2017-08-28 19:30 | Inpatient (IN) | payer MEDICAID ==
[2017-08-28 19:31] VITALS: BMI 24.5
[2017-08-28 20:49] LABS: HEMOGLOBIN 10.9 g/dL (11.0-16.0); MEAN CELL VOLUME 86.5 fL (81.0-99.0); MEAN CORPUSCULAR HGB CONC 31.2 g/dL (33.0-37.0); MEAN PLATELET VOLUME 8.5 fL (7.2-11.7); RBC 4.04 Mil/uL (3.80-5.20); RED CELL DISTRIBUTION WIDTH 15.5 % (11.5-14.5)
[2017-08-28 20:51] LABS: WHITE BLOOD COUNT 5.9 K/uL (4.8-10.8)
[2017-08-28 21:05] LABS: ALB/GLOB RATIO 1.1 (1.0-2.1); ALBUMIN 4.2 g/dL (3.5-5.0); ALT/SGPT 27 U/L (9-52); AST/SGOT 26 U/L (14-36); BLOOD UREA NITROGEN 17 mg/dL (7-17); CALCIUM 10.9 mg/dl (8.6-10.4); GFR AFRICAN-AMERICAN > 60; GFR NON-AFRICAN AMERICAN > 60
[2017-08-28 21:14] LABS: CK-MB 3.02 ng/mL (0.0-3.38)
--- NOTE | 2017-08-28 21:15 | C.PDOC ---
History Of Present Illness Patient with a Hx of cerebral palsy, anemia, and CVA with left hemiparesis presents to the ER with a complaint of left chest discomfort, associated w/ epigastric discomfort. Patient was admitted and evaluated on 08/20/17 for similar complaints and was discharged home. Patient was also seen at [facility] earlier today for similar complaints and discharged home. Denies nausea, vomiting, fever , or chills. Time Seen by Provider: 08/28/17 21:14 Chief Complaint (Nursing): Chest Pain History Per: Patient History/Exam Limitations: no limitations Onset/Duration Of Symptoms: Days Current Symptoms Are (Timing): Still Present Severity: Mild Pain Scale Rating Of: 3 Quality: Other (Discomfort) Associated Symptoms: denies: Nausea, Dyspnea, Diaphoresis, Syncope Modifying Factors: None Exacerbating Factors: None Alleviating Factors: None Recent travel outside of the [place]: No Additional History Per: Patient Past Medical History Reviewed: Historical Data, Nursing Documentation, Vital Signs Vital Signs: Last Vital Signs Temp 98.4 F 08/28/17 21:55 Pulse 85 08/28/17 21:55 Resp 16 08/28/17 21:55 BP 148/92 H 08/28/17 21:55 Pulse Ox 99 08/28/17 22:42 - Medical History PMH: Anemia, Anxiety, Arthritis, Asthma, Bronchitis, CAD, CHF, COPD, CVA, Depression, Diabetes, Gastritis, Gastrointestinal Ulcer, HTN, Hypercholesterolemia, Hyperlipidemia, Hyperthyroidism, Kidney Stones, Multiple Sclerosis, Parkinson's Disease, Pneumonia, Chronic Kidney Disease, TIA Surgical History: Hernia Repair (Umbilical hernia repair) - [facility] Procedures CLOSURE SKIN & SUBCUTANEOUS NEC (01/07/13) ESOPHAGOGASTRODUODENOSCOPY [EGD] W/CLOSED BIOPSY (02/05/15) INJECT/INFUSE NEC (02/17/15) NEBULIZER THERAPY (06/20/13) PACKED CELL TRANSFUSION (01/28/15) REMOVAL OF INFUSION DEV FROM GREAT VESSEL, FREIGHT AGENT APPROACH (12/02/16) TETANUS TOXOID ADMINIST (01/07/13) TRANSFUSE NONAUT RED BLOOD CELLS IN PERIPH VEIN, PERC (03/17/17) VACCINATION NEC (08/03/14) Family History: States: No Known Family Hx - Social History Hx Tobacco Use: No Hx Alcohol Use: No Hx Substance Use: No - Immunization History Hx Tetanus Toxoid Vaccination: No Hx Influenza Vaccination: Yes Hx Pneumococcal Vaccination: No Review Of Systems Constitutional: Negative for: Fever, Chills Cardiovascular: Positive for: Other (Left chest discomfort) Respiratory: Negative for: Shortness of Breath Gastrointestinal: Positive for: Abdominal Pain (Epigastric discomfort). Negative for: Nausea, Vomiting, Diarrhea Neurological: Positive for: Other (Left hemiparesis from prior CVA) Physical Exam - Physical Exam Appears: Non-toxic Skin: Warm, Dry Head: Normacephalic Eye(s): bilateral: Normal Inspection Oral Mucosa: Moist Neck: Supple Chest: Symmetrical, No Tenderness Cardiovascular: Rhythm Regular Respiratory: No Rales, No Rhonchi, No Wheezing Gastrointestinal/Abdominal: Soft, No Tenderness Back: No CVA Tenderness Extremity: No Tenderness Extremity: Bilateral: Atraumatic Neurological/Psych: Oriented x3, Other (Left sided hemiparesis) Gait: Unsteady ED Course And Treatment - Laboratory Results Result Diagrams: 08/28/17 20:46 08/28/17 20:46 ECG: Interpreted By Me, Viewed By Me ECG Rhythm: Sinus Rhythm (83), Nonspecific Changes (unchnaged from previous, lvh ,) O2 Sat by Pulse Oximetry: 99 (Room air) Pulse Ox Interpretation: Normal - Radiology CXR: Interpreted by Me, Viewed By Me Progress Note: EKG and blood work ordered. Disposition Discussed With : Ranulfo Corley Comment: accepted the pt on his service and took over the care at 11:29PM Doctor Will See Patient In The: Hospital Counseled Patient/Family Regarding: Studies Performed, Diagnosis - Disposition Disposition: HOSPITALIZED Disposition Time: 21:15 Condition: FAIR Forms: [facility] (Micronesian) - POA Present On Arrival: Poor Glycemic Control - Clinical Impression Clinical Impression: Chest pain, Cerebral palsy, Abdominal pain in female - Scribe Statement The provider has reviewed the documentation as recorded by the Scribsoha Tenorio All medical record entries made by the Scribe were at my direction and personally dictated by me. I have reviewed the chart and agree that the record accurately reflects my personal performance of the history, physical exam, medical decision making, and the department course for this patient. I have also personally directed, reviewed, and agree with the discharge instructions and disposition. Decision To Admit - Pt Status Changed To: Hospital Disposition Of: Inpatient - Admit Certification Admit to Inpatient:: After my assessment, the patient will require hospitalization for at least two midnights. This is because of the severity of symptoms shown, intensity of services needed, and/or the medical risk in this patient being treated as an outpatient. - InPatient: Physician Admission Certification: I certify that this patient requires 2 or more midnights of care for the following reason:: After my assessment, the patient will require hospitalization for at least two midnights. This is because of the severity of symptoms shown, intensity of services needed, and/or the medical risk in this patient being treated as an outpatient. - . Bed Request Type: Telemetry Admitting Physician: Ranulfo Corley Patient Diagnosis: Chest pain, Cerebral palsy, Abdominal pain in female
[2017-08-29 01:10] VITALS: RESP 20
[2017-08-29] MEDS: Enoxaparin 40 mg Syringe SC SCH ×2 (10:52)
--- NOTE | 2017-08-29 11:11 | CP.PCM.CON ---
History of Present Illness - History of Present Illness History of Present Illness: Patient with a Hx of --> cerebral palsy, anemia, and CVA with left hemiparesis --> presents to the ER with a complaint of left chest discomfort, associated w/ epigastric discomfort now resolved. --> Patient was admitted and evaluated on 08/20/17 for similar complaints and was discharged home. Patient was also seen at [place] earlier today for similar complaints and discharged home. Denies nausea, vomiting, fever, or chills. No Hx of prior MS Review of Systems - Review of Systems All systems: reviewed and no additional remarkable complaints except Past Patient History - Infectious Disease Hx of Infectious Diseases: None - Tetanus Immunizations Tetanus Immunization: Unknown - Past Medical History & Family History Past Medical History?: Yes - Past Social History Smoking Status: Never Smoked - CARDIAC Hx Congestive Heart Failure: Yes Hx Hypercholesterolemia: Yes Hx Hypertension: Yes - PULMONARY Hx Asthma: Yes Hx Bronchitis: Yes Hx Chronic Obstructive Pulmonary Disease (COPD): Yes Hx Pneumonia: Yes - NEUROLOGICAL Hx Multiple Sclerosis: Yes Hx Parkinson's Disease: Yes Hx Transient Ischemic Attacks (TIA): Yes - HEENT Hx HEENT Problems: No - RENAL Hx Chronic Kidney Disease: Yes Hx Kidney Stones: Yes - ENDOCRINE/METABOLIC Hx Hyperthyroidism: Yes - HEMATOLOGICAL/ONCOLOGICAL Hx Anemia: Yes - INTEGUMENTARY Hx Dermatological Problems: No - MUSCULOSKELETAL/RHEUMATOLOGICAL Hx Falls: Yes - GASTROINTESTINAL Hx Gastritis: Yes - PSYCHIATRIC Hx Substance Use: No - SURGICAL HISTORY Hx Surgeries: Yes Hx Section: Yes (1994) - ANESTHESIA Hx Anesthesia: Yes Hx Anesthesia Reactions: No Hx Malignant Hyperthermia: No Has any member of the family had a problem w/ anesthesia?: No Meds Allergies/Adverse Reactions: Allergies Allergy/AdvReac Type Severity Reaction Status Date / Time acetaminophen Allergy ITCHING Verified 08/28/17 19:56 codeine Allergy RASH Verified 08/28/17 19:56 iodine Allergy ITCHING Verified 08/28/17 19:56 ketorolac Allergy ITCHING Verified 08/28/17 19:56 ketorolac tromethamine Allergy RASH Verified 08/28/17 19:56 [From Toradol] Latex, Natural Rubber Allergy ITCHING Verified 08/28/17 19:56 morphine Allergy ITCHING Verified 08/28/17 19:56 orange juice Allergy ITCHING Verified 08/28/17 19:56 Penicillins Allergy ITCHING Verified 08/28/17 19:56 Sulfa (Sulfonamide Allergy RASH Verified 08/28/17 19:56 Antibiotics) tomato Allergy ITCHING Verified 08/28/17 19:56 tramadol Allergy ITCHING Verified 08/28/17 19:56 ondansetron HCl AdvReac Intermediate RASH Verified 08/28/17 19:56 [From Zofran (as hydrochloride)] - Medications Medications: Current Medications Albuterol (Ventolin Hfa 90 Mcg/Actuation (8 G)) 2 puff IH RQ4 [facility] Amlodipine Besylate (Norvasc) 10 mg PO DAILY [facility] Aspirin (Aspirin Chewable) 81 mg PO DAILY [facility] Enoxaparin Sodium (Lovenox) 40 mg SC DAILY [facility] Ibuprofen (Motrin Tab) 600 mg PO BID [facility] Losartan Potassium (Cozaar) 100 mg PO DAILY [facility] Metoprolol Succinate (Toprol Xl) 25 mg PO DAILY [facility] Montelukast Sodium (Singulair) 10 mg PO DAILY [facility] Rosuvastatin Calcium (Crestor) 10 mg PO HS [facility] Physical Exam - Constitutional Appears: No Acute Distress, Chronically Ill - Head Exam Head Exam: ATRAUMATIC, NORMAL INSPECTION, NORMOCEPHALIC - Eye Exam Eye Exam: EOMI, Normal appearance, PERRL - ENT Exam ENT Exam: Mucous Membranes Moist, Normal Oropharynx - Respiratory Exam Respiratory Exam: Clear to Auscultation Bilateral, NORMAL BREATHING PATTERN. absent: Rhonchi, Wheezes - Cardiovascular Exam Cardiovascular Exam: REGULAR RHYTHM, +S1, +S2. absent: +S4, Systolic Murmur - GI/Abdominal Exam GI & Abdominal Exam: Normal Bowel Sounds, Soft. absent: Tenderness - Extremities Exam Extremities exam: Positive for: normal inspection, pedal pulses present. Negative for: calf tenderness, pedal edema - Neurological Exam Neurological exam: Alert (L. hemiparesis, cerebral palsy, speech aphasia) Results - Vital Signs Recent Vital Signs: Last Vital Signs Temp 97.9 F 08/29/17 07:05 Pulse 65 08/29/17 08:05 Resp 20 08/29/17 07:05 BP 128/87 08/29/17 07:05 Pulse Ox 98 08/29/17 07:05 - Labs Result Diagrams: 08/28/17 20:46 08/28/17 20:46 Labs: Laboratory Results - last 24 hr 08/28/17 08/28/17 20:46 20:46 WBC 5.9 D RBC 4.04 Hgb 10.9 L Hct 35.0 MCV 86.5 MCH 27.0 MCHC 31.2 L RDW 15.5 H Plt Count 222 MPV 8.5 Sodium 144 Potassium 3.4 L Chloride 105 Carbon Dioxide 28 Anion Gap 14 BUN 17 Creatinine 0.7 Est GFR ( Amer) > 60 Est GFR (Non-Af Amer) > 60 Random Glucose 110 H Calcium 10.9 H Total Bilirubin 0.7 AST 26 ALT 27 Alkaline Phosphatase 61 Total Creatine Kinase 120 CK-MB (Mass) 3.02 Troponin I < 0.0120 Total Protein 8.2 Albumin 4.2 Globulin 4.0 H Albumin/Globulin Ratio 1.1 - EKG Data EKG Interpreted by: Myself EKG shows normal: Sinus rhythm Rate: Normal (08/29/17) Assessment & Plan - Assessment and Plan (Free Text) Assessment: 1. Non-cardiac CP --> MS ruled out, EKG Normal --> Echo 07/2017 directly reviewed by me: Normal LVEF, LVH and grade 1 DD --> Exam without volume overload 2. HTN --> on BB, ARB, Norvasc 3. CVA --> cont ASA and statin 4. Other --> mild anemia, mild inc in calcium meds reviewed: Albuterol (Ventolin Hfa 90 Mcg/Actuation (8 G)) 2 puff IH RQ4 [facility] Amlodipine Besylate (Norvasc) 10 mg PO DAILY [facility] Aspirin (Aspirin Chewable) 81 mg PO DAILY [facility] Enoxaparin Sodium (Lovenox) 40 mg SC DAILY [facility] Ibuprofen (Motrin Tab) 600 mg PO BID [facility] Losartan Potassium (Cozaar) 100 mg PO DAILY [facility] Metoprolol Succinate (Toprol Xl) 25 mg PO DAILY [facility] Montelukast Sodium (Singulair) 10 mg PO DAILY [facility] Rosuvastatin Calcium (Crestor) 10 mg PO HS [facility] OK to d/c per cardio.
[2017-08-29] MEDS: Metoprolol Succinate 25 mg XL Tab PO SCH (11:26)
[2017-08-29] MEDS: Albuterol HFA 90 mcg/actuation (8 g) IH SCH (11:30)
[2017-08-29] MEDS ORDERED: Potassium Chloride 20 mEq ER Tab PO ONE (16:45)
--- NOTE | 2017-08-29 17:35 | CP.PCM.PN ---
Subjective - Date & Time of Evaluation Date of Evaluation: 08/29/17 Time of Evaluation: 09:40 - Subjective Subjective: clinically same Objective - Vital Signs/Intake and Output Vital Signs (last 24 hours): Temp Pulse Resp BP Pulse Ox 98.2 F 63 20 129/82 99 08/29/17 15:00 08/29/17 15:00 08/29/17 15:00 08/29/17 15:00 08/29/17 15:00 Intake and Output: 08/29/17 08/29/17 06:59 18:59 Intake Total 240 Balance 240 - Medications Medications: Current Medications Albuterol (Ventolin Hfa 90 Mcg/Actuation (8 G)) 2 puff IH RQ4 [facility] Last Admin: 08/29/17 11:30 Dose: 2 puff Amlodipine Besylate (Norvasc) 10 mg PO DAILY [facility] Last Admin: 08/29/17 11:26 Dose: 10 mg Aspirin (Aspirin Chewable) 81 mg PO DAILY [facility] Enoxaparin Sodium (Lovenox) 40 mg SC DAILY [facility] Last Admin: 08/29/17 10:52 Dose: Not Given Losartan Potassium (Cozaar) 100 mg PO DAILY [facility] Last Admin: 08/29/17 11:25 Dose: 100 mg Metoprolol Succinate (Toprol Xl) 25 mg PO DAILY [facility] Last Admin: 08/29/17 11:26 Dose: 25 mg Montelukast Sodium (Singulair) 10 mg PO DAILY [facility] Last Admin: 08/29/17 11:26 Dose: 10 mg Rosuvastatin Calcium (Crestor) 10 mg PO [facility] - Labs Labs: 08/28/17 20:46 08/28/17 20:46 - Constitutional Appears: Well - Head Exam Head Exam: ATRAUMATIC, NORMAL INSPECTION, NORMOCEPHALIC - Eye Exam Eye Exam: EOMI, Normal appearance, PERRL Pupil Exam: NORMAL ACCOMODATION, PERRL - ENT Exam ENT Exam: Mucous Membranes Moist, Normal Exam - Neck Exam Neck Exam: Full ROM, Normal Inspection. absent: Lymphadenopathy - Respiratory Exam Respiratory Exam: Decreased Breath Sounds - Cardiovascular Exam Cardiovascular Exam: REGULAR RHYTHM, +S1, +S2 - GI/Abdominal Exam GI & Abdominal Exam: Soft, Diminished Bowel Sounds - Rectal Exam Rectal Exam: Deferred Assessment and Plan - Assessment and Plan (Free Text) Plan: for discharge today as patient is not candidate for the subacute on the patient has a later Discussed with the social services coordinator on the floor who spoke to the case checker at the insurance company who declined the patient's to further rehab only patient can either go to the home Status post cardiology We will discharge the patient
[2017-08-30] MEDS: Albuterol HFA 90 mcg/actuation (8 g) IH SCH ×4 (00:33→11:14)
[2017-08-30 07:34] VITALS: BP 135/94; O2SAT 97
[2017-08-30 07:43] LABS: BASO # 0.1 K/uL (0.0-0.2); BASO % 2.7 % (0.0-2.0); EOS # 0.2 K/uL (0.0-0.7); EOS % 2.9 % (0.0-4.0); HEMOGLOBIN 11.4 g/dL (11.0-16.0); LYMPH # 2.3 K/uL (1.0-4.3); MEAN CELL VOLUME 86.6 fL (81.0-99.0); MEAN CORPUSCULAR HEMOGLOBIN 27.4 pg (27.0-31.0); MEAN CORPUSCULAR HGB CONC 31.7 g/dL (33.0-37.0); MEAN PLATELET VOLUME 9.3 fL (7.2-11.7); MONO # 0.6 K/uL (0.0-0.8); MONO % 11.4 % (0.0-10.0); NEUT # 2.4 K/uL (1.8-7.0); NRBC % 0.2 % (0.0-2.0); RBC 4.15 Mil/uL (3.80-5.20); RED CELL DISTRIBUTION WIDTH 15.8 % (11.5-14.5); WHITE BLOOD COUNT 5.6 K/uL (4.8-10.8)
[2017-08-30 07:47] LABS: ALBUMIN 3.6 g/dL (3.5-5.0); ALT/SGPT 19 U/L (9-52); AST/SGOT 24 U/L (14-36); BLOOD UREA NITROGEN 15 mg/dL (7-17); CALCIUM 10.5 mg/dl (8.6-10.4); GFR AFRICAN-AMERICAN > 60; GFR NON-AFRICAN AMERICAN > 60
[2017-08-30] MEDS: Metoprolol Succinate 25 mg XL Tab PO SCH (09:50)
[2017-08-30] MEDS: Enoxaparin 40 mg Syringe SC SCH (09:50)
--- NOTE | 2017-08-30 11:41 | CP.PCM.PN ---
Subjective - Date & Time of Evaluation Date of Evaluation: 08/30/17 Time of Evaluation: 11:34 - Subjective Subjective: Progress note for Dr. Corley's Service Pt seen and examined at bedside. No acute distress. No events overnight. No fevers chest pain/SOB currently. Objective - Vital Signs/Intake and Output Vital Signs (last 24 hours): Temp Pulse Resp BP Pulse Ox 98.0 F 68 20 135/94 H 97 08/30/17 07:00 08/30/17 08:08 08/30/17 07:00 08/30/17 07:00 08/30/17 07:00 - Medications Medications: Current Medications Albuterol (Ventolin Hfa 90 Mcg/Actuation (8 G)) 2 puff IH RQ4 [facility] Last Admin: 08/30/17 11:14 Dose: 2 puff Amlodipine Besylate (Norvasc) 10 mg PO DAILY [facility] Last Admin: 08/30/17 09:50 Dose: 10 mg Aspirin (Aspirin Chewable) 81 mg PO DAILY [facility] Last Admin: 08/30/17 09:50 Dose: 81 mg Enoxaparin Sodium (Lovenox) 40 mg SC DAILY [facility] Last Admin: 08/30/17 09:50 Dose: Not Given Losartan Potassium (Cozaar) 100 mg PO DAILY [facility] Last Admin: 08/30/17 09:50 Dose: 100 mg Metoprolol Succinate (Toprol Xl) 25 mg PO DAILY [facility] Last Admin: 08/30/17 09:50 Dose: 25 mg Montelukast Sodium (Singulair) 10 mg PO DAILY [facility] Last Admin: 08/30/17 09:50 Dose: 10 mg Rosuvastatin Calcium (Crestor) 10 mg PO [facility] Last Admin: 08/29/17 21:41 Dose: 10 mg - Labs Labs: 08/30/17 07:19 08/30/17 07:19 - Constitutional Appears: Chronically Ill, Other (chronic illness) - Head Exam Head Exam: ATRAUMATIC, NORMOCEPHALIC - Eye Exam Eye Exam: EOMI - ENT Exam ENT Exam: Mucous Membranes Moist - Respiratory Exam Respiratory Exam: Clear to Ausculation Bilateral, NORMAL BREATHING PATTERN - Cardiovascular Exam Cardiovascular Exam: REGULAR RHYTHM, +S1, +S2 - GI/Abdominal Exam GI & Abdominal Exam: Soft. absent: Tenderness - Extremities Exam Extremities Exam: absent: Pedal Edema - Neurological Exam Neurological Exam: Alert, Awake, Oriented x3 - Psychiatric Exam Psychiatric exam: Normal Mood - Skin Skin Exam: Dry, Warm Assessment and Plan - Assessment and Plan (Free Text) Plan: 1. Chest pain -numerous admissions for same complaint -Consult placed to Cardio- Dr. De La Rosa- recs appreciated As per cardio: Non-cardiac CP ME ruled out, EKG Normal Echo 07/2017 directly reviewed by me: Normal LVEF, LVH and grade 1 DD Exam without volume overload OK to D/C -continue losartan 100mg PO daily -continue asa 325 mg daily -continue motrin bid prn -continue toprol xl 25 daily -continue crestor 10 daily 2. Shortness of breath -continue ventolin inhaler -duonebs as needed -singulair 10 daily 3. hx of HTN -continue losartan 100mg daily -continue amlodipine 10 mg po daily -toporol xl 25mg daily 4. Bradycardia -continue to monitor 5. Questionable hx of MS -documentation in previous note. -no acute intervention 6. hx of CVA/mental slowing and delay since childhood -no acute intervention -ASA 81mg daily -continue crestor 10mg qhs 7. hx of cereral palsy -no acute intervention 8. GI/DVT -protonix daily -lovenox 40mg sc daily DISPO: discharge planning in progress. Case discussed with Dr. Corley. All management as per Dr. Corley.
--- NOTE | 2017-08-30 12:10 | CARD ---
APPROVED REPORT EKG Measurement Heart [id number] <Conclusion> Normal sinus rhythm Moderate voltage criteria for LVH, may be normal variant T wave abnormality, consider lateral ischemia Abnormal ECG
--- NOTE | 2017-08-30 12:25 | CARD ---
APPROVED REPORT EKG Measurement Heart [id number] VT 122P [id number] <Conclusion> Sinus tachycardia with occasional premature ventricular complexes Nonspecific ST abnormality Abnormal ECG
[2017-08-30] MEDS ORDERED: Albuterol HFA 90 mcg/actuation (8 g) IH PRN (14:00)
[2017-08-30] MEDS ORDERED: Albuterol-Ipratrop 3 mg / 0.5 (3 ml) UD INH SCH (14:00)
[2017-08-30 16:35] VITALS: PULSE 67; TEMP 98.8
== END 2017-08-30 16:30 | DRG 143 ==
LOC: SUPCPDRO 19:30 → C.ER 19:30 → C.9E 23:29 → C.5S 08-29 00:36
PROVIDERS: ADMIT Internal Medicine Nephrology; ATTEND Internal Medicine Nephrology
DX: R07.89 Other chest pain (principal); I25.10 Atherosclerotic heart disease of native coronary artery without angina pectoris; E11.22 Type 2 diabetes mellitus with diabetic chronic kidney disease; G20 Parkinson's disease; J44.9 Chronic obstructive pulmonary disease, unspecified; G35 Multiple sclerosis; I13.0 Hypertensive heart and chronic kidney disease with heart failure and stage 1 through stage 4 chronic kidney disease, or unspecified chronic kidney disease; N18.9 Chronic kidney disease, unspecified; I50.9 Heart failure, unspecified; E05.90 Thyrotoxicosis, unspecified without thyrotoxic crisis or storm; I69.354 Hemiplegia and hemiparesis following cerebral infarction affecting left non-dominant side; E78.00 Pure hypercholesterolemia, unspecified; G80.9 Cerebral palsy, unspecified; R00.1 Bradycardia, unspecified

== ENCOUNTER 2017-10-05 21:21 | Inpatient (IN) | payer MEDICAID ==
[2017-10-05 21:40] VITALS: BMI 30.2
--- NOTE | 2017-10-05 21:44 | C.PDOC ---
History Of Present Illness Pt [place] from the [place] with intermittent CP for about 3 weeks. Has hx of cerebral palsy, left hemiplegia, from previous cva. No f/c/n/v . Pt has been previously worked up for similar complaints Time Seen by Provider: 10/05/17 21:43 Chief Complaint (Nursing): Chest Pain History Per: Patient History/Exam Limitations: no limitations Onset/Duration Of Symptoms: Days (20) Current Symptoms Are (Timing): Still Present Context: Other Severity: Moderate Pain Scale Rating Of: 4 Quality: Dull, Aching, Pressure Associated Symptoms: denies: Nausea Modifying Factors: None Exacerbating Factors: None Alleviating Factors: None Recent travel outside of the [place]: No Additional History Per: Patient Past Medical History Reviewed: Historical Data, Nursing Documentation, Vital Signs Vital Signs: Last Vital Signs Temp 99.0 F 10/05/17 21:40 Pulse 94 H 10/05/17 21:40 Resp 19 10/05/17 21:40 BP 148/97 H 10/05/17 21:40 Pulse Ox 97 10/05/17 22:50 - Medical History PMH: Anemia, Anxiety, Arthritis, Asthma, Bronchitis, CAD, CHF, COPD, CVA, Depression, Diabetes, Gastritis, Gastrointestinal Ulcer, HTN, Hypercholesterolemia, Hyperlipidemia, Hyperthyroidism, Kidney Stones, Multiple Sclerosis, Parkinson's Disease, Pneumonia, Chronic Kidney Disease, TIA Denies: Benign Prostatic Hyperplasia, HIV Surgical History: Hernia Repair (Umbilical hernia repair) - [facility] Procedures CLOSURE SKIN & SUBCUTANEOUS NEC (01/07/13) ESOPHAGOGASTRODUODENOSCOPY [EGD] W/CLOSED BIOPSY (02/05/15) INJECT/INFUSE NEC (02/17/15) NEBULIZER THERAPY (06/20/13) PACKED CELL TRANSFUSION (01/28/15) REMOVAL OF INFUSION DEV FROM GREAT VESSEL, CRANE MANAGER APPROACH (12/02/16) TETANUS TOXOID ADMINIST (01/07/13) TRANSFUSE NONAUT RED BLOOD CELLS IN PERIPH VEIN, PERC (03/17/17) VACCINATION NEC (08/03/14) Family History: States: No Known Family Hx - Social History Hx Tobacco Use: No Hx Alcohol Use: No Hx Substance Use: No - Immunization History Hx Tetanus Toxoid Vaccination: No Hx Influenza Vaccination: Yes Hx Pneumococcal Vaccination: No Review Of Systems Constitutional: Negative for: Fever, Chills Eyes: Negative for: Redness ENT: Negative for: Throat Pain Cardiovascular: Positive for: Chest Pain Respiratory: Negative for: Shortness of Breath Gastrointestinal: Negative for: Nausea, Vomiting, Abdominal Pain Genitourinary: Negative for: Dysuria Musculoskeletal: Negative for: Back Pain Skin: Negative for: Rash Neurological: Negative for: Weakness Psych: Negative for: Anxiety Physical Exam - Physical Exam Appears: Non-toxic, No Acute Distress Skin: Warm, Dry Head: Normacephalic Eye(s): bilateral: Normal Inspection Oral Mucosa: Moist Neck: Supple Chest: Symmetrical Respiratory: No Rales, No Rhonchi, No Wheezing Gastrointestinal/Abdominal: Soft, No Tenderness, No Distention Back: No CVA Tenderness Extremity: Normal ROM Extremity: Bilateral: Atraumatic Pulses: Left Dorsalis Pedis: Normal, Right Dorsalis Pedis: Normal Neurological/Psych: Oriented x3, Normal Speech, Normal Cognition, Other (left hemiplegia(old)) Gait: Unable To Assess ED Course And Treatment - Laboratory Results Result Diagrams: 10/05/17 22:34 10/05/17 22:34 ECG: Interpreted By Me, Viewed By Me ECG Rhythm: Sinus Rhythm (83), Nonspecific Changes O2 Sat by Pulse Oximetry: 97 Pulse Ox Interpretation: Normal - Radiology CXR: Interpreted by Me, Viewed By Me CXR Interpretation: No: Infiltrates, Fracture, Pnemothorax Disposition Discussed With : Ranulfo Corley Comment: accepted the pt on his service and took over the care at 10:50 PM Doctor Will See Patient In The: Hospital Counseled Patient/Family Regarding: Studies Performed, Diagnosis - Disposition Disposition: HOSPITALIZED Disposition Time: 21:43 Condition: FAIR Forms: [facility] (Yi) - POA Present On Arrival: Poor Glycemic Control - Clinical Impression Clinical Impression: Chest pain Decision To Admit - Pt Status Changed To: Hospital Disposition Of: Observation - . Bed Request Type: Telemetry Admitting Physician: Ranulfo Corley Patient Diagnosis: Chest pain
[2017-10-05 22:40] LABS: BASO % 0.7 % (0.0-2.0); EOS # 0.1 K/uL (0.0-0.7); EOS % 1.2 % (0.0-4.0); HEMOGLOBIN 10.1 g/dL (11.0-16.0); LYMPH # 1.4 K/uL (1.0-4.3); LYMPH % 27.5 % (20.0-40.0); MEAN CELL VOLUME 84.1 fL (81.0-99.0); MEAN CORPUSCULAR HEMOGLOBIN 26.6 pg (27.0-31.0); MEAN CORPUSCULAR HGB CONC 31.6 g/dL (33.0-37.0); MEAN PLATELET VOLUME 8.1 fL (7.2-11.7); MONO # 0.5 K/uL (0.0-0.8); MONO % 9.8 % (0.0-10.0); NEUT # 3.1 K/uL (1.8-7.0); NEUT % 60.8 % (50.0-75.0); RBC 3.79 Mil/uL (3.80-5.20); RED CELL DISTRIBUTION WIDTH 14.6 % (11.5-14.5); WHITE BLOOD COUNT 5.2 K/uL (4.8-10.8)
[2017-10-05 22:49] LABS: INR 1.1; PROTHROMBIN TIME 12.6 SECONDS (9.7-12.2)
[2017-10-05 22:54] LABS: ALBUMIN 3.9 g/dL (3.5-5.0); ALT/SGPT 19 U/L (9-52); AST/SGOT 26 U/L (14-36); BLOOD UREA NITROGEN 22 mg/dL (7-17); CALCIUM 11.1 mg/dl (8.6-10.4); GFR AFRICAN-AMERICAN > 60; GFR NON-AFRICAN AMERICAN > 60
[2017-10-05 23:05] LABS: B-TYPE NATRIURETIC PEPTIDE 77.3 pg/mL (0-450)
[2017-10-06] MEDS ORDERED: Albuterol HFA 90 mcg/actuation (8 g) IH SCH (00:15)
[2017-10-06 01:27] LABS: SQUAMOUS EPITHIAL < 1 /hpf (0-5); URINE AMORPHOUS SEDIMENT RARE /ul (<OCC); URINE BILIRUBIN NEGATIVE (NEGATIVE); URINE BLOOD NEGATIVE (NEGATIVE); URINE CLARITY Hazy (Clear); URINE COLOR Yellow (YELLOW); URINE GLUCOSE (UA) NORMAL (Normal); URINE LEUKOCYTE ESTERASE NEG Leu/uL (Negative); URINE PROTEIN NEGATIVE (NEGATIVE); URINE UROBILINOGEN NORMAL mg/dL (0.2-1.0)
--- NOTE | 2017-10-06 09:14 | RAD ---
Chest x-ray single frontal view History: Chest pain. Comparison: None available. Findings: Limited study secondary to suboptimal patient positioning and technique. Mild venous congestion. Patchy increased markings at the lung bases. Question trace left pleural effusion. Top normal heart size. Impression: Limited study secondary to suboptimal patient positioning and technique. Mild venous congestion. Patchy increased markings at the lung bases. Question trace left pleural effusion.
[2017-10-06] MEDS ORDERED: Home Med 1 UNIT (Atorvastatin [Lipitor] 20 MG) PO SCH (10:00)
[2017-10-06] MEDS ORDERED: Ergocalciferol 50,000 Intl Units Cap PO SCH (10:00)
[2017-10-06] MEDS ORDERED: Pantoprazole 40 mg EC Tab PO SCH (10:00)
[2017-10-06] MEDS: Enoxaparin 40 mg Syringe SC SCH (10:14)
[2017-10-06] MEDS: Metoprolol Succinate 25 mg XL Tab PO SCH (10:15)
[2017-10-06] MEDS: Pantoprazole 40 mg EC Tab PO SCH (10:15)
[2017-10-06] MEDS ORDERED: Albuterol HFA 90 mcg/actuation (8 g) INH SCH (12:00)
[2017-10-06 12:46] LABS: CK-MB 3.98 ng/mL (0.0-3.38)
--- NOTE | 2017-10-06 15:05 | CP.PCM.PN ---
<Leona Lopez - Last Filed: 10/06/17 15:00> Subjective - Date & Time of Evaluation Date of Evaluation: 10/06/17 Time of Evaluation: 15:00 - Subjective Subjective: PGY2 progress note for Dr. Corley 47 year old female with past medical history of cerebral palsy, CVA with residual left hemiplegia is admitted to hospital for chest pain. Chest pain is located in center of chest. Patient has been admitted for similar symptom about 1 month ago and was seen by emery grinder, Dr. De La Rosa. It was determined by the emery grinder that chest pain was likely not cardiac related due to negative workup and normal echo in 07/2017. Currently patient is complaining of slight substernal chest pain. She is resting comfortably though. Denies having any radiation of pain. Denies having any SOB, abd pain, N/V/D/C, F/C. Objective - Vital Signs/Intake and Output Vital Signs (last 24 hours): Temp Pulse Resp BP Pulse Ox 98.4 F 71 20 158/84 H 99 10/06/17 08:48 10/06/17 08:48 10/06/17 08:48 10/06/17 08:48 10/06/17 08:48 Intake and Output: 10/06/17 10/06/17 06:59 18:59 Intake Total 120 Balance 120 - Medications Medications: Current Medications Albuterol (Ventolin Hfa 90 Mcg/Actuation (8 G)) 2 puff IH Q4H [facility] Amlodipine Besylate (Norvasc) 10 mg PO DAILY [facility] Last Admin: 10/06/17 10:15 Dose: 10 mg Aspirin (Aspirin) 325 mg PO DAILY [facility] Last Admin: 10/06/17 10:25 Dose: 325 mg Clopidogrel Bisulfate (Plavix) 75 mg PO DAILY [facility] Last Admin: 10/06/17 10:15 Dose: 75 mg Enoxaparin Sodium (Lovenox) 40 mg SC DAILY [facility] Last Admin: 10/06/17 10:14 Dose: 40 mg Ergocalciferol (Drisdol 50,000 Intl Units Cap) 1 cap PO QWK [facility] Last Admin: 10/06/17 10:15 Dose: 1 cap Ibuprofen (Motrin Tab) 600 mg PO Q8 PRN PRN Reason: Pain, moderate (4-7) Last Admin: 10/06/17 10:26 Dose: 600 mg Losartan Potassium (Cozaar) 100 mg PO DAILY [facility] Last Admin: 10/06/17 10:15 Dose: 100 mg Metoprolol Succinate (Toprol Xl) 25 mg PO DAILY [facility] Last Admin: 10/06/17 10:15 Dose: 25 mg Montelukast Sodium (Singulair) 10 mg PO HS [facility] Nitroglycerin (Nitrostat Sl Tab) 0.4 mg SL Q5MIN PRN PRN Reason: chest pain Pantoprazole Sodium (Protonix Ec Tab) 40 mg PO DAILY [facility] Last Admin: 10/06/17 10:15 Dose: 40 mg Rosuvastatin Calcium (Crestor) 10 mg PO HS [facility] - Labs Labs: 10/05/17 22:34 10/05/17 22:34 PT 12.6 SECONDS (9.7-12.2) H 10/05/17 22:34 INR 1.1 10/05/17 22:34 APTT 26 SECONDS (21-34) 10/05/17 22:34 - Constitutional Appears: Non-toxic, No Acute Distress - Head Exam Head Exam: ATRAUMATIC - ENT Exam ENT Exam: Mucous Membranes Moist - Respiratory Exam Respiratory Exam: Clear to Ausculation Bilateral. absent: Accessory Muscle Use , Rales, Rhonchi, Wheezes, Respiratory Distress - Cardiovascular Exam Cardiovascular Exam: REGULAR RHYTHM, +S1, +S2. absent: Gallop, Rubs, Murmur - GI/Abdominal Exam GI & Abdominal Exam: Soft, Normal Bowel Sounds. absent: Distended, Firm, Guarding, Rigid, Tenderness, Organomegaly - Extremities Exam Extremities Exam: absent: Pedal Edema, Tenderness - Neurological Exam Neurological Exam: Alert, Awake Additional comments: Patient has developmental delay with history of cerebral palsy. Patient is responding to questions - Skin Skin Exam: Dry, Intact, Normal Color, Warm Assessment and Plan - Assessment and Plan (Free Text) Assessment: 1. Chest pain -numerous admissions for same complaint - Troponin x 2 negative. Last troponin pending - Cardiology, Dr. Huber is consulted - Echo 07/2017 directly reviewed by me: Normal LVEF, LVH and grade 1 DD -continue losartan 100mg PO daily -continue asa 325 mg daily -continue motrin bid prn -continue toprol xl 25 daily -continue crestor 10 daily -Nitro SV prn 2. Shortness of breath -continue ventolin inhaler -singulair 10 daily 3. hx of HTN -continue losartan 100mg daily -continue amlodipine 10 mg po daily -toporol xl 25mg daily 4. hx of CVA/mental slowing and delay since childhood -no acute intervention -ASA 81mg daily -continue crestor 10mg qhs 7. hx of cereral palsy -no acute intervention 8. GI/DVT -protonix daily -lovenox 40mg sc daily Case discussed with Dr. Corley. All management as per Dr. Corley. <Ranulfo Corley - Last Filed: 10/09/17 19:52> Objective - Vital Signs/Intake and Output Vital Signs (last 24 hours): Temp Pulse Resp BP Pulse Ox 97.7 F 73 20 122/67 97 10/09/17 16:18 10/09/17 18:54 10/09/17 16:18 10/09/17 18:54 10/09/17 16:18 Intake and Output: 10/09/17 10/10/17 18:59 06:59 Intake Total 1010 Balance 1010 - Medications Medications: Current Medications Albuterol (Ventolin Hfa 90 Mcg/Actuation (8 G)) 2 puff INH RQ4 [facility] Last Admin: 10/09/17 16:50 Dose: 2 puff Amlodipine Besylate (Norvasc) 10 mg PO DAILY [facility] Last Admin: 10/09/17 09:51 Dose: 10 mg Aspirin (Aspirin) 325 mg PO DAILY [facility] Last Admin: 10/09/17 09:51 Dose: 325 mg Clopidogrel Bisulfate (Plavix) 75 mg PO DAILY [facility] Last Admin: 10/09/17 09:51 Dose: 75 mg Enoxaparin Sodium (Lovenox) 40 mg SC DAILY [facility] Last Admin: 10/09/17 09:52 Dose: Not Given Ergocalciferol (Drisdol 50,000 Intl Units Cap) 1 cap PO QWK [facility] Last Admin: 10/06/17 10:15 Dose: 1 cap Ibuprofen (Motrin Tab) 600 mg PO Q8 PRN PRN Reason: Pain, moderate (4-7) Last Admin: 10/09/17 10:01 Dose: 600 mg Losartan Potassium (Cozaar) 100 mg PO DAILY [facility] Last Admin: 10/09/17 09:51 Dose: 100 mg Metoprolol Succinate (Toprol Xl) 25 mg PO DAILY [facility] Last Admin: 10/09/17 09:51 Dose: 25 mg Montelukast Sodium (Singulair) 10 mg PO [facility] Last Admin: 10/08/17 21:27 Dose: 10 mg Nitroglycerin (Nitrostat Sl Tab) 0.4 mg SL Q5MIN PRN PRN Reason: chest pain Pantoprazole Sodium (Protonix Ec Tab) 40 mg PO DAILY [facility] Last Admin: 10/09/17 09:51 Dose: 40 mg Rosuvastatin Calcium (Crestor) 10 mg PO [facility] Last Admin: 10/08/17 21:27 Dose: 10 mg - Labs Labs: 10/09/17 09:26 10/09/17 09:26 PT 12.6 SECONDS (9.7-12.2) H 10/05/17 22:34 INR 1.1 10/05/17 22:34 APTT 26 SECONDS (21-34) 10/05/17 22:34 Attending/Attestation - Attestation I have personally seen and examined this patient.: Yes I have fully participated in the care of the patient.: Yes I have reviewed all pertinent clinical information, including history, physical exam and plan: Yes Notes (Text): case seen and d.w staff and resident, concurred with finding and management..
--- NOTE | 2017-10-06 15:21 | CP.PCM.HP ---
History of Present Illness - History of Present Illness History of Present Illness: 47 year old female with past medical history of cerebral palsy, CVA with residual left hemiplegia is admitted to hospital for chest pain. Chest pain is located in center of chest. Patient has been admitted for similar symptom about 1 month ago and was seen by collector of aquarium specimens, Dr. De La Rosa. It was determined by the collector of aquarium specimens that chest pain was likely not cardiac related due to negative workup and normal echo in 07/2017. Currently patient is complaining of slight substernal chest pain. She is resting comfortably though. Denies having any radiation of pain. Denies having any SOB, abd pain, N/V/D/C, F/C. Present on Admission - Present on Admission Any Indicators Present on Admission: No Past Patient History - Infectious Disease Hx of Infectious Diseases: None - Tetanus Immunizations Tetanus Immunization: Unknown - Past Medical History & Family History Past Medical History?: Yes - Past Social History Smoking Status: Never Smoked - CARDIAC Hx Congestive Heart Failure: Yes Hx Hypercholesterolemia: Yes Hx Hypertension: Yes - PULMONARY Hx Asthma: Yes Hx Bronchitis: Yes Hx Chronic Obstructive Pulmonary Disease (COPD): Yes Hx Pneumonia: Yes - NEUROLOGICAL Hx Multiple Sclerosis: Yes Hx Parkinson's Disease: Yes Hx Transient Ischemic Attacks (TIA): Yes - HEENT Hx HEENT Problems: No - RENAL Hx Chronic Kidney Disease: Yes Hx Kidney Stones: Yes - ENDOCRINE/METABOLIC Hx Hyperthyroidism: Yes - HEMATOLOGICAL/ONCOLOGICAL Hx Anemia: Yes Hx Human Immunodeficiency Virus (HIV): No - INTEGUMENTARY Hx Dermatological Problems: No - MUSCULOSKELETAL/RHEUMATOLOGICAL Hx Arthritis: Yes - GASTROINTESTINAL Hx Gastritis: Yes - PSYCHIATRIC Hx Anxiety: Yes Hx Depression: Yes Hx Substance Use: No - SURGICAL HISTORY Hx Surgeries: Yes Hx Section: Yes (1994) - ANESTHESIA Hx Anesthesia: Yes Hx Anesthesia Reactions: No Hx Malignant Hyperthermia: No Meds Home Medications: Home Medication List Medication Instructions Recorded Confirmed Type Clopidogrel [Plavix] 75 mg PO DAILY #30 tab 10/09/17 Rx Allergies/Adverse Reactions: Allergies Allergy/AdvReac Type Severity Reaction Status Date / Time acetaminophen Allergy ITCHING Verified 10/05/17 21:40 codeine Allergy RASH Verified 10/05/17 21:40 iodine Allergy ITCHING Verified 10/05/17 21:40 ketorolac Allergy ITCHING Verified 10/05/17 21:40 ketorolac tromethamine Allergy RASH Verified 10/05/17 21:40 [From Toradol] Latex, Natural Rubber Allergy ITCHING Verified 10/05/17 21:40 morphine Allergy ITCHING Verified 10/05/17 21:40 orange juice Allergy ITCHING Verified 10/05/17 21:40 Penicillins Allergy ITCHING Verified 10/05/17 21:40 Sulfa (Sulfonamide Allergy RASH Verified 10/05/17 21:40 Antibiotics) tomato Allergy ITCHING Verified 10/05/17 21:40 tramadol Allergy ITCHING Verified 10/05/17 21:40 ondansetron HCl AdvReac Intermediate RASH Verified 10/05/17 21:40 [From Zofran (as hydrochloride)] Physical Exam - Constitutional Appears: Well - Head Exam Head Exam: ATRAUMATIC, NORMAL INSPECTION, NORMOCEPHALIC - Eye Exam Eye Exam: EOMI, Normal appearance, PERRL Pupil Exam: NORMAL ACCOMODATION, PERRL - ENT Exam ENT Exam: Mucous Membranes Moist, Normal Exam - Neck Exam Neck exam: Positive for: Normal Inspection - Respiratory Exam Respiratory Exam: Decreased Breath Sounds - Cardiovascular Exam Cardiovascular Exam: REGULAR RHYTHM, +S1, +S2 - GI/Abdominal Exam GI & Abdominal Exam: Diminished Bowel Sounds, Soft - Rectal Exam Rectal Exam: Deferred Results - Vital Signs Recent Vital Signs: Last Vital Signs Temp 98.4 F 10/06/17 08:48 Pulse 71 10/06/17 08:48 Resp 20 10/06/17 08:48 BP 158/84 H 10/06/17 08:48 Pulse Ox 99 10/06/17 08:48 - Labs Result Diagrams: 10/09/17 09:26 10/09/17 09:26 Labs: Laboratory Results - last 24 hr 10/05/17 10/05/17 10/05/17 22:34 22:34 22:34 WBC 5.2 RBC 3.79 L Hgb 10.1 L Hct 31.9 L MCV 84.1 D MCH 26.6 L MCHC 31.6 L RDW 14.6 H Plt Count 217 MPV 8.1 Neut % (Auto) 60.8 Lymph % (Auto) 27.5 [place] % (Auto) 9.8 Eos % (Auto) 1.2 Baso % (Auto) 0.7 Neut # (Auto) 3.1 Lymph # (Auto) 1.4 [place] # (Auto) 0.5 Eos # (Auto) 0.1 Baso # (Auto) 0.0 PT 12.6 H INR 1.1 APTT 26 Sodium 142 Potassium 4.1 Chloride 104 Carbon Dioxide 28 Anion Gap 15 BUN 22 H Creatinine 0.7 Est GFR ( Amer) > 60 Est GFR (Non-Af Amer) > 60 POC Glucose (mg/dL) Random Glucose 99 Calcium 11.1 H Total Bilirubin 0.6 AST 26 ALT 19 Alkaline Phosphatase 48 Total Creatine Kinase CK-MB (Mass) Troponin I < 0.0120 NT-Pro-B Natriuret Pep 77.3 Total Protein 7.7 Albumin 3.9 Globulin 3.8 Albumin/Globulin Ratio 1.0 Urine Color Urine Clarity Urine pH Ur Specific [place] Urine Protein Urine Glucose (UA) Urine Ketones Urine Blood Urine Nitrate Urine Bilirubin Urine Urobilinogen Ur Leukocyte Esterase Urine WBC (Auto) Urine RBC (Auto) Ur Squamous Epith Cells Amorphous Sediment 10/06/17 10/06/17 10/06/17 01:30 07:38 07:40 WBC RBC Hgb Hct MCV MCH MCHC RDW Plt Count MPV Neut % (Auto) Lymph % (Auto) [place] % (Auto) Eos % (Auto) Baso % (Auto) Neut # (Auto) Lymph # (Auto) [place] # (Auto) Eos # (Auto) Baso # (Auto) PT INR APTT Sodium Potassium Chloride Carbon Dioxide Anion Gap BUN Creatinine Est GFR ( Amer) Est GFR (Non-Af Amer) POC Glucose (mg/dL) 65 69 Random Glucose Calcium Total Bilirubin AST ALT Alkaline Phosphatase Total Creatine Kinase CK-MB (Mass) Troponin I NT-Pro-B Natriuret Pep Total Protein Albumin Globulin Albumin/Globulin Ratio Urine Color Yellow Urine Clarity Hazy Urine pH 7.0 Ur Specific [place] 1.014 Urine Protein Negative Urine Glucose (UA) Normal Urine Ketones Negative Urine Blood Negative Urine Nitrate Negative Urine Bilirubin Negative Urine Urobilinogen Normal Ur Leukocyte Esterase Neg Urine WBC (Auto) 3 Urine RBC (Auto) 1 Ur Squamous Epith Cells < 1 Amorphous Sediment Rare H 10/06/17 10/06/17 08:06 12:11 WBC RBC Hgb Hct MCV MCH MCHC RDW Plt Count MPV Neut % (Auto) Lymph % (Auto) [place] % (Auto) Eos % (Auto) Baso % (Auto) Neut # (Auto) Lymph # (Auto) [place] # (Auto) Eos # (Auto) Baso # (Auto) PT INR APTT Sodium Potassium Chloride Carbon Dioxide Anion Gap BUN Creatinine Est GFR ( Amer) Est GFR (Non-Af Amer) POC Glucose (mg/dL) 85 Random Glucose Calcium Total Bilirubin AST ALT Alkaline Phosphatase Total Creatine Kinase 172 H CK-MB (Mass) 3.98 H Troponin I < 0.0120 NT-Pro-B Natriuret Pep Total Protein Albumin Globulin Albumin/Globulin Ratio Urine Color Urine Clarity Urine pH Ur Specific [place] Urine Protein Urine Glucose (UA) Urine Ketones Urine Blood Urine Nitrate Urine Bilirubin Urine Urobilinogen Ur Leukocyte Esterase Urine WBC (Auto) Urine RBC (Auto) Ur Squamous Epith Cells Amorphous Sediment Assessment & Plan (1) Chest pain Status: Acute (2) Abdominal cramps Status: Acute (3) Abdominal pain in female Status: Acute (4) Acute bronchitis Status: Acute (5) Acute gastroenteritis Status: Acute (6) Anemia Status: Acute (7) Arm pain, left Status: Acute (8) Arthritis Status: Acute (9) Atypical chest pain Status: Acute (10) Body aches Status: Acute (11) Bradycardia Status: Acute (12) COPD (chronic obstructive pulmonary disease) Status: Acute (13) Chest discomfort Status: Acute (14) Chest pain at rest Status: Acute (15) Chest wall discomfort Status: Acute (16) Chest wall pain Status: Acute (17) Chronic abdominal pain Status: Acute (18) Chronic anemia Status: Acute (19) Chronic chest pain Status: Acute (20) Chronic pain Status: Acute (21) Chronic pain disorder Status: Acute (22) Common cold Status: Acute (23) Constipation Status: Acute (24) Constipation - functional Status: Acute (25) Contusion Status: Acute (26) DVT prophylaxis Status: Acute (27) Dehydration Status: Acute (28) Depressive disorder Status: Acute (29) Diarrhea Status: Acute (30) Diarrhea Status: Acute (31) Diarrhea with dehydration Status: Acute (32) Drug-seeking behavior Status: Acute (33) Dysmenorrhea Status: Acute (34) Dyspnea Status: Acute (35) Encounter for medical screening examination Status: Acute (36) Enteritis Status: Acute (37) Exacerbation of multiple sclerosis Status: Acute (38) Flu-like symptoms Status: Acute (39) Fracture of finger of right hand Status: Acute (40) Gastroenteritis Status: Acute (41) Generalized pruritus Status: Acute (42) Generalized weakness Status: Acute (43) H/O TIA (transient ischemic attack) and stroke Status: Acute (44) History of CVA (cerebrovascular accident) Status: Acute (45) Hypercalcemia Status: Acute (46) Hyperlipidemia Status: Acute (47) Hyperparathyroidism Status: Acute Priority: High (48) Hypertension Status: Acute (49) Hypokalemia Status: Acute (50) Influenza Status: Acute (51) Influenza-like illness Status: Acute (52) Iron deficiency anemia Status: Acute (53) Knee injury Status: Acute (54) Knee pain Status: Acute (55) LVH (left ventricular hypertrophy) Status: Acute (56) Left arm numbness Status: Acute (57) Leukocytopenia Status: Acute (58) Low back pain Status: Acute (59) Malingering Status: Acute (60) Moderate major depression Status: Acute (61) Moderate recurrent major depression Status: Acute (62) Mononucleosis syndrome Status: Acute (63) Multiple somatic complaints Status: Acute (64) Muscle ache Status: Acute (65) Muscle pain Status: Acute (66) Muscle strain Status: Acute (67) Myalgia Status: Acute (68) Narcotic dependence Status: Acute (69) Nausea Status: Acute (70) Non-cardiac chest pain Status: Acute (71) Pain Status: Acute (72) Pleural effusion Status: Acute (73) Pleuritic pain Status: Acute (74) Pneumonia Status: Acute (75) Precordial pain Status: Acute (76) Prophylactic measure Status: Acute (77) Sprain of shoulder, right Status: Acute (78) Symptomatic anemia Status: Acute (79) UTI (urinary tract infection) Status: Acute (80) Upper respiratory infection Status: Acute (81) Viral syndrome Status: Acute (82) Vomiting Status: Acute (83) Anemia Status: Chronic (84) Bronchial asthma Status: Chronic Priority: Medium (85) Cerebral palsy Status: Chronic (86) Chest pain Status: Chronic (87) Diabetes mellitus Status: Chronic (88) History of CVA with residual deficit Status: Chronic Priority: Medium (89) Multiple sclerosis Status: Chronic Priority: Medium (90) Uncontrolled hypertension Status: Chronic Priority: High (91) Hypovitaminosis D Status: Suspected (92) Abdominal pain Status: Resolved Priority: Low Onset Date: 01/13/16 (93) Chest pain Status: Resolved - Assessment and Plan (Free Text) Plan: Follow-up with the cardiology Medications reviewed Monitor for the chest pain As ordered
--- NOTE | 2017-10-07 00:40 | CON ---
DATE: REASON FOR CONSULTATION: Chest pain. HISTORY OF PRESENT ILLNESS: The patient is a 47-year-old alf patient, has cerebral palsy, left hemiplegia from previous CVA presented because of chest discomfort. The patient denies any history of heart attack in the past. The most recent stress report on June 2013 which reported a technically difficult study, probably normal SPECT myocardial perfusion study, partially there are exposed anterior and intraarterial defect are probably due to motion artifact; however, CAD cannot be totally excluded. motion on the ventricle. Ejection fraction was calculated at 77%. SOCIAL HISTORY: Nonsmoker. She is a [place]. MEDICATIONS: Aspirin 325 mg once a day, Cozaar 100 mg once a day, Crestor 10 mg once a day, Lovenox 40 mg subcutaneously once a day, ibuprofen 600 mg every 8 hours p.r.n., amlodipine 10 mg once a day, Plavix 75 mg once a day, Protonix 40 mg once a day, Toprol XL 25 mg once a day, albuterol inhaler every 4 hours. REVIEW OF SYSTEMS: No nausea or vomiting. No fever or chills. PHYSICAL EXAMINATION: GENERAL: The patient is a middle aged female who does not appear to be in any respiratory distress. The patient has constant dyskinesia. VITAL SIGNS: Blood pressure 119/77, heart rate 68, temperature 98.4 and respirations 20. HEENT: Normocephalic. CHEST: Clear. HEART: S1, S2 regular. ABDOMEN: Soft. EXTREMITIES: Trace leg edema. LABORATORY DATA: Hemoglobin and hematocrit 10.1 and 31.9, white count and platelet count are within normal limits. SMA-7 is within normal limits, except for BUN of 22. Calcium is elevated at 11.1. Three sets of troponin are negative. Chest CT scan without contrast performed on 10/03/2017 revealed suboptimal study due to the patient's motion. No evidence of acute pathology in the lungs, mild cardiomegaly. Ventilation perfusion scan performed last month revealed low probability for pulmonary embolism. EKG revealed normal sinus rhythm and moderate voltage criteria for LVH. ASSESSMENT: 1. Chest pain, myocardial infarction is ruled out. 2. Cerebral palsy. 3. Diastolic left ventricular dysfunction as appeared on most recent echocardiography study in July 2017. RECOMMENDATIONS: Continue current aspirin, Cozaar, Crestor, subcutaneous Lovenox, amlodipine, Plavix, and Toprol therapy. No further cardiac workup is indicated. Obed Huber MD
[2017-10-07] MEDS: Metoprolol Succinate 25 mg XL Tab PO SCH (09:13)
[2017-10-07] MEDS: Pantoprazole 40 mg EC Tab PO SCH (09:15)
[2017-10-07] MEDS: Enoxaparin 40 mg Syringe SC SCH (09:21)
[2017-10-07] MEDS: Albuterol HFA 90 mcg/actuation (8 g) INH SCH ×2 (16:32→20:27)
--- NOTE | 2017-10-07 19:55 | PN ---
DATE: SUBJECTIVE: The patient denies any chest pain, no shortness of breath. PHYSICAL EXAMINATION: VITAL SIGNS: Blood pressure 155/82, heart rate 62, temperature 97.9, respirations 18. HEENT: Normocephalic. CHEST: Clear. HEART: S1 and S2, regular. EXTREMITIES: No edema. ASSESSMENT: 1. Chest pain, myocardial infarction is ruled out. 2. Cerebral palsy. 3. Mild anemia. RECOMMENDATIONS: Continue current aspirin, Cozaar, Crestor, subcutaneous Lovenox, amlodipine, Plavix, and Toprol-XL. Obed Huber MD
--- NOTE | 2017-10-07 20:42 | CP.PCM.PN ---
Subjective - Date & Time of Evaluation Date of Evaluation: 10/07/17 Time of Evaluation: 08:40 - Subjective Subjective: clinically same Objective - Vital Signs/Intake and Output Vital Signs (last 24 hours): Temp Pulse Resp BP Pulse Ox 98.4 F 71 16 150/80 97 10/07/17 19:24 10/07/17 19:24 10/07/17 19:24 10/07/17 19:24 10/07/17 19:24 Intake and Output: 10/07/17 10/08/17 18:59 06:59 Intake Total 400 Balance 400 - Medications Medications: Current Medications Albuterol (Ventolin Hfa 90 Mcg/Actuation (8 G)) 2 puff INH RQ4 [facility] Last Admin: 10/07/17 20:27 Dose: 2 puff Amlodipine Besylate (Norvasc) 10 mg PO DAILY [facility] Last Admin: 10/07/17 09:13 Dose: 10 mg Aspirin (Aspirin) 325 mg PO DAILY [facility] Last Admin: 10/07/17 09:10 Dose: 325 mg Clopidogrel Bisulfate (Plavix) 75 mg PO DAILY [facility] Last Admin: 10/07/17 09:12 Dose: 75 mg Enoxaparin Sodium (Lovenox) 40 mg SC DAILY [facility] Last Admin: 10/07/17 09:21 Dose: Not Given Ergocalciferol (Drisdol 50,000 Intl Units Cap) 1 cap PO QWK [facility] Last Admin: 10/06/17 10:15 Dose: 1 cap Ibuprofen (Motrin Tab) 600 mg PO Q8 PRN PRN Reason: Pain, moderate (4-7) Last Admin: 10/07/17 09:25 Dose: 600 mg Losartan Potassium (Cozaar) 100 mg PO DAILY [facility] Last Admin: 10/07/17 09:14 Dose: 100 mg Metoprolol Succinate (Toprol Xl) 25 mg PO DAILY [facility] Last Admin: 10/07/17 09:13 Dose: 25 mg Montelukast Sodium (Singulair) 10 mg PO HS [facility] Nitroglycerin (Nitrostat Sl Tab) 0.4 mg SL Q5MIN PRN PRN Reason: chest pain Pantoprazole Sodium (Protonix Ec Tab) 40 mg PO DAILY [facility] Last Admin: 10/07/17 09:15 Dose: 40 mg Rosuvastatin Calcium (Crestor) 10 mg PO HS [facility] Last Admin: 10/06/17 21:26 Dose: 10 mg - Labs Labs: 10/05/17 22:34 10/05/17 22:34 PT 12.6 SECONDS (9.7-12.2) H 10/05/17 22:34 INR 1.1 10/05/17 22:34 APTT 26 SECONDS (21-34) 10/05/17 22:34 - Constitutional Appears: Well - Head Exam Head Exam: ATRAUMATIC, NORMAL INSPECTION, NORMOCEPHALIC - Eye Exam Eye Exam: EOMI, Normal appearance, PERRL Pupil Exam: NORMAL ACCOMODATION, PERRL - ENT Exam ENT Exam: Mucous Membranes Moist, Normal Exam - Neck Exam Neck Exam: Full ROM, Normal Inspection. absent: Lymphadenopathy - Respiratory Exam Respiratory Exam: Decreased Breath Sounds - Cardiovascular Exam Cardiovascular Exam: REGULAR RHYTHM, +S1, +S2 - GI/Abdominal Exam GI & Abdominal Exam: Soft, Diminished Bowel Sounds - Rectal Exam Rectal Exam: Deferred Assessment and Plan (1) Chest pain Status: Acute (2) Abdominal cramps Status: Acute (3) Abdominal pain in female Status: Acute (4) Acute bronchitis Status: Acute (5) Acute gastroenteritis Status: Acute (6) Anemia Status: Acute (7) Arm pain, left Status: Acute (8) Arthritis Status: Acute (9) Atypical chest pain Status: Acute (10) Body aches Status: Acute (11) Bradycardia Status: Acute (12) COPD (chronic obstructive pulmonary disease) Status: Acute (13) Chest discomfort Status: Acute (14) Chest pain at rest Status: Acute (15) Chest wall discomfort Status: Acute (16) Chest wall pain Status: Acute (17) Chronic abdominal pain Status: Acute (18) Chronic anemia Status: Acute (19) Chronic chest pain Status: Acute (20) Chronic pain Status: Acute (21) Chronic pain disorder Status: Acute (22) Common cold Status: Acute (23) Constipation Status: Acute (24) Constipation - functional Status: Acute (25) Contusion Status: Acute (26) DVT prophylaxis Status: Acute (27) Dehydration Status: Acute (28) Depressive disorder Status: Acute (29) Diarrhea Status: Acute (30) Diarrhea Status: Acute (31) Diarrhea with dehydration Status: Acute (32) Drug-seeking behavior Status: Acute (33) Dysmenorrhea Status: Acute (34) Dyspnea Status: Acute (35) Encounter for medical screening examination Status: Acute (36) Enteritis Status: Acute (37) Exacerbation of multiple sclerosis Status: Acute (38) Flu-like symptoms Status: Acute (39) Fracture of finger of right hand Status: Acute (40) Gastroenteritis Status: Acute (41) Generalized pruritus Status: Acute (42) Generalized weakness Status: Acute (43) H/O TIA (transient ischemic attack) and stroke Status: Acute (44) History of CVA (cerebrovascular accident) Status: Acute (45) Hypercalcemia Status: Acute (46) Hyperlipidemia Status: Acute (47) Hyperparathyroidism Status: Acute (48) Hypertension Status: Acute (49) Hypokalemia Status: Acute (50) Influenza Status: Acute (51) Influenza-like illness Status: Acute (52) Iron deficiency anemia Status: Acute (53) Knee injury Status: Acute (54) Knee pain Status: Acute (55) LVH (left ventricular hypertrophy) Status: Acute (56) Left arm numbness Status: Acute (57) Leukocytopenia Status: Acute (58) Low back pain Status: Acute (59) Malingering Status: Acute (60) Moderate major depression Status: Acute (61) Moderate recurrent major depression Status: Acute (62) Mononucleosis syndrome Status: Acute (63) Multiple somatic complaints Status: Acute (64) Muscle ache Status: Acute (65) Muscle pain Status: Acute (66) Muscle strain Status: Acute (67) Myalgia Status: Acute (68) Narcotic dependence Status: Acute (69) Nausea Status: Acute (70) Non-cardiac chest pain Status: Acute (71) Pain Status: Acute (72) Pleural effusion Status: Acute (73) Pleuritic pain Status: Acute (74) Pneumonia Status: Acute (75) Precordial pain Status: Acute (76) Prophylactic measure Status: Acute (77) Sprain of shoulder, right Status: Acute (78) Symptomatic anemia Status: Acute (79) UTI (urinary tract infection) Status: Acute (80) Upper respiratory infection Status: Acute (81) Viral syndrome Status: Acute (82) Vomiting Status: Acute (83) Anemia Status: Chronic (84) Bronchial asthma Status: Chronic (85) Cerebral palsy Status: Chronic (86) Chest pain Status: Chronic (87) Diabetes mellitus Status: Chronic (88) History of CVA with residual deficit Status: Chronic (89) Multiple sclerosis Status: Chronic (90) Uncontrolled hypertension Status: Chronic (91) Hypovitaminosis D Status: Suspected (92) Abdominal pain Status: Resolved (93) Chest pain Status: Resolved - Assessment and Plan (Free Text) Plan: meds and labs reviewed cardio Dr Rj whytes as ordered cyndi same
[2017-10-08] MEDS: Albuterol HFA 90 mcg/actuation (8 g) INH SCH ×4 (07:17→19:57)
[2017-10-08] MEDS: Pantoprazole 40 mg EC Tab PO SCH (09:25)
[2017-10-08] MEDS: Enoxaparin 40 mg Syringe SC SCH (09:25)
[2017-10-08] MEDS: Metoprolol Succinate 25 mg XL Tab PO SCH (09:25)
--- NOTE | 2017-10-08 13:52 | CP.PCM.PN ---
Subjective - Date & Time of Evaluation Date of Evaluation: 10/08/17 Time of Evaluation: 08:40 - Subjective Subjective: clinically same denies chest pain tolerating PO diet Objective - Vital Signs/Intake and Output Vital Signs (last 24 hours): Temp Pulse Resp BP Pulse Ox 97.7 F 72 18 159/87 H 100 10/08/17 07:35 10/08/17 07:35 10/08/17 07:35 10/08/17 07:35 10/08/17 07:35 Intake and Output: 10/08/17 10/08/17 06:59 18:59 Intake Total 400 Balance 400 - Medications Medications: Current Medications Albuterol (Ventolin Hfa 90 Mcg/Actuation (8 G)) 2 puff INH RQ4 [facility] Last Admin: 10/08/17 13:00 Dose: 2 puff Amlodipine Besylate (Norvasc) 10 mg PO DAILY [facility] Last Admin: 10/08/17 09:25 Dose: 10 mg Aspirin (Aspirin) 325 mg PO DAILY [facility] Last Admin: 10/08/17 09:25 Dose: 325 mg Clopidogrel Bisulfate (Plavix) 75 mg PO DAILY [facility] Last Admin: 10/08/17 09:25 Dose: 75 mg Enoxaparin Sodium (Lovenox) 40 mg SC DAILY [facility] Last Admin: 10/08/17 09:25 Dose: 40 mg Ergocalciferol (Drisdol 50,000 Intl Units Cap) 1 cap PO QWK [facility] Last Admin: 10/06/17 10:15 Dose: 1 cap Ibuprofen (Motrin Tab) 600 mg PO Q8 PRN PRN Reason: Pain, moderate (4-7) Last Admin: 10/08/17 05:43 Dose: 600 mg Losartan Potassium (Cozaar) 100 mg PO DAILY [facility] Last Admin: 10/08/17 09:25 Dose: 100 mg Metoprolol Succinate (Toprol Xl) 25 mg PO DAILY [facility] Last Admin: 10/08/17 09:25 Dose: 25 mg Montelukast Sodium (Singulair) 10 mg PO HS [facility] Last Admin: 10/07/17 21:36 Dose: 10 mg Nitroglycerin (Nitrostat Sl Tab) 0.4 mg SL Q5MIN PRN PRN Reason: chest pain Pantoprazole Sodium (Protonix Ec Tab) 40 mg PO DAILY [facility] Last Admin: 10/08/17 09:25 Dose: 40 mg Rosuvastatin Calcium (Crestor) 10 mg PO HS [facility] Last Admin: 10/07/17 21:36 Dose: 10 mg - Labs Labs: 10/05/17 22:34 10/05/17 22:34 PT 12.6 SECONDS (9.7-12.2) H 10/05/17 22:34 INR 1.1 10/05/17 22:34 APTT 26 SECONDS (21-34) 10/05/17 22:34 - Constitutional Appears: Well, No Acute Distress - Head Exam Head Exam: ATRAUMATIC, NORMAL INSPECTION, NORMOCEPHALIC - Eye Exam Eye Exam: EOMI, Normal appearance, PERRL Pupil Exam: NORMAL ACCOMODATION, PERRL - ENT Exam ENT Exam: Mucous Membranes Moist, Normal Exam - Neck Exam Neck Exam: Full ROM, Normal Inspection. absent: Lymphadenopathy - Respiratory Exam Respiratory Exam: Decreased Breath Sounds - Cardiovascular Exam Cardiovascular Exam: REGULAR RHYTHM, +S1, +S2 - GI/Abdominal Exam GI & Abdominal Exam: Soft, Diminished Bowel Sounds - Rectal Exam Rectal Exam: Deferred - Neurological Exam Neurological Exam: Alert, Awake, Oriented x3 Assessment and Plan (1) Chest pain Status: Acute (2) Abdominal cramps Status: Acute (3) Abdominal pain in female Status: Acute (4) Acute bronchitis Status: Acute (5) Acute gastroenteritis Status: Acute (6) Anemia Status: Acute (7) Arm pain, left Status: Acute (8) Arthritis Status: Acute (9) Atypical chest pain Status: Acute (10) Body aches Status: Acute (11) Bradycardia Status: Acute (12) COPD (chronic obstructive pulmonary disease) Status: Acute (13) Chest discomfort Status: Acute (14) Chest pain at rest Status: Acute (15) Chest wall discomfort Status: Acute (16) Chest wall pain Status: Acute (17) Chronic abdominal pain Status: Acute (18) Chronic anemia Status: Acute (19) Chronic chest pain Status: Acute (20) Chronic pain Status: Acute (21) Chronic pain disorder Status: Acute (22) Common cold Status: Acute (23) Constipation Status: Acute (24) Constipation - functional Status: Acute (25) Contusion Status: Acute (26) DVT prophylaxis Status: Acute (27) Dehydration Status: Acute (28) Depressive disorder Status: Acute (29) Diarrhea Status: Acute (30) Diarrhea Status: Acute (31) Diarrhea with dehydration Status: Acute (32) Drug-seeking behavior Status: Acute (33) Dysmenorrhea Status: Acute (34) Dyspnea Status: Acute (35) Encounter for medical screening examination Status: Acute (36) Enteritis Status: Acute (37) Exacerbation of multiple sclerosis Status: Acute (38) Flu-like symptoms Status: Acute (39) Fracture of finger of right hand Status: Acute (40) Gastroenteritis Status: Acute (41) Generalized pruritus Status: Acute (42) Generalized weakness Status: Acute (43) H/O TIA (transient ischemic attack) and stroke Status: Acute (44) History of CVA (cerebrovascular accident) Status: Acute (45) Hypercalcemia Status: Acute (46) Hyperlipidemia Status: Acute (47) Hyperparathyroidism Status: Acute (48) Hypertension Status: Acute (49) Hypokalemia Status: Acute (50) Influenza Status: Acute (51) Influenza-like illness Status: Acute (52) Iron deficiency anemia Status: Acute (53) Knee injury Status: Acute (54) Knee pain Status: Acute (55) LVH (left ventricular hypertrophy) Status: Acute (56) Left arm numbness Status: Acute (57) Leukocytopenia Status: Acute (58) Low back pain Status: Acute (59) Malingering Status: Acute (60) Moderate major depression Status: Acute (61) Moderate recurrent major depression Status: Acute (62) Mononucleosis syndrome Status: Acute (63) Multiple somatic complaints Status: Acute (64) Muscle ache Status: Acute (65) Muscle pain Status: Acute (66) Muscle strain Status: Acute (67) Myalgia Status: Acute (68) Narcotic dependence Status: Acute (69) Nausea Status: Acute (70) Non-cardiac chest pain Status: Acute (71) Pain Status: Acute (72) Pleural effusion Status: Acute (73) Pleuritic pain Status: Acute (74) Pneumonia Status: Acute (75) Precordial pain Status: Acute (76) Prophylactic measure Status: Acute (77) Sprain of shoulder, right Status: Acute (78) Symptomatic anemia Status: Acute (79) UTI (urinary tract infection) Status: Acute (80) Upper respiratory infection Status: Acute (81) Viral syndrome Status: Acute (82) Vomiting Status: Acute (83) Anemia Status: Chronic (84) Bronchial asthma Status: Chronic (85) Cerebral palsy Status: Chronic (86) Chest pain Status: Chronic (87) Diabetes mellitus Status: Chronic (88) History of CVA with residual deficit Status: Chronic (89) Multiple sclerosis Status: Chronic (90) Uncontrolled hypertension Status: Chronic (91) Hypovitaminosis D Status: Suspected (92) Abdominal pain Status: Resolved (93) Chest pain Status: Resolved - Assessment and Plan (Free Text) Plan: 1. Chest pain - numerous admissions for same complaint - Troponin x 2 negative - Cardiology, Dr. Huber is consulted. Per cardiology, [place] is ruled out. - Echo 07/2017: Normal LVEF, LVH and grade 1 DD -continue losartan 100mg PO daily -continue asa 325 mg daily, plavix 75 mg po qd -continue motrin bid prn -continue toprol xl 25 daily -continue crestor 10 daily -Nitro SV prn 2. Shortness of breath -continue ventolin inhaler -singulair 10 daily 3. hx of HTN -continue losartan 100mg daily -continue amlodipine 10 mg po daily -toporol xl 25mg daily 4. hx of CVA/mental slowing and delay since childhood -no acute intervention -ASA 81mg daily -Plavix 75 mg po qd -continue crestor 10mg qhs 7. hx of cereral palsy -no acute intervention 8. GI/DVT -protonix daily -lovenox 40mg sc daily awaiting authorization for placement to residential center
[2017-10-09] MEDS: Albuterol HFA 90 mcg/actuation (8 g) INH SCH ×5 (03:07→20:14)
[2017-10-09 09:39] LABS: BASO % 0.3 % (0.0-2.0); EOS # 0.1 K/uL (0.0-0.7); HEMOGLOBIN 11.5 g/dL (11.0-16.0); LYMPH # 1.4 K/uL (1.0-4.3); LYMPH % 23.9 % (20.0-40.0); MEAN CELL VOLUME 85.5 fL (81.0-99.0); MEAN CORPUSCULAR HEMOGLOBIN 26.6 pg (27.0-31.0); MEAN CORPUSCULAR HGB CONC 31.1 g/dL (33.0-37.0); MEAN PLATELET VOLUME 8.8 fL (7.2-11.7); MONO # 0.5 K/uL (0.0-0.8); MONO % 8.9 % (0.0-10.0); NEUT # 3.7 K/uL (1.8-7.0); NEUT % 65.9 % (50.0-75.0); NRBC % 0.1 % (0.0-2.0); RBC 4.32 Mil/uL (3.80-5.20); WHITE BLOOD COUNT 5.6 K/uL (4.8-10.8)
[2017-10-09 09:45] LABS: ALB/GLOB RATIO 0.9 (1.0-2.1); ALBUMIN 3.9 g/dL (3.5-5.0); ALT/SGPT 11 U/L (9-52); AST/SGOT 26 U/L (14-36); BLOOD UREA NITROGEN 22 mg/dL (7-17); CALCIUM 11.2 mg/dl (8.6-10.4); GFR AFRICAN-AMERICAN > 60; GFR NON-AFRICAN AMERICAN > 60
[2017-10-09] MEDS: Metoprolol Succinate 25 mg XL Tab PO SCH (09:51)
[2017-10-09] MEDS: Pantoprazole 40 mg EC Tab PO SCH (09:51)
[2017-10-09] MEDS: Enoxaparin 40 mg Syringe SC SCH (09:52)
--- NOTE | 2017-10-09 11:18 | CP.PCM.PN ---
<Leona Lopez - Last Filed: 10/09/17 14:44> Subjective - Date & Time of Evaluation Date of Evaluation: 10/09/17 Time of Evaluation: 11:14 - Subjective Subjective: PGY2 progress note for Dr. Corley Pt seen and examined at bedside. No acute events overnight. Pt denies having any CP, SOB, abd pain, N/V/D/C. Pt is tolerating PO intake. Objective - Vital Signs/Intake and Output Vital Signs (last 24 hours): Temp Pulse Resp BP Pulse Ox 97.6 F 75 20 157/88 H 97 10/09/17 07:35 10/09/17 09:51 10/09/17 07:35 10/09/17 09:51 10/09/17 09:51 Intake and Output: 10/09/17 10/09/17 06:59 18:59 Intake Total 300 Balance 300 - Medications Medications: Current Medications Albuterol (Ventolin Hfa 90 Mcg/Actuation (8 G)) 2 puff INH RQ4 [facility] Last Admin: 10/09/17 07:04 Dose: Not Given Amlodipine Besylate (Norvasc) 10 mg PO DAILY [facility] Last Admin: 10/09/17 09:51 Dose: 10 mg Aspirin (Aspirin) 325 mg PO DAILY [facility] Last Admin: 10/09/17 09:51 Dose: 325 mg Clopidogrel Bisulfate (Plavix) 75 mg PO DAILY [facility] Last Admin: 10/09/17 09:51 Dose: 75 mg Enoxaparin Sodium (Lovenox) 40 mg SC DAILY [facility] Last Admin: 10/09/17 09:52 Dose: Not Given Ergocalciferol (Drisdol 50,000 Intl Units Cap) 1 cap PO QWK [facility] Last Admin: 10/06/17 10:15 Dose: 1 cap Ibuprofen (Motrin Tab) 600 mg PO Q8 PRN PRN Reason: Pain, moderate (4-7) Last Admin: 10/09/17 10:01 Dose: 600 mg Losartan Potassium (Cozaar) 100 mg PO DAILY [facility] Last Admin: 10/09/17 09:51 Dose: 100 mg Metoprolol Succinate (Toprol Xl) 25 mg PO DAILY [facility] Last Admin: 10/09/17 09:51 Dose: 25 mg Montelukast Sodium (Singulair) 10 mg PO HS [facility] Last Admin: 10/08/17 21:27 Dose: 10 mg Nitroglycerin (Nitrostat Sl Tab) 0.4 mg SL Q5MIN PRN PRN Reason: chest pain Pantoprazole Sodium (Protonix Ec Tab) 40 mg PO DAILY [facility] Last Admin: 10/09/17 09:51 Dose: 40 mg Rosuvastatin Calcium (Crestor) 10 mg PO HS [facility] Last Admin: 10/08/17 21:27 Dose: 10 mg - Labs Labs: 10/09/17 09:26 10/09/17 09:26 PT 12.6 SECONDS (9.7-12.2) H 10/05/17 22:34 INR 1.1 10/05/17 22:34 APTT 26 SECONDS (21-34) 10/05/17 22:34 - Constitutional Appears: Non-toxic, No Acute Distress - Head Exam Head Exam: ATRAUMATIC - ENT Exam ENT Exam: Mucous Membranes Moist - Respiratory Exam Respiratory Exam: Accessory Muscle Use, Clear to Ausculation Bilateral, NORMAL BREATHING PATTERN. absent: Rales, Rhonchi, Wheezes - Cardiovascular Exam Cardiovascular Exam: REGULAR RHYTHM, +S1, +S2. absent: Gallop, Rubs, Murmur - GI/Abdominal Exam GI & Abdominal Exam: Soft, Normal Bowel Sounds. absent: Distended, Firm, Guarding, Rigid, Tenderness, Organomegaly - Neurological Exam Neurological Exam: Alert, Awake, Oriented x3 - Psychiatric Exam Psychiatric exam: Normal Affect, Normal Mood - Skin Skin Exam: Dry, Intact, Normal Color, Warm Assessment and Plan - Assessment and Plan (Free Text) Assessment: 1. Chest pain - numerous admissions for same complaint - Troponin x 2 negative - Cardiology, Dr. Huber is consulted. Per cardiology, [place] is ruled out. - Echo 07/2017: Normal LVEF, LVH and grade 1 DD -continue losartan 100mg PO daily -continue asa 325 mg daily, plavix 75 mg po qd -continue motrin bid prn -continue toprol xl 25 daily -continue crestor 10 daily -Nitro SV prn 2. Shortness of breath -continue ventolin inhaler -singulair 10 daily 3. hx of HTN -continue losartan 100mg daily -continue amlodipine 10 mg po daily -toporol xl 25mg daily 4. hx of CVA/mental slowing and delay since childhood -no acute intervention -ASA 81mg daily -Plavix 75 mg po qd -continue crestor 10mg qhs 7. hx of cereral palsy -no acute intervention 8. GI/DVT -protonix daily -lovenox 40mg sc daily Dispo: [facility] for a [facility] Case discussed with Dr. Corley. All management as per Dr. Corley. <Ranulfo Corley - Last Filed: 10/09/17 19:53> Objective - Vital Signs/Intake and Output Vital Signs (last 24 hours): Temp Pulse Resp BP Pulse Ox 97.7 F 73 20 122/67 97 10/09/17 16:18 10/09/17 18:54 10/09/17 16:18 10/09/17 18:54 10/09/17 16:18 Intake and Output: 10/09/17 10/10/17 18:59 06:59 Intake Total 1010 Balance 1010 - Medications Medications: Current Medications Albuterol (Ventolin Hfa 90 Mcg/Actuation (8 G)) 2 puff INH RQ4 [facility] Last Admin: 10/09/17 16:50 Dose: 2 puff Amlodipine Besylate (Norvasc) 10 mg PO DAILY [facility] Last Admin: 10/09/17 09:51 Dose: 10 mg Aspirin (Aspirin) 325 mg PO DAILY [facility] Last Admin: 10/09/17 09:51 Dose: 325 mg Clopidogrel Bisulfate (Plavix) 75 mg PO DAILY [facility] Last Admin: 10/09/17 09:51 Dose: 75 mg Enoxaparin Sodium (Lovenox) 40 mg SC DAILY [facility] Last Admin: 10/09/17 09:52 Dose: Not Given Ergocalciferol (Drisdol 50,000 Intl Units Cap) 1 cap PO QWK [facility] Last Admin: 10/06/17 10:15 Dose: 1 cap Ibuprofen (Motrin Tab) 600 mg PO Q8 PRN PRN Reason: Pain, moderate (4-7) Last Admin: 10/09/17 10:01 Dose: 600 mg Losartan Potassium (Cozaar) 100 mg PO DAILY [facility] Last Admin: 10/09/17 09:51 Dose: 100 mg Metoprolol Succinate (Toprol Xl) 25 mg PO DAILY [facility] Last Admin: 10/09/17 09:51 Dose: 25 mg Montelukast Sodium (Singulair) 10 mg PO HS [facility] Last Admin: 10/08/17 21:27 Dose: 10 mg Nitroglycerin (Nitrostat Sl Tab) 0.4 mg SL Q5MIN PRN PRN Reason: chest pain Pantoprazole Sodium (Protonix Ec Tab) 40 mg PO DAILY [facility] Last Admin: 10/09/17 09:51 Dose: 40 mg Rosuvastatin Calcium (Crestor) 10 mg PO HS [facility] Last Admin: 10/08/17 21:27 Dose: 10 mg - Labs Labs: 10/09/17 09:26 10/09/17 09:26 PT 12.6 SECONDS (9.7-12.2) H 10/05/17 22:34 INR 1.1 10/05/17 22:34 APTT 26 SECONDS (21-34) 10/05/17 22:34 Attending/Attestation - Attestation I have personally seen and examined this patient.: Yes I have fully participated in the care of the patient.: Yes I have reviewed all pertinent clinical information, including history, physical exam and plan: Yes Notes (Text): case seen and d.w staff and resident, concurred with finding and management..
--- NOTE | 2017-10-09 18:38 | CP.PCM.PN ---
Subjective - Date & Time of Evaluation Date of Evaluation: 10/09/17 Time of Evaluation: 08:20 - Subjective Subjective: clinically same s/p cardio Dr Huber - [place] ruled out denies chest pain or sob d/c planning in progress Objective - Vital Signs/Intake and Output Vital Signs (last 24 hours): Temp Pulse Resp BP Pulse Ox 97.7 F 74 20 153/83 H 97 10/09/17 16:18 10/09/17 16:18 10/09/17 16:18 10/09/17 16:18 10/09/17 16:18 Intake and Output: 10/09/17 10/09/17 06:59 18:59 Intake Total 300 710 Balance 300 710 - Medications Medications: Current Medications Albuterol (Ventolin Hfa 90 Mcg/Actuation (8 G)) 2 puff INH RQ4 [facility] Last Admin: 10/09/17 16:50 Dose: 2 puff Amlodipine Besylate (Norvasc) 10 mg PO DAILY [facility] Last Admin: 10/09/17 09:51 Dose: 10 mg Aspirin (Aspirin) 325 mg PO DAILY [facility] Last Admin: 10/09/17 09:51 Dose: 325 mg Clopidogrel Bisulfate (Plavix) 75 mg PO DAILY [facility] Last Admin: 10/09/17 09:51 Dose: 75 mg Enoxaparin Sodium (Lovenox) 40 mg SC DAILY [facility] Last Admin: 10/09/17 09:52 Dose: Not Given Ergocalciferol (Drisdol 50,000 Intl Units Cap) 1 cap PO QWK [facility] Last Admin: 10/06/17 10:15 Dose: 1 cap Ibuprofen (Motrin Tab) 600 mg PO Q8 PRN PRN Reason: Pain, moderate (4-7) Last Admin: 10/09/17 10:01 Dose: 600 mg Losartan Potassium (Cozaar) 100 mg PO DAILY [facility] Last Admin: 10/09/17 09:51 Dose: 100 mg Metoprolol Succinate (Toprol Xl) 25 mg PO DAILY [facility] Last Admin: 10/09/17 09:51 Dose: 25 mg Montelukast Sodium (Singulair) 10 mg PO HS [facility] Last Admin: 10/08/17 21:27 Dose: 10 mg Nitroglycerin (Nitrostat Sl Tab) 0.4 mg SL Q5MIN PRN PRN Reason: chest pain Pantoprazole Sodium (Protonix Ec Tab) 40 mg PO DAILY [facility] Last Admin: 10/09/17 09:51 Dose: 40 mg Rosuvastatin Calcium (Crestor) 10 mg PO HS [facility] Last Admin: 10/08/17 21:27 Dose: 10 mg - Labs Labs: 10/09/17 09:26 10/09/17 09:26 PT 12.6 SECONDS (9.7-12.2) H 10/05/17 22:34 INR 1.1 10/05/17 22:34 APTT 26 SECONDS (21-34) 10/05/17 22:34 - Constitutional Appears: Well - Head Exam Head Exam: ATRAUMATIC, NORMAL INSPECTION, NORMOCEPHALIC - Eye Exam Eye Exam: EOMI, Normal appearance, PERRL Pupil Exam: NORMAL ACCOMODATION, PERRL - ENT Exam ENT Exam: Mucous Membranes Moist, Normal Exam - Neck Exam Neck Exam: Full ROM, Normal Inspection. absent: Lymphadenopathy - Respiratory Exam Respiratory Exam: Decreased Breath Sounds - Cardiovascular Exam Cardiovascular Exam: REGULAR RHYTHM, +S1, +S2 - GI/Abdominal Exam GI & Abdominal Exam: Soft, Diminished Bowel Sounds - Rectal Exam Rectal Exam: Deferred - Neurological Exam Neurological Exam: Alert, Awake, Oriented x3 Assessment and Plan (1) Chest pain Status: Acute (2) Abdominal cramps Status: Acute (3) Abdominal pain in female Status: Acute (4) Acute bronchitis Status: Acute (5) Acute gastroenteritis Status: Acute (6) Anemia Status: Acute (7) Arm pain, left Status: Acute (8) Arthritis Status: Acute (9) Atypical chest pain Status: Acute (10) Body aches Status: Acute (11) Bradycardia Status: Acute (12) COPD (chronic obstructive pulmonary disease) Status: Acute (13) Chest discomfort Status: Acute (14) Chest pain at rest Status: Acute (15) Chest wall discomfort Status: Acute (16) Chest wall pain Status: Acute (17) Chronic abdominal pain Status: Acute (18) Chronic anemia Status: Acute (19) Chronic chest pain Status: Acute (20) Chronic pain Status: Acute (21) Chronic pain disorder Status: Acute (22) Common cold Status: Acute (23) Constipation Status: Acute (24) Constipation - functional Status: Acute (25) Contusion Status: Acute (26) DVT prophylaxis Status: Acute (27) Dehydration Status: Acute (28) Depressive disorder Status: Acute (29) Diarrhea Status: Acute (30) Diarrhea Status: Acute (31) Diarrhea with dehydration Status: Acute (32) Drug-seeking behavior Status: Acute (33) Dysmenorrhea Status: Acute (34) Dyspnea Status: Acute (35) Encounter for medical screening examination Status: Acute (36) Enteritis Status: Acute (37) Exacerbation of multiple sclerosis Status: Acute (38) Flu-like symptoms Status: Acute (39) Fracture of finger of right hand Status: Acute (40) Gastroenteritis Status: Acute (41) Generalized pruritus Status: Acute (42) Generalized weakness Status: Acute (43) H/O TIA (transient ischemic attack) and stroke Status: Acute (44) History of CVA (cerebrovascular accident) Status: Acute (45) Hypercalcemia Status: Acute (46) Hyperlipidemia Status: Acute (47) Hyperparathyroidism Status: Acute (48) Hypertension Status: Acute (49) Hypokalemia Status: Acute (50) Influenza Status: Acute (51) Influenza-like illness Status: Acute (52) Iron deficiency anemia Status: Acute (53) Knee injury Status: Acute (54) Knee pain Status: Acute (55) LVH (left ventricular hypertrophy) Status: Acute (56) Left arm numbness Status: Acute (57) Leukocytopenia Status: Acute (58) Low back pain Status: Acute (59) Malingering Status: Acute (60) Moderate major depression Status: Acute (61) Moderate recurrent major depression Status: Acute (62) Mononucleosis syndrome Status: Acute (63) Multiple somatic complaints Status: Acute (64) Muscle ache Status: Acute (65) Muscle pain Status: Acute (66) Muscle strain Status: Acute (67) Myalgia Status: Acute (68) Narcotic dependence Status: Acute (69) Nausea Status: Acute (70) Non-cardiac chest pain Status: Acute (71) Pain Status: Acute (72) Pleural effusion Status: Acute (73) Pleuritic pain Status: Acute (74) Pneumonia Status: Acute (75) Precordial pain Status: Acute (76) Prophylactic measure Status: Acute (77) Sprain of shoulder, right Status: Acute (78) Symptomatic anemia Status: Acute (79) UTI (urinary tract infection) Status: Acute (80) Upper respiratory infection Status: Acute (81) Viral syndrome Status: Acute (82) Vomiting Status: Acute (83) Anemia Status: Chronic (84) Bronchial asthma Status: Chronic (85) Cerebral palsy Status: Chronic (86) Chest pain Status: Chronic (87) Diabetes mellitus Status: Chronic (88) History of CVA with residual deficit Status: Chronic (89) Multiple sclerosis Status: Chronic (90) Uncontrolled hypertension Status: Chronic (91) Hypovitaminosis D Status: Suspected (92) Abdominal pain Status: Resolved (93) Chest pain Status: Resolved - Assessment and Plan (Free Text) Plan: 1. Chest pain - numerous admissions for same complaint - Troponin x 2 negative - Cardiology, Dr. Huber is consulted. Per cardiology, [place] is ruled out. - Echo 07/2017: Normal LVEF, LVH and grade 1 DD -continue losartan 100mg PO daily -continue asa 325 mg daily, plavix 75 mg po qd -continue motrin bid prn -continue toprol xl 25 daily -continue crestor 10 daily -Nitro SV prn 2. Shortness of breath -continue ventolin inhaler -singulair 10 daily 3. hx of HTN -continue losartan 100mg daily -continue amlodipine 10 mg po daily -toporol xl 25mg daily 4. hx of CVA/mental slowing and delay since childhood -no acute intervention -ASA 81mg daily -Plavix 75 mg po qd -continue crestor 10mg qhs 7. hx of cereral palsy -no acute intervention 8. GI/DVT -protonix daily -lovenox 40mg sc daily [facility] d/c planning case d/w with staff
--- NOTE | 2017-10-09 19:25 | PN ---
DATE: 10/09/2017 SUBJECTIVE: The patient denies any chest pain or shortness of breath. PHYSICAL EXAMINATION: VITAL SIGNS: Blood pressure 157/88, pulse 75, temperature is 97.6, respirations 20. HEENT: Normocephalic. CHEST: Clear. HEART: S1 and S2 regular. EXTREMITIES: No edema. LABORATORY DATA: Today's hemoglobin and hematocrit, white count, and platelet count are within normal limits. Today's BUN and creatinine are 22 and 0.6 respectively. The rest of the SMA-7 is within normal limits. Calcium is elevated at 11.2. ASSESSMENT: 1. Chest pain, myocardial infarction is ruled out. 2. Hypercalcemia. 3. Cerebral palsy. RECOMMENDATIONS: Continue current aspirin, Cozaar, Crestor, subcutaneous Lovenox, Plavix, and Toprol-XL. Consider workup for hyperglycemia including skeletal survey as well as parathormone assay. Obed Huber MD
[2017-10-10] MEDS: Albuterol HFA 90 mcg/actuation (8 g) INH SCH ×4 (01:34→20:15)
--- NOTE | 2017-10-10 07:39 | CP.PCM.PN ---
Subjective - Date & Time of Evaluation Date of Evaluation: 10/10/17 Time of Evaluation: 08:00 - Subjective Subjective: PGY2 progress note for Dr. Corley Pt seen and examined at bedside. No acute events overnight. Pt denies having any CP, SOB, abd pain, N/V/D/C. Pt is tolerating PO intake. Objective - Vital Signs/Intake and Output Vital Signs (last 24 hours): Temp Pulse Resp BP Pulse Ox 98.2 F 77 20 114/70 100 10/09/17 23:00 10/09/17 23:00 10/09/17 23:00 10/09/17 23:00 10/09/17 23:00 - Medications Medications: Current Medications Albuterol (Ventolin Hfa 90 Mcg/Actuation (8 G)) 2 puff INH RQ4 [facility] Last Admin: 10/10/17 01:34 Dose: Not Given Amlodipine Besylate (Norvasc) 10 mg PO DAILY [facility] Last Admin: 10/09/17 09:51 Dose: 10 mg Aspirin (Aspirin) 325 mg PO DAILY [facility] Last Admin: 10/09/17 09:51 Dose: 325 mg Clopidogrel Bisulfate (Plavix) 75 mg PO DAILY [facility] Last Admin: 10/09/17 09:51 Dose: 75 mg Enoxaparin Sodium (Lovenox) 40 mg SC DAILY [facility] Last Admin: 10/09/17 09:52 Dose: Not Given Ergocalciferol (Drisdol 50,000 Intl Units Cap) 1 cap PO QWK [facility] Last Admin: 10/06/17 10:15 Dose: 1 cap Ibuprofen (Motrin Tab) 600 mg PO Q8 PRN PRN Reason: Pain, moderate (4-7) Last Admin: 10/09/17 21:24 Dose: 600 mg Losartan Potassium (Cozaar) 100 mg PO DAILY [facility] Last Admin: 10/09/17 09:51 Dose: 100 mg Metoprolol Succinate (Toprol Xl) 25 mg PO DAILY [facility] Last Admin: 10/09/17 09:51 Dose: 25 mg Montelukast Sodium (Singulair) 10 mg PO HS [facility] Last Admin: 10/09/17 21:21 Dose: 10 mg Nitroglycerin (Nitrostat Sl Tab) 0.4 mg SL Q5MIN PRN PRN Reason: chest pain Pantoprazole Sodium (Protonix Ec Tab) 40 mg PO DAILY [facility] Last Admin: 10/09/17 09:51 Dose: 40 mg Rosuvastatin Calcium (Crestor) 10 mg PO HS [facility] Last Admin: 10/09/17 21:21 Dose: 10 mg - Labs Labs: 10/09/17 09:26 10/09/17 09:26 PT 12.6 SECONDS (9.7-12.2) H 10/05/17 22:34 INR 1.1 10/05/17 22:34 APTT 26 SECONDS (21-34) 10/05/17 22:34 - Constitutional Appears: Non-toxic, No Acute Distress - Head Exam Head Exam: NORMAL INSPECTION - Eye Exam Pupil Exam: NORMAL ACCOMODATION - ENT Exam ENT Exam: Mucous Membranes Moist - Respiratory Exam Respiratory Exam: Clear to Ausculation Bilateral, NORMAL BREATHING PATTERN. absent: Respiratory Distress - Cardiovascular Exam Cardiovascular Exam: REGULAR RHYTHM, +S1, +S2 - GI/Abdominal Exam GI & Abdominal Exam: Soft, Normal Bowel Sounds. absent: Distended, Firm, Guarding, Tenderness - Extremities Exam Extremities Exam: Normal Inspection - Back Exam Back Exam: NORMAL INSPECTION Assessment and Plan - Assessment and Plan (Free Text) Assessment: 1. Chest pain - numerous admissions for same complaint - Troponin x 2 negative - Cardiology, Dr. Huber is consulted. Per cardiology, LA is ruled out. - Echo 07/2017: Normal LVEF, LVH and grade 1 DD -continue losartan 100mg PO daily -continue asa 325 mg daily, plavix 75 mg po qd -continue motrin bid prn -continue toprol xl 25 daily -continue crestor 10 daily -Nitro SV prn 2. Shortness of breath -continue ventolin inhaler -singulair 10 daily 3. hx of HTN -continue losartan 100mg daily -continue amlodipine 10 mg po daily -toporol xl 25mg daily 4. hx of CVA/mental slowing and delay since childhood -no acute intervention -ASA 81mg daily -Plavix 75 mg po qd -continue crestor 10mg qhs 7. hx of cereral palsy -no acute intervention 8. 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 Corley. All management as per Dr. Corley.
[2017-10-10 08:16] LABS: BASO % 0.6 % (0.0-2.0); EOS # 0.1 K/uL (0.0-0.7); EOS % 1.3 % (0.0-4.0); HEMOGLOBIN 10.5 g/dL (11.0-16.0); LYMPH # 1.3 K/uL (1.0-4.3); LYMPH % 33.7 % (20.0-40.0); MEAN CELL VOLUME 83.6 fL (81.0-99.0); MEAN CORPUSCULAR HEMOGLOBIN 26.3 pg (27.0-31.0); MEAN CORPUSCULAR HGB CONC 31.5 g/dL (33.0-37.0); MEAN PLATELET VOLUME 8.7 fL (7.2-11.7); MONO # 0.5 K/uL (0.0-0.8); MONO % 11.8 % (0.0-10.0); NEUT # 2.1 K/uL (1.8-7.0); NEUT % 52.6 % (50.0-75.0); RBC 3.98 Mil/uL (3.80-5.20); RED CELL DISTRIBUTION WIDTH 14.7 % (11.5-14.5)
[2017-10-10 08:31] LABS: ALBUMIN 3.7 g/dL (3.5-5.0); ALT/SGPT 11 U/L (9-52); AST/SGOT 23 U/L (14-36); BLOOD UREA NITROGEN 20 mg/dL (7-17); CALCIUM 10.7 mg/dl (8.6-10.4); GFR AFRICAN-AMERICAN > 60; GFR NON-AFRICAN AMERICAN > 60
[2017-10-10] MEDS: Metoprolol Succinate 25 mg XL Tab PO SCH (09:32)
[2017-10-10] MEDS: Pantoprazole 40 mg EC Tab PO SCH (09:32)
[2017-10-10] MEDS: Enoxaparin 40 mg Syringe SC SCH (09:33)
--- NOTE | 2017-10-10 13:07 | CP.PCM.PN ---
Subjective - Date & Time of Evaluation Date of Evaluation: 10/10/17 Time of Evaluation: 07:40 - Subjective Subjective: clinically same Objective - Vital Signs/Intake and Output Vital Signs (last 24 hours): Temp Pulse Resp BP Pulse Ox 97.9 F 56 L 20 151/78 H 95 10/10/17 07:45 10/10/17 07:45 10/10/17 07:45 10/10/17 07:45 10/10/17 07:45 - Medications Medications: Current Medications Albuterol (Ventolin Hfa 90 Mcg/Actuation (8 G)) 2 puff INH RQ4 [facility] Last Admin: 10/10/17 08:12 Dose: Not Given Amlodipine Besylate (Norvasc) 10 mg PO DAILY [facility] Last Admin: 10/10/17 09:32 Dose: 10 mg Aspirin (Aspirin) 325 mg PO DAILY [facility] Last Admin: 10/10/17 09:32 Dose: 325 mg Clopidogrel Bisulfate (Plavix) 75 mg PO DAILY [facility] Last Admin: 10/10/17 09:32 Dose: 75 mg Enoxaparin Sodium (Lovenox) 40 mg SC DAILY [facility] Last Admin: 10/10/17 09:33 Dose: 40 mg Ergocalciferol (Drisdol 50,000 Intl Units Cap) 1 cap PO QWK [facility] Last Admin: 10/06/17 10:15 Dose: 1 cap Ibuprofen (Motrin Tab) 600 mg PO Q8 PRN PRN Reason: Pain, moderate (4-7) Last Admin: 10/10/17 09:35 Dose: 600 mg Losartan Potassium (Cozaar) 100 mg PO DAILY [facility] Last Admin: 10/10/17 09:32 Dose: 100 mg Metoprolol Succinate (Toprol Xl) 25 mg PO DAILY [facility] Last Admin: 10/10/17 09:32 Dose: 25 mg Montelukast Sodium (Singulair) 10 mg PO HS [facility] Last Admin: 10/09/17 21:21 Dose: 10 mg Nitroglycerin (Nitrostat Sl Tab) 0.4 mg SL Q5MIN PRN PRN Reason: chest pain Pantoprazole Sodium (Protonix Ec Tab) 40 mg PO DAILY [facility] Last Admin: 10/10/17 09:32 Dose: 40 mg Rosuvastatin Calcium (Crestor) 10 mg PO HS [facility] Last Admin: 10/09/17 21:21 Dose: 10 mg - Labs Labs: 10/10/17 08:02 10/10/17 08:02 PT 12.6 SECONDS (9.7-12.2) H 10/05/17 22:34 INR 1.1 10/05/17 22:34 APTT 26 SECONDS (21-34) 10/05/17 22:34 - Constitutional Appears: Well - Head Exam Head Exam: ATRAUMATIC, NORMAL INSPECTION, NORMOCEPHALIC - Eye Exam Eye Exam: EOMI, Normal appearance, PERRL Pupil Exam: NORMAL ACCOMODATION, PERRL - ENT Exam ENT Exam: Mucous Membranes Moist, Normal Exam - Neck Exam Neck Exam: Full ROM, Normal Inspection. absent: Lymphadenopathy - Respiratory Exam Respiratory Exam: Decreased Breath Sounds - Cardiovascular Exam Cardiovascular Exam: REGULAR RHYTHM, +S1, +S2 - GI/Abdominal Exam GI & Abdominal Exam: Soft, Diminished Bowel Sounds - Rectal Exam Rectal Exam: Deferred Assessment and Plan (1) Chest pain Status: Acute (2) Abdominal cramps Status: Acute (3) Abdominal pain in female Status: Acute (4) Acute bronchitis Status: Acute (5) Acute gastroenteritis Status: Acute (6) Anemia Status: Acute (7) Arm pain, left Status: Acute (8) Arthritis Status: Acute (9) Atypical chest pain Status: Acute (10) Body aches Status: Acute (11) Bradycardia Status: Acute (12) COPD (chronic obstructive pulmonary disease) Status: Acute (13) Chest discomfort Status: Acute (14) Chest pain at rest Status: Acute (15) Chest wall discomfort Status: Acute (16) Chest wall pain Status: Acute (17) Chronic abdominal pain Status: Acute (18) Chronic anemia Status: Acute (19) Chronic chest pain Status: Acute (20) Chronic pain Status: Acute (21) Chronic pain disorder Status: Acute (22) Common cold Status: Acute (23) Constipation Status: Acute (24) Constipation - functional Status: Acute (25) Contusion Status: Acute (26) DVT prophylaxis Status: Acute (27) Dehydration Status: Acute (28) Depressive disorder Status: Acute (29) Diarrhea Status: Acute (30) Diarrhea Status: Acute (31) Diarrhea with dehydration Status: Acute (32) Drug-seeking behavior Status: Acute (33) Dysmenorrhea Status: Acute (34) Dyspnea Status: Acute (35) Encounter for medical screening examination Status: Acute (36) Enteritis Status: Acute (37) Exacerbation of multiple sclerosis Status: Acute (38) Flu-like symptoms Status: Acute (39) Fracture of finger of right hand Status: Acute (40) Gastroenteritis Status: Acute (41) Generalized pruritus Status: Acute (42) Generalized weakness Status: Acute (43) H/O TIA (transient ischemic attack) and stroke Status: Acute (44) History of CVA (cerebrovascular accident) Status: Acute (45) Hypercalcemia Status: Acute (46) Hyperlipidemia Status: Acute (47) Hyperparathyroidism Status: Acute (48) Hypertension Status: Acute (49) Hypokalemia Status: Acute (50) Influenza Status: Acute (51) Influenza-like illness Status: Acute (52) Iron deficiency anemia Status: Acute (53) Knee injury Status: Acute (54) Knee pain Status: Acute (55) LVH (left ventricular hypertrophy) Status: Acute (56) Left arm numbness Status: Acute (57) Leukocytopenia Status: Acute (58) Low back pain Status: Acute (59) Malingering Status: Acute (60) Moderate major depression Status: Acute (61) Moderate recurrent major depression Status: Acute (62) Mononucleosis syndrome Status: Acute (63) Multiple somatic complaints Status: Acute (64) Muscle ache Status: Acute (65) Muscle pain Status: Acute (66) Muscle strain Status: Acute (67) Myalgia Status: Acute (68) Narcotic dependence Status: Acute (69) Nausea Status: Acute (70) Non-cardiac chest pain Status: Acute (71) Pain Status: Acute (72) Pleural effusion Status: Acute (73) Pleuritic pain Status: Acute (74) Pneumonia Status: Acute (75) Precordial pain Status: Acute (76) Prophylactic measure Status: Acute (77) Sprain of shoulder, right Status: Acute (78) Symptomatic anemia Status: Acute (79) UTI (urinary tract infection) Status: Acute (80) Upper respiratory infection Status: Acute (81) Viral syndrome Status: Acute (82) Vomiting Status: Acute (83) Anemia Status: Chronic (84) Bronchial asthma Status: Chronic (85) Cerebral palsy Status: Chronic (86) Chest pain Status: Chronic (87) Diabetes mellitus Status: Chronic (88) History of CVA with residual deficit Status: Chronic (89) Multiple sclerosis Status: Chronic (90) Uncontrolled hypertension Status: Chronic (91) Hypovitaminosis D Status: Suspected
[2017-10-11] MEDS: Albuterol HFA 90 mcg/actuation (8 g) INH SCH ×4 (00:56→13:03)
--- NOTE | 2017-10-11 07:40 | PN ---
DATE: SUBJECTIVE: The patient denies chest pain or shortness of breath. PHYSICAL EXAMINATION: VITAL SIGNS: Blood pressure 151/78, heart rate 56, temperature 97.9, respiration 20. HEENT: Pale conjunctivae. CHEST: Clear. HEART: S1 and S2 regular. LABORATORY DATA: Hemoglobin and hematocrit are 10.5 and 33.3, white count 4, platelet count 219,000. SMA-7 is within normal limits except for BUN of 20. ASSESSMENT: 1. Chest pain, myocardial infarction is ruled out. 2. Cerebral palsy. 3. Mild anemia. 4. History of cerebrovascular disease with hemiplegia. RECOMMENDATIONS: Continue current conservative medical approach including aspirin, Cozaar, Crestor, prophylactic subcutaneous Lovenox, Plavix, Norvasc, Toprol XL. The patient is still awaiting acceptance in a group home who apparently refuses to receive her back. Obed Huber MD
--- NOTE | 2017-10-11 07:53 | CP.PCM.PN ---
Subjective - Date & Time of Evaluation Date of Evaluation: 10/11/17 Time of Evaluation: 07:00 - Subjective Subjective: PGY2 progress note for Dr. Corley Pt seen and examined at bedside. No acute events overnight. Pt denies having any CP, SOB, abd pain, N/V/D/C. Pt is tolerating PO intake. Objective - Vital Signs/Intake and Output Vital Signs (last 24 hours): Temp Pulse Resp BP Pulse Ox 97.3 F L 63 20 116/74 100 10/10/17 23:00 10/10/17 23:00 10/10/17 23:00 10/10/17 23:00 10/10/17 23:00 Intake and Output: 10/11/17 10/11/17 06:59 18:59 Intake Total 240 Balance 240 - Medications Medications: Current Medications Albuterol (Ventolin Hfa 90 Mcg/Actuation (8 G)) 2 puff INH RQ4 [facility] Last Admin: 10/11/17 07:41 Dose: Not Given Amlodipine Besylate (Norvasc) 10 mg PO DAILY [facility] Last Admin: 10/10/17 09:32 Dose: 10 mg Aspirin (Aspirin) 325 mg PO DAILY [facility] Last Admin: 10/10/17 09:32 Dose: 325 mg Clopidogrel Bisulfate (Plavix) 75 mg PO DAILY [facility] Last Admin: 10/10/17 09:32 Dose: 75 mg Enoxaparin Sodium (Lovenox) 40 mg SC DAILY [facility] Last Admin: 10/10/17 09:33 Dose: 40 mg Ergocalciferol (Drisdol 50,000 Intl Units Cap) 1 cap PO QWK [facility] Last Admin: 10/06/17 10:15 Dose: 1 cap Ibuprofen (Motrin Tab) 600 mg PO Q8 PRN PRN Reason: Pain, moderate (4-7) Last Admin: 10/10/17 21:13 Dose: 600 mg Losartan Potassium (Cozaar) 100 mg PO DAILY [facility] Last Admin: 10/10/17 09:32 Dose: 100 mg Metoprolol Succinate (Toprol Xl) 25 mg PO DAILY [facility] Last Admin: 10/10/17 09:32 Dose: 25 mg Montelukast Sodium (Singulair) 10 mg PO HS [facility] Last Admin: 10/10/17 21:11 Dose: 10 mg Nitroglycerin (Nitrostat Sl Tab) 0.4 mg SL Q5MIN PRN PRN Reason: chest pain Pantoprazole Sodium (Protonix Ec Tab) 40 mg PO DAILY [facility] Last Admin: 10/10/17 09:32 Dose: 40 mg Rosuvastatin Calcium (Crestor) 10 mg PO HS [facility] Last Admin: 10/10/17 21:11 Dose: 10 mg - Labs Labs: 10/10/17 08:02 10/10/17 08:02 PT 12.6 SECONDS (9.7-12.2) H 10/05/17 22:34 INR 1.1 10/05/17 22:34 APTT 26 SECONDS (21-34) 10/05/17 22:34 - Constitutional Appears: Non-toxic, No Acute Distress - Head Exam Head Exam: ATRAUMATIC, NORMAL INSPECTION - Eye Exam Eye Exam: Normal appearance Pupil Exam: NORMAL ACCOMODATION - ENT Exam ENT Exam: Mucous Membranes Moist - Respiratory Exam Respiratory Exam: Clear to Ausculation Bilateral, NORMAL BREATHING PATTERN. absent: Respiratory Distress - Cardiovascular Exam Cardiovascular Exam: REGULAR RHYTHM, +S1, +S2 - GI/Abdominal Exam GI & Abdominal Exam: Soft, Normal Bowel Sounds. absent: Distended, Firm, Guarding, Tenderness - Extremities Exam Extremities Exam: Normal Inspection - Back Exam Back Exam: NORMAL INSPECTION. absent: CVA tenderness (L), CVA tenderness (R), paraspinal tenderness - Neurological Exam Neurological Exam: Alert, Awake, Oriented x3 - Psychiatric Exam Psychiatric exam: Normal Affect, Normal Mood - Skin Skin Exam: Dry, Intact, Normal Color, Warm Assessment and Plan - Assessment and Plan (Free Text) Assessment: 1. Chest pain - Resolved - numerous admissions for same complaint - Troponin x 2 negative - Cardiology, Dr. Huber is consulted. Per cardiology, PR is ruled out. - Echo 07/2017: Normal LVEF, LVH and grade 1 DD -continue losartan 100mg PO daily -continue asa 325 mg daily, plavix 75 mg po qd -continue motrin bid prn -continue toprol xl 25 daily -continue crestor 10 daily -Nitro SV prn 2. Shortness of breath -continue ventolin inhaler -singulair 10 daily 3. hx of HTN -continue losartan 100mg daily -continue amlodipine 10 mg po daily -toporol xl 25mg daily 4. hx of CVA/mental slowing and delay since childhood -no acute intervention -ASA 81mg daily -Plavix 75 mg po qd -continue crestor 10mg qhs 7. hx of cereral palsy -no acute intervention 8. GI/DVT -protonix daily -lovenox 40mg sc daily Patient is stable for discharge home per Dr. Corley Patient is to follow up with PMD after discharge. Patient is also to follow up with do all operator upon discharge. referral for Dr. Huber is provided. Patient is to continue home medications as prescribed. Patient's medications were sent to [place] [facility], patient's preferred pharmacy. Please return to [facility] if symptoms worsen Case discussed with Dr. Corley. All management as per Dr. Corley.
[2017-10-11] MEDS: Enoxaparin 40 mg Syringe SC SCH (09:09)
[2017-10-11] MEDS: Pantoprazole 40 mg EC Tab PO SCH (09:09)
[2017-10-11] MEDS: Metoprolol Succinate 25 mg XL Tab PO SCH (09:09)
[2017-10-11 16:20] VITALS: BP 142/68; PULSE 88; RESP 18; TEMP 98.5; O2SAT 96
--- NOTE | 2017-10-11 22:27 | PN ---
DATE: 10/11/2017. SUBJECTIVE: The patient denies any chest pain or shortness of breath. PHYSICAL EXAMINATION: VITAL SIGNS: Blood pressure 142/68, heart rate 88, temperature 98.5 and respirations 18. HEENT: Pale conjunctivae. CHEST: Clear. HEART: S1 and S2, regular. LABORATORY DATA: Today's blood sugars are 71 and 117. ASSESSMENT: 1. Chest pain, myocardial infraction is rule out. 2. Cerebral palsy. 3. History of cerebrovascular accident. RECOMMENDATIONS: Continue current aspirin, Cozaar, Crestor, subcutaneous Lovenox, Norvasc, Plavix and Toprol-XL. The patient is awaiting transfer back to [facility] or atleast subacute rehab, if the [facility] is still refusing to accept her. Obed Huber MD
== END 2017-10-11 16:35 | disposition home or self-care (01) | DRG 143 ==
LOC: C.ER 21:21 → C.9E 22:47 → C.5S 10-06 00:14 → OBSVTOIN 10-08 13:06
PROVIDERS: ADMIT Internal Medicine Nephrology; ATTEND Internal Medicine Nephrology
DX: R07.89 Other chest pain (principal); E11.22 Type 2 diabetes mellitus with diabetic chronic kidney disease; I13.0 Hypertensive heart and chronic kidney disease with heart failure and stage 1 through stage 4 chronic kidney disease, or unspecified chronic kidney disease; I50.9 Heart failure, unspecified; E86.0 Dehydration; E87.6 Hypokalemia; F33.1 Major depressive disorder, recurrent, moderate; G35 Multiple sclerosis; J44.0 Chronic obstructive pulmonary disease with (acute) lower respiratory infection; N39.0 Urinary tract infection, site not specified; N18.9 Chronic kidney disease, unspecified; F11.20 Opioid dependence, uncomplicated; D50.9 Iron deficiency anemia, unspecified; E21.3 Hyperparathyroidism, unspecified; J11.1 Influenza due to unidentified influenza virus with other respiratory manifestations; E78.00 Pure hypercholesterolemia, unspecified; G20 Parkinson's disease; I69.954 Hemiplegia and hemiparesis following unspecified cerebrovascular disease affecting left non-dominant side; I25.10 Atherosclerotic heart disease of native coronary artery without angina pectoris; J20.9 Acute bronchitis, unspecified; K52.9 Noninfective gastroenteritis and colitis, unspecified; K59.00 Constipation, unspecified; L29.9 Pruritus, unspecified; Z76.5 Malingerer [conscious simulation]; R00.1 Bradycardia, unspecified; D72.819 Decreased white blood cell count, unspecified

== ENCOUNTER 2017-10-13 19:45 | Emergency (ER) | payer MEDICAID ==
[2017-10-13 19:45] VITALS: BMI 30.2
[2017-10-13 19:51] VITALS: RESP 16
--- NOTE | 2017-10-13 20:57 | C.PDOC ---
History Of Present Illness 47 y/o female presents to ED for complaints of bodyaches. Patient has many prior presentations for the same symptom. Patient was admitted from October 05- for chest discomfort. Extensive workup was all negative. Denies any other physical complaints. Time Seen by Provider: 10/13/17 19:55 Chief Complaint (Nursing): Chest Pain History Per: Patient History/Exam Limitations: no limitations Onset/Duration Of Symptoms: Hrs Current Symptoms Are (Timing): Still Present Associated Symptoms: denies: Nausea, Dyspnea Modifying Factors: None Exacerbating Factors: None Alleviating Factors: None Recent travel outside of the [place]: No Past Medical History Reviewed: Historical Data, Nursing Documentation, Vital Signs Vital Signs: Last Vital Signs Temp 99.0 F 10/13/17 19:50 Pulse 88 10/13/17 20:32 Resp 16 10/13/17 19:50 BP 148/91 H 10/13/17 20:32 Pulse Ox 99 10/13/17 20:57 - Medical History PMH: Anemia, Anxiety, Arthritis, Asthma, Bronchitis, CAD, CHF, COPD, CVA, Depression, Diabetes, Gastritis, Gastrointestinal Ulcer, HTN, Hypercholesterolemia, Hyperlipidemia, Hyperthyroidism, Kidney Stones, Multiple Sclerosis, Parkinson's Disease, Pneumonia, Chronic Kidney Disease, TIA Surgical History: Hernia Repair (Umbilical hernia repair) - [facility] Procedures CLOSURE SKIN & SUBCUTANEOUS NEC (01/07/13) ESOPHAGOGASTRODUODENOSCOPY [EGD] W/CLOSED BIOPSY (02/05/15) INJECT/INFUSE NEC (02/17/15) NEBULIZER THERAPY (06/20/13) PACKED CELL TRANSFUSION (01/28/15) REMOVAL OF INFUSION DEV FROM [employer], S[employer]IOR [employer]PORATE STRATEGY MANAGER APPROACH (12/02/16) TETANUS TOXOID ADMINIST (01/07/13) TRANSFUSE NONAUT RED BLOOD CELLS IN PERIPH VEIN, PERC (03/17/17) VACCINATION NEC (08/03/14) Family History: States: Unknown Family Hx - Social History Hx Tobacco Use: No Hx Alcohol Use: No Hx Substance Use: No - Immunization History Hx Tetanus Toxoid Vaccination: No Hx Influenza Vaccination: Yes Hx Pneumococcal Vaccination: No Review Of Systems Constitutional: Negative for: Fever, Chills Respiratory: Negative for: Cough, Shortness of Breath Gastrointestinal: Negative for: Nausea, Vomiting, Abdominal Pain, Diarrhea Musculoskeletal: Positive for: Other (bodyaches) Skin: Negative for: Rash Neurological: Negative for: Weakness, Numbness Physical Exam - Physical Exam Appears: Well, Non-toxic, No Acute Distress Skin: Normal Color, Warm, Dry Head: Atraumatic, Normacephalic Eye(s): bilateral: Normal Inspection, PERRL, EOMI Oral Mucosa: Moist Neck: Trachea Midline, Supple Chest: Symmetrical, No Tenderness Cardiovascular: Rhythm Regular Respiratory: Normal Breath Sounds, No Decreased Breath Sounds, No Rales, No Rhonchi, No Wheezing Gastrointestinal/Abdominal: Soft, No Tenderness Extremity: Normal ROM, No Tenderness Extremity: Bilateral: Normal Color And Temperature, Normal ROM Neurological/Psych: Oriented x3, Normal Speech, Normal Cognition Gait: Steady ED Course And Treatment O2 Sat by Pulse Oximetry: 99 (RA) Pulse Ox Interpretation: Normal Medical Decision Making Medical Decision Making: vague body pains h/o MANY prior evals for same. just admitted from 10/05- EKG: - Normal sinus rhythm at 57bpm - Spoke with Lacey Fernandez and he states patient is stable for discharge with normal EKG and no further workup at this time. Disposition Doctor Will See Patient In The: Office Counseled Patient/Family Regarding: Studies Performed, Diagnosis - Disposition Referrals: Ranulfo Corley MD [Staff Provider] - Disposition: HOME/ ROUTINE Disposition Time: 20:56 Condition: GOOD Additional Instructions: seek outpatient follow-up with your PMD EKG normal Instructions: Chronic Pain Forms: [facility] (Kinyarwanda) - Clinical Impression Clinical Impression: Drug-seeking behavior, Body aches - Scribe Statement The provider has reviewed the documentation as recorded by the Christina Castillo All medical record entries made by the Scribe were at my direction and personally dictated by me. I have reviewed the chart and agree that the record accurately reflects my personal performance of the history, physical exam, medical decision making, and the department course for this patient. I have also personally directed, reviewed, and agree with the discharge instructions and disposition.
[2017-10-13 22:07] VITALS: BP 150/90; PULSE 96; TEMP 98.6; O2SAT 98
== END 2017-10-13 23:52 | disposition home or self-care (01) ==
LOC: C.ER 19:45
DX: Z76.5 Malingerer [conscious simulation] (principal); R52 Pain, unspecified

== ENCOUNTER 2018-01-10 07:27 | Observation (INO) | payer MEDICAID ==
[2018-01-10 07:27] VITALS: BMI 30.2
[2018-01-10 08:12] LABS: BASO # 0.1 K/uL (0.0-0.2); EOS % 0.7 % (0.0-4.0); HEMOGLOBIN 10.6 g/dL (11.0-16.0); LYMPH # 1.1 K/uL (1.0-4.3); LYMPH % 18.5 % (20.0-40.0); MEAN CELL VOLUME 84.5 fL (81.0-99.0); MEAN CORPUSCULAR HEMOGLOBIN 27.2 pg (27.0-31.0); MEAN CORPUSCULAR HGB CONC 32.2 g/dL (33.0-37.0); MEAN PLATELET VOLUME 8.3 fL (7.2-11.7); MONO # 0.5 K/uL (0.0-0.8); MONO % 7.8 % (0.0-10.0); NEUT # 4.5 K/uL (1.8-7.0); RBC 3.88 Mil/uL (3.80-5.20); RED CELL DISTRIBUTION WIDTH 15.4 % (11.5-14.5)
[2018-01-10 08:13] LABS: WHITE BLOOD COUNT 6.2 K/uL (4.8-10.8)
[2018-01-10 08:36] LABS: ALB/GLOB RATIO 1.3 (1.0-2.1); ALBUMIN 4.1 g/dL (3.5-5.0); ALT/SGPT 31 U/L (9-52); AST/SGOT 29 U/L (14-36); BLOOD UREA NITROGEN 18 mg/dL (7-17); CALCIUM 11.2 mg/dl (8.6-10.4); GFR AFRICAN-AMERICAN > 60; GFR NON-AFRICAN AMERICAN > 60; LIPASE 92 U/L (23-300)
--- NOTE | 2018-01-10 09:12 | C.PDOC ---
History Of Present Illness 47 y/o female presents to ED with c/o generalized body aches, abdominal pain, nausea and vomiting for 3 days. Patient has had similar symptoms in the past and currently denies diarrhea, fever, chills or any other complaints at this time. Time Seen by Provider: 01/10/18 07:32 Chief Complaint (Nursing): Abdominal Pain History Per: Patient History/Exam Limitations: no limitations Onset/Duration Of Symptoms: Days Current Symptoms Are (Timing): Still Present Past Medical History Reviewed: Historical Data, Nursing Documentation, Vital Signs Vital Signs: Last Vital Signs Temp 97.7 F 01/10/18 07:33 Pulse 81 01/10/18 07:33 Resp 16 01/10/18 07:33 BP 159/83 H 01/10/18 07:33 Pulse Ox 98 01/10/18 10:25 - Medical History PMH: Anemia, Anxiety, Arthritis, Asthma, Bronchitis, CAD, CHF, COPD, CVA, Depression, Diabetes, Gastritis, Gastrointestinal Ulcer, HTN, Hypercholesterolemia, Hyperlipidemia, Hyperthyroidism, Kidney Stones, Multiple Sclerosis, Parkinson's Disease, Pneumonia, Chronic Kidney Disease, TIA Surgical History: Hernia Repair (Umbilical hernia repair) - [facility] Procedures CLOSURE SKIN & SUBCUTANEOUS NEC (01/07/13) ESOPHAGOGASTRODUODENOSCOPY [EGD] W/CLOSED BIOPSY (02/05/15) INJECT/INFUSE NEC (02/17/15) NEBULIZER THERAPY (06/20/13) PACKED CELL TRANSFUSION (01/28/15) REMOVAL OF INFUSION DEV FROM GREAT VESSEL, TELEMEDICINE PHYSICIAN APPROACH (12/02/16) TETANUS TOXOID ADMINIST (01/07/13) TRANSFUSE NONAUT RED BLOOD CELLS IN PERIPH VEIN, PERC (03/17/17) VACCINATION NEC (08/03/14) Family History: States: No Known Family Hx - Social History Hx Tobacco Use: No Hx Alcohol Use: No Hx Substance Use: No - Immunization History Hx Tetanus Toxoid Vaccination: No Hx Influenza Vaccination: Yes Hx Pneumococcal Vaccination: No Review Of Systems Except As Marked, All Systems Reviewed And Found Negative. Gastrointestinal: Positive for: Nausea, Vomiting, Abdominal Pain Physical Exam - Physical Exam Appears: Non-toxic, No Acute Distress Skin: Warm, Dry, No Rash Head: Atraumatic, Normacephalic Eye(s): bilateral: Normal Inspection Oral Mucosa: Moist Neck: Supple Cardiovascular: Rhythm Regular Respiratory: Normal Breath Sounds, No Rales, No Rhonchi, No Wheezing Gastrointestinal/Abdominal: Soft, No Tenderness, No Guarding, No Rebound Extremity: Normal ROM, Capillary Refill (<2 seconds) Neurological/Psych: Oriented x3, Normal Speech, Normal Cognition, Normal Motor, Normal Sensation ED Course And Treatment - Laboratory Results Result Diagrams: 01/10/18 08:08 01/10/18 08:08 ECG: Interpreted By Me, Viewed By Me ECG Rhythm: Sinus Rhythm Rate From EC (BPM) O2 Sat by Pulse Oximetry: 98 (RA) Pulse Ox Interpretation: Normal Medical Decision Making Medical Decision Making: Assessment: Body aches Plan: * Pepcid * Gabapentin * Zofran * Obstructive series xray * UA * Blood work 1024 On reassessment, patient reports chest pain as well. Case discussed with Dr. Lorena Corley and patient to be admitted to OBS-Tele [id number] - upon reevaluating patient, she now states cp. Patient is followed by Dr. Bray and has been given prescription for echo Disposition Discussed With DrRafaela: Ranulfo Corley Doctor Will See Patient In The: Hospital Counseled Patient/Family Regarding: Studies Performed, Diagnosis - Disposition Disposition: HOSPITALIZED Disposition Time: 10:27 Condition: FAIR Forms: [facility] (Monegasque) - Clinical Impression Clinical Impression: Chest pain - Scribe Statement The provider has reviewed the documentation as recorded by the Scribsoah Valencia All medical record entries made by the Scribe were at my direction and personally dictated by me. I have reviewed the chart and agree that the record accurately reflects my personal performance of the history, physical exam, medical decision making, and the department course for this patient. I have also personally directed, reviewed, and agree with the discharge instructions and disposition.
[2018-01-10 09:55] LABS: SQUAMOUS EPITHIAL 1 /hpf (0-5); URINE AMORPHOUS SEDIMENT OCC /ul (<OCC); URINE BILIRUBIN NEGATIVE (NEGATIVE); URINE BLOOD NEGATIVE (NEGATIVE); URINE CLARITY Hazy (Clear); URINE COLOR Yellow (YELLOW); URINE GLUCOSE (UA) NORMAL (Normal); URINE LEUKOCYTE ESTERASE TRACE Leu/uL (Negative); URINE PROTEIN NEGATIVE (NEGATIVE); URINE UROBILINOGEN NORMAL mg/dL (0.2-1.0)
--- NOTE | 2018-01-10 11:02 | RAD ---
Date of service: 01/10/2018 PROCEDURE: Radiographs of the chest and abdomen (obstructive series) HISTORY: vomiting COMPARISON: Chest radiograph 10/04/2017. Abdomen obstructive 06/28/2015. TECHNIQUE: AP radiograph of the chest, with upright and supine radiographs of the abdomen. FINDINGS: CHEST: Lungs: No acute infiltrate is seen at this time. Cardiovascular: Cardiomegaly is identified without pulmonary vascular congestion. Pleura: No pleural fluid. No pneumothorax. Other findings: None. ABDOMEN AND PELVIS: Bowel: Moderate fecal loading seen at the left hemicolon. No evidence of mechanical obstruction. Free air: None. Bones: Unremarkable. Other findings: No abnormal intra-abdominal calcifications identified. IMPRESSION: Cardiomegaly. No acute infiltrate or pulmonary vascular congestion bilaterally. Nonobstructive bowel gas pattern.
[2018-01-10] MEDS ORDERED: Albuterol HFA 90 mcg/actuation (8 g) IH SCH (12:30)
[2018-01-10] MEDS: Albuterol HFA 90 mcg/actuation (8 g) IH SCH ×3 (16:14→23:27)
[2018-01-10] MEDS ORDERED: Albuterol Sulfate 2 mg/5 ml Cup PO SCH (18:00)
[2018-01-10] MEDS ORDERED: ALBUTEROL SULFATE 2 MG PO SCH (18:00)
--- NOTE | 2018-01-10 18:07 | CP.PCM.HP ---
Past Patient History - Infectious Disease Hx of Infectious Diseases: None - Tetanus Immunizations Tetanus Immunization: Unknown - Past Medical History & Family History Past Medical History?: Yes - Past Social History Smoking Status: Never Smoked - CARDIAC Hx Congestive Heart Failure: Yes Hx Hypercholesterolemia: Yes Hx Hypertension: Yes - PULMONARY Hx Asthma: Yes Hx Bronchitis: Yes Hx Chronic Obstructive Pulmonary Disease (COPD): Yes Hx Pneumonia: Yes - NEUROLOGICAL Hx Multiple Sclerosis: Yes Hx Parkinson's Disease: Yes Hx Transient Ischemic Attacks (TIA): Yes - HEENT Hx HEENT Problems: No - RENAL Hx Chronic Kidney Disease: Yes Hx Kidney Stones: Yes - ENDOCRINE/METABOLIC Hx Hyperthyroidism: Yes - HEMATOLOGICAL/ONCOLOGICAL Hx Anemia: Yes - INTEGUMENTARY Hx Dermatological Problems: No - MUSCULOSKELETAL/RHEUMATOLOGICAL Hx Arthritis: Yes - GASTROINTESTINAL Hx Gastritis: Yes - PSYCHIATRIC Hx Anxiety: Yes Hx Depression: Yes Hx Substance Use: No - SURGICAL HISTORY Hx Surgeries: Yes Hx Herniorrhaphy: Yes - ANESTHESIA Hx Anesthesia: Yes Hx Anesthesia Reactions: No Hx Malignant Hyperthermia: No Meds Allergies/Adverse Reactions: Allergies Allergy/AdvReac Type Severity Reaction Status Date / Time acetaminophen Allergy ITCHING Verified 01/10/18 07:36 codeine Allergy RASH Verified 01/10/18 07:36 iodine Allergy ITCHING Verified 01/10/18 07:36 ketorolac Allergy ITCHING Verified 01/10/18 07:36 ketorolac tromethamine Allergy RASH Verified 01/10/18 07:36 [From Toradol] Latex, Natural Rubber Allergy ITCHING Verified 01/10/18 07:36 morphine Allergy ITCHING Verified 01/10/18 07:36 orange juice Allergy ITCHING Verified 01/10/18 07:36 Penicillins Allergy ITCHING Verified 01/10/18 07:36 Sulfa (Sulfonamide Allergy RASH Verified 01/10/18 07:36 Antibiotics) tomato Allergy ITCHING Verified 01/10/18 07:36 tramadol Allergy ITCHING Verified 01/10/18 07:36 ondansetron HCl AdvReac Intermediate RASH Verified 01/10/18 07:36 [From Zofran (as hydrochloride)] Physical Exam - Constitutional Appears: Well - Head Exam Head Exam: ATRAUMATIC, NORMAL INSPECTION, NORMOCEPHALIC - Eye Exam Eye Exam: EOMI, Normal appearance, PERRL Pupil Exam: NORMAL ACCOMODATION, PERRL - ENT Exam ENT Exam: Mucous Membranes Moist, Normal Exam - Neck Exam Neck exam: Positive for: Normal Inspection - Respiratory Exam Respiratory Exam: Decreased Breath Sounds - Cardiovascular Exam Cardiovascular Exam: REGULAR RHYTHM, +S1, +S2 - GI/Abdominal Exam GI & Abdominal Exam: Diminished Bowel Sounds, Soft - Rectal Exam Rectal Exam: Deferred Results - Vital Signs Recent Vital Signs: Last Vital Signs Temp 98.3 F 01/10/18 14:02 Pulse 83 01/10/18 14:02 Resp 20 01/10/18 14:02 BP 115/80 01/10/18 14:02 Pulse Ox 97 01/10/18 16:30 - Labs Result Diagrams: 01/10/18 08:08 01/10/18 08:08 Labs: Laboratory Results - last 24 hr 01/10/18 01/10/18 01/10/18 08:08 08:08 09:43 WBC 6.2 D RBC 3.88 Hgb 10.6 L Hct 32.8 L MCV 84.5 MCH 27.2 MCHC 32.2 L RDW 15.4 H Plt Count 249 MPV 8.3 Neut % (Auto) 72.0 Lymph % (Auto) 18.5 L [place] % (Auto) 7.8 Eos % (Auto) 0.7 Baso % (Auto) 1.0 Neut # (Auto) 4.5 Lymph # (Auto) 1.1 [place] # (Auto) 0.5 Eos # (Auto) 0.0 Baso # (Auto) 0.1 Sodium 144 Potassium 4.0 Chloride 107 Carbon Dioxide 28 Anion Gap 14 BUN 18 H Creatinine 0.7 Est GFR ( Amer) > 60 Est GFR (Non-Af Amer) > 60 Random Glucose 83 Calcium 11.2 H Magnesium 2.0 Total Bilirubin 0.6 AST 29 ALT 31 Alkaline Phosphatase 68 Troponin I < 0.0120 Total Protein 7.4 Albumin 4.1 Globulin 3.3 Albumin/Globulin Ratio 1.3 Lipase 92 Urine Color Yellow Urine Clarity Hazy Urine pH 7.0 Ur Specific Burton 1.011 Urine Protein Negative Urine Glucose (UA) Normal Urine Ketones Negative Urine Blood Negative Urine Nitrate Negative Urine Bilirubin Negative Urine Urobilinogen Normal Ur Leukocyte Esterase Trace Urine WBC (Auto) 5 Urine RBC (Auto) 2 Ur Squamous Epith Cells 1 Amorphous Sediment Occ H
[2018-01-11] MEDS: Albuterol HFA 90 mcg/actuation (8 g) IH SCH ×5 (03:22→19:22)
[2018-01-11] MEDS: Metoprolol Succinate 25 mg XL Tab PO SCH (09:22)
[2018-01-11] MEDS: Pantoprazole 40 mg EC Tab PO SCH (09:22)
[2018-01-11] MEDS: Enoxaparin 40 mg Syringe SC SCH (09:22)
--- NOTE | 2018-01-11 11:34 | CARD ---
APPROVED REPORT Date of service: 01/10/2018 EKG Measurement Heart [id number] <Conclusion> Normal sinus rhythm Minimal voltage criteria for LVH, may be normal variant Borderline ECG
--- NOTE | 2018-01-11 12:08 | CP.PCM.PN ---
Subjective - Date & Time of Evaluation Date of Evaluation: 01/11/18 Time of Evaluation: 12:07 - Subjective Subjective: PGY2 progress note for Dr. Corley Pt seen and examined at bedside. Nursing reports no acute events overnight. When asked where pain is located patient points to her entire body. Patient denies acute chest pain this AM. Pt is tolerating PO intake and voiding without difficulty. Objective - Vital Signs/Intake and Output Vital Signs (last 24 hours): Temp Pulse Resp BP Pulse Ox 98.1 F 70 20 146/86 98 01/11/18 07:15 01/11/18 07:15 01/11/18 07:15 01/11/18 07:15 01/11/18 07:44 Intake and Output: 01/11/18 01/11/18 06:59 18:59 Intake Total 350 Balance 350 - Medications Medications: Current Medications Albuterol (Ventolin Hfa 90 Mcg/Actuation (8 G)) 2 puff IH RQ4 [facility] Last Admin: 01/11/18 07:44 Dose: 2 puff Amlodipine Besylate (Norvasc) 10 mg PO DAILY [facility] Last Admin: 01/11/18 09:22 Dose: 10 mg Enoxaparin Sodium (Lovenox) 40 mg SC DAILY [facility] Last Admin: 01/11/18 09:22 Dose: Not Given Famotidine (Pepcid) 40 mg PO DAILY [facility] Last Admin: 01/11/18 09:22 Dose: 40 mg Gabapentin (Neurontin) 300 mg PO TID [facility] Last Admin: 01/11/18 09:23 Dose: 300 mg Losartan Potassium (Cozaar) 100 mg PO DAILY [facility] Last Admin: 01/11/18 09:22 Dose: 100 mg Metoprolol Succinate (Toprol Xl) 25 mg PO DAILY [facility] Last Admin: 01/11/18 09:22 Dose: 25 mg Montelukast Sodium (Singulair) 10 mg PO HS [facility] Nitroglycerin (Nitrostat Sl Tab) 0.4 mg SL Q5MIN PRN PRN Reason: chest pain Pantoprazole Sodium (Protonix Ec Tab) 40 mg PO DAILY [facility] Last Admin: 01/11/18 09:22 Dose: 40 mg - Labs Labs: 01/10/18 08:08 01/10/18 08:08 - Additional Findings Additional findings: - Constitutional Appears: Non-toxic, No Acute Distress - Head Exam Head Exam: ATRAUMATIC, NORMAL INSPECTION - Eye Exam Eye Exam: Normal appearance Pupil Exam: NORMAL ACCOMODATION - ENT Exam ENT Exam: Mucous Membranes Moist - Respiratory Exam Respiratory Exam: Clear to Ausculation Bilateral, NORMAL BREATHING PATTERN. absent: Respiratory Distress - Cardiovascular Exam Cardiovascular Exam: REGULAR RHYTHM, +S1, +S2, PMI non-displaced - GI/Abdominal Exam GI & Abdominal Exam: Soft, Normal Bowel Sounds. absent: Distended, Firm, Guarding, Tenderness - Extremities Exam Extremities Exam: Normal Inspection - Back Exam Back Exam: NORMAL INSPECTION. absent: CVA tenderness (L), CVA tenderness (R), paraspinal tenderness - Neurological Exam Neurological Exam: Alert, Awake, Oriented x3 - Psychiatric Exam Psychiatric exam: Normal Affect, Normal Mood - Skin Skin Exam: Dry, Intact, Normal Color, Warm Assessment and Plan - Assessment and Plan (Free Text) Plan: Chest pain Observe on tele - numerous admissions for same complaint EKG (01/10/18): NSR @ 75 bpm, ? LVH, No acute St/T wave changes CXR (01/10/18): Cardiomegaly. No acue infiltrate or pulm venous congestion. Non- obstructive bowel gas pattern. Troponin x 1 negative Echo 07/2017: Normal LVEF, LVH and grade 1 DD -continue losartan 100mg PO daily -continue amlodipine 10mg PO DAily -continue asa 325 mg daily -continue motrin bid prn -continue toprol xl 25 daily -continue crestor 10 daily -Nitro SV prn Asthma -continue ventolin inhaler -singulair 10 daily Hx of HTN -continue losartan 100mg daily -continue amlodipine 10 mg po daily -toporol xl 25mg daily Hx of CVA/mental slowing and delay since childhood No acute intervention ASA 81mg daily Crestor 10mg qhs hx of cereral palsy/Chronic pain Neurontin 300mg PO TID GI/DVT Heart Healthy Diet protonix 40mg PO Daily Lovenox 40mg sc daily [facility] Doc Escobar PGY-2 All medical management per Dr. Corley
--- NOTE | 2018-01-11 17:02 | CP.PCM.PN ---
Subjective - Date & Time of Evaluation Date of Evaluation: 01/11/18 Time of Evaluation: 10:40 - Subjective Subjective: clinically same Objective - Vital Signs/Intake and Output Vital Signs (last 24 hours): Temp Pulse Resp BP Pulse Ox 98.7 F 67 20 123/83 97 01/11/18 15:00 01/11/18 15:00 01/11/18 15:00 01/11/18 15:00 01/11/18 15:00 Intake and Output: 01/11/18 01/11/18 06:59 18:59 Intake Total 350 480 Balance 350 480 - Medications Medications: Current Medications Albuterol (Ventolin Hfa 90 Mcg/Actuation (8 G)) 2 puff IH RQ4 [facility] Last Admin: 01/11/18 16:58 Dose: 2 puff Amlodipine Besylate (Norvasc) 10 mg PO DAILY [facility] Last Admin: 01/11/18 09:22 Dose: 10 mg Enoxaparin Sodium (Lovenox) 40 mg SC DAILY [facility] Last Admin: 01/11/18 09:22 Dose: Not Given Gabapentin (Neurontin) 300 mg PO TID [facility] Last Admin: 01/11/18 13:16 Dose: 300 mg Losartan Potassium (Cozaar) 100 mg PO DAILY [facility] Last Admin: 01/11/18 09:22 Dose: 100 mg Metoprolol Succinate (Toprol Xl) 25 mg PO DAILY [facility] Last Admin: 01/11/18 09:22 Dose: 25 mg Montelukast Sodium (Singulair) 10 mg PO [facility] Nitroglycerin (Nitrostat Sl Tab) 0.4 mg SL Q5MIN PRN PRN Reason: chest pain Pantoprazole Sodium (Protonix Ec Tab) 40 mg PO DAILY [facility] Last Admin: 01/11/18 09:22 Dose: 40 mg Rosuvastatin Calcium (Crestor) 10 mg PO [facility] - Labs Labs: 01/10/18 08:08 01/10/18 08:08 - Constitutional Appears: Well - Head Exam Head Exam: ATRAUMATIC, NORMAL INSPECTION, NORMOCEPHALIC - Eye Exam Eye Exam: EOMI, Normal appearance, PERRL Pupil Exam: NORMAL ACCOMODATION, PERRL - ENT Exam ENT Exam: Mucous Membranes Moist, Normal Exam - Neck Exam Neck Exam: Full ROM, Normal Inspection. absent: Lymphadenopathy - Respiratory Exam Respiratory Exam: Decreased Breath Sounds - Cardiovascular Exam Cardiovascular Exam: REGULAR RHYTHM, +S1, +S2 - GI/Abdominal Exam GI & Abdominal Exam: Soft, Diminished Bowel Sounds - Rectal Exam Rectal Exam: Deferred
[2018-01-12] MEDS: Albuterol HFA 90 mcg/actuation (8 g) IH SCH ×7 (00:27→23:43)
--- NOTE | 2018-01-12 07:47 | CP.PCM.PN ---
Subjective - Date & Time of Evaluation Date of Evaluation: 01/12/18 Time of Evaluation: 14:00 - Subjective Subjective: Progress Note for Dr. Lacey Corley's Service Patient seen and examined at bedside .Per nursing no acute events occurred overnight. Patient still reports some mid sternal chest pain that's improved from the initial presentation. ROS difficult to obtain to patient's current clinical condition. 46 year old female with a past medical history of CVA X2, speech impairment, asthma, Multiple Sclerosis, hypertension, hyperlipidemia, Type 2 Diabetes Mellitus, and gastritis who comes in complaining of diffuse body aches. Patient has had numerous complaints for the same thing in the past. Patient was last seen in September 2017 for chest pain. The workup was negative for an acute [place]. Patient last echo was 07/2017 (showed Normal LVEF, LVH, and grade 1 DD) PMD: Dr. Corley Allergies: Acetaminophen, codeine, iodine, Ketorolac Medications: Aspirin, Hydralazine, Gabapentin, Amlodipine, Sulfacrate, Protonix , Ibuprofen, Famotidine Famhx: Denies Socialhx: Lives with Aunt. Denies any smoking or drinking history. Denies illicit drug use. Objective - Vital Signs/Intake and Output Vital Signs (last 24 hours): Temp Pulse Resp BP Pulse Ox 98.0 F 60 20 108/70 98 01/11/18 23:35 01/11/18 23:35 01/11/18 23:35 01/11/18 23:35 01/11/18 23:35 Intake and Output: 01/12/18 01/12/18 06:59 18:59 Intake Total 500 Balance 500 - Medications Medications: Current Medications Albuterol (Ventolin Hfa 90 Mcg/Actuation (8 G)) 2 puff IH RQ4 [facility] Last Admin: 01/12/18 04:31 Dose: 2 puff Amlodipine Besylate (Norvasc) 10 mg PO DAILY [facility] Last Admin: 01/11/18 09:22 Dose: 10 mg Enoxaparin Sodium (Lovenox) 40 mg SC DAILY [facility] Last Admin: 01/11/18 09:22 Dose: Not Given Gabapentin (Neurontin) 300 mg PO TID [facility] Last Admin: 01/11/18 17:59 Dose: 300 mg Losartan Potassium (Cozaar) 100 mg PO DAILY [facility] Last Admin: 01/11/18 09:22 Dose: 100 mg Metoprolol Succinate (Toprol Xl) 25 mg PO DAILY [facility] Last Admin: 01/11/18 09:22 Dose: 25 mg Montelukast Sodium (Singulair) 10 mg PO HS [facility] Last Admin: 01/11/18 22:23 Dose: 10 mg Nitroglycerin (Nitrostat Sl Tab) 0.4 mg SL Q5MIN PRN PRN Reason: chest pain Pantoprazole Sodium (Protonix Ec Tab) 40 mg PO DAILY [facility] Last Admin: 01/11/18 09:22 Dose: 40 mg Rosuvastatin Calcium (Crestor) 10 mg PO [facility] Last Admin: 01/11/18 22:23 Dose: 10 mg - Labs Labs: 01/10/18 08:08 01/10/18 08:08 - Head Exam Head Exam: ATRAUMATIC, NORMAL INSPECTION, NORMOCEPHALIC - Eye Exam Eye Exam: EOMI, Normal appearance, PERRL Pupil Exam: NORMAL ACCOMODATION - ENT Exam ENT Exam: Mucous Membranes Moist, Normal Oropharynx - Neck Exam Neck Exam: Normal Inspection - Respiratory Exam Respiratory Exam: Clear to Ausculation Bilateral, NORMAL BREATHING PATTERN. absent: Prolonged Expiratory Phase, Respiratory Distress - Cardiovascular Exam Cardiovascular Exam: REGULAR RHYTHM, +S1, +S2 - GI/Abdominal Exam GI & Abdominal Exam: Soft, Normal Bowel Sounds. absent: Hyperactive Bowel Sounds - Extremities Exam Extremities Exam: Full ROM. absent: Joint Swelling, Pedal Edema, Tenderness - Back Exam Back Exam: NORMAL INSPECTION. absent: CVA tenderness (R), paraspinal tenderness - Neurological Exam Neurological Exam: Alert, Awake, CN II-XII Intact, Oriented x3 - Psychiatric Exam Psychiatric exam: Normal Affect, Normal Mood - Skin Skin Exam: Dry, Intact Assessment and Plan - Assessment and Plan (Free Text) Assessment: 46 year old female with a past medical history of CVA X2, speech impairment, asthma, Multiple Sclerosis, hypertension, hyperlipidemia, Type 2 Diabetes Mellitus, and gastritis who comes in complaining of diffuse body aches. Plan: Chest pain Observe on tele - numerous admissions for same complaint EKG (01/10/18): NSR @ 75 bpm, ? LVH, No acute St/T wave changes CXR (01/10/18): Cardiomegaly. No acue infiltrate or pulm venous congestion. Non- obstructive bowel gas pattern. Troponin x 2negative. F/u troponinsx1. Echo 07/2017: Normal LVEF, LVH and grade 1 DD -continue losartan 100mg PO daily -continue amlodipine 10mg PO DAily -continue motrin 600mg Q6 PRN for pain managment -continue toprol xl 25ng daily -continue crestor 10mg daily -Nitro .4mg SL prn Asthma -continue ventolin inhaler -singulair 10 mg PO HS Hx of HTN -continue losartan 100mg daily -continue amlodipine 10 mg po daily -toporol xl 25mg daily Hx of CVA/mental slowing and delay since childhood No acute intervention Crestor 10mg qhs hx of cereral palsy/Chronic pain Neurontin 300mg PO TID GI/DVT Heart Healthy Diet protonix 40mg PO Daily Lovenox 40mg sc daily [facility] Dispo:Follow up last troponin. Possible discharge tomorrow. Plan discussed with Attending Dr. Lacey Crenshaw, PGY-2
[2018-01-12 07:58] LABS: BASO % 0.8 % (0.0-2.0); EOS # 0.1 K/uL (0.0-0.7); EOS % 1.5 % (0.0-4.0); HEMOGLOBIN 11.2 g/dL (11.0-16.0); LYMPH # 1.5 K/uL (1.0-4.3); LYMPH % 36.8 % (20.0-40.0); MEAN CELL VOLUME 86.2 fL (81.0-99.0); MEAN CORPUSCULAR HEMOGLOBIN 27.6 pg (27.0-31.0); MEAN PLATELET VOLUME 8.6 fL (7.2-11.7); MONO # 0.4 K/uL (0.0-0.8); MONO % 10.6 % (0.0-10.0); NEUT # 2.1 K/uL (1.8-7.0); NEUT % 50.3 % (50.0-75.0); NRBC % 0.1 % (0.0-2.0); RBC 4.05 Mil/uL (3.80-5.20); RED CELL DISTRIBUTION WIDTH 15.1 % (11.5-14.5); WHITE BLOOD COUNT 4.2 K/uL (4.8-10.8)
[2018-01-12 08:53] LABS: ALB/GLOB RATIO 1.2 (1.0-2.1); ALT/SGPT 23 U/L (9-52); AST/SGOT 20 U/L (14-36); BLOOD UREA NITROGEN 16 mg/dL (7-17); CALCIUM 11.3 mg/dl (8.6-10.4); GFR AFRICAN-AMERICAN > 60; GFR NON-AFRICAN AMERICAN > 60
[2018-01-12] MEDS: Enoxaparin 40 mg Syringe SC SCH (10:18)
[2018-01-12] MEDS: Metoprolol Succinate 25 mg XL Tab PO SCH (10:18)
[2018-01-12] MEDS: Pantoprazole 40 mg EC Tab PO SCH (10:18)
[2018-01-12 15:51] VITALS: RESP 20
--- NOTE | 2018-01-12 19:06 | CP.PCM.PN ---
Subjective - Date & Time of Evaluation Date of Evaluation: 01/12/18 Time of Evaluation: 10:00 - Subjective Subjective: clinically same Objective - Vital Signs/Intake and Output Vital Signs (last 24 hours): Temp Pulse Resp BP Pulse Ox 98 F 60 20 121/74 98 01/12/18 15:00 01/12/18 15:00 01/12/18 15:00 01/12/18 15:00 01/12/18 15:00 Intake and Output: 01/12/18 01/13/18 18:59 06:59 Intake Total 380 Balance 380 - Medications Medications: Current Medications Albuterol (Ventolin Hfa 90 Mcg/Actuation (8 G)) 2 puff IH RQ4 [facility] Last Admin: 01/12/18 11:38 Dose: 2 puff Amlodipine Besylate (Norvasc) 10 mg PO DAILY [facility] Last Admin: 01/12/18 10:18 Dose: 10 mg Enoxaparin Sodium (Lovenox) 40 mg SC DAILY [facility] Last Admin: 01/12/18 10:18 Dose: 40 mg Gabapentin (Neurontin) 300 mg PO TID [facility] Last Admin: 01/12/18 18:01 Dose: 300 mg Ibuprofen (Motrin Tab) 600 mg PO Q6 PRN PRN Reason: Pain, moderate (4-7) Last Admin: 01/12/18 08:29 Dose: 600 mg Losartan Potassium (Cozaar) 100 mg PO DAILY [facility] Last Admin: 01/12/18 10:18 Dose: 100 mg Metoprolol Succinate (Toprol Xl) 25 mg PO DAILY [facility] Last Admin: 01/12/18 10:18 Dose: 25 mg Montelukast Sodium (Singulair) 10 mg PO HS [facility] Last Admin: 01/11/18 22:23 Dose: 10 mg Nitroglycerin (Nitrostat Sl Tab) 0.4 mg SL Q5MIN PRN PRN Reason: chest pain Pantoprazole Sodium (Protonix Ec Tab) 40 mg PO DAILY [facility] Last Admin: 01/12/18 10:18 Dose: 40 mg Rosuvastatin Calcium (Crestor) 10 mg PO HS [facility] Last Admin: 01/11/18 22:23 Dose: 10 mg - Labs Labs: 01/12/18 07:48 01/12/18 07:48 - Constitutional Appears: Well - Head Exam Head Exam: ATRAUMATIC, NORMAL INSPECTION, NORMOCEPHALIC - Eye Exam Eye Exam: EOMI, Normal appearance, PERRL Pupil Exam: NORMAL ACCOMODATION, PERRL - ENT Exam ENT Exam: Mucous Membranes Moist, Normal Exam - Neck Exam Neck Exam: Full ROM, Normal Inspection. absent: Lymphadenopathy - Respiratory Exam Respiratory Exam: Decreased Breath Sounds - Cardiovascular Exam Cardiovascular Exam: REGULAR RHYTHM, +S1, +S2 - GI/Abdominal Exam GI & Abdominal Exam: Soft, Diminished Bowel Sounds - Rectal Exam Rectal Exam: Deferred
[2018-01-13] MEDS: Albuterol HFA 90 mcg/actuation (8 g) IH SCH ×3 (03:31→13:39)
[2018-01-13 08:15] VITALS: BP 128/83; PULSE 55; TEMP 98.2; O2SAT 97
[2018-01-13] MEDS: Pantoprazole 40 mg EC Tab PO SCH (09:44)
[2018-01-13] MEDS: Metoprolol Succinate 25 mg XL Tab PO SCH (09:45)
[2018-01-13] MEDS: Enoxaparin 40 mg Syringe SC SCH (09:45)
--- NOTE | 2018-01-13 11:30 | CP.PCM.PN ---
Subjective - Date & Time of Evaluation Date of Evaluation: 01/13/18 Time of Evaluation: 11:29 - Subjective Subjective: PT CLEARED BY DR. PIERSON FOR D/C TODAY. PT STABLE, NO ACUTE COMPLAINTS. LAST TNI NEG. ALL D/C INFORMATION, FOLLOW UP APPTS DISCUSSED WITH PT. I REVIEWED ALL OF PT'S HOME MEDICATIONS MYSELF. PT HAS MULTIPLE DUPLICATES. I COMBINED ALL DUPLICATES APPROPRIATELY AND HAVE EDUCATED THE PT ON MEDICATION SAFETY AND PREVENTION OF MED MISUSE AND POLYPHARMACY. PT VERBALIZED UNDERSTANDING BY "NODDING" YES. NO FURTHER ORDERS. -FOLLOW UP WITH DR. Lorena PIERSON IN THE OFFICE WITHIN 5-7 DAYS OF DISCHARGE---CALL THE OFFICE TO MAKE YOUR APPOINTMENT. -CONTINUE ALL HOME MEDICATIONS USUAL. -YOUR NITROGLYCERIN, LOSARTAN, AND SINGULAIR HAVE BEEN REFILLED---TAKE EXACTLY PRESCRIBED. -FOR FURTHER QUESTIONS OR CONCERNS, CONTACT DR. PIERSON'S OFFICE. Objective - Vital Signs/Intake and Output Vital Signs (last 24 hours): Temp Pulse Resp BP Pulse Ox 98.2 F 55 L 20 128/83 97 01/13/18 08:00 01/13/18 08:00 01/13/18 08:00 01/13/18 08:00 01/13/18 08:00 Intake and Output: 01/13/18 01/13/18 06:59 18:59 Intake Total 450 400 Balance 450 400 - Medications Medications: Current Medications Albuterol (Ventolin Hfa 90 Mcg/Actuation (8 G)) 2 puff IH RQ4 [facility] Last Admin: 01/13/18 03:31 Dose: Not Given Amlodipine Besylate (Norvasc) 10 mg PO DAILY [facility] Last Admin: 01/13/18 09:44 Dose: 10 mg Enoxaparin Sodium (Lovenox) 40 mg SC DAILY [facility] Last Admin: 01/13/18 09:45 Dose: 40 mg Gabapentin (Neurontin) 300 mg PO TID [facility] Last Admin: 01/13/18 09:44 Dose: 300 mg Ibuprofen (Motrin Tab) 600 mg PO Q6 PRN PRN Reason: Pain, moderate (4-7) Last Admin: 01/13/18 09:43 Dose: 600 mg Losartan Potassium (Cozaar) 100 mg PO DAILY [facility] Last Admin: 01/13/18 09:44 Dose: 100 mg Metoprolol Succinate (Toprol Xl) 25 mg PO DAILY [facility] Last Admin: 01/13/18 09:45 Dose: 25 mg Montelukast Sodium (Singulair) 10 mg PO [facility] Last Admin: 01/12/18 22:55 Dose: 10 mg Nitroglycerin (Nitrostat Sl Tab) 0.4 mg SL Q5MIN PRN PRN Reason: chest pain Pantoprazole Sodium (Protonix Ec Tab) 40 mg PO DAILY [facility] Last Admin: 01/13/18 09:44 Dose: 40 mg Rosuvastatin Calcium (Crestor) 10 mg PO [facility] Last Admin: 01/12/18 22:55 Dose: 10 mg - Labs Labs: 01/12/18 07:48 01/12/18 07:48
== END 2018-01-13 14:45 | disposition home or self-care (01) ==
LOC: C.ER 07:27 → C.9E 10:25 → C.6T 12:15 → C.3T 01-13 00:56
PROVIDERS: ADMIT Internal Medicine Nephrology; ATTEND Internal Medicine Nephrology
DX: R07.9 Chest pain, unspecified (principal); J44.9 Chronic obstructive pulmonary disease, unspecified; N18.9 Chronic kidney disease, unspecified; E11.22 Type 2 diabetes mellitus with diabetic chronic kidney disease; I13.0 Hypertensive heart and chronic kidney disease with heart failure and stage 1 through stage 4 chronic kidney disease, or unspecified chronic kidney disease; I25.10 Atherosclerotic heart disease of native coronary artery without angina pectoris; D64.9 Anemia, unspecified; E05.90 Thyrotoxicosis, unspecified without thyrotoxic crisis or storm; E78.00 Pure hypercholesterolemia, unspecified; E78.5 Hyperlipidemia, unspecified; G35 Multiple sclerosis; G20 Parkinson's disease; I50.9 Heart failure, unspecified; F32.9 Major depressive disorder, single episode, unspecified; F41.9 Anxiety disorder, unspecified; Z87.01 Personal history of pneumonia (recurrent); Z87.442 Personal history of urinary calculi; Z86.73 Personal history of transient ischemic attack (TIA), and cerebral infarction without residual deficits; Z87.11 Personal history of peptic ulcer disease
CPT/HCPCS: 36415; 74022; 80053; 81001; 83690; 83735; 84100; 84484; 85025; 93005; 94640; 96374; 99285; G0378; J1650

== ENCOUNTER 2018-01-25 10:10 | Inpatient (IN) | payer MEDICAID ==
[2018-01-25 10:36] VITALS: BMI 24.5
[2018-01-25] MEDS ORDERED: Sodium Chloride 0.9% 2,000 ML IV ONE (10:52)
--- NOTE | 2018-01-25 11:07 | C.PDOC ---
History Of Present Illness 47 y/o female presents to ED with c/o weakness associated with dizziness, abdominal pain and chest pain for 4days. Patient has multiple prior ED visits for chronic abdominal pain. HPI unable to be obtained fully secondary to patient chronic illness. Time Seen by Provider: 01/25/18 10:17 Chief Complaint (Nursing): Abdominal Pain History Per: Patient History/Exam Limitations: no limitations Onset/Duration Of Symptoms: Days Current Symptoms Are (Timing): Still Present Past Medical History Reviewed: Historical Data, Nursing Documentation, Vital Signs Vital Signs: Last Vital Signs Temp 98 F 01/26/18 16:16 Pulse 73 01/26/18 16:16 Resp 20 01/26/18 16:16 BP 145/81 01/26/18 16:16 Pulse Ox 97 01/26/18 16:16 - Medical History PMH: Anemia, Anxiety, Arthritis, Asthma, Bronchitis, CAD, CHF, COPD, CVA, Depression, Diabetes, Gastritis, Gastrointestinal Ulcer, HTN, Hypercholesterolemia, Hyperlipidemia, Hyperthyroidism, Kidney Stones, Multiple Sclerosis, Parkinson's Disease, Pneumonia, Chronic Kidney Disease, TIA Surgical History: Hernia Repair (Umbilical hernia repair) - [facility] Procedures CLOSURE SKIN & SUBCUTANEOUS NEC (01/07/13) ESOPHAGOGASTRODUODENOSCOPY [EGD] W/CLOSED BIOPSY (02/05/15) INJECT/INFUSE NEC (02/17/15) NEBULIZER THERAPY (06/20/13) PACKED CELL TRANSFUSION (01/28/15) REMOVAL OF INFUSION DEV FROM GREAT VESSEL, PLOW AND BORING MACHINE TENDER APPROACH (12/02/16) TETANUS TOXOID ADMINIST (01/07/13) TRANSFUSE NONAUT RED BLOOD CELLS IN PERIPH VEIN, PERC (03/17/17) VACCINATION NEC (08/03/14) Family History: States: No Known Family Hx - Social History Hx Tobacco Use: No Hx Alcohol Use: No Hx Substance Use: No - Immunization History Hx Tetanus Toxoid Vaccination: No Hx Influenza Vaccination: Yes Hx Pneumococcal Vaccination: Yes Review Of Systems Constitutional: Negative for: Fever, Chills Cardiovascular: Positive for: Chest Pain Gastrointestinal: Positive for: Abdominal Pain Skin: Negative for: Rash Neurological: Positive for: Weakness, Dizziness. Negative for: Headache Physical Exam - Physical Exam Appears: Non-toxic Skin: Warm, Dry, No Rash Head: Atraumatic, Normacephalic Eye(s): bilateral: Normal Inspection Oral Mucosa: Moist Neck: Supple Cardiovascular: Rhythm Regular Respiratory: Normal Breath Sounds, No Rales, No Rhonchi, No Wheezing Gastrointestinal/Abdominal: Soft, No Tenderness, No Guarding, No Rebound Back: No CVA Tenderness Extremity: Capillary Refill (<2 seconds), No Deformity, Swelling (bilateral knees), Other (No erythema of extremities) Extremity: Bilateral: Normal ROM Neurological/Psych: Other (patient neurologically at baseline) ED Course And Treatment - Laboratory Results Result Diagrams: 01/26/18 08:20 01/26/18 08:20 O2 Sat by Pulse Oximetry: 97 (RA) Pulse Ox Interpretation: Normal Medical Decision Making Medical Decision Making: Progress: Patient found to be warm to touch, rectal temp of 100.6 noted Patient questioned if outside for long period of time, secondary to extreme hot weather. Patient reports she was on her way to doctor's office and was at bus stop waiting on bus for a long time. 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 - Scribe Statement The provider has reviewed the documentation as recorded by the Scribsoha Valencia All medical record entries made by the wOenibsoha were at my direction and personally dictated by me. I have reviewed the chart and agree that the record accurately reflects my personal performance of the history, physical exam, medical decision making, and the department course for this patient. I have also personally directed, reviewed, and agree with the discharge instructions and disposition.
[2018-01-25 11:40] LABS: BASO % 1.1 % (0.0-2.0); EOS % 1.1 % (0.0-4.0); HEMOGLOBIN 10.6 g/dL (11.0-16.0); LYMPH # 1.1 K/uL (1.0-4.3); LYMPH % 31.1 % (20.0-40.0); MEAN CELL VOLUME 85.3 fL (81.0-99.0); MEAN CORPUSCULAR HEMOGLOBIN 27.9 pg (27.0-31.0); MEAN CORPUSCULAR HGB CONC 32.7 g/dL (33.0-37.0); MEAN PLATELET VOLUME 8.2 fL (7.2-11.7); MONO # 0.3 K/uL (0.0-0.8); MONO % 8.1 % (0.0-10.0); NEUT % 58.6 % (50.0-75.0); RBC 3.79 Mil/uL (3.80-5.20); RED CELL DISTRIBUTION WIDTH 14.8 % (11.5-14.5); WHITE BLOOD COUNT 3.4 K/uL (4.8-10.8)
--- NOTE | 2018-01-25 11:43 | RAD ---
Date of service: 01/25/2018 HISTORY: Sepsis Patient, fever COMPARISON: 10/05/2017 FINDINGS: LUNGS: Increasing opacity at the right lung base. Possible pneumonia. No other abnormal opacity seen elsewhere. PLEURA: No significant pleural effusion identified, no pneumothorax apparent. CARDIOVASCULAR: Normal. OSSEOUS STRUCTURES: Bilateral chronic rotator cuff insufficiency with superior subluxation of the humeral head. VISUALIZED UPPER ABDOMEN: Normal. OTHER FINDINGS: None. IMPRESSION: Right basilar infiltrate suspicious for pneumonia.
[2018-01-25] MEDS ORDERED: Sodium Chloride 0.9% 1,000 ML ONE (11:48)
[2018-01-25 11:49] LABS: VENOUS BLOOD GAS BASE EXCESS 4.7 mmol/L (0.0-2.0); VENOUS BLOOD GAS PCO2 51 mmHg (40-60); VENOUS BLOOD GAS PO2 22 mm/Hg (30-55); VENOUS BLOOD PH 7.39 (7.32-7.43)
[2018-01-25 11:53] LABS: ALB/GLOB RATIO 1.3 (1.0-2.1); ALBUMIN 4.1 g/dL (3.5-5.0); ALT/SGPT 26 U/L (9-52); AST/SGOT 18 U/L (14-36); BLOOD UREA NITROGEN 17 mg/dL (7-17); CALCIUM 11.6 mg/dl (8.6-10.4); GFR AFRICAN-AMERICAN > 60; GFR NON-AFRICAN AMERICAN > 60
[2018-01-25 12:52] LABS: SQUAMOUS EPITHIAL 5 /hpf (0-5); URINE AMORPHOUS SEDIMENT RARE /ul (<OCC); URINE BILIRUBIN NEGATIVE (NEGATIVE); URINE BLOOD NEGATIVE (NEGATIVE); URINE CLARITY Hazy (Clear); URINE COLOR Yellow (YELLOW); URINE GLUCOSE (UA) NORMAL (Normal); URINE LEUKOCYTE ESTERASE NEG Leu/uL (Negative); URINE PROTEIN NEGATIVE (NEGATIVE); URINE UROBILINOGEN NORMAL mg/dL (0.2-1.0)
[2018-01-25] MEDS ORDERED: Vancomycin 1 gm/NS 200 ml 1 GM/200 ML BAG IVPB STA (13:29)
[2018-01-25] MEDS ORDERED: Aztreonam 2 GM in Sodium Chloride 0.9% 100 ML IV STA (13:32)
[2018-01-25] MEDS ORDERED: Ciprofloxacin 400mg/200ml D5W 400 MG/200 ML BAG IVPB STA (13:32)
--- NOTE | 2018-01-25 17:21 | CP.PCM.HP ---
Past Patient History - Infectious Disease Hx of Infectious Diseases: None - Tetanus Immunizations Tetanus Immunization: Unknown - Past Medical History & Family History Past Medical History?: Yes - Past Social History Smoking Status: Never Smoked - CARDIAC Hx Congestive Heart Failure: Yes Hx Hypercholesterolemia: Yes Hx Hypertension: Yes - PULMONARY Hx Asthma: Yes Hx Bronchitis: Yes Hx Chronic Obstructive Pulmonary Disease (COPD): Yes Hx Pneumonia: Yes - NEUROLOGICAL Hx Multiple Sclerosis: Yes Hx Parkinson's Disease: Yes Hx Transient Ischemic Attacks (TIA): Yes - HEENT Hx HEENT Problems: No - RENAL Hx Chronic Kidney Disease: Yes Hx Kidney Stones: Yes - ENDOCRINE/METABOLIC Hx Hyperthyroidism: Yes - HEMATOLOGICAL/ONCOLOGICAL Hx Anemia: Yes - INTEGUMENTARY Hx Dermatological Problems: No - MUSCULOSKELETAL/RHEUMATOLOGICAL Hx Arthritis: Yes - GASTROINTESTINAL Hx Gastritis: Yes - PSYCHIATRIC Hx Anxiety: Yes Hx Depression: Yes Hx Substance Use: No - SURGICAL HISTORY Hx Surgeries: Yes Hx Herniorrhaphy: Yes - ANESTHESIA Hx Anesthesia: Yes Hx Anesthesia Reactions: No Hx Malignant Hyperthermia: No Meds Allergies/Adverse Reactions: Allergies Allergy/AdvReac Type Severity Reaction Status Date / Time acetaminophen Allergy ITCHING Verified 01/10/18 07:36 codeine Allergy RASH Verified 01/10/18 07:36 iodine Allergy ITCHING Verified 01/10/18 07:36 ketorolac Allergy ITCHING Verified 01/10/18 07:36 ketorolac tromethamine Allergy RASH Verified 01/10/18 07:36 [From Toradol] Latex, Natural Rubber Allergy ITCHING Verified 01/10/18 07:36 morphine Allergy ITCHING Verified 01/10/18 07:36 orange juice Allergy ITCHING Verified 01/10/18 07:36 Penicillins Allergy ITCHING Verified 01/10/18 07:36 Sulfa (Sulfonamide Allergy RASH Verified 01/10/18 07:36 Antibiotics) tomato Allergy ITCHING Verified 01/10/18 07:36 tramadol Allergy ITCHING Verified 01/10/18 07:36 ondansetron HCl AdvReac Intermediate RASH Verified 01/10/18 07:36 [From Zofran (as hydrochloride)] Physical Exam - Constitutional Appears: Well - Head Exam Head Exam: ATRAUMATIC, NORMAL INSPECTION, NORMOCEPHALIC - Eye Exam Eye Exam: EOMI, Normal appearance, PERRL Pupil Exam: NORMAL ACCOMODATION, PERRL - ENT Exam ENT Exam: Mucous Membranes Moist, Normal Exam - Neck Exam Neck exam: Positive for: Normal Inspection - Respiratory Exam Respiratory Exam: Decreased Breath Sounds - Cardiovascular Exam Cardiovascular Exam: REGULAR RHYTHM, +S1, +S2 - GI/Abdominal Exam GI & Abdominal Exam: Diminished Bowel Sounds, Soft - Rectal Exam Rectal Exam: Deferred Results - Vital Signs Recent Vital Signs: Last Vital Signs Temp 99.4 F 01/25/18 15:45 Pulse 70 01/25/18 15:45 Resp 20 01/25/18 15:45 BP 157/90 H 01/25/18 15:45 Pulse Ox 97 01/25/18 15:45 - Labs Result Diagrams: 01/25/18 11:34 01/25/18 11:34 Labs: Laboratory Results - last 24 hr 01/25/18 01/25/18 01/25/18 11:34 11:34 11:34 WBC 3.4 L RBC 3.79 L Hgb 10.6 L Hct 32.3 L MCV 85.3 MCH 27.9 MCHC 32.7 L RDW 14.8 H Plt Count 238 MPV 8.2 Neut % (Auto) 58.6 Lymph % (Auto) 31.1 [place] % (Auto) 8.1 Eos % (Auto) 1.1 Baso % (Auto) 1.1 Neut # (Auto) 2.0 Lymph # (Auto) 1.1 [place] # (Auto) 0.3 Eos # (Auto) 0.0 Baso # (Auto) 0.0 APTT 36 H pO2 VBG pH VBG pCO2 VBG HCO3 VBG Total CO2 VBG O2 Sat (Calc) VBG Base Excess VBG Potassium Glucose Lactate Sodium 147 Potassium 4.0 Chloride 109 H Carbon Dioxide 30 Anion Gap 12 BUN 17 Creatinine 0.7 Est GFR ( Amer) > 60 Est GFR (Non-Af Amer) > 60 Random Glucose 77 Calcium 11.6 H Phosphorus 2.6 Magnesium 1.9 Total Bilirubin 0.7 AST 18 ALT 26 Alkaline Phosphatase 68 Total Protein 7.4 Albumin 4.1 Globulin 3.2 Albumin/Globulin Ratio 1.3 Venous Blood Potassium Urine Color Urine Clarity Urine pH Ur Specific [place] Urine Protein Urine Glucose (UA) Urine Ketones Urine Blood Urine Nitrate Urine Bilirubin Urine Urobilinogen Ur Leukocyte Esterase Urine WBC (Auto) Urine RBC (Auto) Ur Squamous Epith Cells Amorphous Sediment 01/25/18 01/25/18 11:46 12:41 WBC RBC Hgb Hct MCV MCH MCHC RDW Plt Count MPV Neut % (Auto) Lymph % (Auto) [place] % (Auto) Eos % (Auto) Baso % (Auto) Neut # (Auto) Lymph # (Auto) [place] # (Auto) Eos # (Auto) Baso # (Auto) APTT pO2 22 L VBG pH 7.39 VBG pCO2 51 VBG HCO3 26.9 VBG Total CO2 32.5 H VBG O2 Sat (Calc) 40.2 VBG Base Excess 4.7 H VBG Potassium 3.7 Glucose 70 Lactate 0.7 Sodium 146.0 Potassium Chloride 112.0 H Carbon Dioxide Anion Gap BUN Creatinine Est GFR ( Amer) Est GFR (Non-Af Amer) Random Glucose Calcium Phosphorus Magnesium Total Bilirubin AST ALT Alkaline Phosphatase Total Protein Albumin Globulin Albumin/Globulin Ratio Venous Blood Potassium 3.7 Urine Color Yellow Urine Clarity Hazy Urine pH 7.0 Ur Specific [place] 1.014 Urine Protein Negative Urine Glucose (UA) Normal Urine Ketones Negative Urine Blood Negative Urine Nitrate Negative Urine Bilirubin Negative Urine Urobilinogen Normal Ur Leukocyte Esterase Neg Urine WBC (Auto) 1 Urine RBC (Auto) 1 Ur Squamous Epith Cells 5 Amorphous Sediment Rare H
--- NOTE | 2018-01-25 18:34 | RAD ---
Date of service: 01/25/2018 HISTORY: PICC line placement COMPARISON: January 25, 2018. Time of the most recent examination: 11:16. FINDINGS: LUNGS: Stable infiltrates. PLEURA: No significant pleural effusion identified, no pneumothorax apparent. CARDIOVASCULAR: No significant interval change compared to the prior examination(s). OSSEOUS STRUCTURES: No significant abnormalities. VISUALIZED UPPER ABDOMEN: Normal. OTHER FINDINGS: PICC line inserted via right-sided approach below the cavoatrial junction. The tip appears in the inferior vena cava. The finding is marked on the study for review. IMPRESSION: PICC line recently inserted via right upper extremity approach identified. The tip is below the cavoatrial junction in the IVC.
[2018-01-25] MEDS: Vancomycin 1 gm/NS 200 ml 1 GM/200 ML BAG IVPB SCH (23:41)
--- NOTE | 2018-01-26 07:29 | CP.PCM.PN ---
Subjective - Date & Time of Evaluation Date of Evaluation: 01/26/18 Time of Evaluation: 07:00 - Subjective Subjective: PGY2- Progress Note for Dr. Corley Patient seen and examined at bedside. Patient complains of chest pain which she rates 9/10. Patient denies any shortness of breath or abdominal pain. Patient admits to constipation, but says she had a bowel movement last night. Full review of systems unattainable due to patient's chronic medical conditions. Objective - Vital Signs/Intake and Output Vital Signs (last 24 hours): Temp Pulse Resp BP Pulse Ox 98.4 F 64 20 178/96 H 94 L 01/26/18 00:00 01/26/18 00:00 01/26/18 00:00 01/25/18 20:07 01/26/18 00:00 Intake and Output: 01/26/18 01/26/18 06:59 18:59 Intake Total 680 Balance 680 - Medications Medications: Current Medications Albuterol Sulfate (Albuterol 0.083% Inhal Carri (2.5 Mg/3 Ml) Ud) 2.5 mg INH RQ6 PRN PRN Reason: Shortness of Breath Amlodipine Besylate (Norvasc) 10 mg PO DAILY [facility] Enoxaparin Sodium (Lovenox) 40 mg SC DAILY [facility] Ciprofloxacin (Cipro 400mg/200ml Dsw) 400 mg in 200 mls @ 133 mls/hr IVPB Q12H [facility] PRN Reason: Protocol Vancomycin/Sodium Chloride (Vancomycin 1 Gm/Ns 200 Ml) 1 gm in 200 mls @ 133 mls/hr IVPB Q24H [facility] PRN Reason: Protocol Stop: 01/31/18 00:01 Last Admin: 01/25/18 23:41 Dose: 133 mls/hr Ibuprofen (Motrin Tab) 400 mg PO Q8H PRN PRN Reason: Pain, moderate (4-7) Last Admin: 01/25/18 23:04 Dose: 400 mg Losartan Potassium (Cozaar) 100 mg PO DAILY [facility] Last Admin: 01/25/18 22:23 Dose: 100 mg Metoprolol Succinate (Toprol Xl) 25 mg PO DAILY [facility] Montelukast Sodium (Singulair) 10 mg PO HS [facility] Multivitamins (Hexavitamin) 1 tab PO DAILY [facility] Pantoprazole Sodium (Protonix Ec Tab) 40 mg PO DAILY [facility] - Labs Labs: 01/25/18 11:34 01/25/18 11:34 APTT 36 SECONDS (21-34) H 01/25/18 11:34 - Constitutional Appears: Non-toxic, No Acute Distress - Head Exam Head Exam: ATRAUMATIC, NORMAL INSPECTION, NORMOCEPHALIC - ENT Exam ENT Exam: Mucous Membranes Moist - Respiratory Exam Respiratory Exam: Clear to Ausculation Bilateral, NORMAL BREATHING PATTERN - Cardiovascular Exam Cardiovascular Exam: REGULAR RHYTHM, RRR, +S1, +S2 - GI/Abdominal Exam GI & Abdominal Exam: Soft, Normal Bowel Sounds. absent: Tenderness - Extremities Exam Extremities Exam: absent: Pedal Edema - Neurological Exam Neurological Exam: Alert, Awake - Psychiatric Exam Psychiatric exam: Anxious - Skin Skin Exam: Intact, Normal Color, Warm Assessment and Plan - Assessment and Plan (Free Text) Assessment: Pneumonia -Cxray: right basilar infiltrate suspicious for pneumonia -Cxray: picc line inserted via right upper extremity approach identified. tip is below the cavoatrial junction in the IVC -f/u blood culture and urine culture -Cipro 400mg q12h -Vanco 1gm ivpb daily Chest pain - numerous admissions for same complaint -Echo 07/2017: Normal LVEF, LVH and grade 1 DD -continue antihypertensive meds -EKG (01/26): NSR at 66bpm -MAGGI x 3, first Troponin I: .0130 HTN -Norvasc 10mg po daily -Losartan 100mg po daily -Toprol XL 25mg po daily Asthma -continue ventolin inhaler -singulair 10 mg po hs Hx of CVA/mental slowing and delay since childhood -No acute intervention -Crestor 10mg qhs hx of cerebral palsy/Chronic pain -Gabapentin 300mg PO TID Prophylaxis Protonix 40mg po daily Lovenox 40mg sc daily [facility] Multivitamins Management as per Dr. Lorena Corley
[2018-01-26 08:28] LABS: BASO % 0.9 % (0.0-2.0); EOS # 0.1 K/uL (0.0-0.7); EOS % 1.8 % (0.0-4.0); HEMOGLOBIN 10.5 g/dL (11.0-16.0); LYMPH # 1.3 K/uL (1.0-4.3); LYMPH % 35.2 % (20.0-40.0); MEAN CELL VOLUME 85.5 fL (81.0-99.0); MEAN CORPUSCULAR HEMOGLOBIN 27.5 pg (27.0-31.0); MEAN CORPUSCULAR HGB CONC 32.1 g/dL (33.0-37.0); MEAN PLATELET VOLUME 8.5 fL (7.2-11.7); MONO # 0.4 K/uL (0.0-0.8); MONO % 10.2 % (0.0-10.0); NEUT # 1.9 K/uL (1.8-7.0); NEUT % 51.9 % (50.0-75.0); NRBC % 0.1 % (0.0-2.0); RBC 3.83 Mil/uL (3.80-5.20); RED CELL DISTRIBUTION WIDTH 14.6 % (11.5-14.5); WHITE BLOOD COUNT 3.7 K/uL (4.8-10.8)
[2018-01-26 08:48] LABS: ALB/GLOB RATIO 1.2 (1.0-2.1); ALBUMIN 3.8 g/dL (3.5-5.0); ALT/SGPT 24 U/L (9-52); AST/SGOT 20 U/L (14-36); BLOOD UREA NITROGEN 14 mg/dL (7-17); CALCIUM 11.2 mg/dl (8.6-10.4); GFR AFRICAN-AMERICAN > 60; GFR NON-AFRICAN AMERICAN > 60
[2018-01-26] MEDS ORDERED: Albuterol-Ipratrop 3 mg / 0.5 (3 ml) UD INH STA (09:01)
[2018-01-26] MEDS: Metoprolol Succinate 25 mg XL Tab PO SCH (09:56)
[2018-01-26] MEDS: Enoxaparin 40 mg Syringe SC SCH (09:56)
[2018-01-26] MEDS: Pantoprazole 40 mg EC Tab PO SCH (09:56)
[2018-01-26] MEDS: Multiple Vitamins Tab PO SCH (09:56)
[2018-01-26] MEDS: Ciprofloxacin 400mg/200ml D5W 400 MG/200 ML BAG IVPB SCH ×2 (10:00→21:26)
[2018-01-26 10:54] LABS: CK-MB 3.81 ng/mL (0.0-3.38); TROPONIN I 0.013 ng/mL (0.00-0.120)
[2018-01-26] MEDS: Albuterol 0.083% Inhal Sol (2.5 mg/3 mL) UD INH PRN (13:18)
[2018-01-26 19:22] LABS: CK-MB 4.39 ng/mL (0.0-3.38)
--- NOTE | 2018-01-26 19:32 | CP.PCM.PN ---
Subjective - Date & Time of Evaluation Date of Evaluation: 01/26/18 Time of Evaluation: 07:30 - Subjective Subjective: clinically same Objective - Vital Signs/Intake and Output Vital Signs (last 24 hours): Temp Pulse Resp BP Pulse Ox 98 F 73 20 145/81 97 01/26/18 16:16 01/26/18 16:16 01/26/18 16:16 01/26/18 16:16 01/26/18 16:16 Intake and Output: 01/26/18 01/27/18 18:59 06:59 Intake Total 700 Balance 700 - Medications Medications: Current Medications Albuterol Sulfate (Albuterol 0.083% Inhal Carri (2.5 Mg/3 Ml) Ud) 2.5 mg INH RQ6 PRN PRN Reason: Shortness of Breath Last Admin: 01/26/18 13:18 Dose: 2.5 mg Amlodipine Besylate (Norvasc) 10 mg PO DAILY [facility] Last Admin: 01/26/18 09:56 Dose: 10 mg Enoxaparin Sodium (Lovenox) 40 mg SC DAILY [facility] Last Admin: 01/26/18 09:56 Dose: 40 mg Gabapentin (Neurontin) 300 mg PO TID [facility] Last Admin: 01/26/18 17:47 Dose: 300 mg Ciprofloxacin (Cipro 400mg/200ml Dsw) 400 mg in 200 mls @ 133 mls/hr IVPB Q12H [facility] PRN Reason: Protocol Last Admin: 01/26/18 10:00 Dose: 133 mls/hr Vancomycin/Sodium Chloride (Vancomycin 1 Gm/Ns 200 Ml) 1 gm in 200 mls @ 133 mls/hr IVPB Q24H [facility] PRN Reason: Protocol Stop: 01/31/18 00:01 Last Admin: 01/25/18 23:41 Dose: 133 mls/hr Ibuprofen (Motrin Tab) 400 mg PO Q8H PRN PRN Reason: Pain, moderate (4-7) Last Admin: 01/25/18 23:04 Dose: 400 mg Losartan Potassium (Cozaar) 100 mg PO DAILY [facility] Last Admin: 01/26/18 09:57 Dose: 100 mg Metoprolol Succinate (Toprol Xl) 25 mg PO DAILY [facility] Last Admin: 01/26/18 09:56 Dose: 25 mg Montelukast Sodium (Singulair) 10 mg PO HS [facility] Multivitamins (Hexavitamin) 1 tab PO DAILY [facility] Last Admin: 01/26/18 09:56 Dose: 1 tab Pantoprazole Sodium (Protonix Ec Tab) 40 mg PO DAILY [facility] Last Admin: 01/26/18 09:56 Dose: 40 mg - Labs Labs: 01/26/18 08:20 01/26/18 08:20 APTT 36 SECONDS (21-34) H 01/25/18 11:34 - Constitutional Appears: Well - Head Exam Head Exam: ATRAUMATIC, NORMAL INSPECTION, NORMOCEPHALIC - Eye Exam Eye Exam: EOMI, Normal appearance, PERRL Pupil Exam: NORMAL ACCOMODATION, PERRL - ENT Exam ENT Exam: Mucous Membranes Moist, Normal Exam - Neck Exam Neck Exam: Full ROM, Normal Inspection. absent: Lymphadenopathy - Respiratory Exam Respiratory Exam: Decreased Breath Sounds - Cardiovascular Exam Cardiovascular Exam: REGULAR RHYTHM, +S1, +S2 - GI/Abdominal Exam GI & Abdominal Exam: Soft, Diminished Bowel Sounds - Rectal Exam Rectal Exam: Deferred
[2018-01-27] MEDS: Vancomycin 1 gm/NS 200 ml 1 GM/200 ML BAG IVPB SCH ×2 (00:24→23:48)
[2018-01-27] MEDS: Albuterol 0.083% Inhal Sol (2.5 mg/3 mL) UD INH PRN ×2 (07:15→13:07)
[2018-01-27 07:40] LABS: EOS # 0.1 K/uL (0.0-0.7); EOS % 1.9 % (0.0-4.0); HEMOGLOBIN 10.6 g/dL (11.0-16.0); LYMPH # 1.3 K/uL (1.0-4.3); LYMPH % 30.6 % (20.0-40.0); MEAN CELL VOLUME 85.2 fL (81.0-99.0); MEAN CORPUSCULAR HEMOGLOBIN 28.3 pg (27.0-31.0); MEAN CORPUSCULAR HGB CONC 33.3 g/dL (33.0-37.0); MONO # 0.4 K/uL (0.0-0.8); MONO % 9.9 % (0.0-10.0); NEUT # 2.4 K/uL (1.8-7.0); NEUT % 56.6 % (50.0-75.0); NRBC % 0.1 % (0.0-2.0); RBC 3.73 Mil/uL (3.80-5.20); RED CELL DISTRIBUTION WIDTH 14.5 % (11.5-14.5); WHITE BLOOD COUNT 4.3 K/uL (4.8-10.8)
[2018-01-27 08:11] LABS: ALB/GLOB RATIO 1.1 (1.0-2.1); ALBUMIN 3.8 g/dL (3.5-5.0); ALT/SGPT 20 U/L (9-52); AST/SGOT 23 U/L (14-36); BLOOD UREA NITROGEN 14 mg/dL (7-17); CALCIUM 11.3 mg/dl (8.6-10.4); GFR AFRICAN-AMERICAN > 60; GFR NON-AFRICAN AMERICAN > 60
[2018-01-27] MEDS: Enoxaparin 40 mg Syringe SC SCH ×2 (09:13→09:21)
[2018-01-27] MEDS: Pantoprazole 40 mg EC Tab PO SCH (09:13)
[2018-01-27] MEDS: Multiple Vitamins Tab PO SCH (09:13)
[2018-01-27] MEDS: Metoprolol Succinate 25 mg XL Tab PO SCH (09:13)
[2018-01-27] MEDS: Ciprofloxacin 400mg/200ml D5W 400 MG/200 ML BAG IVPB SCH ×2 (09:16→21:52)
--- NOTE | 2018-01-27 12:47 | CARD ---
APPROVED REPORT Date of service: 01/25/2018 EKG Measurement Heart [id number] <Conclusion> PROMINENT BASELINE ARTIFACT - PLEASE REPEAT Undetermined rhythm Abnormal ECG
--- NOTE | 2018-01-27 15:33 | CP.PCM.PN ---
Subjective - Date & Time of Evaluation Date of Evaluation: 01/27/18 Time of Evaluation: 08:20 - Subjective Subjective: clinically same Objective - Vital Signs/Intake and Output Vital Signs (last 24 hours): Temp Pulse Resp BP Pulse Ox 98.7 F 79 20 160/83 H 95 01/27/18 07:36 01/27/18 07:36 01/27/18 07:36 01/27/18 07:36 01/27/18 07:36 Intake and Output: 01/27/18 01/27/18 06:59 18:59 Intake Total 710 Balance 710 - Medications Medications: Current Medications Albuterol Sulfate (Albuterol 0.083% Inhal Carri (2.5 Mg/3 Ml) Ud) 2.5 mg INH RQ6 PRN PRN Reason: Shortness of Breath Last Admin: 01/27/18 13:07 Dose: 2.5 mg Amlodipine Besylate (Norvasc) 10 mg PO DAILY [facility] Last Admin: 01/27/18 09:13 Dose: 10 mg Enoxaparin Sodium (Lovenox) 40 mg SC DAILY [facility] Last Admin: 01/27/18 09:21 Dose: Not Given Gabapentin (Neurontin) 300 mg PO TID [facility] Last Admin: 01/27/18 15:19 Dose: 300 mg Ciprofloxacin (Cipro 400mg/200ml Dsw) 400 mg in 200 mls @ 133 mls/hr IVPB Q12H [facility] PRN Reason: Protocol Last Admin: 01/27/18 09:16 Dose: 133 mls/hr Vancomycin/Sodium Chloride (Vancomycin 1 Gm/Ns 200 Ml) 1 gm in 200 mls @ 133 mls/hr IVPB Q24H [facility] PRN Reason: Protocol Stop: 01/31/18 00:01 Last Admin: 01/27/18 00:24 Dose: 133 mls/hr Ibuprofen (Motrin Tab) 400 mg PO Q8H PRN PRN Reason: Pain, moderate (4-7) Last Admin: 01/27/18 05:02 Dose: 400 mg Losartan Potassium (Cozaar) 100 mg PO DAILY [facility] Last Admin: 01/27/18 09:13 Dose: 100 mg Metoprolol Succinate (Toprol Xl) 25 mg PO DAILY [facility] Last Admin: 01/27/18 09:13 Dose: 25 mg Montelukast Sodium (Singulair) 10 mg PO HS [facility] Last Admin: 01/26/18 21:25 Dose: 10 mg Multivitamins (Hexavitamin) 1 tab PO DAILY [facility] Last Admin: 01/27/18 09:13 Dose: 1 tab Pantoprazole Sodium (Protonix Ec Tab) 40 mg PO DAILY [facility] Last Admin: 01/27/18 09:13 Dose: 40 mg - Labs Labs: 01/27/18 07:24 01/27/18 07:24 APTT 36 SECONDS (21-34) H 01/25/18 11:34 - Constitutional Appears: Well - Head Exam Head Exam: ATRAUMATIC, NORMAL INSPECTION, NORMOCEPHALIC - Eye Exam Eye Exam: EOMI, Normal appearance, PERRL Pupil Exam: NORMAL ACCOMODATION, PERRL - ENT Exam ENT Exam: Mucous Membranes Moist, Normal Exam - Neck Exam Neck Exam: Full ROM, Normal Inspection. absent: Lymphadenopathy - Respiratory Exam Respiratory Exam: Decreased Breath Sounds - Cardiovascular Exam Cardiovascular Exam: REGULAR RHYTHM, +S1, +S2 - GI/Abdominal Exam GI & Abdominal Exam: Soft, Diminished Bowel Sounds - Rectal Exam Rectal Exam: Deferred
[2018-01-28 00:54] VITALS: RESP 20
--- NOTE | 2018-01-28 06:09 | CP.PCM.CON ---
History of Present Illness - History of Present Illness History of Present Illness: CC: Chest pain HPI: 47 year old woman with following chronic medical problems 1. 2. 3. Past Patient History - Infectious Disease Hx of Infectious Diseases: None - Tetanus Immunizations Tetanus Immunization: Unknown - Past Medical History & Family History Past Medical History?: Yes - Past Social History Smoking Status: Never Smoked - CARDIAC Hx Congestive Heart Failure: Yes Hx Hypercholesterolemia: Yes Hx Hypertension: Yes - PULMONARY Hx Asthma: Yes Hx Bronchitis: Yes Hx Chronic Obstructive Pulmonary Disease (COPD): Yes Hx Pneumonia: Yes - NEUROLOGICAL Hx Multiple Sclerosis: Yes Hx Parkinson's Disease: Yes Hx Transient Ischemic Attacks (TIA): Yes - HEENT Hx HEENT Problems: No - RENAL Hx Chronic Kidney Disease: Yes Hx Kidney Stones: Yes - ENDOCRINE/METABOLIC Hx Hyperthyroidism: Yes - HEMATOLOGICAL/ONCOLOGICAL Hx Anemia: Yes - INTEGUMENTARY Hx Dermatological Problems: No - MUSCULOSKELETAL/RHEUMATOLOGICAL Hx Arthritis: Yes - GASTROINTESTINAL Hx Gastritis: Yes - PSYCHIATRIC Hx Anxiety: Yes Hx Depression: Yes Hx Substance Use: No - SURGICAL HISTORY Hx Surgeries: Yes Hx Herniorrhaphy: Yes - ANESTHESIA Hx Anesthesia: Yes Hx Anesthesia Reactions: No Hx Malignant Hyperthermia: No Meds Home Medications: Home Medication List Medication Instructions Recorded Confirmed Type Azithromycin [Z-James] 250 mg PO DAILY #6 tab 01/29/18 Rx Allergies/Adverse Reactions: Allergies Allergy/AdvReac Type Severity Reaction Status Date / Time acetaminophen Allergy ITCHING Verified 01/10/18 07:36 codeine Allergy RASH Verified 01/10/18 07:36 iodine Allergy ITCHING Verified 01/10/18 07:36 ketorolac Allergy ITCHING Verified 01/10/18 07:36 ketorolac tromethamine Allergy RASH Verified 01/10/18 07:36 [From Toradol] Latex, Natural Rubber Allergy ITCHING Verified 01/10/18 07:36 morphine Allergy ITCHING Verified 01/10/18 07:36 orange juice Allergy ITCHING Verified 01/10/18 07:36 Penicillins Allergy ITCHING Verified 01/10/18 07:36 Sulfa (Sulfonamide Allergy RASH Verified 01/10/18 07:36 Antibiotics) tomato Allergy ITCHING Verified 01/10/18 07:36 tramadol Allergy ITCHING Verified 01/10/18 07:36 ondansetron HCl AdvReac Intermediate RASH Verified 01/10/18 07:36 [From Zofran (as hydrochloride)] - Medications Medications: Current Medications Albuterol Sulfate (Albuterol 0.083% Inhal Carri (2.5 Mg/3 Ml) Ud) 2.5 mg INH RQ6 PRN PRN Reason: Shortness of Breath Last Admin: 01/27/18 13:07 Dose: 2.5 mg Amlodipine Besylate (Norvasc) 10 mg PO DAILY [facility] Last Admin: 01/27/18 09:13 Dose: 10 mg Enoxaparin Sodium (Lovenox) 40 mg SC DAILY [facility] Last Admin: 01/27/18 09:21 Dose: Not Given Gabapentin (Neurontin) 300 mg PO TID [facility] Last Admin: 01/27/18 17:26 Dose: 300 mg Ciprofloxacin (Cipro 400mg/200ml Dsw) 400 mg in 200 mls @ 133 mls/hr IVPB Q12H REAGAN PRN Reason: Protocol Last Admin: 01/27/18 21:52 Dose: 133 mls/hr Vancomycin/Sodium Chloride (Vancomycin 1 Gm/Ns 200 Ml) 1 gm in 200 mls @ 133 mls/hr IVPB Q24H REAGAN PRN Reason: Protocol Stop: 01/31/18 00:01 Last Admin: 01/27/18 23:48 Dose: 133 mls/hr Ibuprofen (Motrin Tab) 400 mg PO Q8H PRN PRN Reason: Pain, moderate (4-7) Last Admin: 01/27/18 17:34 Dose: 400 mg Losartan Potassium (Cozaar) 100 mg PO DAILY [facility] Last Admin: 01/27/18 09:13 Dose: 100 mg Montelukast Sodium (Singulair) 10 mg PO HS [facility] Last Admin: 01/27/18 21:53 Dose: 10 mg Multivitamins (Hexavitamin) 1 tab PO DAILY [facility] Last Admin: 01/27/18 09:13 Dose: 1 tab Pantoprazole Sodium (Protonix Ec Tab) 40 mg PO DAILY [facility] Last Admin: 01/27/18 09:13 Dose: 40 mg Results - Vital Signs Recent Vital Signs: Last Vital Signs Temp 97.8 F 01/28/18 00:00 Pulse 60 01/28/18 00:00 Resp 20 01/28/18 00:00 BP 130/79 01/28/18 00:00 Pulse Ox 100 01/28/18 00:00 - Labs Result Diagrams: 02/02/18 07:00 02/02/18 07:00 Labs: Laboratory Results - last 24 hr 01/27/18 01/27/18 07:24 07:24 WBC 4.3 L RBC 3.73 L Hgb 10.6 L Hct 31.8 L MCV 85.2 MCH 28.3 MCHC 33.3 RDW 14.5 Plt Count 252 MPV 9.0 Neut % (Auto) 56.6 Lymph % (Auto) 30.6 [place] % (Auto) 9.9 Eos % (Auto) 1.9 Baso % (Auto) 1.0 Neut # (Auto) 2.4 Lymph # (Auto) 1.3 [place] # (Auto) 0.4 Eos # (Auto) 0.1 Baso # (Auto) 0.0 Sodium 143 Potassium 4.1 Chloride 106 Carbon Dioxide 28 Anion Gap 13 BUN 14 Creatinine 0.7 Est GFR ( Amer) > 60 Est GFR (Non-Af Amer) > 60 Random Glucose 85 Calcium 11.3 H Phosphorus 2.8 Magnesium 1.8 Total Bilirubin 0.5 AST 23 ALT 20 Alkaline Phosphatase 56 Total Protein 7.1 Albumin 3.8 Globulin 3.4 Albumin/Globulin Ratio 1.1 - EKG Data EKG Interpreted by: Myself EKG shows normal: Sinus rhythm (Baseline artificat probably NSR with PVC's) Rate: Normal - Imaging and Cardiology Chest x-ray Status: Image reviewed by me Additional comment: Poor inspirtory effort Assessment & Plan - Assessment and Plan (Free Text) Assessment: Patient reported to me that Dr. Swanson is her comparison shopper and she wishes he consult her here in the hospital.
[2018-01-28 08:11] LABS: BASO % 0.5 % (0.0-2.0); EOS % 1.3 % (0.0-4.0); HEMOGLOBIN 9.7 g/dL (11.0-16.0); LYMPH # 1.1 K/uL (1.0-4.3); LYMPH % 32.2 % (20.0-40.0); MEAN CORPUSCULAR HEMOGLOBIN 27.5 pg (27.0-31.0); MEAN CORPUSCULAR HGB CONC 31.9 g/dL (33.0-37.0); MEAN PLATELET VOLUME 9.4 fL (7.2-11.7); MONO # 0.4 K/uL (0.0-0.8); MONO % 11.2 % (0.0-10.0); NEUT # 1.9 K/uL (1.8-7.0); NEUT % 54.8 % (50.0-75.0); RBC 3.53 Mil/uL (3.80-5.20); RED CELL DISTRIBUTION WIDTH 14.3 % (11.5-14.5); WHITE BLOOD COUNT 3.5 K/uL (4.8-10.8)
[2018-01-28 08:23] LABS: ALB/GLOB RATIO 1.1 (1.0-2.1); ALBUMIN 3.3 g/dL (3.5-5.0); ALT/SGPT 19 U/L (9-52); AST/SGOT 15 U/L (14-36); BLOOD UREA NITROGEN 17 mg/dL (7-17); CALCIUM 11.2 mg/dl (8.6-10.4); GFR AFRICAN-AMERICAN > 60; GFR NON-AFRICAN AMERICAN > 60
[2018-01-28] MEDS: Pantoprazole 40 mg EC Tab PO SCH (09:11)
[2018-01-28] MEDS: Multiple Vitamins Tab PO SCH (09:12)
[2018-01-28] MEDS: Enoxaparin 40 mg Syringe SC SCH (09:13)
[2018-01-28] MEDS: guaiFENesin DM 100 mg-10 mg/5 ml UD PO PRN (09:32)
[2018-01-28] MEDS: Ciprofloxacin 400mg/200ml D5W 400 MG/200 ML BAG IVPB SCH ×2 (09:33→21:26)
--- NOTE | 2018-01-28 12:53 | CP.PCM.PN ---
Subjective - Date & Time of Evaluation Date of Evaluation: 01/28/18 Time of Evaluation: 07:30 - Subjective Subjective: clinically same Objective - Vital Signs/Intake and Output Vital Signs (last 24 hours): Temp Pulse Resp BP Pulse Ox 98 F 61 20 152/82 H 97 01/28/18 08:12 01/28/18 08:12 01/28/18 08:12 01/28/18 08:12 01/28/18 08:12 Intake and Output: 01/28/18 01/28/18 06:59 18:59 Intake Total 680 Balance 680 - Medications Medications: Current Medications Albuterol Sulfate (Albuterol 0.083% Inhal Carri (2.5 Mg/3 Ml) Ud) 2.5 mg INH RQ6 PRN PRN Reason: Shortness of Breath Last Admin: 01/27/18 13:07 Dose: 2.5 mg Amlodipine Besylate (Norvasc) 10 mg PO DAILY [facility] Last Admin: 01/28/18 09:12 Dose: 10 mg Enoxaparin Sodium (Lovenox) 40 mg SC DAILY [facility] Last Admin: 01/28/18 09:13 Dose: 40 mg Gabapentin (Neurontin) 300 mg PO TID [facility] Last Admin: 01/28/18 09:15 Dose: 300 mg Guaifenesin/Dextromethorphan (Robitussin Dm) 5 ml PO Q4H PRN PRN Reason: Cough Last Admin: 01/28/18 09:32 Dose: 5 ml Ciprofloxacin (Cipro 400mg/200ml Dsw) 400 mg in 200 mls @ 133 mls/hr IVPB Q12H REAGAN PRN Reason: Protocol Last Admin: 01/28/18 09:33 Dose: 133 mls/hr Vancomycin/Sodium Chloride (Vancomycin 1 Gm/Ns 200 Ml) 1 gm in 200 mls @ 133 mls/hr IVPB Q24H REAGAN PRN Reason: Protocol Stop: 01/31/18 00:01 Last Admin: 01/27/18 23:48 Dose: 133 mls/hr Ibuprofen (Motrin Tab) 400 mg PO Q8H PRN PRN Reason: Pain, moderate (4-7) Last Admin: 01/28/18 09:12 Dose: 400 mg Losartan Potassium (Cozaar) 100 mg PO DAILY [facility] Last Admin: 01/28/18 09:32 Dose: 100 mg Montelukast Sodium (Singulair) 10 mg PO HS [facility] Last Admin: 01/27/18 21:53 Dose: 10 mg Multivitamins (Hexavitamin) 1 tab PO DAILY [facility] Last Admin: 01/28/18 09:12 Dose: 1 tab Pantoprazole Sodium (Protonix Ec Tab) 40 mg PO DAILY [facility] Last Admin: 01/28/18 09:11 Dose: 40 mg - Labs Labs: 01/28/18 07:52 01/28/18 07:52 APTT 36 SECONDS (21-34) H 01/25/18 11:34 - Constitutional Appears: Well - Head Exam Head Exam: ATRAUMATIC, NORMAL INSPECTION, NORMOCEPHALIC - Eye Exam Eye Exam: EOMI, Normal appearance, PERRL Pupil Exam: NORMAL ACCOMODATION, PERRL - ENT Exam ENT Exam: Mucous Membranes Moist, Normal Exam - Neck Exam Neck Exam: Full ROM, Normal Inspection. absent: Lymphadenopathy - Respiratory Exam Respiratory Exam: Decreased Breath Sounds - Cardiovascular Exam Cardiovascular Exam: REGULAR RHYTHM, +S1, +S2 - GI/Abdominal Exam GI & Abdominal Exam: Soft, Diminished Bowel Sounds - Rectal Exam Rectal Exam: Deferred
[2018-01-28 16:50] LABS: CK-MB 3.04 ng/mL (0.0-3.38)
--- NOTE | 2018-01-28 22:44 | CP.PCM.CON ---
History of Present Illness - History of Present Illness History of Present Illness: pt was seen by dr Morrison? Past Patient History - Infectious Disease Hx of Infectious Diseases: None - Tetanus Immunizations Tetanus Immunization: Unknown - Past Medical History & Family History Past Medical History?: Yes - Past Social History Smoking Status: Never Smoked - CARDIAC Hx Congestive Heart Failure: Yes Hx Hypercholesterolemia: Yes Hx Hypertension: Yes - PULMONARY Hx Asthma: Yes Hx Bronchitis: Yes Hx Chronic Obstructive Pulmonary Disease (COPD): Yes Hx Pneumonia: Yes - NEUROLOGICAL Hx Multiple Sclerosis: Yes Hx Parkinson's Disease: Yes Hx Transient Ischemic Attacks (TIA): Yes - HEENT Hx HEENT Problems: No - RENAL Hx Chronic Kidney Disease: Yes Hx Kidney Stones: Yes - ENDOCRINE/METABOLIC Hx Hyperthyroidism: Yes - HEMATOLOGICAL/ONCOLOGICAL Hx Anemia: Yes - INTEGUMENTARY Hx Dermatological Problems: No - MUSCULOSKELETAL/RHEUMATOLOGICAL Hx Arthritis: Yes - GASTROINTESTINAL Hx Gastritis: Yes - PSYCHIATRIC Hx Anxiety: Yes Hx Depression: Yes Hx Substance Use: No - SURGICAL HISTORY Hx Surgeries: Yes Hx Herniorrhaphy: Yes - ANESTHESIA Hx Anesthesia: Yes Hx Anesthesia Reactions: No Hx Malignant Hyperthermia: No Meds Allergies/Adverse Reactions: Allergies Allergy/AdvReac Type Severity Reaction Status Date / Time acetaminophen Allergy ITCHING Verified 01/10/18 07:36 codeine Allergy RASH Verified 01/10/18 07:36 iodine Allergy ITCHING Verified 01/10/18 07:36 ketorolac Allergy ITCHING Verified 01/10/18 07:36 ketorolac tromethamine Allergy RASH Verified 01/10/18 07:36 [From Toradol] Latex, Natural Rubber Allergy ITCHING Verified 01/10/18 07:36 morphine Allergy ITCHING Verified 01/10/18 07:36 orange juice Allergy ITCHING Verified 01/10/18 07:36 Penicillins Allergy ITCHING Verified 01/10/18 07:36 Sulfa (Sulfonamide Allergy RASH Verified 01/10/18 07:36 Antibiotics) tomato Allergy ITCHING Verified 01/10/18 07:36 tramadol Allergy ITCHING Verified 01/10/18 07:36 ondansetron HCl AdvReac Intermediate RASH Verified 01/10/18 07:36 [From Zofran (as hydrochloride)] - Medications Medications: Current Medications Albuterol Sulfate (Albuterol 0.083% Inhal Carri (2.5 Mg/3 Ml) Ud) 2.5 mg INH RQ6 PRN PRN Reason: Shortness of Breath Last Admin: 01/27/18 13:07 Dose: 2.5 mg Amlodipine Besylate (Norvasc) 10 mg PO DAILY [facility] Last Admin: 01/28/18 09:12 Dose: 10 mg Enoxaparin Sodium (Lovenox) 40 mg SC DAILY [facility] Last Admin: 01/28/18 09:13 Dose: 40 mg Gabapentin (Neurontin) 300 mg PO TID [facility] Last Admin: 01/28/18 17:50 Dose: 300 mg Guaifenesin/Dextromethorphan (Robitussin Dm) 5 ml PO Q4H PRN PRN Reason: Cough Last Admin: 01/28/18 09:32 Dose: 5 ml Ciprofloxacin (Cipro 400mg/200ml Dsw) 400 mg in 200 mls @ 133 mls/hr IVPB Q12H REAGAN PRN Reason: Protocol Last Admin: 01/28/18 21:26 Dose: 133 mls/hr Vancomycin/Sodium Chloride (Vancomycin 1 Gm/Ns 200 Ml) 1 gm in 200 mls @ 133 mls/hr IVPB Q24H REAGAN PRN Reason: Protocol Stop: 01/31/18 00:01 Last Admin: 01/27/18 23:48 Dose: 133 mls/hr Ibuprofen (Motrin Tab) 400 mg PO Q8H PRN PRN Reason: Pain, moderate (4-7) Last Admin: 01/28/18 17:52 Dose: 400 mg Losartan Potassium (Cozaar) 100 mg PO DAILY [facility] Last Admin: 01/28/18 09:32 Dose: 100 mg Montelukast Sodium (Singulair) 10 mg PO HS [facility] Last Admin: 01/28/18 21:26 Dose: 10 mg Multivitamins (Hexavitamin) 1 tab PO DAILY [facility] Last Admin: 01/28/18 09:12 Dose: 1 tab Pantoprazole Sodium (Protonix Ec Tab) 40 mg PO DAILY [facility] Last Admin: 01/28/18 09:11 Dose: 40 mg Results - Vital Signs Recent Vital Signs: Last Vital Signs Temp 99.4 F 01/28/18 16:00 Pulse 66 01/28/18 16:00 Resp 20 01/28/18 16:00 BP 179/75 H 01/28/18 16:00 Pulse Ox 99 01/28/18 16:00 - Labs Result Diagrams: 01/28/18 07:52 01/28/18 07:52 Labs: Laboratory Results - last 24 hr 01/28/18 01/28/18 01/28/18 07:52 07:52 16:22 WBC 3.5 L RBC 3.53 L Hgb 9.7 L Hct 30.4 L MCV 86.0 MCH 27.5 MCHC 31.9 L RDW 14.3 Plt Count 226 MPV 9.4 Neut % (Auto) 54.8 Lymph % (Auto) 32.2 [place] % (Auto) 11.2 H Eos % (Auto) 1.3 Baso % (Auto) 0.5 Neut # (Auto) 1.9 Lymph # (Auto) 1.1 [place] # (Auto) 0.4 Eos # (Auto) 0.0 Baso # (Auto) 0.0 Sodium 144 Potassium 4.0 Chloride 105 Carbon Dioxide 33 H Anion Gap 10 BUN 17 Creatinine 0.7 Est GFR ( Amer) > 60 Est GFR (Non-Af Amer) > 60 Random Glucose 83 Calcium 11.2 H Phosphorus 3.3 Magnesium 1.9 Total Bilirubin 0.3 AST 15 ALT 19 Alkaline Phosphatase 49 Total Creatine Kinase 81 CK-MB (Mass) 3.04 Troponin I < 0.0120 Total Protein 6.3 Albumin 3.3 L Globulin 3.0 Albumin/Globulin Ratio 1.1
[2018-01-28] MEDS: Vancomycin 1 gm/NS 200 ml 1 GM/200 ML BAG IVPB SCH (23:14)
[2018-01-29] MEDS: Albuterol 0.083% Inhal Sol (2.5 mg/3 mL) UD INH PRN ×2 (07:21→13:20)
[2018-01-29 07:28] LABS: BASO % 0.5 % (0.0-2.0); EOS % 1.2 % (0.0-4.0); HEMOGLOBIN 9.8 g/dL (11.0-16.0); LYMPH # 1.4 K/uL (1.0-4.3); LYMPH % 39.4 % (20.0-40.0); MEAN CELL VOLUME 85.6 fL (81.0-99.0); MEAN CORPUSCULAR HEMOGLOBIN 27.7 pg (27.0-31.0); MEAN CORPUSCULAR HGB CONC 32.3 g/dL (33.0-37.0); MEAN PLATELET VOLUME 9.1 fL (7.2-11.7); MONO # 0.3 K/uL (0.0-0.8); MONO % 9.7 % (0.0-10.0); NEUT # 1.7 K/uL (1.8-7.0); NEUT % 49.2 % (50.0-75.0); NRBC % 0.1 % (0.0-2.0); RBC 3.54 Mil/uL (3.80-5.20); RED CELL DISTRIBUTION WIDTH 14.6 % (11.5-14.5); WHITE BLOOD COUNT 3.5 K/uL (4.8-10.8)
[2018-01-29 08:07] LABS: ALB/GLOB RATIO 1.2 (1.0-2.1); ALBUMIN 3.4 g/dL (3.5-5.0); ALT/SGPT 27 U/L (9-52); AST/SGOT 16 U/L (14-36); BLOOD UREA NITROGEN 17 mg/dL (7-17); GFR AFRICAN-AMERICAN > 60; GFR NON-AFRICAN AMERICAN > 60
[2018-01-29] MEDS: Pantoprazole 40 mg EC Tab PO SCH (09:26)
[2018-01-29] MEDS: Multiple Vitamins Tab PO SCH (09:26)
[2018-01-29] MEDS: Enoxaparin 40 mg Syringe SC SCH (09:27)
[2018-01-29] MEDS: Ciprofloxacin 400mg/200ml D5W 400 MG/200 ML BAG IVPB SCH ×2 (09:41→21:11)
--- NOTE | 2018-01-29 16:28 | CP.PCM.PN ---
Subjective - Date & Time of Evaluation Date of Evaluation: 01/29/18 Time of Evaluation: 07:25 - Subjective Subjective: PGY1 Medicine Note for Dr. Lorena Corley Patient seen and examined this morning at bedside. No acute events overnight. Patient is feeling much better today. She is no longer experiencing chest pain. She is complaining of hard stools but had a normal bowel movement last night. She has no other complaints at this time. Denies fevers, chills, nausea, vomiting, diarrhea, constipation, chest pain, shortness of breath, abdominal pain, numbness or tingling. Objective - Vital Signs/Intake and Output Vital Signs (last 24 hours): Temp Pulse Resp BP Pulse Ox 97.8 F 73 20 154/83 H 97 01/29/18 08:32 01/29/18 08:32 01/29/18 08:32 01/29/18 08:32 01/29/18 08:32 Intake and Output: 01/29/18 01/29/18 06:59 18:59 Intake Total 700 700 Balance 700 700 - Medications Medications: Current Medications Albuterol Sulfate (Albuterol 0.083% Inhal Carri (2.5 Mg/3 Ml) Ud) 2.5 mg INH RQ6 PRN PRN Reason: Shortness of Breath Last Admin: 01/29/18 13:20 Dose: 2.5 mg Amlodipine Besylate (Norvasc) 10 mg PO DAILY [facility] Last Admin: 01/29/18 09:26 Dose: 10 mg Enoxaparin Sodium (Lovenox) 40 mg SC DAILY [facility] Last Admin: 01/29/18 09:27 Dose: 40 mg Gabapentin (Neurontin) 300 mg PO TID [facility] Last Admin: 01/29/18 14:11 Dose: 300 mg Guaifenesin/Dextromethorphan (Robitussin Dm) 5 ml PO Q4H PRN PRN Reason: Cough Last Admin: 01/28/18 09:32 Dose: 5 ml Ciprofloxacin (Cipro 400mg/200ml Dsw) 400 mg in 200 mls @ 133 mls/hr IVPB Q12H [facility]AG[facility] PRN Reason: Protocol Last Admin: 01/29/18 09:41 Dose: 133 mls/hr Vancomycin/Sodium Chloride (Vancomycin 1 Gm/Ns 200 Ml) 1 gm in 200 mls @ 133 mls/hr IVPB Q24H REAGAN PRN Reason: Protocol Stop: 01/31/18 00:01 Last Admin: 01/28/18 23:14 Dose: 133 mls/hr Ibuprofen (Motrin Tab) 400 mg PO Q8H PRN PRN Reason: Pain, moderate (4-7) Last Admin: 01/29/18 09:25 Dose: 400 mg Losartan Potassium (Cozaar) 100 mg PO DAILY [facility] Last Admin: 01/29/18 09:26 Dose: 100 mg Montelukast Sodium (Singulair) 10 mg PO HS [facility] Last Admin: 01/28/18 21:26 Dose: 10 mg Multivitamins (Hexavitamin) 1 tab PO DAILY [facility] Last Admin: 01/29/18 09:26 Dose: 1 tab Pantoprazole Sodium (Protonix Ec Tab) 40 mg PO DAILY [facility] Last Admin: 01/29/18 09:26 Dose: 40 mg - Labs Labs: 01/29/18 07:09 01/29/18 07:09 APTT 36 SECONDS (21-34) H 01/25/18 11:34 - Constitutional Appears: Non-toxic, No Acute Distress - Head Exam Head Exam: ATRAUMATIC, NORMOCEPHALIC - Eye Exam Eye Exam: Normal appearance - ENT Exam ENT Exam: Mucous Membranes Moist - Respiratory Exam Respiratory Exam: Clear to Ausculation Bilateral. absent: Accessory Muscle Use , Rales, Rhonchi, Wheezes, Respiratory Distress Additional comments: baseline breathing pattern - Cardiovascular Exam Cardiovascular Exam: REGULAR RHYTHM, +S1, +S2 - GI/Abdominal Exam GI & Abdominal Exam: Soft, Tenderness (vague, left sided abdominal pain), Normal Bowel Sounds. absent: Distended, Firm, Guarding, Rigid - Extremities Exam Extremities Exam: absent: Calf Tenderness, Pedal Edema - Neurological Exam Neurological Exam: Alert, Awake, Oriented x3 Additional comments: baseline movements (hx of CP) - Psychiatric Exam Psychiatric exam: Normal Affect, Normal Mood - Skin Skin Exam: Dry, Warm Assessment and Plan - Assessment and Plan (Free Text) Plan: Pneumonia -Cxray: right basilar infiltrate suspicious for pneumonia -Cxray: picc line inserted via right upper extremity approach identified. tip is below the cavoatrial junction in the IVC -blood culture and urine culture negative -Cipro 400mg q12h -Vanco 1gm ivpb daily Chest pain -numerous admissions for same complaint -Echo 07/2017: Normal LVEF, LVH and grade 1 DD -continue antihypertensive meds -EKG (01/26): NSR at 66bpm -MAGGI negative x 3 HTN -Norvasc 10mg po daily -Losartan 100mg po daily -Toprol XL 25mg po daily Asthma -continue ventolin inhaler -singulair 10 mg po hs Hx of CVA/mental slowing and delay since childhood -No acute intervention -Crestor 10mg qhs hx of cerebral palsy/Chronic pain -Gabapentin 300mg PO TID Prophylaxis Protonix 40mg po daily Lovenox 40mg sc daily [facility] Multivitamins DISPO: Patient is to be discharged home today. Patient is to be discharged home per Dr. Lorena Corley. Patient is to follow up with Dr. Lorena Corley within his office this week. Please call and schedule an appointment with him tomorrow. Please take you medications as previously prescribed. - Take Azithromycin (Z-James) for total of 5 days. - Take 500mg on Day 1. - Take 250mg on Days 2-5. If you experience any new or worsening symptoms or have any questions, please contact Dr. Lorena Corley's office. Management as per Dr. Lorena Brownn PGY2
--- NOTE | 2018-01-29 17:46 | CP.PCM.PN ---
Subjective - Date & Time of Evaluation Date of Evaluation: 01/29/18 Time of Evaluation: 07:15 - Subjective Subjective: clinically same Objective - Vital Signs/Intake and Output Vital Signs (last 24 hours): Temp Pulse Resp BP Pulse Ox 99.3 F 84 20 150/84 97 01/29/18 16:00 01/29/18 16:00 01/29/18 16:00 01/29/18 16:00 01/29/18 16:00 Intake and Output: 01/29/18 01/29/18 06:59 18:59 Intake Total 700 700 Balance 700 700 - Medications Medications: Current Medications Albuterol Sulfate (Albuterol 0.083% Inhal Carri (2.5 Mg/3 Ml) Ud) 2.5 mg INH RQ6 PRN PRN Reason: Shortness of Breath Last Admin: 01/29/18 13:20 Dose: 2.5 mg Amlodipine Besylate (Norvasc) 10 mg PO DAILY [facility] Last Admin: 01/29/18 09:26 Dose: 10 mg Enoxaparin Sodium (Lovenox) 40 mg SC DAILY [facility] Last Admin: 01/29/18 09:27 Dose: 40 mg Gabapentin (Neurontin) 300 mg PO TID [facility] Last Admin: 01/29/18 14:11 Dose: 300 mg Guaifenesin/Dextromethorphan (Robitussin Dm) 5 ml PO Q4H PRN PRN Reason: Cough Last Admin: 01/28/18 09:32 Dose: 5 ml Ciprofloxacin (Cipro 400mg/200ml Dsw) 400 mg in 200 mls @ 133 mls/hr IVPB Q12H REAGNA PRN Reason: Protocol Last Admin: 01/29/18 09:41 Dose: 133 mls/hr Vancomycin/Sodium Chloride (Vancomycin 1 Gm/Ns 200 Ml) 1 gm in 200 mls @ 133 mls/hr IVPB Q24H REAGAN PRN Reason: Protocol Stop: 01/31/18 00:01 Last Admin: 01/28/18 23:14 Dose: 133 mls/hr Ibuprofen (Motrin Tab) 400 mg PO Q8H PRN PRN Reason: Pain, moderate (4-7) Last Admin: 01/29/18 09:25 Dose: 400 mg Losartan Potassium (Cozaar) 100 mg PO DAILY [facility] Last Admin: 01/29/18 09:26 Dose: 100 mg Montelukast Sodium (Singulair) 10 mg PO HS [facility] Last Admin: 01/28/18 21:26 Dose: 10 mg Multivitamins (Hexavitamin) 1 tab PO DAILY [facility] Last Admin: 01/29/18 09:26 Dose: 1 tab Pantoprazole Sodium (Protonix Ec Tab) 40 mg PO DAILY [facility] Last Admin: 01/29/18 09:26 Dose: 40 mg - Labs Labs: 01/29/18 07:09 01/29/18 07:09 APTT 36 SECONDS (21-34) H 01/25/18 11:34 - Constitutional Appears: Well - Head Exam Head Exam: ATRAUMATIC, NORMAL INSPECTION, NORMOCEPHALIC - Eye Exam Eye Exam: EOMI, Normal appearance, PERRL Pupil Exam: NORMAL ACCOMODATION, PERRL - ENT Exam ENT Exam: Mucous Membranes Moist, Normal Exam - Neck Exam Neck Exam: Full ROM, Normal Inspection. absent: Lymphadenopathy - Respiratory Exam Respiratory Exam: Decreased Breath Sounds - Cardiovascular Exam Cardiovascular Exam: REGULAR RHYTHM, +S1, +S2 - Rectal Exam Rectal Exam: Deferred
[2018-01-30] MEDS: Vancomycin 1 gm/NS 200 ml 1 GM/200 ML BAG IVPB SCH (00:02)
--- NOTE | 2018-01-30 08:18 | CP.PCM.PN ---
Subjective - Date & Time of Evaluation Date of Evaluation: 01/30/18 Time of Evaluation: :18 - Subjective Subjective: PGY2 Medicine Note for Dr. Lorena Corley Patient seen and examined this morning at bedside. Patient refused to go home yesterday and was not discharged. Upon walking into room, patient is sitting up with her feet off the bed eating breakfast without incident. This morning patient experienced episode of bradycardia (HR 54 bpm) with hypertension. She felt dizzy. She is resting comfortably upon entering room but states she is experiencing pain all over, which is chronic. Denies fevers, chills, nausea, vomiting, SOB, numbness or tingling. Objective - Vital Signs/Intake and Output Vital Signs (last 24 hours): Temp Pulse Resp BP Pulse Ox 98.8 F 65 20 143/72 100 01/30/18 00:00 01/30/18 00:00 01/30/18 00:00 01/30/18 00:00 01/30/18 00:00 Intake and Output: 01/30/18 01/30/18 06:59 18:59 Intake Total 750 Balance 750 - Medications Medications: Current Medications Albuterol Sulfate (Albuterol 0.083% Inhal Carri (2.5 Mg/3 Ml) Ud) 2.5 mg INH RQ6 PRN PRN Reason: Shortness of Breath Last Admin: 01/29/18 13:20 Dose: 2.5 mg Amlodipine Besylate (Norvasc) 10 mg PO DAILY [facility] Last Admin: 01/29/18 09:26 Dose: 10 mg Enoxaparin Sodium (Lovenox) 40 mg SC DAILY [facility] Last Admin: 01/29/18 09:27 Dose: 40 mg Gabapentin (Neurontin) 300 mg PO TID [facility] Last Admin: 01/29/18 17:30 Dose: 300 mg Guaifenesin/Dextromethorphan (Robitussin Dm) 5 ml PO Q4H PRN PRN Reason: Cough Last Admin: 01/28/18 09:32 Dose: 5 ml Ciprofloxacin (Cipro 400mg/200ml Dsw) 400 mg in 200 mls @ 133 mls/hr IVPB Q12H [facility] PRN Reason: Protocol Last Admin: 01/29/18 21:11 Dose: 133 mls/hr Vancomycin/Sodium Chloride (Vancomycin 1 Gm/Ns 200 Ml) 1 gm in 200 mls @ 133 mls/hr IVPB Q24H [facility] PRN Reason: Protocol Stop: 01/31/18 00:01 Last Admin: 01/30/18 00:02 Dose: 133 mls/hr Ibuprofen (Motrin Tab) 400 mg PO Q8H PRN PRN Reason: Pain, moderate (4-7) Last Admin: 01/29/18 09:25 Dose: 400 mg Losartan Potassium (Cozaar) 100 mg PO DAILY [facility] Last Admin: 01/29/18 09:26 Dose: 100 mg Montelukast Sodium (Singulair) 10 mg PO HS [facility] Last Admin: 01/29/18 21:12 Dose: 10 mg Multivitamins (Hexavitamin) 1 tab PO DAILY [facility] Last Admin: 01/29/18 09:26 Dose: 1 tab Pantoprazole Sodium (Protonix Ec Tab) 40 mg PO DAILY [facility] Last Admin: 01/29/18 09:26 Dose: 40 mg - Labs Labs: 01/29/18 07:09 01/29/18 07:09 APTT 36 SECONDS (21-34) H 01/25/18 11:34 - Constitutional Appears: Non-toxic, No Acute Distress - Head Exam Head Exam: ATRAUMATIC, NORMOCEPHALIC - Eye Exam Eye Exam: Normal appearance - ENT Exam ENT Exam: Mucous Membranes Moist - Respiratory Exam Respiratory Exam: absent: Accessory Muscle Use, Rales, Rhonchi, Wheezes, Respiratory Distress, NORMAL BREATHING PATTERN (poor inspiratory effort ( baseline)) - Cardiovascular Exam Cardiovascular Exam: REGULAR RHYTHM, +S1, +S2 - GI/Abdominal Exam GI & Abdominal Exam: Soft, Tenderness (diffuse). absent: Distended, Firm, Guarding, Rigid - Extremities Exam Extremities Exam: absent: Calf Tenderness, Pedal Edema - Neurological Exam Neurological Exam: Alert, Awake, Oriented x3 Additional comments: baseline movements (hx of CP) - Psychiatric Exam Psychiatric exam: Normal Affect, Normal Mood - Skin Skin Exam: Dry, Warm Assessment and Plan - Assessment and Plan (Free Text) Plan: Pneumonia -Cxray: right basilar infiltrate suspicious for pneumonia -Cxray: picc line inserted via right upper extremity approach identified. tip is below the cavoatrial junction in the IVC -blood culture and urine culture negative -Cipro 400mg q12h -Vanco 1gm ivpb daily Chest pain -numerous admissions for same complaint -Echo 07/2017: Normal LVEF, LVH and grade 1 DD -continue antihypertensive meds -EKG (01/26): NSR at 66bpm -MAGGI negative x 3 HTN -Norvasc 10mg po daily -Losartan 100mg po daily -Toprol XL 25mg po daily - discontinued -Started on HCTZ 25mg po daily Episode of Bradycardia discontinue Toprol XL continue to monitor Asthma -continue ventolin inhaler -singulair 10 mg po hs Hx of CVA/mental slowing and delay since childhood -No acute intervention -Crestor 10mg qhs hx of cerebral palsy/Chronic pain -Gabapentin 300mg PO TID Prophylaxis Protonix 40mg po daily Lovenox 40mg sc daily SCDs Multivitamins DISPO: Due to episode of bradycardia and hypertension, will monitor patient overnight, discontinue BB and start HCTZ in its place. Management as per Dr. Lorena Day Toni PGY2
[2018-01-30] MEDS: Pantoprazole 40 mg EC Tab PO SCH (09:53)
[2018-01-30] MEDS: Multiple Vitamins Tab PO SCH (09:53)
[2018-01-30] MEDS: Ciprofloxacin 400mg/200ml D5W 400 MG/200 ML BAG IVPB SCH ×2 (09:54→21:29)
[2018-01-30] MEDS: Enoxaparin 40 mg Syringe SC SCH (09:54)
[2018-01-30] MEDS: Albuterol 0.083% Inhal Sol (2.5 mg/3 mL) UD INH PRN ×2 (13:58→20:04)
--- NOTE | 2018-01-30 19:11 | CP.PCM.PN ---
Subjective - Date & Time of Evaluation Date of Evaluation: 01/30/18 Time of Evaluation: 07:30 - Subjective Subjective: clinically same Objective - Vital Signs/Intake and Output Vital Signs (last 24 hours): Temp Pulse Resp BP Pulse Ox 98.3 F 76 20 126/73 97 01/30/18 16:00 01/30/18 16:00 01/30/18 16:00 01/30/18 16:00 01/30/18 16:00 - Medications Medications: Current Medications Albuterol Sulfate (Albuterol 0.083% Inhal Carri (2.5 Mg/3 Ml) Ud) 2.5 mg INH RQ6 PRN PRN Reason: Shortness of Breath Last Admin: 01/30/18 13:58 Dose: 2.5 mg Amlodipine Besylate (Norvasc) 10 mg PO DAILY [facility] Last Admin: 01/30/18 09:52 Dose: 10 mg Enoxaparin Sodium (Lovenox) 40 mg SC DAILY [facility] Last Admin: 01/30/18 09:54 Dose: 40 mg Gabapentin (Neurontin) 300 mg PO TID [facility] Last Admin: 01/30/18 17:49 Dose: 300 mg Guaifenesin/Dextromethorphan (Robitussin Dm) 5 ml PO Q4H PRN PRN Reason: Cough Last Admin: 01/28/18 09:32 Dose: 5 ml Hydrochlorothiazide (Hydrodiuril) 25 mg PO DAILY [facility] Last Admin: 01/30/18 15:00 Dose: 25 mg Ciprofloxacin (Cipro 400mg/200ml Dsw) 400 mg in 200 mls @ 133 mls/hr IVPB Q12H [facility] PRN Reason: Protocol Last Admin: 01/30/18 09:54 Dose: 133 mls/hr Vancomycin HCl 1 gm/ Sodium (Chloride) 250 mls @ 167 mls/hr IVPB Q24H [facility] PRN Reason: Protocol Stop: 01/31/18 00:01 Ibuprofen (Motrin Tab) 400 mg PO Q8H PRN PRN Reason: Pain, moderate (4-7) Last Admin: 01/30/18 09:52 Dose: 400 mg Losartan Potassium (Cozaar) 100 mg PO DAILY [facility] Last Admin: 01/30/18 09:53 Dose: 100 mg Montelukast Sodium (Singulair) 10 mg PO HS [facility] Last Admin: 01/29/18 21:12 Dose: 10 mg Multivitamins (Hexavitamin) 1 tab PO DAILY [facility] Last Admin: 01/30/18 09:53 Dose: 1 tab Pantoprazole Sodium (Protonix Ec Tab) 40 mg PO DAILY [facility] Last Admin: 01/30/18 09:53 Dose: 40 mg - Labs Labs: 01/29/18 07:09 01/29/18 07:09 APTT 36 SECONDS (21-34) H 01/25/18 11:34 - Constitutional Appears: Well - Head Exam Head Exam: ATRAUMATIC, NORMAL INSPECTION, NORMOCEPHALIC - Eye Exam Eye Exam: EOMI, Normal appearance, PERRL Pupil Exam: NORMAL ACCOMODATION, PERRL - ENT Exam ENT Exam: Mucous Membranes Moist, Normal Exam - Neck Exam Neck Exam: Full ROM, Normal Inspection. absent: Lymphadenopathy - Respiratory Exam Respiratory Exam: Decreased Breath Sounds - Cardiovascular Exam Cardiovascular Exam: REGULAR RHYTHM, +S1, +S2 - GI/Abdominal Exam GI & Abdominal Exam: Soft, Diminished Bowel Sounds - Rectal Exam Rectal Exam: Deferred
[2018-01-31 06:55] LABS: BASO % 1.1 % (0.0-2.0); HEMOGLOBIN 9.7 g/dL (11.0-16.0); LYMPH # 1.3 K/uL (1.0-4.3); LYMPH % 28.9 % (20.0-40.0); MEAN CELL VOLUME 85.8 fL (81.0-99.0); MEAN CORPUSCULAR HEMOGLOBIN 27.5 pg (27.0-31.0); MEAN PLATELET VOLUME 8.9 fL (7.2-11.7); MONO # 0.4 K/uL (0.0-0.8); MONO % 9.6 % (0.0-10.0); NEUT # 2.6 K/uL (1.8-7.0); NEUT % 59.4 % (50.0-75.0); NRBC % 0.2 % (0.0-2.0); RBC 3.54 Mil/uL (3.80-5.20); RED CELL DISTRIBUTION WIDTH 14.5 % (11.5-14.5); WHITE BLOOD COUNT 4.4 K/uL (4.8-10.8)
[2018-01-31] MEDS: Albuterol 0.083% Inhal Sol (2.5 mg/3 mL) UD INH PRN ×2 (07:24→13:18)
[2018-01-31 07:40] LABS: ALB/GLOB RATIO 1.1 (1.0-2.1); ALBUMIN 3.4 g/dL (3.5-5.0); ALT/SGPT 19 U/L (9-52); AST/SGOT 19 U/L (14-36); BLOOD UREA NITROGEN 15 mg/dL (7-17); CALCIUM 11.2 mg/dl (8.6-10.4); GFR AFRICAN-AMERICAN > 60; GFR NON-AFRICAN AMERICAN > 60
--- NOTE | 2018-01-31 09:04 | CP.PCM.PN ---
Subjective - Date & Time of Evaluation Date of Evaluation: 01/31/18 Time of Evaluation: 09:04 - Subjective Subjective: PGY2 Medicine Note for Dr. Lorena Corley Patient seen and examined this morning at bedside. No acute events overnight. Patient was watching TV, resting comfortably in bed upon entering the room. She is still complaining of dizziness and chest pain. She is tolerating her diet and is no longer complaining of abdominal pain. Denies fevers, chills, nausea, vomiting, diarrhea, constipation, shortness of breath, numbness or tingling. Objective - Vital Signs/Intake and Output Vital Signs (last 24 hours): Temp Pulse Resp BP Pulse Ox 98.3 F 89 20 152/69 H 99 01/31/18 08:00 01/31/18 08:00 01/31/18 08:00 01/31/18 08:00 01/31/18 08:00 - Medications Medications: Current Medications Albuterol Sulfate (Albuterol 0.083% Inhal Carri (2.5 Mg/3 Ml) Ud) 2.5 mg INH RQ6 PRN PRN Reason: Shortness of Breath Last Admin: 01/31/18 07:24 Dose: 2.5 mg Amlodipine Besylate (Norvasc) 10 mg PO DAILY [facility] Last Admin: 01/30/18 09:52 Dose: 10 mg Enoxaparin Sodium (Lovenox) 40 mg SC DAILY [facility] Last Admin: 01/30/18 09:54 Dose: 40 mg Gabapentin (Neurontin) 300 mg PO TID [facility] Last Admin: 01/30/18 17:49 Dose: 300 mg Guaifenesin/Dextromethorphan (Robitussin Dm) 5 ml PO Q4H PRN PRN Reason: Cough Last Admin: 01/28/18 09:32 Dose: 5 ml Hydrochlorothiazide (Hydrodiuril) 25 mg PO DAILY [facility] Last Admin: 01/30/18 15:00 Dose: 25 mg Ciprofloxacin (Cipro 400mg/200ml Dsw) 400 mg in 200 mls @ 133 mls/hr IVPB Q12H [facility] PRN Reason: Protocol Last Admin: 01/30/18 21:29 Dose: 133 mls/hr Ibuprofen (Motrin Tab) 400 mg PO Q8H PRN PRN Reason: Pain, moderate (4-7) Last Admin: 01/30/18 19:34 Dose: 400 mg Losartan Potassium (Cozaar) 100 mg PO DAILY [facility] Last Admin: 01/30/18 09:53 Dose: 100 mg Montelukast Sodium (Singulair) 10 mg PO HS [facility] Last Admin: 01/30/18 21:29 Dose: 10 mg Multivitamins (Hexavitamin) 1 tab PO DAILY [facility] Last Admin: 01/30/18 09:53 Dose: 1 tab Pantoprazole Sodium (Protonix Ec Tab) 40 mg PO DAILY [facility] Last Admin: 01/30/18 09:53 Dose: 40 mg - Labs Labs: 01/31/18 06:37 01/31/18 06:37 APTT 36 SECONDS (21-34) H 01/25/18 11:34 Assessment and Plan - Assessment and Plan (Free Text) Plan: - Constitutional Appears: Non-toxic, No Acute Distress - Head Exam Head Exam: ATRAUMATIC, NORMOCEPHALIC - Eye Exam Eye Exam: Normal appearance - ENT Exam ENT Exam: Mucous Membranes Moist - Respiratory Exam Respiratory Exam: absent: Accessory Muscle Use, Rales, Rhonchi, Wheezes, Respiratory Distress, NORMAL BREATHING PATTERN (poor inspiratory effort ( baseline)) - Cardiovascular Exam Cardiovascular Exam: REGULAR RHYTHM, +S1, +S2 - GI/Abdominal Exam GI & Abdominal Exam: Soft, non-tender absent: Distended, Firm, Guarding, Rigid, - Extremities Exam Extremities Exam: absent: Calf Tenderness, Pedal Edema - Neurological Exam Neurological Exam: Alert, Awake, Oriented x3 Additional comments: baseline movements (hx of CP) - Psychiatric Exam Psychiatric exam: Normal Affect, Normal Mood - Skin Skin Exam: Dry, Warm Assessment and Plan - Assessment and Plan (Free Text) Plan: Pneumonia -Cxray: right basilar infiltrate suspicious for pneumonia -Cxray: picc line inserted via right upper extremity approach identified. tip is below the cavoatrial junction in the IVC -blood culture and urine culture negative -Cipro 400mg q12h -Vanco 1gm ivpb daily Chest pain -numerous admissions for same complaint -Echo 07/2017: Normal LVEF, LVH and grade 1 DD -continue antihypertensive meds -EKG (01/26): NSR at 66bpm -MAGGI negative x 3 HTN -Norvasc 10mg po daily -Losartan 100mg po daily -Toprol XL 25mg po daily - discontinued -Started on HCTZ 25mg po daily Episode of Bradycardia discontinue Toprol XL continue to monitor Asthma -continue ventolin inhaler -singulair 10 mg po hs Hx of CVA/mental slowing and delay since childhood -No acute intervention -Crestor 10mg qhs hx of cerebral palsy/Chronic pain -Gabapentin 300mg PO TID Prophylaxis Protonix 40mg po daily Lovenox 40mg sc daily SCDs Multivitamins DISPO: Patient is to be discharged home today. Patient is to be discharged home per Dr. Lorena Corley. Patient is to follow up with Dr. Lorena Corley within his office this week. Please call and schedule an appointment with him tomorrow. Please take you medications as previously prescribed. - Take Azithromycin (Z-James) for total of 5 days. - Take 500mg on Day 1. - Take 250mg on Days 2-5. If you experience any new or worsening symptoms or have any questions, please contact Dr. Lorena Corley's office. Management as per Dr. Lorena Muñoz PGY2
[2018-01-31] MEDS: Ciprofloxacin 400mg/200ml D5W 400 MG/200 ML BAG IVPB SCH (10:20)
[2018-01-31] MEDS: Enoxaparin 40 mg Syringe SC SCH (10:21)
[2018-01-31] MEDS: Multiple Vitamins Tab PO SCH (10:22)
[2018-01-31] MEDS: Pantoprazole 40 mg EC Tab PO SCH (10:22)
--- NOTE | 2018-01-31 12:39 | CARD ---
APPROVED REPORT Date of service: 01/30/2018 EKG Measurement Heart [id number] <Conclusion> Sinus rhythm with premature atrial complexes Otherwise normal ECG
--- NOTE | 2018-01-31 12:40 | CARD ---
APPROVED REPORT Date of service: 01/26/2018 EKG Measurement Heart [id number] <Conclusion> Normal sinus rhythm Normal ECG
--- NOTE | 2018-01-31 17:31 | CP.PCM.PN ---
Subjective - Date & Time of Evaluation Date of Evaluation: 01/31/18 Time of Evaluation: 07:45 - Subjective Subjective: clinically same Objective - Vital Signs/Intake and Output Vital Signs (last 24 hours): Temp Pulse Resp BP Pulse Ox 97.5 F L 89 20 155/79 H 98 01/31/18 16:00 01/31/18 16:00 01/31/18 16:00 01/31/18 16:00 01/31/18 16:00 Intake and Output: 01/31/18 01/31/18 06:59 18:59 Intake Total 680 Balance 680 - Medications Medications: Current Medications Albuterol Sulfate (Albuterol 0.083% Inhal Carri (2.5 Mg/3 Ml) Ud) 2.5 mg INH RQ6 PRN PRN Reason: Shortness of Breath Last Admin: 01/31/18 13:18 Dose: 2.5 mg Amlodipine Besylate (Norvasc) 10 mg PO DAILY [facility] Last Admin: 01/31/18 10:22 Dose: 10 mg Enoxaparin Sodium (Lovenox) 40 mg SC DAILY [facility] Last Admin: 01/31/18 10:21 Dose: 40 mg Gabapentin (Neurontin) 300 mg PO TID [facility] Last Admin: 01/31/18 13:28 Dose: 300 mg Guaifenesin/Dextromethorphan (Robitussin Dm) 5 ml PO Q4H PRN PRN Reason: Cough Last Admin: 01/28/18 09:32 Dose: 5 ml Hydrochlorothiazide (Hydrodiuril) 25 mg PO DAILY [facility] Last Admin: 01/31/18 10:22 Dose: 25 mg Ibuprofen (Motrin Tab) 400 mg PO Q8H PRN PRN Reason: Pain, moderate (4-7) Last Admin: 01/31/18 10:30 Dose: 400 mg Losartan Potassium (Cozaar) 100 mg PO DAILY [facility] Last Admin: 01/31/18 10:21 Dose: 100 mg Montelukast Sodium (Singulair) 10 mg PO HS [facility] Last Admin: 01/30/18 21:29 Dose: 10 mg Multivitamins (Hexavitamin) 1 tab PO DAILY [facility] Last Admin: 01/31/18 10:22 Dose: 1 tab Pantoprazole Sodium (Protonix Ec Tab) 40 mg PO DAILY [facility] Last Admin: 01/31/18 10:22 Dose: 40 mg - Labs Labs: 01/31/18 06:37 01/31/18 06:37 APTT 36 SECONDS (21-34) H 01/25/18 11:34 - Constitutional Appears: Well - Head Exam Head Exam: ATRAUMATIC, NORMAL INSPECTION, NORMOCEPHALIC - Eye Exam Eye Exam: EOMI, Normal appearance, PERRL Pupil Exam: NORMAL ACCOMODATION, PERRL - ENT Exam ENT Exam: Mucous Membranes Moist, Normal Exam - Neck Exam Neck Exam: Full ROM, Normal Inspection. absent: Lymphadenopathy - Respiratory Exam Respiratory Exam: Decreased Breath Sounds - Cardiovascular Exam Cardiovascular Exam: REGULAR RHYTHM, +S1, +S2 - GI/Abdominal Exam GI & Abdominal Exam: Soft, Diminished Bowel Sounds - Rectal Exam Rectal Exam: Deferred
--- NOTE | 2018-02-01 07:23 | CP.PCM.PN ---
Subjective - Date & Time of Evaluation Date of Evaluation: 02/01/18 Time of Evaluation: 07:22 - Subjective Subjective: PGY2 Medicine Note for Dr. Lorena Corley Patient seen and examined this morning at bedside. Patient did not leave yesterday because now she would like to go to [facility]. Patient is stating her stools are extremely hard and would like something to help soften her stools. She is still complaining of chest pain down her left after and neck. She is seen sitting up on the side of her bed, eating her breakfast. Denies fevers, chills, nausea, vomiting, diarrhea, constipation, shortness of breath, numbness or tingling. Objective - Vital Signs/Intake and Output Vital Signs (last 24 hours): Temp Pulse Resp BP Pulse Ox 98.4 F 71 20 141/70 98 02/01/18 00:00 02/01/18 00:00 02/01/18 00:00 02/01/18 00:00 02/01/18 00:00 Intake and Output: 02/01/18 02/01/18 06:59 18:59 Intake Total 1050 Balance 1050 - Medications Medications: Current Medications Albuterol Sulfate (Albuterol 0.083% Inhal Carri (2.5 Mg/3 Ml) Ud) 2.5 mg INH RQ6 PRN PRN Reason: Shortness of Breath Last Admin: 01/31/18 13:18 Dose: 2.5 mg Amlodipine Besylate (Norvasc) 10 mg PO DAILY [facility] Last Admin: 01/31/18 10:22 Dose: 10 mg Enoxaparin Sodium (Lovenox) 40 mg SC DAILY [facility] Last Admin: 01/31/18 10:21 Dose: 40 mg Gabapentin (Neurontin) 300 mg PO TID [facility] Last Admin: 01/31/18 17:49 Dose: 300 mg Guaifenesin/Dextromethorphan (Robitussin Dm) 5 ml PO Q4H PRN PRN Reason: Cough Last Admin: 01/28/18 09:32 Dose: 5 ml Hydrochlorothiazide (Hydrodiuril) 25 mg PO DAILY [facility] Last Admin: 01/31/18 10:22 Dose: 25 mg Ibuprofen (Motrin Tab) 400 mg PO Q8H PRN PRN Reason: Pain, moderate (4-7) Last Admin: 01/31/18 20:25 Dose: 400 mg Losartan Potassium (Cozaar) 100 mg PO DAILY [facility] Last Admin: 01/31/18 10:21 Dose: 100 mg Montelukast Sodium (Singulair) 10 mg PO HS [facility] Last Admin: 01/31/18 21:16 Dose: 10 mg Multivitamins (Hexavitamin) 1 tab PO DAILY [facility] Last Admin: 01/31/18 10:22 Dose: 1 tab Pantoprazole Sodium (Protonix Ec Tab) 40 mg PO DAILY [facility] Last Admin: 01/31/18 10:22 Dose: 40 mg - Labs Labs: 01/31/18 06:37 01/31/18 06:37 APTT 36 SECONDS (21-34) H 01/25/18 11:34 Assessment and Plan - Assessment and Plan (Free Text) Plan: - Constitutional Appears: Non-toxic, No Acute Distress - Head Exam Head Exam: ATRAUMATIC, NORMOCEPHALIC - Eye Exam Eye Exam: Normal appearance - ENT Exam ENT Exam: Mucous Membranes Moist - Respiratory Exam Respiratory Exam: absent: Accessory Muscle Use, Rales, Rhonchi, Wheezes, Respiratory Distress, NORMAL BREATHING PATTERN (poor inspiratory effort ( baseline)) - Cardiovascular Exam Cardiovascular Exam: REGULAR RHYTHM, +S1, +S2 - GI/Abdominal Exam GI & Abdominal Exam: Soft, non-tender absent: Distended, Firm, Guarding, Rigid, - Extremities Exam Extremities Exam: absent: Calf Tenderness, Pedal Edema - Neurological Exam Neurological Exam: Alert, Awake, Oriented x3 Additional comments: baseline movements (hx of CP) - Psychiatric Exam Psychiatric exam: Normal Affect, Normal Mood - Skin Skin Exam: Dry, Warm Assessment and Plan - Assessment and Plan (Free Text) Plan: Pneumonia (resolved) -CXR: right basilar infiltrate suspicious for pneumonia -CXR: picc line inserted via right upper extremity approach identified. tip is below the cavoatrial junction in the IVC -Blood Culture: negative x 5days -Urine Culture: negative -Robitussin DM 5mL PO q4h prn -Cipro 400mg q12h - completed -Vanco 1gm ivpb daily - completed Chest pain -numerous admissions for same complaint -ECHO 07/2017: Normal LVEF, LVH and grade 1 DD -EKG (01/26): NSR at 66bpm -MAGGI negative x 3 -continue hypertension medications, except BB HTN -Norvasc 10mg PO daily -Losartan 100mg PO daily -HCTZ 25mg PO daily Episode of Bradycardia -Discontinued Toprol XL -continue to monitor Asthma -Continue Ventolin inhaler -Albuterol 2.5mg INH q6h prn -Singulair 10 mg PO HS Hx of CVA/mental slowing and delay since childhood -No acute intervention -Crestor 10mg qHS hx of cerebral palsy/Chronic pain -Gabapentin 300mg PO TID -Ibuprofen 400mg PO q8h prn Prophylactic Care -Protonix 40mg PO daily -Lovenox 40mg SC daily -Miralax given once -SCDs -Multivitamins -PT DISPO: Patient is pending discharge to [facility] today. She is to be discharged once approved or denied from [facility]. Management as per Dr. Lorena Day Toni PGY2
[2018-02-01 07:39] LABS: BASO % 0.7 % (0.0-2.0); EOS # 0.1 K/uL (0.0-0.7); EOS % 1.6 % (0.0-4.0); HEMOGLOBIN 10.3 g/dL (11.0-16.0); LYMPH # 1.2 K/uL (1.0-4.3); LYMPH % 29.5 % (20.0-40.0); MEAN CELL VOLUME 85.3 fL (81.0-99.0); MEAN CORPUSCULAR HEMOGLOBIN 27.7 pg (27.0-31.0); MEAN CORPUSCULAR HGB CONC 32.5 g/dL (33.0-37.0); MEAN PLATELET VOLUME 8.5 fL (7.2-11.7); MONO # 0.4 K/uL (0.0-0.8); MONO % 9.2 % (0.0-10.0); NEUT # 2.4 K/uL (1.8-7.0); NRBC % 0.1 % (0.0-2.0); RBC 3.73 Mil/uL (3.80-5.20); RED CELL DISTRIBUTION WIDTH 14.5 % (11.5-14.5); WHITE BLOOD COUNT 4.1 K/uL (4.8-10.8)
[2018-02-01 07:58] LABS: ALB/GLOB RATIO 1.1 (1.0-2.1); ALBUMIN 3.5 g/dL (3.5-5.0); ALT/SGPT 24 U/L (9-52); AST/SGOT 22 U/L (14-36); BLOOD UREA NITROGEN 13 mg/dL (7-17); CALCIUM 11.6 mg/dl (8.6-10.4); GFR AFRICAN-AMERICAN > 60; GFR NON-AFRICAN AMERICAN > 60
[2018-02-01] MEDS: Albuterol 0.083% Inhal Sol (2.5 mg/3 mL) UD INH PRN ×2 (08:10→14:10)
[2018-02-01] MEDS: guaiFENesin DM 100 mg-10 mg/5 ml UD PO PRN (11:29)
[2018-02-01] MEDS: Enoxaparin 40 mg Syringe SC SCH (11:29)
[2018-02-01] MEDS: Pantoprazole 40 mg EC Tab PO SCH (11:30)
[2018-02-01] MEDS: Multiple Vitamins Tab PO SCH (11:30)
[2018-02-01] MEDS ORDERED: POLYETHYLENE GLYCOL 3350 17 GM/Dose PACKET PO ONE (15:30)
--- NOTE | 2018-02-01 20:01 | CP.PCM.PN ---
Subjective - Date & Time of Evaluation Date of Evaluation: 02/01/18 Time of Evaluation: 07:30 - Subjective Subjective: clinically same Objective - Vital Signs/Intake and Output Vital Signs (last 24 hours): Temp Pulse Resp BP Pulse Ox 97.9 F 72 20 123/61 100 02/01/18 16:00 02/01/18 16:00 02/01/18 16:00 02/01/18 16:00 02/01/18 16:00 Intake and Output: 02/01/18 02/02/18 18:59 06:59 Intake Total 480 Balance 480 - Medications Medications: Current Medications Albuterol Sulfate (Albuterol 0.083% Inhal Carri (2.5 Mg/3 Ml) Ud) 2.5 mg INH RQ6 PRN PRN Reason: Shortness of Breath Last Admin: 02/01/18 14:10 Dose: 2.5 mg Amlodipine Besylate (Norvasc) 10 mg PO DAILY [facility] Last Admin: 02/01/18 11:30 Dose: 10 mg Enoxaparin Sodium (Lovenox) 40 mg SC DAILY [facility] Last Admin: 02/01/18 11:29 Dose: 40 mg Gabapentin (Neurontin) 300 mg PO TID [facility] Last Admin: 02/01/18 17:41 Dose: 300 mg Guaifenesin/Dextromethorphan (Robitussin Dm) 5 ml PO Q4H PRN PRN Reason: Cough Last Admin: 02/01/18 11:29 Dose: 5 ml Hydrochlorothiazide (Hydrodiuril) 25 mg PO DAILY [facility] Last Admin: 02/01/18 11:30 Dose: 25 mg Ibuprofen (Motrin Tab) 400 mg PO Q8H PRN PRN Reason: Pain, moderate (4-7) Last Admin: 01/31/18 20:25 Dose: 400 mg Losartan Potassium (Cozaar) 100 mg PO DAILY [facility] Last Admin: 02/01/18 11:31 Dose: 100 mg Montelukast Sodium (Singulair) 10 mg PO HS [facility] Last Admin: 01/31/18 21:16 Dose: 10 mg Multivitamins (Hexavitamin) 1 tab PO DAILY [facility] Last Admin: 02/01/18 11:30 Dose: 1 tab Pantoprazole Sodium (Protonix Ec Tab) 40 mg PO DAILY [facility] Last Admin: 08/16/18 11:30 Dose: 40 mg - Labs Labs: 02/01/18 07:28 02/01/18 07:28 APTT 36 SECONDS (21-34) H 01/25/18 11:34 - Constitutional Appears: Well - Head Exam Head Exam: ATRAUMATIC, NORMAL INSPECTION, NORMOCEPHALIC - Eye Exam Eye Exam: EOMI, Normal appearance, PERRL Pupil Exam: NORMAL ACCOMODATION, PERRL - ENT Exam ENT Exam: Mucous Membranes Moist, Normal Exam - Neck Exam Neck Exam: Full ROM, Normal Inspection. absent: Lymphadenopathy - Respiratory Exam Respiratory Exam: Decreased Breath Sounds - Cardiovascular Exam Cardiovascular Exam: REGULAR RHYTHM, +S1, +S2 - GI/Abdominal Exam GI & Abdominal Exam: Soft, Diminished Bowel Sounds - Rectal Exam Rectal Exam: Deferred
[2018-02-02 07:13] LABS: BASO % 0.9 % (0.0-2.0); EOS # 0.1 K/uL (0.0-0.7); EOS % 1.5 % (0.0-4.0); HEMOGLOBIN 10.2 g/dL (11.0-16.0); LYMPH # 1.4 K/uL (1.0-4.3); LYMPH % 36.7 % (20.0-40.0); MEAN CELL VOLUME 85.9 fL (81.0-99.0); MEAN CORPUSCULAR HEMOGLOBIN 27.9 pg (27.0-31.0); MEAN CORPUSCULAR HGB CONC 32.5 g/dL (33.0-37.0); MEAN PLATELET VOLUME 8.8 fL (7.2-11.7); MONO # 0.4 K/uL (0.0-0.8); MONO % 11.1 % (0.0-10.0); NEUT # 1.9 K/uL (1.8-7.0); NEUT % 49.8 % (50.0-75.0); RBC 3.65 Mil/uL (3.80-5.20); RED CELL DISTRIBUTION WIDTH 14.6 % (11.5-14.5); WHITE BLOOD COUNT 3.9 K/uL (4.8-10.8)
--- NOTE | 2018-02-02 07:44 | CP.PCM.PN ---
Subjective - Date & Time of Evaluation Date of Evaluation: 02/02/18 Time of Evaluation: 09:40 - Subjective Subjective: PGY 3 Med Note- Dr. Lacey Corley's service Patient seen and examined in no acute distress. Patient states that she would like to go to [facility]. She states that her cough is still there, but better. Patient denies headaches, nausea, vomiting at this time. Objective - Vital Signs/Intake and Output Vital Signs (last 24 hours): Temp Pulse Resp BP Pulse Ox 98.2 F 68 20 143/73 100 02/02/18 00:00 02/02/18 00:00 02/02/18 00:00 02/02/18 00:00 02/02/18 00:00 Intake and Output: 02/02/18 02/02/18 06:59 18:59 Intake Total 550 Balance 550 - Medications Medications: Current Medications Albuterol Sulfate (Albuterol 0.083% Inhal Carri (2.5 Mg/3 Ml) Ud) 2.5 mg INH RQ6 PRN PRN Reason: Shortness of Breath Last Admin: 02/01/18 14:10 Dose: 2.5 mg Amlodipine Besylate (Norvasc) 10 mg PO DAILY [facility] Last Admin: 02/01/18 11:30 Dose: 10 mg Enoxaparin Sodium (Lovenox) 40 mg SC DAILY [facility] Last Admin: 02/01/18 11:29 Dose: 40 mg Gabapentin (Neurontin) 300 mg PO TID [facility] Last Admin: 02/01/18 17:41 Dose: 300 mg Guaifenesin/Dextromethorphan (Robitussin Dm) 5 ml PO Q4H PRN PRN Reason: Cough Last Admin: 02/01/18 11:29 Dose: 5 ml Hydrochlorothiazide (Hydrodiuril) 25 mg PO DAILY [facility] Last Admin: 02/01/18 11:30 Dose: 25 mg Ibuprofen (Motrin Tab) 400 mg PO Q8H PRN PRN Reason: Pain, moderate (4-7) Last Admin: 02/01/18 21:34 Dose: 400 mg Losartan Potassium (Cozaar) 100 mg PO DAILY [facility] Last Admin: 02/01/18 11:31 Dose: 100 mg Montelukast Sodium (Singulair) 10 mg PO HS [facility] Last Admin: 02/01/18 21:31 Dose: 10 mg Multivitamins (Hexavitamin) 1 tab PO DAILY [facility] Last Admin: 02/01/18 11:30 Dose: 1 tab Pantoprazole Sodium (Protonix Ec Tab) 40 mg PO DAILY [facility] Last Admin: 02/01/18 11:30 Dose: 40 mg - Labs Labs: 02/02/18 07:00 02/01/18 07:28 APTT 36 SECONDS (21-34) H 01/25/18 11:34 - Constitutional Appears: Non-toxic, No Acute Distress - Head Exam Head Exam: ATRAUMATIC, NORMAL INSPECTION - Eye Exam Eye Exam: EOMI - ENT Exam ENT Exam: Mucous Membranes Moist - Neck Exam Neck Exam: Full ROM - Respiratory Exam Respiratory Exam: NORMAL BREATHING PATTERN. absent: Wheezes - Cardiovascular Exam Cardiovascular Exam: +S1, +S2 - GI/Abdominal Exam GI & Abdominal Exam: Soft, Normal Bowel Sounds - Extremities Exam Extremities Exam: Full ROM - Back Exam Back Exam: Full ROM - Neurological Exam Neurological Exam: Alert, Awake, Oriented x3 Additional comments: limited at this time - Psychiatric Exam Psychiatric exam: Normal Affect, Normal Mood - Skin Skin Exam: Dry, Intact, Warm Assessment and Plan - Assessment and Plan (Free Text) Assessment: Pneumonia (resolved) -CXR: right basilar infiltrate suspicious for pneumonia- completed antibiotics -Blood Culture: negative x 5days -Urine Culture: negative -Robitussin DM 5mL PO q4h prn -Cipro 400mg q12h - completed -Vanco 1gm ivpb daily - completed Chest pain -Numerous admissions for same complaint -Likely secondary to cough. Patient counseled on gripping a pillow when she needs to cough. -Robitussin PRN on board -ECHO 07/2017: Normal LVEF, LVH and grade 1 DD -EKG (01/26): NSR at 66bpm -MAGGI negative x 3 -continue hypertension medications, except BB HTN -Norvasc 10mg PO daily -Losartan 100mg PO daily -HCTZ 25mg PO daily Episode of Bradycardia -Discontinued Toprol XL. Avoid beta blockers. -continue to monitor Asthma -Continue Ventolin inhaler -Albuterol 2.5mg INH q6h prn -Singulair 10 mg PO HS Hx of CVA/mental slowing and delay since childhood -No acute intervention Hx of cerebral palsy/Chronic pain -Gabapentin 300mg PO TID -Ibuprofen 400mg PO q8h prn Prophylactic Care -Protonix 40mg PO daily -Lovenox 40mg SC daily -SCDs -Multivitamins -Physical Therapy DISPO: Patient was denied for [employer]. Patient's aunt states that she is not able to take the patient back in. Attending physician will reach out to Aunt. If aunt is willing to take in patient, patient may be able to receive services at home. F/U with Case management. Discussed with attending. Management as per Dr. Lorena Corley
[2018-02-02 08:06] LABS: ALB/GLOB RATIO 1.2 (1.0-2.1); ALBUMIN 3.7 g/dL (3.5-5.0); ALT/SGPT 24 U/L (9-52); AST/SGOT 19 U/L (14-36); BLOOD UREA NITROGEN 23 mg/dL (7-17); CALCIUM 11.5 mg/dl (8.6-10.4); GFR AFRICAN-AMERICAN > 60; GFR NON-AFRICAN AMERICAN > 60
[2018-02-02] MEDS: Albuterol 0.083% Inhal Sol (2.5 mg/3 mL) UD INH PRN (08:10)
[2018-02-02 08:49] VITALS: O2SAT 96
[2018-02-02] MEDS: Multiple Vitamins Tab PO SCH (10:08)
[2018-02-02] MEDS: Pantoprazole 40 mg EC Tab PO SCH (10:08)
[2018-02-02] MEDS: Enoxaparin 40 mg Syringe SC SCH (10:08)
[2018-02-02 16:10] VITALS: BP 108/71; PULSE 81; TEMP 97.4
--- NOTE | 2018-02-02 21:05 | CP.PCM.PN ---
Subjective - Date & Time of Evaluation Date of Evaluation: 02/02/18 Time of Evaluation: 06:40 - Subjective Subjective: clinically same Objective - Vital Signs/Intake and Output Vital Signs (last 24 hours): Temp Pulse Resp BP Pulse Ox 97.4 F L 81 20 108/71 96 02/02/18 16:00 02/02/18 16:00 02/02/18 16:00 02/02/18 16:00 02/02/18 16:00 Intake and Output: 02/02/18 02/03/18 18:59 06:59 Intake Total 400 Balance 400 - Medications Medications: Current Medications Albuterol Sulfate (Albuterol 0.083% Inhal Carri (2.5 Mg/3 Ml) Ud) 2.5 mg INH RQ6 PRN PRN Reason: Shortness of Breath Last Admin: 02/02/18 08:10 Dose: 2.5 mg Amlodipine Besylate (Norvasc) 10 mg PO DAILY [facility] Last Admin: 02/02/18 10:08 Dose: 10 mg Enoxaparin Sodium (Lovenox) 40 mg SC DAILY [facility] Last Admin: 02/02/18 10:08 Dose: 40 mg Gabapentin (Neurontin) 300 mg PO TID [facility] Last Admin: 02/02/18 18:43 Dose: 300 mg Guaifenesin/Dextromethorphan (Robitussin Dm) 5 ml PO Q4H PRN PRN Reason: Cough Last Admin: 02/01/18 11:29 Dose: 5 ml Hydrochlorothiazide (Hydrodiuril) 25 mg PO DAILY [facility] Last Admin: 02/02/18 10:08 Dose: 25 mg Ibuprofen (Motrin Tab) 400 mg PO Q8H PRN PRN Reason: Pain, moderate (4-7) Last Admin: 02/02/18 18:51 Dose: 400 mg Losartan Potassium (Cozaar) 100 mg PO DAILY [facility] Last Admin: 02/02/18 10:09 Dose: 100 mg Montelukast Sodium (Singulair) 10 mg PO HS [facility] Last Admin: 02/01/18 21:31 Dose: 10 mg Multivitamins (Hexavitamin) 1 tab PO DAILY [facility] Last Admin: 02/02/18 10:08 Dose: 1 tab Pantoprazole Sodium (Protonix Ec Tab) 40 mg PO DAILY [facility] Last Admin: 02/02/18 10:08 Dose: 40 mg - Labs Labs: 02/02/18 07:00 02/02/18 07:00 APTT 36 SECONDS (21-34) H 01/25/18 11:34 - Constitutional Appears: Well - Head Exam Head Exam: ATRAUMATIC, NORMAL INSPECTION, NORMOCEPHALIC - Eye Exam Eye Exam: EOMI, Normal appearance, PERRL Pupil Exam: NORMAL ACCOMODATION, PERRL - ENT Exam ENT Exam: Mucous Membranes Moist, Normal Exam - Neck Exam Neck Exam: Full ROM, Normal Inspection. absent: Lymphadenopathy - Respiratory Exam Respiratory Exam: Decreased Breath Sounds - Cardiovascular Exam Cardiovascular Exam: REGULAR RHYTHM, +S1, +S2 - GI/Abdominal Exam GI & Abdominal Exam: Soft, Diminished Bowel Sounds - Rectal Exam Rectal Exam: Deferred
== END 2018-02-02 20:45 | disposition home or self-care (01) | DRG 89 ==
LOC: C.ER 10:10 → C.9E 13:26 → INTOOBSV 13:26 → C.3T 14:16 → OBSVTOIN 01-28 14:02
PROVIDERS: ADMIT Internal Medicine Nephrology; ATTEND Internal Medicine Nephrology
PROC: 02HV33Z Insertion of Infusion Device into Superior Vena Cava, Percutaneous Approach (ICD-10-PCS; principal; 2018-01-28)
DX: J18.9 Pneumonia, unspecified organism (principal); E11.22 Type 2 diabetes mellitus with diabetic chronic kidney disease; G35 Multiple sclerosis; I13.0 Hypertensive heart and chronic kidney disease with heart failure and stage 1 through stage 4 chronic kidney disease, or unspecified chronic kidney disease; I50.9 Heart failure, unspecified; J44.0 Chronic obstructive pulmonary disease with (acute) lower respiratory infection; E05.90 Thyrotoxicosis, unspecified without thyrotoxic crisis or storm; N18.9 Chronic kidney disease, unspecified; E78.00 Pure hypercholesterolemia, unspecified; G20 Parkinson's disease; G80.9 Cerebral palsy, unspecified; I25.10 Atherosclerotic heart disease of native coronary artery without angina pectoris; Z86.73 Personal history of transient ischemic attack (TIA), and cerebral infarction without residual deficits; Z87.442 Personal history of urinary calculi; F41.9 Anxiety disorder, unspecified; F32.9 Major depressive disorder, single episode, unspecified; R00.1 Bradycardia, unspecified; R62.59 Other lack of expected normal physiological development in childhood

== ENCOUNTER 2018-02-04 09:46 | Emergency (ER) | payer MEDICAID ==
[2018-02-04 10:08] VITALS: BMI 24.5
[2018-02-04] MEDS ORDERED: Albuterol-Ipratrop 3 mg / 0.5 (3 ml) UD INH STA (10:30)
--- NOTE | 2018-02-04 10:33 | C.PDOC ---
History Of Present Illness 47 y/o female presents to ED for complaints of chest pain. Patient was discharged last night after a week long of admission due to chest pain. Patient exams show possible pneumonia and was treated with cipro and vancomycin. Patient reports chest still hurts associated with shortness of breath. Denies any other physical complaints. Time Seen by Provider: 02/04/18 10:06 Chief Complaint (Nursing): Chest Pain History Per: Patient History/Exam Limitations: no limitations Onset/Duration Of Symptoms: Hrs Current Symptoms Are (Timing): Still Present Modifying Factors: None Exacerbating Factors: None Alleviating Factors: None Recent travel outside of the [place]: No Past Medical History Reviewed: Historical Data, Nursing Documentation, Vital Signs Vital Signs: Last Vital Signs Temp 98.2 F 02/04/18 14:07 Pulse 72 02/04/18 14:07 Resp 20 02/04/18 14:07 BP 110/75 02/04/18 14:07 Pulse Ox 98 02/04/18 14:07 - Medical History PMH: Anemia, Anxiety, Arthritis, Asthma, Bronchitis, CAD, CHF, COPD, CVA, Depression, Diabetes, Gastritis, Gastrointestinal Ulcer, HTN, Hypercholesterolemia, Hyperlipidemia, Hyperthyroidism, Kidney Stones, Multiple Sclerosis, Parkinson's Disease, Pneumonia, Chronic Kidney Disease, TIA Surgical History: Hernia Repair (Umbilical hernia repair) - [facility] Procedures CLOSURE SKIN & SUBCUTANEOUS NEC (01/07/13) ESOPHAGOGASTRODUODENOSCOPY [EGD] W/CLOSED BIOPSY (02/05/15) INJECT/INFUSE NEC (02/17/15) NEBULIZER THERAPY (06/20/13) PACKED CELL TRANSFUSION (01/28/15) REMOVAL OF INFUSION DEV FROM GREAT VESSEL, JIG GRINDER SET UP OPERATOR APPROACH (12/02/16) TETANUS TOXOID ADMINIST (01/07/13) TRANSFUSE NONAUT RED BLOOD CELLS IN PERIPH VEIN, PERC (03/17/17) VACCINATION NEC (08/03/14) Family History: States: Unknown Family Hx - Social History Hx Tobacco Use: No Hx Alcohol Use: No Hx Substance Use: No - Immunization History Hx Tetanus Toxoid Vaccination: No Hx Influenza Vaccination: Yes Hx Pneumococcal Vaccination: Yes Review Of Systems Constitutional: Negative for: Fever, Chills Cardiovascular: Positive for: Chest Pain Respiratory: Positive for: Shortness of Breath. Negative for: Cough Gastrointestinal: Negative for: Nausea, Vomiting, Abdominal Pain, Diarrhea Genitourinary: Negative for: Dysuria Skin: Negative for: Rash Neurological: Negative for: Weakness, Numbness Physical Exam - Physical Exam Appears: Well, Non-toxic, No Acute Distress Skin: Normal Color, Warm, Dry, No Rash Head: Atraumatic, Normacephalic Eye(s): bilateral: Normal Inspection, PERRL, EOMI Oral Mucosa: Moist Neck: Supple Chest: Symmetrical, No Tenderness Cardiovascular: Rhythm Regular, No Murmur Respiratory: No Decreased Breath Sounds, No Rales, No Rhonchi, Wheezing (High pitched expiratory wheezing diffusly ) Gastrointestinal/Abdominal: Normal Exam, Soft, No Tenderness, No Distention Extremity: No Deformity, Other (Torticollis at akathisia) Neurological/Psych: Oriented x3, Normal Speech (Speaking in full sentences ), Other (No focal deficits ) ED Course And Treatment ECG: Interpreted By Me ECG Rhythm: Sinus Rhythm ECG Interpretation: Normal Interpretation Of ECG: Normal axis, normal intervals, no ST/T changes Rate From EC O2 Sat by Pulse Oximetry: 100 (RA) Pulse Ox Interpretation: Normal - Other Rad CXR X-Ray: Viewed By Me, Read By Radiologist Interpretation: Chest x-ray single frontal view. History: Chest pain. Comparison: 01/25/2018. Findings: Prominently enlarged ectatic aorta. Cardiomegaly. Mild venous congestion. Nodular density at the left lung base laterally may represent confluence of shadows with ribs and vessels. Degenerative changes in the spine and shoulders. Impression: Prominently enlarged ectatic aorta. Cardiomegaly. Mild venous congestion. Nodular density at the left lung base laterally may represent confluence of shadows with ribs and vessels. Degenerative changes in the spine and shoulders. Medical Decision Making Medical Decision Making: Administered Duoneb. Patient with improvement in wheezing post treatment. Ordered CXR and EKG. Patient was just discharged from this hospital last night, was admitted for chest pain and found to have possible pneumonia. She was given IV abx and had negative troponin x3. CXR with no evidence of pneumonia. EKG normal, no evidence of ischemia. Patient advised to follow up as outpatient, no need to repeat cardiac workup at this time as it was just done. Disposition - Disposition Disposition: HOME/ ROUTINE Disposition Time: 14:00 Condition: STABLE Additional Instructions: JUAN HASSAN, thank you for letting us take care of you today. Your provider was Ina Drake MD and you were treated for CHEST PAIN. The emergency medical care you received today was directed at your acute symptoms. If you were prescribed any medication, please fill it and take as directed. It may take several days for your symptoms to resolve. Return to the Emergency Department if your symptoms worsen, do not improve, or if you have any other problems. Please contact your doctor or call one of the physicians/clinics you have been referred to that are listed on the Patient Visit Information form that is included in your discharge packet. Bring any paperwork you were given at discharge with you along with any medications you are taking to your follow up visit. Our treatment cannot replace ongoing medical care by a primary care provider outside of the emergency department. Thank you for allowing the [facility] team to be part of your care today. If you had an X-Ray or CT scan: A Radiologist will review the ED reading if any change in treatment is needed we will contact you. If you had a blood, urine, or wound culture: It will take several days for the results, if any change in treatment is needed we will contact you. If you had an STI test: It will take 48 hours for the results. Please call after 1 week if you have not heard back. Instructions: Chest Pain (DC) Forms: [place] (Serbian) - Clinical Impression Clinical Impression: Chest pain - Scribe Statement The provider has reviewed the documentation as recorded by the Scribe Butch Castillo All medical record entries made by the Scribe were at my direction and personally dictated by me. I have reviewed the chart and agree that the record accurately reflects my personal performance of the history, physical exam, medical decision making, and the department course for this patient. I have also personally directed, reviewed, and agree with the discharge instructions and disposition.
--- NOTE | 2018-02-04 13:01 | RAD ---
Chest x-ray single frontal view History: Chest pain. Comparison: 01/25/2018 Findings: Prominently enlarged ectatic aorta. Cardiomegaly. Mild venous congestion. Nodular density at the left lung base laterally may represent confluence of shadows with ribs and vessels. Degenerative changes in the spine and shoulders. Impression: Prominently enlarged ectatic aorta. Cardiomegaly. Mild venous congestion. Nodular density at the left lung base laterally may represent confluence of shadows with ribs and vessels. Degenerative changes in the spine and shoulders.
[2018-02-04 14:08] VITALS: BP 110/75; PULSE 72; RESP 20; TEMP 98.2
[2018-02-04] MEDS ORDERED: Albuterol-Ipratrop 3 mg / 0.5 (3 ml) UD ONE (15:05)
[2018-02-04 15:07] VITALS: O2SAT 100
--- NOTE | 2018-02-05 23:45 | CARD ---
APPROVED REPORT Date of service: 02/04/2018 EKG Measurement Heart [id number] <Conclusion> Normal sinus rhythm Normal ECG
== END 2018-02-04 16:42 | disposition home or self-care (01) ==
LOC: C.ER 09:46
DX: R07.9 Chest pain, unspecified (principal); I25.10 Atherosclerotic heart disease of native coronary artery without angina pectoris; I13.0 Hypertensive heart and chronic kidney disease with heart failure and stage 1 through stage 4 chronic kidney disease, or unspecified chronic kidney disease; I50.9 Heart failure, unspecified; N18.9 Chronic kidney disease, unspecified; E11.22 Type 2 diabetes mellitus with diabetic chronic kidney disease; J44.9 Chronic obstructive pulmonary disease, unspecified; Z86.73 Personal history of transient ischemic attack (TIA), and cerebral infarction without residual deficits

== ENCOUNTER 2018-02-15 11:15 | Emergency (ER) | payer MEDICAID ==
[2018-02-15 11:31] VITALS: O2SAT 98; BMI 24.3
--- NOTE | 2018-02-15 12:13 | C.PDOC ---
History Of Present Illness 47 y/o female with history of cerebral palsy and HTN brought to ED by BLS from home with c/o chest pain. Patient was seen 3 days ago at [facility] and discharged. No other complaints at this time. Chief Complaint (Nursing): Chest Pain History Per: Patient, EMS History/Exam Limitations: clinical condition Onset/Duration Of Symptoms: Days Current Symptoms Are (Timing): Still Present Past Medical History Reviewed: Historical Data, Nursing Documentation, Vital Signs Vital Signs: Last Vital Signs Temp 99.2 F 02/15/18 13:47 Pulse 73 02/15/18 13:47 Resp 18 02/15/18 13:47 BP 151/82 H 02/15/18 13:47 Pulse Ox 98 02/15/18 13:47 - Medical History PMH: Anemia, Anxiety, Arthritis, Asthma, Bronchitis, CAD, CHF, COPD, CVA, Depression, Diabetes, Gastritis, Gastrointestinal Ulcer, HTN, Hypercholesterolemia, Hyperlipidemia, Hyperthyroidism, Kidney Stones, Multiple Sclerosis, Parkinson's Disease, Pneumonia, Chronic Kidney Disease, TIA Surgical History: Hernia Repair (Umbilical hernia repair) - [facility] Procedures CLOSURE SKIN & SUBCUTANEOUS NEC (01/07/13) ESOPHAGOGASTRODUODENOSCOPY [EGD] W/CLOSED BIOPSY (02/05/15) INJECT/INFUSE NEC (02/17/15) INSERTION OF INFUSION DEV INTO SUP VENA CAVA, PERC APPROACH (01/28/18) NEBULIZER THERAPY (06/20/13) PACKED CELL TRANSFUSION (01/28/15) REMOVAL OF INFUSION DEV FROM GREAT VESSEL, NEW GRAD RN APPROACH (12/02/16) TETANUS TOXOID ADMINIST (01/07/13) TRANSFUSE NONAUT RED BLOOD CELLS IN PERIPH VEIN, PERC (03/17/17) VACCINATION NEC (08/03/14) Family History: States: No Known Family Hx - Social History Hx Tobacco Use: No Hx Alcohol Use: No Hx Substance Use: No - Immunization History Hx Tetanus Toxoid Vaccination: No Hx Influenza Vaccination: Yes Hx Pneumococcal Vaccination: Yes Review Of Systems Constitutional: Negative for: Fever, Chills Cardiovascular: Positive for: Chest Pain Respiratory: Negative for: Cough Skin: Negative for: Rash Physical Exam - Physical Exam Appears: Non-toxic, No Acute Distress Skin: Warm, Dry, No Rash Head: Atraumatic, Normacephalic Eye(s): bilateral: Normal Inspection, PERRL, EOMI Oral Mucosa: Moist Neck: Supple Cardiovascular: Rhythm Regular Respiratory: Normal Breath Sounds, No Rales, No Rhonchi, No Wheezing Gastrointestinal/Abdominal: Soft, No Tenderness, No Guarding, No Rebound Back: Normal Inspection, No CVA Tenderness Extremity: Normal ROM, No Swelling Neurological/Psych: Oriented x3, Normal Speech, Normal Motor ED Course And Treatment O2 Sat by Pulse Oximetry: 98 (RA) Pulse Ox Interpretation: Normal Medical Decision Making Medical Decision Making: Spoke to DR. Cuate Corley states patient that the patient was seen less 3 days ago and had a negative work up. The EKG today is normal and the patient has a normal physical exam. Disposition - Disposition Referrals: Ranulfo Corley MD [Staff Provider] - Disposition: HOME/ ROUTINE Disposition Time: 13:16 Condition: GOOD Additional Instructions: Follow up with the medical doctor within 1-2 days. Return if worsened. 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 - Scribe Statement The provider has reviewed the documentation as recorded by the Scribe Lavinia Valencia All medical record entries made by the Owen[place]soha were at my direction and personally dictated by me. I have reviewed the chart and agree that the record accurately reflects my personal performance of the history, physical exam, medical decision making, and the department course for this patient. I have also personally directed, reviewed, and agree with the discharge instructions and disposition.
[2018-02-15 13:48] VITALS: BP 151/82; PULSE 73; RESP 18; TEMP 99.2
--- NOTE | 2018-02-16 19:41 | CARD ---
APPROVED REPORT Date of service: 02/15/2018 EKG Measurement Heart [id number] <Conclusion> Normal sinus rhythm with sinus arrhythmia Minimal voltage criteria for LVH, may be normal variant Borderline ECG
== END 2018-02-15 16:51 | disposition home or self-care (01) ==
LOC: C.ER 11:15
DX: R07.9 Chest pain, unspecified (principal); E78.00 Pure hypercholesterolemia, unspecified; G20 Parkinson's disease; G35 Multiple sclerosis; G80.9 Cerebral palsy, unspecified; I50.9 Heart failure, unspecified; I12.9 Hypertensive chronic kidney disease with stage 1 through stage 4 chronic kidney disease, or unspecified chronic kidney disease; N18.9 Chronic kidney disease, unspecified

== ENCOUNTER 2018-02-23 10:49 | Emergency (ER) | payer MEDICAID ==
[2018-02-23 10:52] VITALS: BMI 24.5
[2018-02-23 11:08] VITALS: RESP 18
--- NOTE | 2018-02-23 11:15 | C.PDOC ---
History Of Present Illness 47 y/o female presents to ED for evaluation of generalized abdominal pain and chest pain for the last 3 days. Pt has been seen here multiple times in the past for similar symptoms and discharged home, including 02/04, 02/10, 02/15, and . Pt has been admitted in the past with negative work up and discharged home. Pt was admitted under the service of Dr. Lorena Corley for pneumonia on 01/28 and discharged home on 02/03. Limited history at this time due to history of cerebral palsy. Time Seen by Provider: 02/23/18 10:54 Chief Complaint (Nursing): Abdominal Pain History Per: Patient History/Exam Limitations: no limitations Past Medical History Reviewed: Historical Data, Nursing Documentation, Vital Signs Vital Signs: Last Vital Signs Temp 98.1 F 02/23/18 14:32 Pulse 84 02/23/18 14:32 Resp 18 02/23/18 14:32 BP 133/78 02/23/18 14:32 Pulse Ox 95 02/23/18 14:32 - Medical History PMH: Anemia, Anxiety, Arthritis, Asthma, Bronchitis, CAD, CHF, COPD, CVA, Depression, Diabetes, Gastritis, Gastrointestinal Ulcer, HTN, Hypercholesterolemia, Hyperlipidemia, Hyperthyroidism, Kidney Stones, Multiple Sclerosis, Parkinson's Disease, Pneumonia, Chronic Kidney Disease, TIA, Chronic Pain Denies: Benign Prostatic Hyperplasia, HIV Surgical History: Hernia Repair (Umbilical hernia repair) - [facility] Procedures CLOSURE SKIN & SUBCUTANEOUS NEC (01/07/13) ESOPHAGOGASTRODUODENOSCOPY [EGD] W/CLOSED BIOPSY (02/05/15) INJECT/INFUSE NEC (02/17/15) INSERTION OF INFUSION DEV INTO SUP VENA CAVA, PERC APPROACH (01/28/18) NEBULIZER THERAPY (06/20/13) PACKED CELL TRANSFUSION (01/28/15) REMOVAL OF INFUSION DEV FROM GREAT VESSEL, ER MEDICAL TECHNICIAN APPROACH (12/02/16) TETANUS TOXOID ADMINIST (01/07/13) TRANSFUSE NONAUT RED BLOOD CELLS IN PERIPH VEIN, PERC (03/17/17) VACCINATION NEC (08/03/14) Family History: States: Unknown Family Hx - Social History Hx Tobacco Use: No Hx Alcohol Use: No Hx Substance Use: No - Immunization History Hx Tetanus Toxoid Vaccination: No Hx Influenza Vaccination: Yes Hx Pneumococcal Vaccination: Yes Review Of Systems Review Of Systems: ROS cannot be obtained secondary to pt's inabilty to answer questions. Cardiovascular: Positive for: Chest Pain Gastrointestinal: Positive for: Abdominal Pain Physical Exam - Physical Exam Appears: Non-toxic, No Acute Distress Skin: Normal Color, Warm, Dry Head: Atraumatic, Normacephalic Eye(s): bilateral: Normal Inspection Oral Mucosa: Moist Chest: Symmetrical, No Tenderness Cardiovascular: Rhythm Regular Respiratory: Normal Breath Sounds, No Rales, No Rhonchi, No Wheezing Gastrointestinal/Abdominal: Soft, No Tenderness, No Guarding, No Rebound Extremity: Normal ROM, No Pedal Edema Neurological/Psych: Oriented x3 ED Course And Treatment - Laboratory Results Result Diagrams: 02/23/18 11:46 02/23/18 11:46 ECG: Interpreted By Me, Viewed By Me ECG Rhythm: Sinus Rhythm Interpretation Of ECG: Multiple artifact. No gross ST/T wave changes. O2 Sat by Pulse Oximetry: 96 Pulse Ox Interpretation: Normal Medical Decision Making Medical Decision Making: Plan: Blood work Urinalysis CXR EKG Zofran Assessment: Chronic abdominal pain and chest pain. Labs normal CXR shows cardiomegaly. Case discussed with Dr. Lorena Corley who notes pt has had frequent visits for similar symptoms. Dr. Lorena Corley instructs patient is okay for discharge. Disposition - Disposition Referrals: Ranulfo Corley MD [Staff Provider] - Disposition: HOME/ ROUTINE Disposition Time: 13:43 Condition: STABLE Additional Instructions: follow up with Dr. Lacey Corley within 2 days as per your doctor okay to discharge you home. call to make an appointment continue your home medications return to ER if symptoms worsens or progress Instructions: Acute Abdomen (Belly Pain), Adult (DC) Forms: [facility] (Telugu), General Discharge Instructions - Clinical Impression Clinical Impression: Abdominal pain - Scribe Statement The provider has reviewed the documentation as recorded by the Scribe KP All medical record entries made by the Scribe were at my direction and personally dictated by me. I have reviewed the chart and agree that the record accurately reflects my personal performance of the history, physical exam, medical decision making, and the department course for this patient. I have also personally directed, reviewed, and agree with the discharge instructions and disposition.
--- NOTE | 2018-02-23 11:34 | RAD ---
Date of service: 02/23/2018 PROCEDURE: CHEST RADIOGRAPH, 1 VIEW HISTORY: SOB COMPARISON: 01/25/2018. FINDINGS: LUNGS: There are low lung volumes. The lungs are clear. PLEURA: No pneumothorax or pleural fluid seen. CARDIOVASCULAR: There is severe cardiomegaly. OSSEOUS STRUCTURES: No significant abnormalities. VISUALIZED UPPER ABDOMEN: Normal. OTHER FINDINGS: None. IMPRESSION: Severe cardiomegaly. No acute findings.
[2018-02-23 11:54] LABS: BASO % 0.5 % (0.0-2.0); EOS # 0.1 K/uL (0.0-0.7); EOS % 0.9 % (0.0-4.0); LYMPH # 1.1 K/uL (1.0-4.3); LYMPH % 18.2 % (20.0-40.0); MEAN CORPUSCULAR HEMOGLOBIN 27.1 pg (27.0-31.0); MEAN CORPUSCULAR HGB CONC 31.5 g/dL (33.0-37.0); MEAN PLATELET VOLUME 8.4 fL (7.2-11.7); MONO # 0.5 K/uL (0.0-0.8); MONO % 7.9 % (0.0-10.0); NEUT # 4.2 K/uL (1.8-7.0); NEUT % 72.5 % (50.0-75.0); RBC 3.69 Mil/uL (3.80-5.20); RED CELL DISTRIBUTION WIDTH 14.4 % (11.5-14.5); WHITE BLOOD COUNT 5.8 K/uL (4.8-10.8)
[2018-02-23 12:20] LABS: ALB/GLOB RATIO 1.2 (1.0-2.1); ALBUMIN 3.8 g/dL (3.5-5.0); ALT/SGPT 37 U/L (9-52); AST/SGOT 30 U/L (14-36); BLOOD UREA NITROGEN 18 mg/dL (7-17); CALCIUM 11.4 mg/dl (8.6-10.4); GFR NON-AFRICAN AMERICAN > 60
[2018-02-23 12:24] LABS: B-TYPE NATRIURETIC PEPTIDE 278 pg/mL (0-450)
[2018-02-23] MEDS ORDERED: DiphenhydrAMINE 50 mg/ml Inj ONE (12:26)
[2018-02-23 14:17] LABS: SQUAMOUS EPITHIAL 2 /hpf (0-5); URINE AMORPHOUS SEDIMENT MODERATE /ul (<OCC); URINE BILIRUBIN NEGATIVE (NEGATIVE); URINE BLOOD NEGATIVE (NEGATIVE); URINE CLARITY Hazy (Clear); URINE COLOR Yellow (YELLOW); URINE GLUCOSE (UA) NORMAL (Normal); URINE LEUKOCYTE ESTERASE NEG Leu/uL (Negative); URINE PROTEIN NEGATIVE (NEGATIVE); URINE UROBILINOGEN NORMAL mg/dL (0.2-1.0)
[2018-02-23 14:32] VITALS: BP 133/78; PULSE 84; TEMP 98.1
[2018-02-24 14:09] VITALS: O2SAT 96
== END 2018-02-23 15:53 | disposition home or self-care (01) ==
LOC: C.ER 10:49
DX: R10.84 Generalized abdominal pain (principal); E78.00 Pure hypercholesterolemia, unspecified; G20 Parkinson's disease; G35 Multiple sclerosis; G80.9 Cerebral palsy, unspecified; I25.10 Atherosclerotic heart disease of native coronary artery without angina pectoris; I50.9 Heart failure, unspecified; I12.9 Hypertensive chronic kidney disease with stage 1 through stage 4 chronic kidney disease, or unspecified chronic kidney disease; N18.9 Chronic kidney disease, unspecified; Z86.73 Personal history of transient ischemic attack (TIA), and cerebral infarction without residual deficits; J44.9 Chronic obstructive pulmonary disease, unspecified

== ENCOUNTER 2018-02-28 18:03 | Emergency (ER) | payer MEDICAID ==
[2018-02-28 18:03] VITALS: BMI 24.5
[2018-02-28 18:51] VITALS: RESP 20; TEMP 98.4; O2SAT 100
--- NOTE | 2018-02-28 20:03 | C.PDOC ---
History Of Present Illness 47 year old female presents to the ER with a complaint of chest pain, abdominal pain, left sided weakness, and bilateral knee swelling. This is her 3rd visit this month and she had 4 visits in January for the same vague complaints, she has been worked up and hospitalized multiple times with negative findings. Patient states Dr. Lorena Corley told her to come in today to be evaluated. Patient has a Hx of cerebral palsy asthma, bronchitis, CAD, CHF, COPD, HTN, and high cholesterol. Denies fever, chills, nausea, or vomiting. Time Seen by Provider: 02/28/18 19:24 Chief Complaint (Nursing): Abdominal Pain History Per: Patient History/Exam Limitations: no limitations Onset/Duration Of Symptoms: Days Current Symptoms Are (Timing): Still Present Location Of Pain/Discomfort: Epigastric Radiation Of Pain To:: None Quality Of Discomfort: Unable To Describe Associated Symptoms: Chest Pain, Other (Abdominal pain, Left sided weakness, Bilateral knee swelling). denies: Fever, Chills, Nausea, Vomiting Exacerbating Factors: None Alleviating Factors: None Recent travel outside of the [place]: No Abnormal Vaginal Bleeding: No Past Medical History Reviewed: Historical Data, Nursing Documentation, Vital Signs Vital Signs: Last Vital Signs Temp 98.4 F 02/28/18 18:45 Pulse 95 H 02/28/18 18:45 Resp 20 02/28/18 18:45 BP 148/102 H 02/28/18 18:45 Pulse Ox 100 02/28/18 20:09 - Medical History PMH: Anemia, Anxiety, Arthritis, Asthma, Bronchitis, CAD, CHF, COPD, CVA, Depression, Diabetes, Gastritis, Gastrointestinal Ulcer, HTN, Hypercholesterolemia, Hyperlipidemia, Hyperthyroidism, Kidney Stones, Multiple Sclerosis, Parkinson's Disease, Pneumonia, Chronic Kidney Disease, TIA, Chronic Pain Denies: Benign Prostatic Hyperplasia, HIV Surgical History: Hernia Repair (Umbilical hernia repair) - [facility] Procedures CLOSURE SKIN & SUBCUTANEOUS NEC (01/07/13) ESOPHAGOGASTRODUODENOSCOPY [EGD] W/CLOSED BIOPSY (02/05/15) INJECT/INFUSE NEC (02/17/15) INSERTION OF INFUSION DEV INTO SUP VENA CAVA, PERC APPROACH (01/28/18) NEBULIZER THERAPY (06/20/13) PACKED CELL TRANSFUSION (01/28/15) REMOVAL OF INFUSION DEV FROM GREAT VESSEL, ACUPRESSURIST APPROACH (12/02/16) TETANUS TOXOID ADMINIST (01/07/13) TRANSFUSE NONAUT RED BLOOD CELLS IN PERIPH VEIN, PERC (03/17/17) VACCINATION NEC (08/03/14) Family History: States: Unknown Family Hx - Social History Hx Tobacco Use: No Hx Alcohol Use: No Hx Substance Use: No - Immunization History Hx Tetanus Toxoid Vaccination: No Hx Influenza Vaccination: Yes Hx Pneumococcal Vaccination: Yes Review Of Systems Constitutional: Negative for: Fever, Chills Cardiovascular: Positive for: Chest Pain Respiratory: Negative for: Cough, Shortness of Breath Gastrointestinal: Positive for: Abdominal Pain. Negative for: Nausea, Vomiting Musculoskeletal: Positive for: Other (Bilateral knee swelling) Neurological: Positive for: Weakness (Left sided) Physical Exam - Physical Exam Appears: Non-toxic, No Acute Distress Skin: Normal Color, Warm, Dry Head: Atraumatic, Normacephalic Eye(s): bilateral: Normal Inspection Oral Mucosa: Moist Neck: Normal, Supple Chest: Symmetrical, No Tenderness Cardiovascular: Rhythm Regular Respiratory: No Rales, No Rhonchi, Wheezing (Mild expiratory) Gastrointestinal/Abdominal: Soft, Tenderness (Epigastric), No Guarding, No Rebound Back: No CVA Tenderness Extremity: Capillary Refill (<2 seconds), Other (Mild effusion to bilateral knees. No erythema or tenderness. Chronic contracted lower extremities.) Pulses: Left Dorsalis Pedis: Normal, Right Dorsalis Pedis: Normal Neurological/Psych: Oriented x3, Normal Speech ED Course And Treatment - Laboratory Results Result Diagrams: 02/28/18 20:14 02/28/18 20:14 Lab Interpretation: No Acute Changes ECG: Interpreted By Me ECG Rhythm: Sinus Rhythm ECG Interpretation: Normal O2 Sat by Pulse Oximetry: 100 (Room air) Pulse Ox Interpretation: Normal - Radiology CXR: Interpreted by Me Progress Note: EKG and blood work ordered. Reevaluation Time: 22:39 Reassessment Condition: Unchanged (Patient advised that her labs are unchanged from prior visits) - Physician Consult Information Outcome Of Conversation: Dr Corley notified of ED visit. Disposition Counseled Patient/Family Regarding: Studies Performed, Diagnosis, Need For Followup - Disposition Referrals: Ranulfo Corley MD [Staff Provider] - Disposition: HOME/ ROUTINE Disposition Time: 22:48 Condition: STABLE Instructions: Chest Pain That Is Not Caused by the Heart (DC), Chronic Knee Pain Forms: [facility] (Polish) - Clinical Impression Clinical Impression: Chronic chest pain, Chronic knee pain - Scribe Statement The provider has reviewed the documentation as recorded by the Scribe Dougie Tenorio All medical record entries made by the Scribe were at my direction and personally dictated by me. I have reviewed the chart and agree that the record accurately reflects my personal performance of the history, physical exam, medical decision making, and the department course for this patient. I have also personally directed, reviewed, and agree with the discharge instructions and disposition.
[2018-02-28 20:29] LABS: BASO % 0.6 % (0.0-2.0); HEMOGLOBIN 10.8 g/dL (11.0-16.0); LYMPH # 1.6 K/uL (1.0-4.3); LYMPH % 33.7 % (20.0-40.0); MEAN CELL VOLUME 85.5 fL (81.0-99.0); MEAN CORPUSCULAR HEMOGLOBIN 27.5 pg (27.0-31.0); MEAN CORPUSCULAR HGB CONC 32.2 g/dL (33.0-37.0); MEAN PLATELET VOLUME 8.5 fL (7.2-11.7); MONO # 0.4 K/uL (0.0-0.8); MONO % 8.1 % (0.0-10.0); NEUT # 2.8 K/uL (1.8-7.0); NEUT % 56.6 % (50.0-75.0); RBC 3.93 Mil/uL (3.80-5.20); RED CELL DISTRIBUTION WIDTH 14.2 % (11.5-14.5); WHITE BLOOD COUNT 4.9 K/uL (4.8-10.8)
[2018-02-28 20:40] LABS: ALB/GLOB RATIO 1.3 (1.0-2.1); ALBUMIN 4.3 g/dL (3.5-5.0); ALT/SGPT 40 U/L (9-52); AST/SGOT 26 U/L (14-36); BLOOD UREA NITROGEN 18 mg/dL (7-17); GFR NON-AFRICAN AMERICAN > 60; LIPASE 106 U/L (23-300)
[2018-03-01 00:30] VITALS: BP 160/91; PULSE 80
--- NOTE | 2018-03-04 08:23 | CARD ---
APPROVED REPORT Date of service: 02/28/2018 EKG Measurement Heart [id number] <Conclusion> Normal sinus rhythm Normal ECG
== END 2018-02-28 23:45 | disposition home or self-care (01) ==
LOC: C.ER 18:03
DX: G89.29 Other chronic pain (principal); R07.9 Chest pain, unspecified; M25.562 Pain in left knee; M25.561 Pain in right knee

== ENCOUNTER 2018-03-07 11:36 | Emergency (ER) | payer MEDICAID ==
[2018-03-07 11:36] VITALS: BMI 24.5
[2018-03-07 11:40] VITALS: O2SAT 98
[2018-03-07 13:41] LABS: BASO % 0.8 % (0.0-2.0); EOS % 1.2 % (0.0-4.0); HEMOGLOBIN 10.6 g/dL (11.0-16.0); LYMPH # 1.4 K/uL (1.0-4.3); LYMPH % 35.6 % (20.0-40.0); MEAN CELL VOLUME 84.9 fL (81.0-99.0); MEAN CORPUSCULAR HEMOGLOBIN 27.7 pg (27.0-31.0); MEAN CORPUSCULAR HGB CONC 32.6 g/dL (33.0-37.0); MEAN PLATELET VOLUME 8.8 fL (7.2-11.7); MONO # 0.3 K/uL (0.0-0.8); MONO % 7.9 % (0.0-10.0); NEUT # 2.1 K/uL (1.8-7.0); NEUT % 54.5 % (50.0-75.0); NRBC % 0.1 % (0.0-2.0); RBC 3.84 Mil/uL (3.80-5.20); RED CELL DISTRIBUTION WIDTH 14.8 % (11.5-14.5); WHITE BLOOD COUNT 3.8 K/uL (4.8-10.8)
--- NOTE | 2018-03-07 13:42 | RAD ---
Date of service: 03/07/2018 PROCEDURE: CHEST RADIOGRAPH, 1 VIEW HISTORY: SOB COMPARISON: Portable chest 02/23/2018. FINDINGS: LUNGS: No definitive airspace disease bilaterally. PLEURA: No definitive pleural effusion bilaterally. No pneumothorax bilaterally. CARDIOVASCULAR: Cardiomegaly reiterated with widened upper reiterated. On review of prior chest CT 10/03/2017, this appears to be a function of heterogeneous density within anterior mediastinal fat with residual thymic tissue as well as technical magnification from frontal technique. Patient is also rotated toward the left accentuating the appearance. OSSEOUS STRUCTURES: No significant abnormalities. VISUALIZED UPPER ABDOMEN: Normal. OTHER FINDINGS: None. IMPRESSION: Stable nonacute chest radiograph compared to 02/23/2018 chest x-ray. Cardiomegaly stable. No pulmonary vascular congestion, infiltrate or pleural effusion appreciable at this time.
[2018-03-07 13:54] LABS: ALBUMIN 3.8 g/dL (3.5-5.0); ALT/SGPT 32 U/L (9-52); AST/SGOT 23 U/L (14-36); BLOOD UREA NITROGEN 14 mg/dL (7-17); CALCIUM 11.5 mg/dl (8.6-10.4); GFR NON-AFRICAN AMERICAN > 60; LIPASE 105 U/L (23-300)
[2018-03-07 14:01] LABS: B-TYPE NATRIURETIC PEPTIDE 101 pg/mL (0-450)
[2018-03-07 14:03] LABS: SQUAMOUS EPITHIAL 4 /hpf (0-5); URINE AMORPHOUS SEDIMENT MODERATE /ul (<OCC); URINE BILIRUBIN NEGATIVE (NEGATIVE); URINE BLOOD NEGATIVE (NEGATIVE); URINE CLARITY Hazy (Clear); URINE COLOR Yellow (YELLOW); URINE GLUCOSE (UA) NORMAL (Normal); URINE LEUKOCYTE ESTERASE NEG Leu/uL (Negative); URINE PROTEIN NEGATIVE (NEGATIVE); URINE UROBILINOGEN NORMAL mg/dL (0.2-1.0)
--- NOTE | 2018-03-07 14:28 | C.PDOC ---
History Of Present Illness 47 y/o female presents to ED for evaluation of generalized abdominal pain and chest pain for the last 3 days. Pt has been seen here multiple times in the past for similar symptoms and discharged home, including 02/04, 02/10, 02/15, and . Pt has been admitted in the past with negative work up and discharged home. Pt was admitted under the service of Dr. Lorena Corley for pneumonia on 01/28 and discharged home on 02/03. Limited history at this time due to history of cerebral palsy. Time Seen by Provider: 03/07/18 12:20 Chief Complaint (Nursing): Abdominal Pain History Per: Patient Past Medical History Reviewed: Historical Data, Nursing Documentation, Vital Signs Vital Signs: Last Vital Signs Temp 98.5 F 03/07/18 11:37 Pulse 70 03/07/18 11:37 Resp 16 03/07/18 11:37 BP 145/100 H 03/07/18 11:37 Pulse Ox 98 03/07/18 14:32 - Medical History PMH: Anemia, Anxiety, Arthritis, Asthma, Bronchitis, CAD, CHF, COPD, CVA, Depression, Diabetes, Gastritis, Gastrointestinal Ulcer, HTN, Hypercholesterolemia, Hyperlipidemia, Hyperthyroidism, Kidney Stones, Multiple Sclerosis, Parkinson's Disease, Pneumonia, Chronic Kidney Disease, TIA, Chronic Pain Surgical History: Hernia Repair (Umbilical hernia repair) - [facility] Procedures CLOSURE SKIN & SUBCUTANEOUS NEC (01/07/13) ESOPHAGOGASTRODUODENOSCOPY [EGD] W/CLOSED BIOPSY (02/05/15) INJECT/INFUSE NEC (02/17/15) INSERTION OF INFUSION DEV INTO SUP VENA CAVA, PERC APPROACH (01/28/18) NEBULIZER THERAPY (06/20/13) PACKED CELL TRANSFUSION (01/28/15) REMOVAL OF INFUSION DEV FROM GREAT VESSEL, DYE JIG OPERATOR APPROACH (12/02/16) TETANUS TOXOID ADMINIST (01/07/13) TRANSFUSE NONAUT RED BLOOD CELLS IN PERIPH VEIN, PERC (03/17/17) VACCINATION NEC (08/03/14) Family History: States: Unknown Family Hx - Social History Hx Tobacco Use: No Hx Alcohol Use: No Hx Substance Use: No - Immunization History Hx Tetanus Toxoid Vaccination: No Hx Influenza Vaccination: Yes Hx Pneumococcal Vaccination: Yes Review Of Systems Review Of Systems: ROS cannot be obtained secondary to pt's inabilty to answer questions. Cardiovascular: Positive for: Chest Pain Gastrointestinal: Positive for: Abdominal Pain Physical Exam - Physical Exam Appears: Non-toxic, No Acute Distress Skin: Normal Color, Warm, Dry, No Rash Head: Atraumatic, Normacephalic Eye(s): bilateral: Normal Inspection Nose: Normal Oral Mucosa: Moist Lips: Normal Appearing Neck: Normal ROM Cardiovascular: Rhythm Regular, No Murmur Respiratory: Normal Breath Sounds, No Accessory Muscle Use Gastrointestinal/Abdominal: Soft, No Tenderness Extremity: Normal ROM, No Deformity ED Course And Treatment - Laboratory Results Result Diagrams: 03/07/18 13:05 03/07/18 13:05 ECG: Interpreted By Me, Viewed By Me ECG Rhythm: Sinus Rhythm ECG Interpretation: No Acute Changes Rate From EC O2 Sat by Pulse Oximetry: 98 Pulse Ox Interpretation: Normal (RA) Medical Decision Making Medical Decision Making: Plan: * EKG * Pepcid * Reassess and Disposition Bloodwork ordered and reviewed Case discussed with Dr Lorena Corley, agrees with plan to send pt home. chronic abdominal pain Disposition - Disposition Disposition: HOME/ ROUTINE Disposition Time: 15:07 Condition: GOOD Additional Instructions: follow up with your doctor within 2 days call to make an appointment take medications as prescribed return to ER if symptoms worsens or progress Instructions: Acute Abdomen (Belly Pain), Adult (DC) Forms: [facility] (Beninese), General Discharge Instructions - Clinical Impression Clinical Impression: Abdominal pain - Scribe Statement The provider has reviewed the documentation as recorded by the Scribe (Binta Louis) Provider Attestation: All medical record entries made by the Scribe were at my direction and personally dictated by me. I have reviewed the chart and agree that the record accurately reflects my personal performance of the history, physical exam, medical decision making, and the department course for this patient. I have also personally directed, reviewed, and agree with the discharge instructions and disposition.
[2018-03-07 15:39] VITALS: RESP 18
[2018-03-07 18:25] VITALS: BP 136/79; PULSE 69; TEMP 98
--- NOTE | 2018-03-08 21:49 | CARD ---
APPROVED REPORT Date of service: 03/07/2018 EKG Measurement Heart [id number] <Conclusion> Arm lead reversal Sinus rhythm Cannot rule out Anterior infarct, age undetermined Abnormal ECG
== END 2018-03-07 18:25 | disposition home or self-care (01) ==
LOC: C.ER 11:36
DX: R10.84 Generalized abdominal pain (principal)

== ENCOUNTER 2018-03-15 11:22 | Emergency (ER) | payer MEDICAID ==
[2018-03-15 11:22] VITALS: BMI 22.3
--- NOTE | 2018-03-15 11:52 | C.PDOC ---
History Of Present Illness 47 year old female presents to the ED for evaluation of body aches associated with right shoulder pain, neck pain, and left hand pain with tingling for the last few days. Frequently visits [facility] with 10 visits in February. Past medical history limited due to speech impediment. Time Seen by Provider: 03/15/18 11:46 Chief Complaint (Nursing): Pain, Chronic History Per: Patient History/Exam Limitations: other (speech impediment) Onset/Duration Of Symptoms: Days Current Symptoms Are (Timing): Still Present Past Medical History Reviewed: Historical Data, Nursing Documentation, Vital Signs Vital Signs: Last Vital Signs Temp 100.1 F H 03/15/18 11:32 Pulse 79 03/15/18 11:32 Resp 14 03/15/18 11:32 BP 116/64 03/15/18 11:32 Pulse Ox 99 03/15/18 11:32 - Medical History PMH: Anemia, Anxiety, Arthritis, Asthma, Bronchitis, CAD, CHF, COPD, CVA, Depression, Diabetes, Gastritis, Gastrointestinal Ulcer, HTN, Hypercholesterolemia, Hyperlipidemia, Hyperthyroidism, Kidney Stones, Multiple Sclerosis, Parkinson's Disease, Pneumonia, Chronic Kidney Disease, TIA, Chronic Pain Denies: Benign Prostatic Hyperplasia, HIV Surgical History: Hernia [facility] CLOSURE SKIN & SUBCUTANEOUS NEC (01/07/13) ESOPHAGOGASTRODUODENOSCOPY [EGD] W/CLOSED BIOPSY (02/05/15) INJECT/INFUSE NEC (02/17/15) INSERTION OF INFUSION DEV INTO SUP VENA CAVA, PERC APPROACH (01/28/18) NEBULIZER THERAPY (06/20/13) PACKED CELL TRANSFUSION (01/28/15) REMOVAL OF INFUSION DEV FROM GREAT VESSEL, KILN CAR UNLOADER APPROACH (12/02/16) TETANUS TOXOID ADMINIST (01/07/13) TRANSFUSE NONAUT RED BLOOD CELLS IN PERIPH VEIN, PERC (03/17/17) VACCINATION NEC (08/03/14) Family History: States: Unknown Family Hx - Social History Hx Tobacco Use: No Hx Alcohol Use: No Hx Substance Use: No - Immunization History Hx Tetanus Toxoid Vaccination: No Hx Influenza Vaccination: Yes Hx Pneumococcal Vaccination: Yes Review Of Systems Except As Marked, All Systems Reviewed And Found Negative. Constitutional: Positive for: Fever (100.1) Musculoskeletal: Positive for: Neck Pain, Shoulder Pain (right ), Hand Pain (left hand pain with tingling), Other (body aches ) Physical Exam - Physical Exam Appears: Non-toxic Skin: Normal Color, Warm, Dry Head: Atraumatic, Normacephalic Eye(s): bilateral: Normal Inspection Oral Mucosa: Moist Neck: Normal ROM, Supple Chest: Symmetrical, Deformity Cardiovascular: Rhythm Regular Respiratory: No Accessory Muscle Use, No Rales, No Rhonchi, No Wheezing Gastrointestinal/Abdominal: Normal Exam, Soft, No Tenderness Extremity: Normal ROM (x4) Pulses: Left Radial: Normal, Right Radial: Normal Neurological/Psych: Oriented x3, Normal Speech, Normal Sensation Gait: Steady ED Course And Treatment - Laboratory Results Result Diagrams: 03/15/18 12:41 03/15/18 12:41 O2 Sat by Pulse Oximetry: 99 (RA) Pulse Ox Interpretation: Normal Medical Decision Making Medical Decision Making: Plan: --Blood sent. --EKG Disposition Discussed With DrRafaela: Ranulfo Corley Counseled Patient/Family Regarding: Need For Followup, Rx Given - Disposition Disposition: HOME/ ROUTINE Disposition Time: 13:55 Condition: STABLE Instructions: Chronic Pain (DC) Forms: [facility] (Cook Islander), General Discharge Instructions - POA Present On Arrival: None - Clinical Impression Clinical Impression: Chronic pain - Scribe Statement The provider has reviewed the documentation as recorded by the Scribe (Shayna Dong) Provider Attestation: All medical record entries made by the Scribe were at my direction and personally dictated by me. I have reviewed the chart and agree that the record accurately reflects my personal performance of the history, physical exam, medical decision making, and the department course for this patient. I have also personally directed, reviewed, and agree with the discharge instructions and disposition.
[2018-03-15 12:47] LABS: BASO % 0.8 % (0.0-2.0); EOS % 0.6 % (0.0-4.0); HEMOGLOBIN 10.4 g/dL (11.0-16.0); LYMPH # 1.2 K/uL (1.0-4.3); LYMPH % 25.4 % (20.0-40.0); MEAN CELL VOLUME 85.9 fL (81.0-99.0); MEAN CORPUSCULAR HEMOGLOBIN 27.7 pg (27.0-31.0); MEAN CORPUSCULAR HGB CONC 32.3 g/dL (33.0-37.0); MEAN PLATELET VOLUME 8.9 fL (7.2-11.7); MONO # 0.4 K/uL (0.0-0.8); MONO % 8.9 % (0.0-10.0); NEUT # 3.1 K/uL (1.8-7.0); NEUT % 64.3 % (50.0-75.0); RBC 3.75 Mil/uL (3.80-5.20); WHITE BLOOD COUNT 4.8 K/uL (4.8-10.8)
[2018-03-15 12:47] LABS: VENOUS BLOOD GAS BASE EXCESS 6.4 mmol/L (0.0-2.0); VENOUS BLOOD GAS PCO2 58 mmHg (40-60); VENOUS BLOOD GAS PO2 34 mm/Hg (30-55); VENOUS BLOOD PH 7.37 (7.32-7.43)
--- NOTE | 2018-03-15 12:55 | RAD ---
Date of service: 03/15/2018 HISTORY: Sepsis Patient COMPARISON: No prior. FINDINGS: LUNGS: Poor inspiration with low lung volumes, crowded bronchovascular markings and mild bibasilar atelectasis. Developing lower lobe infiltrates could be excluded with follow-up radiographs. PLEURA: No significant pleural effusion identified, no pneumothorax apparent. CARDIOVASCULAR: Heart appears mildly enlarged. OSSEOUS STRUCTURES: No significant abnormalities. VISUALIZED UPPER ABDOMEN: Normal. OTHER FINDINGS: None. IMPRESSION: Poor inspiration with low lung volumes, crowded bronchovascular markings and mild bibasilar atelectasis. Developing lower lobe infiltrates could be excluded with follow-up radiographs.
[2018-03-15 13:05] LABS: ALB/GLOB RATIO 1.1 (1.0-2.1); ALBUMIN 4.1 g/dL (3.5-5.0); ALT/SGPT 25 U/L (9-52); AST/SGOT 40 U/L (14-36); BLOOD UREA NITROGEN 12 mg/dL (7-17); CALCIUM 11.8 mg/dl (8.6-10.4); GFR NON-AFRICAN AMERICAN > 60
[2018-03-15 18:44] VITALS: BP 137/73; PULSE 61; RESP 20; TEMP 97.8; O2SAT 96
--- NOTE | 2018-03-16 11:35 | CARD ---
APPROVED REPORT Date of service: 03/15/2018 EKG Measurement Heart [id number] <Conclusion> Sinus rhythm with occasional Nonspecific ST and T wave abnormality Abnormal ECG
== END 2018-03-15 19:22 | disposition home or self-care (01) ==
LOC: C.ER 11:22
DX: G89.29 Other chronic pain (principal)

== ENCOUNTER 2018-03-19 13:18 | Emergency (ER) | payer MEDICAID ==
[2018-03-19 13:24] VITALS: BMI 26.6
[2018-03-19 13:28] VITALS: RESP 18
--- NOTE | 2018-03-19 14:16 | C.PDOC ---
History Of Present Illness 47 year old female presents to the ED for evaluation of body aches associated with right shoulder pain, chest pain, neck pain, and left hand pain with tingling for the last few days. Frequently visits [facility] Emergency [facility]artments with 12 visits in February. Past medical history limited due to speech impediment. Time Seen by Provider: 03/19/18 13:40 Chief Complaint (Nursing): Chest Pain Past Medical History Vital Signs: Last Vital Signs Temp 99.3 F 03/19/18 13:24 Pulse 95 H 03/19/18 13:24 Resp 18 03/19/18 13:24 BP 112/64 03/19/18 13:24 Pulse Ox 95 03/19/18 13:24 - Medical History PMH: Anemia, Anxiety, Arthritis, Asthma, Bronchitis, CAD, CHF, COPD, CVA, Depression, Diabetes, Gastritis, Gastrointestinal Ulcer, HTN, Hype rcholesterolemia, Hyperlipidemia, Hyperthyroidism, Kidney Stones, Multiple Sclerosis, Parkinson's Disease, Pneumonia, Chronic Kidney Disease, TIA, Chronic Pain Denies: Benign Prostatic Hyperplasia, HIV Surgical History: [facility] Procedures CLOSURE SKIN & SUBCUTANEOUS NEC (01/07/13) ESOPHAGOGASTRODUODENOSCOPY [EGD] W/CLOSED BIOPSY (02/05/15) INJECT/INFUSE NEC (02/17/15) INSERTION OF INFUSION DEV INTO SUP VENA CAVA, PERC APPROACH (01/28/18) NEBULIZER THERAPY (06/20/13) PACKED CELL TRANSFUSION (01/28/15) REMOVAL OF INFUSION DEV FROM GREAT VESSEL, CONDUCTOR ROAD FREIGHT APPROACH (12/02/16) TETANUS TOXOID ADMINIST (01/07/13) TRANSFUSE NONAUT RED BLOOD CELLS IN PERIPH VEIN, PERC (03/17/17) VACCINATION NEC (08/03/14) Family History: States: Unknown Family Hx - Social History Hx Tobacco Use: No Hx Alcohol Use: No Hx Substance Use: No - Immunization History Hx Tetanus Toxoid Vaccination: No Hx Influenza Vaccination: Yes Hx Pneumococcal Vaccination: Yes Review Of Systems Constitutional: Negative for: Fever Cardiovascular: Positive for: Chest Pain Respiratory: Negative for: Shortness of Breath Gastrointestinal: Negative for: Vomiting Musculoskeletal: Positive for: Neck Pain, Arm Pain Physical Exam - Physical Exam Appears: Non-toxic, No Acute Distress Skin: Warm, Dry, No Rash Head: Atraumatic, Normacephalic Eye(s): bilateral: Normal Inspection Nose: Normal Oral Mucosa: Moist Neck: Normal ROM Chest: Symmetrical Cardiovascular: Rhythm Regular, No Murmur Respiratory: Normal Breath Sounds, No Accessory Muscle Use Gastrointestinal/Abdominal: Soft, No Tenderness Extremity: No Swelling, Other (thin extremities secondary to cerebral palsy) Neurological/Psych: Oriented x3, Normal Motor Gait: Steady ED Course And Treatment O2 Sat by Pulse Oximetry: 95 (on RA) Pulse Ox Interpretation: Normal (RA) Disposition - Disposition Referrals: Ranulfo Corley MD [Staff Provider] - Disposition: HOME/ ROUTINE Disposition Time: 15:15 Condition: STABLE Additional Instructions: Follow up with the medical doctor within 1-2 days. Return if worsened. Instructions: Dizziness, Nonvertigo, (DC) Forms: [facility] (Frisian) - Clinical Impression Clinical Impression: Chest pain, Myalgia - Scribe Statement The provider has reviewed the documentation as recorded by the Scribe (Binta Louis) All medical record entries made by the Scribe were at my direction and personally dictated by me. I have reviewed the chart and agree that the record accurately reflects my personal performance of the history, physical exam, medical decision making, and the department course for this patient. I have also personally directed, reviewed, and agree with the discharge instructions and disposition.
--- NOTE | 2018-03-19 15:10 | RAD ---
Date of service: 03/19/2018 HISTORY: Chest pain COMPARISON: 03/15/2018. FINDINGS: LUNGS: The lungs are well inflated and clear. PLEURA: No significant pleural effusion identified, no pneumothorax apparent. CARDIOVASCULAR: There is persistent moderate cardiomegaly. There is unfolding of the aorta. OSSEOUS STRUCTURES: No significant abnormalities. VISUALIZED UPPER ABDOMEN: Normal. OTHER FINDINGS: None. IMPRESSION: No active pulmonary disease.
[2018-03-19 16:30] VITALS: BP 111/65; PULSE 90; TEMP 99.2
[2018-03-19 17:02] VITALS: O2SAT 95
--- NOTE | 2018-03-21 12:40 | CARD ---
APPROVED REPORT Date of service: 03/19/2018 EKG Measurement Heart [id number] <Conclusion> Normal sinus rhythm Normal ECG
== END 2018-03-19 16:29 | disposition home or self-care (01) ==
LOC: C.ER 13:18
DX: R07.9 Chest pain, unspecified (principal); M79.10 Myalgia, unspecified site

== ENCOUNTER 2018-03-21 11:53 | Emergency (ER) | payer MEDICAID ==
[2018-03-21 11:53] VITALS: BMI 26.6
[2018-03-21] MEDS ORDERED: Sodium Chloride 0.9% 1,000 ML IV ONE (13:33)
[2018-03-21] MEDS ORDERED: Sodium Chloride 0.9% 1,000 ML ONE (14:50)
[2018-03-21 14:51] LABS: BASO % 0.8 % (0.0-2.0); EOS % 0.5 % (0.0-4.0); HEMOGLOBIN 10.3 g/dL (11.0-16.0); LYMPH # 1.3 K/uL (1.0-4.3); LYMPH % 22.4 % (20.0-40.0); MEAN CELL VOLUME 85.5 fL (81.0-99.0); MEAN CORPUSCULAR HEMOGLOBIN 28.2 pg (27.0-31.0); MEAN PLATELET VOLUME 8.4 fL (7.2-11.7); MONO # 0.4 K/uL (0.0-0.8); MONO % 6.7 % (0.0-10.0); NEUT # 3.9 K/uL (1.8-7.0); NEUT % 69.6 % (50.0-75.0); NRBC % 0.1 % (0.0-2.0); RBC 3.65 Mil/uL (3.80-5.20); RED CELL DISTRIBUTION WIDTH 14.1 % (11.5-14.5); WHITE BLOOD COUNT 5.6 K/uL (4.8-10.8)
--- NOTE | 2018-03-21 14:59 | C.PDOC ---
History Of Present Illness 47 year old female presents to the ED for complaints of feeling dizzy, lightheaded, nauseous since waking up. Also associated with diarrhea for 2 days. No vomiting. Patient additionally complains of a headache. Denies any chest pain , contrary to triage. Otherwise patient denies SOB, LARA, palpitations, abdominal pain, or other complaints. Time Seen by Provider: 03/21/18 13:18 Chief Complaint (Nursing): Chest Pain History Per: Patient History/Exam Limitations: no limitations Onset/Duration Of Symptoms: Hrs Current Symptoms Are (Timing): Still Present Past Medical History Reviewed: Historical Data, Nursing Documentation, Vital Signs Vital Signs: Last Vital Signs Temp 98.9 F 03/21/18 12:08 Pulse 106 H 03/21/18 12:08 Resp 18 03/21/18 12:08 BP 106/63 03/21/18 12:08 Pulse Ox 96 03/21/18 12:08 - Medical History PMH: Anemia, Anxiety, Arthritis, Asthma, Bronchitis, CAD, CHF, COPD, CVA, Depression, Diabetes, Gastritis, Gastrointestinal Ulcer, HTN, Hypercholesterolemia, Hyperlipidemia, Hyperthyroidism, Kidney Stones, Multiple Sclerosis, Parkinson's Disease, Pneumonia, Chronic Kidney Disease, TIA, Chronic Pain Denies: Benign Prostatic Hyperplasia, HIV Surgical History: Hernia Repair (Umbilical hernia repair), (1994) - [facility] Procedures CLOSURE SKIN & SUBCUTANEOUS NEC (01/07/13) ESOPHAGOGASTRODUODENOSCOPY [EGD] W/CLOSED BIOPSY (02/05/15) INJECT/INFUSE NEC (02/17/15) INSERTION OF INFUSION DEV INTO SUP VENA CAVA, PERC APPROACH (01/28/18) NEBULIZER THERAPY (06/20/13) PACKED CELL TRANSFUSION (01/28/15) REMOVAL OF INFUSION DEV FROM GREAT VESSEL, INFORMATION RESOURCE CONSULTANT APPROACH (12/02/16) TETANUS TOXOID ADMINIST (01/07/13) TRANSFUSE NONAUT RED BLOOD CELLS IN PERIPH VEIN, PERC (03/17/17) VACCINATION NEC (08/03/14) Family History: States: Unknown Family Hx - Social History Hx Tobacco Use: No Hx Alcohol Use: No Hx Substance Use: No - Immunization History Hx Tetanus Toxoid Vaccination: No Hx Influenza Vaccination: Yes Hx Pneumococcal Vaccination: Yes Review Of Systems Constitutional: Negative for: Fever, Chills Cardiovascular: Positive for: Light Headedness. Negative for: Chest Pain, Palpitations Respiratory: Negative for: Shortness of Breath, SOB with Excertion Gastrointestinal: Positive for: Nausea, Diarrhea. Negative for: Vomiting, Abdominal Pain Neurological: Positive for: Dizziness. Negative for: Weakness, Numbness, Incoordination, Change in Speech Physical Exam - Physical Exam Appears: Non-toxic, No Acute Distress Skin: Normal Color, Warm, Dry Head: Atraumatic, Normacephalic Eye(s): bilateral: Normal Inspection, PERRL, EOMI Oral Mucosa: Dry Neck: Normal ROM, No Midline Cervical Tenderness, No Paracervical Tenderness, Supple Chest: Symmetrical Cardiovascular: Rhythm Regular (but tachycardic) Respiratory: Normal Breath Sounds, No Rales, No Rhonchi, No Wheezing Gastrointestinal/Abdominal: Bowel Sounds (normal), Soft, No Tenderness, No Guarding Extremity: Bilateral: Atraumatic, Normal Color And Temperature, Normal ROM Neurological/Psych: Oriented x3, Normal Speech, Normal Cognition, Normal Cranial Nerves, Normal Motor, Normal Sensation ED Course And Treatment - Laboratory Results Result Diagrams: 03/21/18 14:46 03/21/18 14:46 Lab Interpretation: No Acute Changes O2 Sat by Pulse Oximetry: 96 (RA) Pulse Ox Interpretation: Normal Reevaluation Time: 17:45 Reassessment Condition: Improved Medical Decision Making Medical Decision Making: Impression: 47 year old with dizziness, nausea, headache Plan: --EKG --CMP --Lipase --CBC --UA --IV fluids --Reassess and dispo Disposition Counseled Patient/Family Regarding: Studies Performed, Diagnosis, Need For Followup - Disposition Referrals: Ranulfo Corley MD [Staff Provider] - Disposition: HOME/ ROUTINE Disposition Time: 17:46 Condition: IMPROVED Instructions: Diarrhea in Adolescents and Adults Forms: [facility] ([employer]) - Clinical Impression Clinical Impression: Diarrhea, Dizziness - Scribe Statement The provider has reviewed the documentation as recorded by the Scribe (Christin Pyle) Provider Attestation: All medical record entries made by the Scribe were at my direction and personally dictated by me. I have reviewed the chart and agree that the record accurately reflects my personal performance of the history, physical exam, [facility] decision making, and the department course for this patient. I have also personally directed, reviewed, and agree with the discharge instructions and disposition.
[2018-03-21 15:23] LABS: ALB/GLOB RATIO 1.2 (1.0-2.1); ALT/SGPT 29 U/L (9-52); AST/SGOT 24 U/L (14-36); BLOOD UREA NITROGEN 17 mg/dL (7-17); CALCIUM 11.4 mg/dl (8.6-10.4); GFR NON-AFRICAN AMERICAN 60; LIPASE 115 U/L (23-300)
[2018-03-21 18:28] VITALS: RESP 20
[2018-03-21 20:20] VITALS: BP 124/83; PULSE 93; TEMP 99.1; O2SAT 95
--- NOTE | 2018-03-22 23:07 | CARD ---
APPROVED REPORT Date of service: 03/21/2018 EKG Measurement Heart [id number] ID [id number] <Conclusion> Normal sinus rhythm Possible Left atrial enlargement Borderline ECG
== END 2018-03-21 20:55 | disposition home or self-care (01) ==
LOC: C.ER 11:53
DX: R42 Dizziness and giddiness (principal); R19.7 Diarrhea, unspecified
CPT/HCPCS: 80053; 83690; 85025; 93005; 99285; J7030

== ENCOUNTER 2018-03-29 14:52 | Emergency (ER) | payer MEDICAID ==
[2018-03-29 14:52] VITALS: BMI 22.3
[2018-03-29] MEDS ORDERED: Alum-Mag Hydrox-Simethicone Susp (30 mL) PO ONE (16:23)
[2018-03-29] MEDS ORDERED: Alum-Mag Hydrox-Simethicone Susp (30 mL) ONE (16:41)
--- NOTE | 2018-03-29 16:55 | C.PDOC ---
History Of Present Illness 47-year-old female, whose PMHx includes Diabetes, Hypertension, CVA with left- sided residual weakness, and Anemia, presents to the ED for evaluation of generalized body aches, chest pain and abdominal pain. Patient states she ran out of Motrin and has several allergies which include Toradol, Codeine and Tylenol. Patient denies nausea, vomiting. <SidBetito cooley - Last Filed: 04/02/18 22:08> <Chelsey Gonzáles - Last Filed: 03/31/18 11:14> History Per: Patient History/Exam Limitations: no limitations Onset/Duration Of Symptoms: Days Current Symptoms Are (Timing): Still Present Location Of Pain: Diffuse Myalgias Sick Contacts (Context): None Associated Symptoms: denies: Nausea, Vomiting Additional History Per: Patient <Betito Lau - Last Filed: 04/02/18 22:08> Chief Complaint (Nursing): Flu-like Symptoms Past Medical History Vital Signs: Last Vital Signs Temp 98.9 F 03/29/18 18:29 Pulse 77 03/29/18 18:29 Resp 18 03/29/18 18:29 BP 133/65 03/29/18 18:29 Pulse Ox 97 03/29/18 18:29 - [facility] Procedures CLOSURE SKIN & SUBCUTANEOUS NEC (01/07/13) ESOPHAGOGASTRODUODENOSCOPY [EGD] W/CLOSED BIOPSY (02/05/15) INJECT/INFUSE NEC (02/17/15) INSERTION OF INFUSION DEV INTO SUP VENA CAVA, PERC APPROACH (01/28/18) INTRODUCE OF OTH THERAP SUBST INTO RESP TRACT, VIA OPENING (03/26/18) NEBULIZER THERAPY (06/20/13) PACKED CELL TRANSFUSION (01/28/15) REMOVAL OF INFUSION DEV FROM GREAT VESSEL, FLOOR NURSE APPROACH (12/02/16) TETANUS TOXOID ADMINIST (01/07/13) TRANSFUSE NONAUT RED BLOOD CELLS IN PERIPH VEIN, PERC (03/17/17) VACCINATION NEC (08/03/14) <Chelsey Gonzáles - Last Filed: 03/31/18 11:14> Reviewed: Historical Data, Nursing Documentation, Vital Signs Vital Signs: Last Vital Signs Temp 99.1 F 03/29/18 14:54 Pulse 85 03/29/18 14:54 Resp 20 03/29/18 14:54 BP 143/83 03/29/18 14:54 Pulse Ox 98 03/29/18 14:54 - Medical History PMH: Anemia, Anxiety, Arthritis, Asthma, Bronchitis, CAD, CHF, COPD, CVA, Depression, Diabetes, Gastritis, Gastrointestinal Ulcer, HTN, Hypercholesterolemia, Hyperlipidemia, Hyperthyroidism, Kidney Stones, Multiple Sclerosis, Parkinson's Disease, Pneumonia, Chronic Kidney Disease, TIA, Chronic Pain Denies: Benign Prostatic Hyperplasia, HIV Surgical History: Hernia Repair (Umbilical hernia repair), (1994) - [facility] Procedures CLOSURE SKIN & SUBCUTANEOUS NEC (01/07/13) ESOPHAGOGASTRODUODENOSCOPY [EGD] W/CLOSED BIOPSY (02/05/15) INJECT/INFUSE NEC (02/17/15) INSERTION OF INFUSION DEV INTO SUP VENA CAVA, PERC APPROACH (01/28/18) INTRODUCE OF OTH THERAP SUBST INTO RESP TRACT, VIA OPENING (03/26/18) NEBULIZER THERAPY (06/20/13) PACKED CELL TRANSFUSION (01/28/15) REMOVAL OF INFUSION DEV FROM GREAT VESSEL, FLOOR NURSE APPROACH (12/02/16) TETANUS TOXOID ADMINIST (01/07/13) TRANSFUSE NONAUT RED BLOOD CELLS IN PERIPH VEIN, PERC (03/17/17) VACCINATION NEC (08/03/14) Family History: States: Unknown Family Hx - Social History Hx Tobacco Use: No Hx Alcohol Use: No Hx Substance Use: No - Immunization History Hx Tetanus Toxoid Vaccination: No Hx Influenza Vaccination: Yes Hx Pneumococcal Vaccination: Yes <Betito Lau - Last Filed: 04/02/18 22:08> Review Of Systems Cardiovascular: Positive for: Chest Pain Gastrointestinal: Positive for: Abdominal Pain. Negative for: Nausea, Vomiting Musculoskeletal: Positive for: Other (generalized body aches ) <Betito Lau - Last Filed: 04/02/18 22:08> Physical Exam - Physical Exam Appears: Non-toxic, No Acute Distress Skin: Normal Color, Warm, Dry Head: Atraumatic, Normacephalic Eye(s): bilateral: Normal Inspection Oral Mucosa: Moist Teeth: Edentulous Neck: Supple Chest: Symmetrical, No Deformity, No Tenderness Cardiovascular: Rhythm Regular, No Murmur Respiratory: Normal Breath Sounds, No Rales, No Rhonchi, No Wheezing Gastrointestinal/Abdominal: Soft, No Tenderness, No Guarding, No Rebound Extremity: Normal ROM, Capillary Refill (less than 2 seconds ) Neurological/Psych: Oriented x3, Normal Cognition, Other (patient has some difficulty with speaking, left-sided residual weakness noted ) <Betito Lau Last Filed: 04/02/18 22:08> ED Course And Treatment - Laboratory Results Result Diagrams: 03/29/18 16:44 03/29/18 16:44 <Chelsey Gonzáles - Last Filed: 03/31/18 11:14> - Laboratory Results Result Diagrams: 03/29/18 16:44 03/29/18 16:44 O2 Sat by Pulse Oximetry: 98 (on RA ) Pulse Ox Interpretation: Normal <Betito Lau Last Filed: 04/02/18 22:08> Medical Decision Making Medical Decision Making: Plan: * bloodwork * urinalysis * Maalox PO * Motrin PO * reassess and disposition Progress: Bloodwork and urinalysis ordered and reviewed. Maalox PO and Motrin PO given. <Betito Lau - Last Filed: 04/02/18 22:08> Disposition <Chelsey Gonzáles - Last Filed: 03/31/18 11:14> - Disposition Disposition Time: 22:48 - POA Present On Arrival: Cath Associated UTI <Betito Lau Last Filed: 04/02/18 22:08> - Disposition Referrals: [facility] [place] [facility] [place] [facility] [Outside] [facility] [place] [Outside] Disposition: HOME/ ROUTINE Condition: GOOD Prescriptions: Ibuprofen [Motrin] 600 mg PO Q6 5 Days #20 tab Instructions: Muscle and Bone Pain (DC) Forms: [employer] (Romanian) - Clinical Impression Clinical Impression: Musculoskeletal pain - Scribe Statement The provider has reviewed the documentation as recorded by the Scribe (Winnie Corley) Provider Attestation: All medical record entries made by the Scribe were at my direction and personally dictated by me. I have reviewed the chart and agree that the record accurately reflects my personal performance of the history, physical exam, medical decision making, and the department course for this patient. I have also personally directed, reviewed, and agree with the discharge instructions and disposition. <Betito Lau Last Filed: 04/02/18 22:08> Addendum Addendum: 03/31/18 11:14 received urine culture results from [facility] showing vancomycin resistant e faecium, sensitive to linezolid only. message left for patient at [phone] to return to ED. discussed with Dr Cuate Corley, pt's pmd, sts he ben have his office contact her. <Chelsey Gonzáles - Last Filed: 03/31/18 11:14>
[2018-03-29 16:57] LABS: BASO % 0.2 % (0.0-2.0); EOS % 0.1 % (0.0-4.0); HEMOGLOBIN 10.6 g/dL (11.0-16.0); LYMPH % 14.9 % (20.0-40.0); MEAN CELL VOLUME 85.7 fL (81.0-99.0); MEAN CORPUSCULAR HEMOGLOBIN 27.4 pg (27.0-31.0); MEAN CORPUSCULAR HGB CONC 31.9 g/dL (33.0-37.0); MEAN PLATELET VOLUME 8.3 fL (7.2-11.7); MONO # 0.5 K/uL (0.0-0.8); MONO % 7.7 % (0.0-10.0); NEUT # 5.4 K/uL (1.8-7.0); NEUT % 77.1 % (50.0-75.0); RBC 3.86 Mil/uL (3.80-5.20); RED CELL DISTRIBUTION WIDTH 13.9 % (11.5-14.5)
[2018-03-29 17:01] LABS: ALB/GLOB RATIO 1.2 (1.0-2.1); ALBUMIN 4.1 g/dL (3.5-5.0); ALT/SGPT 20 U/L (9-52); AST/SGOT 18 U/L (14-36); BLOOD UREA NITROGEN 29 mg/dL (7-17); CALCIUM 12.2 mg/dl (8.6-10.4); GFR NON-AFRICAN AMERICAN 60
[2018-03-29 17:49] LABS: SQUAMOUS EPITHIAL 6 /hpf (0-5); URINE BACTERIA OCC (<OCC); URINE BILIRUBIN NEGATIVE (NEGATIVE); URINE BLOOD NEGATIVE (NEGATIVE); URINE CALCIUM OXALATE CRYSTALS FEW /hpf (<OCC); URINE CLARITY Hazy (Clear); URINE COLOR Amber (YELLOW); URINE GLUCOSE (UA) NORMAL (Normal); URINE LEUKOCYTE ESTERASE 1+ Leu/uL (Negative); URINE PROTEIN NEGATIVE (NEGATIVE); URINE UROBILINOGEN NORMAL mg/dL (0.2-1.0)
[2018-03-29 18:29] VITALS: BP 133/65; PULSE 77; RESP 18; TEMP 98.9
[2018-04-02 22:03] VITALS: O2SAT 98
== END 2018-03-29 22:48 | disposition home or self-care (01) ==
LOC: C.ER 14:52
DX: M79.18 Myalgia, other site (principal)

== ENCOUNTER 2018-03-31 14:13 | Inpatient (IN) | payer MEDICAID ==
[2018-03-31 14:14] VITALS: BMI 22.3
[2018-03-31 14:55] VITALS: RESP 20
[2018-03-31] MEDS ORDERED: Linezolid 600 mg in D5W 300 ml 600 MG/300 ML BAG IVPB ONE (15:30)
--- NOTE | 2018-03-31 15:35 | C.PDOC ---
History Of Present Illness 47 year old female was seen 2 days ago and a urinalysis was done where she was diagnosed with a UTI. The culture came back today showing a viral respiratory infection. Patient was then immediately contacted and was told to return for admission. Patient complained of whole body today and offers no other medical complaints. Time Seen by Provider: 03/31/18 14:45 Chief Complaint (Nursing): Female Genitourinary History Per: Patient History/Exam Limitations: no limitations Onset/Duration Of Symptoms: Days Current Symptoms Are (Timing): Still Present Past Medical History Reviewed: Historical Data, Nursing Documentation, Vital Signs Vital Signs: Last Vital Signs Temp 99.1 F 03/31/18 14:41 Pulse 90 03/31/18 14:41 Resp 20 03/31/18 14:41 BP 102/66 03/31/18 14:41 Pulse Ox 98 03/31/18 14:41 - Medical History PMH: Anemia, Anxiety, Arthritis, Asthma, Bronchitis, CAD, CHF, COPD, CVA, Depression, Diabetes, Gastritis, Gastrointestinal Ulcer, HTN, Hypercholesterolemia, Hyperlipidemia, Hyperthyroidism, Kidney Stones, Multiple Sclerosis, Parkinson's Disease, Pneumonia, Chronic Kidney Disease, TIA, Chronic Pain Denies: Benign Prostatic Hyperplasia, HIV Surgical History: Hernia Repair (Umbilical hernia repair), (1994) - [facility] Procedures CLOSURE SKIN & SUBCUTANEOUS NEC (01/07/13) ESOPHAGOGASTRODUODENOSCOPY [EGD] W/CLOSED BIOPSY (02/05/15) INJECT/INFUSE NEC (02/17/15) INSERTION OF INFUSION DEV INTO SUP VENA CAVA, PERC APPROACH (01/28/18) INTRODUCE OF OTH THERAP SUBST INTO RESP TRACT, VIA OPENING (03/26/18) NEBULIZER THERAPY (06/20/13) PACKED CELL TRANSFUSION (01/28/15) REMOVAL OF INFUSION DEV FROM GREAT VESSEL, FLASK FITTER APPROACH (12/02/16) TETANUS TOXOID ADMINIST (01/07/13) TRANSFUSE NONAUT RED BLOOD CELLS IN PERIPH VEIN, PERC (03/17/17) VACCINATION NEC (08/03/14) Family History: States: No Known Family Hx - Social History Hx Tobacco Use: No Hx Alcohol Use: No Hx Substance Use: No - Immunization History Hx Tetanus Toxoid Vaccination: No Hx Influenza Vaccination: Yes Hx Pneumococcal Vaccination: Yes Review Of Systems Constitutional: Negative for: Fever, Chills Cardiovascular: Negative for: Chest Pain Respiratory: Negative for: Cough, Shortness of Breath Gastrointestinal: Negative for: Nausea, Vomiting, Diarrhea Musculoskeletal: Positive for: Other (Whole body pain) Neurological: Negative for: Weakness, Numbness Physical Exam - Physical Exam Appears: Non-toxic, No Acute Distress Skin: Warm, Dry Head: Atraumatic, Normacephalic Eye(s): bilateral: PERRL, EOMI Oral Mucosa: Moist Neck: Supple Chest: Symmetrical, No Deformity Cardiovascular: Rhythm Regular Respiratory: Normal Breath Sounds, No Rales, No Rhonchi, No Wheezing Gastrointestinal/Abdominal: Soft, Tenderness (Minimal tenderness to abdomen) Extremity: Normal ROM Neurological/Psych: Oriented x3, Other (Involuntary movements of hands and lips. ) ED Course And Treatment O2 Sat by Pulse Oximetry: 98 (RA) Pulse Ox Interpretation: Normal Medical Decision Making Medical Decision Making: Plan: * Zyvox * Admit to Hospital Spoke with Dr. Lacey Corley and he agrees to admit patient. 600mg Zyvox IVPB ordered. Blood cultures drawn prior to abx administration. Disposition - Disposition Disposition: HOSPITALIZED Disposition Time: 15:17 Condition: GOOD - Clinical Impression Clinical Impression: UTI (urinary tract infection) - Scribe Statement The provider has reviewed the documentation as recorded by the Christina Guillermo Aleks Provider Attestation: All medical record entries made by the Christina were at my direction and personally dictated by me. I have reviewed the chart and agree that the record accurately reflects my personal performance of the history, physical exam, medical decision making, and the department course for this patient. I have also personally directed, reviewed, and agree with the discharge instructions and disposition.
--- NOTE | 2018-03-31 19:15 | CP.PCM.HP ---
History of Present Illness - History of Present Illness History of Present Illness: 47-year-old female patient with PMH of CAD, CHF, COPD, CVA, depression, DM, HTN who came to the ED 2 days back and a urinalysis was done. At that time she was diagnosed with a UTI. The culture which came back today morning showed viral upper respiratory infection and thus she was immediately contacted and was told to return to the hospital for admission. Present on Admission - Present on Admission Any Indicators Present on Admission: No Past Patient History - Infectious Disease Hx of Infectious Diseases: None - Tetanus Immunizations Tetanus Immunization: Unknown - Past Medical History & Family History Past Medical History?: Yes - Past Social History Smoking Status: Never Smoked - CARDIAC Hx Cardiac Disorders: Yes Hx Congestive Heart Failure: Yes Hx Hypercholesterolemia: Yes Hx Hypertension: Yes - PULMONARY Hx Respiratory Disorders: Yes Hx Asthma: Yes Hx Bronchitis: Yes Hx Chronic Obstructive Pulmonary Disease (COPD): Yes Hx Pneumonia: Yes - NEUROLOGICAL Hx Neurological Disorder: Yes Hx Multiple Sclerosis: Yes Hx Parkinson's Disease: Yes Hx Transient Ischemic Attacks (TIA): Yes - HEENT Hx HEENT Problems: No - RENAL Hx Chronic Kidney Disease: Yes Hx Kidney Stones: Yes - ENDOCRINE/METABOLIC Hx Endocrine Disorders: Yes Hx Hyperthyroidism: Yes - HEMATOLOGICAL/ONCOLOGICAL Hx Blood Disorders: Yes Hx Anemia: Yes Hx Human Immunodeficiency Virus (HIV): No - INTEGUMENTARY Hx Dermatological Problems: No - MUSCULOSKELETAL/RHEUMATOLOGICAL Hx Musculoskeletal Disorders: Yes Hx Arthritis: Yes Hx Falls: No - GASTROINTESTINAL Hx Gastrointestinal Disorders: Yes Hx Gastritis: Yes - GENITOURINARY/GYNECOLOGICAL Hx Genitourinary Disorders: No - PSYCHIATRIC Hx Psychophysiologic Disorder: Yes Hx Anxiety: Yes Hx Depression: Yes Hx Substance Use: No - SURGICAL HISTORY Hx Surgeries: Yes Hx Section: Yes (1994) - ANESTHESIA Hx Anesthesia: Yes Hx Anesthesia Reactions: No Hx Malignant Hyperthermia: No Has any member of the family had a problem w/ anesthesia?: No Meds Allergies/Adverse Reactions: Allergies Allergy/AdvReac Type Severity Reaction Status Date / Time acetaminophen Allergy ITCHING Verified 05/03/18 09:29 codeine Allergy RASH Verified 05/03/18 09:29 iodine Allergy ITCHING Verified 05/03/18 09:29 ketorolac tromethamine Allergy RASH Verified 05/03/18 09:29 [From Toradol] Latex, Natural Rubber Allergy ITCHING Verified 05/03/18 09:29 morphine Allergy ITCHING Verified 05/03/18 09:29 orange juice Allergy ITCHING Verified 05/03/18 09:29 Penicillins Allergy ITCHING Verified 05/03/18 09:29 Sulfa (Sulfonamide Allergy RASH Verified 05/03/18 09:29 Antibiotics) tomato Allergy ITCHING Verified 05/03/18 09:29 tramadol Allergy ITCHING Verified 05/03/18 09:29 ondansetron HCl AdvReac Intermediate RASH Verified 05/03/18 09:29 [From Zofran (as hydrochloride)] Physical Exam - Constitutional Appears: Well, Non-toxic - Head Exam Head Exam: NORMAL INSPECTION - Eye Exam Eye Exam: EOMI, Normal appearance - ENT Exam ENT Exam: Mucous Membranes Moist - Neck Exam Neck exam: Positive for: Normal Inspection - Respiratory Exam Respiratory Exam: Decreased Breath Sounds - Cardiovascular Exam Cardiovascular Exam: +S1, +S2 - GI/Abdominal Exam GI & Abdominal Exam: Diminished Bowel Sounds - Rectal Exam Rectal Exam: Deferred Results - Vital Signs Recent Vital Signs: Last Vital Signs Temp 99.5 F 03/31/18 17:30 Pulse 90 03/31/18 17:30 Resp 20 03/31/18 17:30 BP 133/71 03/31/18 17:30 Pulse Ox 96 03/31/18 17:30 - Labs Result Diagrams: 04/03/18 13:41 04/03/18 13:41 Assessment & Plan - Assessment and Plan (Free Text) Plan: Patient seen and examined at bedside Labs and meds reviewed Febrile Blood cultures VRE positive Antibiotics ID consult Nebulizers Pain meds Follow-up with labs
[2018-04-01] MEDS: Albuterol-Ipratrop 3 mg / 0.5 (3 ml) UD INH SCH ×4 (01:20→20:13)
[2018-04-01] MEDS: Enoxaparin 40 mg Syringe SC SCH (12:35)
[2018-04-01] MEDS: Pantoprazole 40 mg EC Tab PO SCH (12:51)
[2018-04-01] MEDS: Linezolid 600 mg in D5W 300 ml 600 MG/300 ML BAG IVPB SCH ×2 (13:20→23:29)
--- NOTE | 2018-04-01 15:39 | CP.PCM.CON ---
History of Present Illness - History of Present Illness History of Present Illness: 47 year old female was seen 2 days ago and a urinalysis was done where she was diagnosed with a UTI. culture came back for VRE rx in progress - Medical History PMH: Anemia, Anxiety, Arthritis, Asthma, Bronchitis, CAD, CHF, COPD, CVA, Depression, Diabetes, Gastritis, Gastrointestinal Ulcer, HTN, Hypercholesterolemia, Hyperlipidemia, Hyperthyroidism, Kidney Stones, Multiple Sclerosis, Parkinson's Disease, Pneumonia, Chronic Kidney Disease, TIA, Chronic Pain Denies: Benign Prostatic Hyperplasia, HIV Surgical History: Hernia Repair (Umbilical hernia repair), (1994) - [facility] Procedures CLOSURE SKIN & SUBCUTANEOUS NEC (01/07/13) ESOPHAGOGASTRODUODENOSCOPY [EGD] W/CLOSED BIOPSY (02/05/15) INJECT/INFUSE NEC (02/17/15) INSERTION OF INFUSION DEV INTO SUP VENA CAVA, PERC APPROACH (01/28/18) INTRODUCE OF OTH THERAP SUBST INTO RESP TRACT, VIA OPENING (03/26/18) NEBULIZER THERAPY (06/20/13) PACKED CELL TRANSFUSION (01/28/15) REMOVAL OF INFUSION DEV FROM GREAT VESSEL, [employer] SALES HOST/HOSTESS APPROACH (12/02/16) TETANUS TOXOID ADMINIST (01/07/13) TRANSFUSE NONAUT RED BLOOD CELLS IN PERIPH VEIN, PERC (03/17/17) VACCINATION NEC (08/03/14) Review Of Systems Constitutional: Negative for: Fever, Chills Cardiovascular: Negative for: Chest Pain Respiratory: Negative for: Cough, Shortness of Breath Gastrointestinal: Negative for: Nausea, Vomiting, Diarrhea Musculoskeletal: Positive for: Other (Whole body pain) Neurological: Negative for: Weakness, Numbness Past Patient History - Infectious Disease Hx of Infectious Diseases: None - Tetanus Immunizations Tetanus Immunization: Unknown - Past Medical History & Family History Past Medical History?: Yes - Past Social History Smoking Status: Never Smoked - CARDIAC Hx Congestive Heart Failure: Yes Hx Hypercholesterolemia: Yes Hx Hypertension: Yes - PULMONARY Hx Chronic Obstructive Pulmonary Disease (COPD): Yes - NEUROLOGICAL Hx Multiple Sclerosis: Yes Hx Parkinson's Disease: Yes Hx Transient Ischemic Attacks (TIA): Yes - HEENT Hx HEENT Problems: No - RENAL Hx Chronic Kidney Disease: Yes Hx Kidney Stones: Yes - ENDOCRINE/METABOLIC Hx Hyperthyroidism: Yes - HEMATOLOGICAL/ONCOLOGICAL Hx Anemia: Yes Hx Human Immunodeficiency Virus (HIV): No - INTEGUMENTARY Hx Dermatological Problems: No - MUSCULOSKELETAL/RHEUMATOLOGICAL Hx Arthritis: Yes - GASTROINTESTINAL Hx Gastritis: Yes - PSYCHIATRIC Hx Anxiety: Yes Hx Depression: Yes Hx Substance Use: No - SURGICAL HISTORY Hx Surgeries: Yes Hx Section: Yes (1994) - ANESTHESIA Hx Anesthesia: Yes Hx Anesthesia Reactions: No Hx Malignant Hyperthermia: No Has any member of the family had a problem w/ anesthesia?: No Meds Allergies/Adverse Reactions: Allergies Allergy/AdvReac Type Severity Reaction Status Date / Time acetaminophen Allergy ITCHING Verified 03/31/18 14:46 codeine Allergy RASH Verified 03/31/18 14:46 iodine Allergy ITCHING Verified 03/31/18 14:46 ketorolac Allergy ITCHING Verified 03/31/18 14:46 ketorolac tromethamine Allergy RASH Verified 03/31/18 14:46 [From Toradol] Latex, Natural Rubber Allergy ITCHING Verified 03/31/18 14:46 morphine Allergy ITCHING Verified 03/31/18 14:46 orange juice Allergy ITCHING Verified 03/31/18 14:46 Penicillins Allergy ITCHING Verified 03/31/18 14:46 Sulfa (Sulfonamide Allergy RASH Verified 03/31/18 14:46 Antibiotics) tomato Allergy ITCHING Verified 03/31/18 14:46 tramadol Allergy ITCHING Verified 03/31/18 14:46 ondansetron HCl AdvReac Intermediate RASH Verified 03/31/18 14:46 [From Zofran (as hydrochloride)] - Medications Medications: Current Medications Albuterol/Ipratropium (Duoneb 3 Mg/0.5 Mg (3 Ml) Ud) 3 ml INH RQ6 [facility] Last Admin: 04/01/18 14:12 Dose: 3 ml Enoxaparin Sodium (Lovenox) 40 mg SC DAILY [facility] Last Admin: 04/01/18 12:35 Dose: 40 mg Linezolid (Zyvox 600mg/300ml D5w) 600 mg in 300 mls @ 200 mls/hr IVPB Q12H [facility]; Protocol Last Admin: 04/01/18 13:20 Dose: 200 mls/hr Ibuprofen (Motrin Tab) 400 mg PO Q8 PRN PRN Reason: Pain, Mild (1-3) Last Admin: 04/01/18 12:42 Dose: 400 mg Pantoprazole Sodium (Protonix Ec Tab) 40 mg PO DAILY [facility] Last Admin: 04/01/18 12:51 Dose: 40 mg Physical Exam - Constitutional Appears: Chronically Ill - Head Exam Head Exam: ATRAUMATIC - Eye Exam Eye Exam: PERRL - ENT Exam ENT Exam: Mucous Membranes Dry - Neck Exam Neck exam: Negative for: Lymphadenopathy - Respiratory Exam Respiratory Exam: Decreased Breath Sounds - Cardiovascular Exam Cardiovascular Exam: REGULAR RHYTHM - GI/Abdominal Exam GI & Abdominal Exam: Diminished Bowel Sounds, Soft - Rectal Exam Rectal Exam: Deferred - Exam Exam: NORMAL INSPECTION - Extremities Exam Extremities exam: Negative for: pedal edema - Back Exam Back exam: absent: CVA tenderness (L), CVA tenderness (R), paraspinal tenderness - Neurological Exam Neurological exam: Alert, CN II-XII Intact, Oriented x3 - Psychiatric Exam Psychiatric exam: Normal Mood - Skin Skin Exam: Dry Results - Vital Signs Recent Vital Signs: Last Vital Signs Temp 98.6 F 04/01/18 09:10 Pulse 90 04/01/18 11:36 Resp 20 04/01/18 09:10 BP 117/78 04/01/18 09:10 Pulse Ox 97 04/01/18 11:36 Assessment & Plan (1) VRE (vancomycin resistant enterococcus) culture positive Status: Acute (2) UTI (urinary tract infection) Status: Acute - Assessment and Plan (Free Text) Assessment: would repeAT ? CONTAMINANT
--- NOTE | 2018-04-01 16:03 | CP.PCM.PN ---
Subjective - Date & Time of Evaluation Date of Evaluation: 04/01/18 Time of Evaluation: 08:45 - Subjective Subjective: clinically same Objective - Vital Signs/Intake and Output Vital Signs (last 24 hours): Temp Pulse Resp BP Pulse Ox 98.6 F 90 20 117/78 97 04/01/18 09:10 04/01/18 11:36 04/01/18 09:10 04/01/18 09:10 04/01/18 11:36 - Medications Medications: Current Medications Albuterol/Ipratropium (Duoneb 3 Mg/0.5 Mg (3 Ml) Ud) 3 ml INH RQ6 [facility] Last Admin: 04/01/18 14:12 Dose: 3 ml Enoxaparin Sodium (Lovenox) 40 mg SC DAILY [facility] Last Admin: 04/01/18 12:35 Dose: 40 mg Linezolid (Zyvox 600mg/300ml D5w) 600 mg in 300 mls @ 200 mls/hr IVPB Q12H [facility]; Protocol Last Admin: 04/01/18 13:20 Dose: 200 mls/hr Ibuprofen (Motrin Tab) 400 mg PO Q8 PRN PRN Reason: Pain, Mild (1-3) Last Admin: 04/01/18 12:42 Dose: 400 mg Pantoprazole Sodium (Protonix Ec Tab) 40 mg PO DAILY [facility] Last Admin: 04/01/18 12:51 Dose: 40 mg - Constitutional Appears: Well - Head Exam Head Exam: ATRAUMATIC, NORMAL INSPECTION, NORMOCEPHALIC - Eye Exam Eye Exam: EOMI, Normal appearance, PERRL Pupil Exam: NORMAL ACCOMODATION, PERRL - ENT Exam ENT Exam: Mucous Membranes Moist, Normal Exam - Neck Exam Neck Exam: Full ROM, Normal Inspection. absent: Lymphadenopathy - Respiratory Exam Respiratory Exam: Decreased Breath Sounds - Cardiovascular Exam Cardiovascular Exam: REGULAR RHYTHM, +S1, +S2 - GI/Abdominal Exam GI & Abdominal Exam: Soft, Diminished Bowel Sounds - Rectal Exam Rectal Exam: Deferred Assessment and Plan (1) Abdominal cramps Status: Acute (2) Abdominal pain Status: Acute (3) Abdominal pain Status: Acute (4) Abdominal pain in female Status: Acute (5) Acute bronchitis Status: Acute (6) Acute gastroenteritis Status: Acute (7) Anemia Status: Acute (8) Arm pain, left Status: Acute (9) Arthritis Status: Acute (10) Asthma Status: Acute (11) Atypical chest pain Status: Acute (12) Body aches Status: Acute (13) Bradycardia Status: Acute (14) Bronchitis Status: Acute (15) COPD (chronic obstructive pulmonary disease) Status: Acute (16) Cellulitis Status: Acute (17) Chest discomfort Status: Acute (18) Chest pain Status: Acute (19) Chest pain at rest Status: Acute (20) Chest wall discomfort Status: Acute (21) Chest wall pain Status: Acute (22) Chronic abdominal pain Status: Acute (23) Chronic anemia Status: Acute (24) Chronic chest pain Status: Acute (25) Chronic knee pain Status: Acute (26) Chronic pain Status: Acute (27) Chronic pain disorder Status: Acute (28) Common cold Status: Acute (29) Constipation Status: Acute (30) Constipation - functional Status: Acute (31) Contusion Status: Acute (32) Cough Status: Acute (33) DVT prophylaxis Status: Acute (34) Dehydration Status: Acute (35) Depressive disorder Status: Acute (36) Diarrhea Status: Acute (37) Diarrhea Status: Acute (38) Diarrhea with dehydration Status: Acute (39) Dizziness Status: Acute (40) Dizziness of unknown cause Status: Acute (41) Drug-seeking behavior Status: Acute (42) Dysmenorrhea Status: Acute (43) Dyspnea Status: Acute (44) Encounter for medical screening examination Status: Acute (45) Enteritis Status: Acute (46) Exacerbation of multiple sclerosis Status: Acute (47) External otitis of right ear Status: Acute (48) Flu-like symptoms Status: Acute (49) Fracture of finger of right hand Status: Acute (50) Gastroenteritis Status: Acute (51) Generalized pruritus Status: Acute (52) Generalized weakness Status: Acute (53) H/O TIA (transient ischemic attack) and stroke Status: Acute (54) History of CVA (cerebrovascular accident) Status: Acute (55) Hypercalcemia Status: Acute (56) Hyperlipidemia Status: Acute (57) Hyperparathyroidism Status: Acute (58) Hypertension Status: Acute (59) Hypokalemia Status: Acute (60) Influenza Status: Acute (61) Influenza-like illness Status: Acute (62) Iron deficiency anemia Status: Acute (63) Knee injury Status: Acute (64) Knee pain Status: Acute (65) LVH (left ventricular hypertrophy) Status: Acute (66) Left arm numbness Status: Acute (67) Leukocytopenia Status: Acute (68) Low back pain Status: Acute (69) Malingering Status: Acute (70) Moderate major depression Status: Acute (71) Moderate recurrent major depression Status: Acute (72) Mononucleosis syndrome Status: Acute (73) Multiple somatic complaints Status: Acute (74) Muscle ache Status: Acute (75) Muscle pain Status: Acute (76) Muscle strain Status: Acute (77) Musculoskeletal pain Status: Acute (78) Myalgia Status: Acute (79) Narcotic dependence Status: Acute (80) Nausea Status: Acute (81) Non-cardiac chest pain Status: Acute (82) Pain Status: Acute (83) Pleural effusion Status: Acute (84) Pleuritic pain Status: Acute (85) Pneumonia Status: Acute (86) Precordial pain Status: Acute (87) Prophylactic measure Status: Acute (88) Sprain of shoulder, right Status: Acute (89) Symptomatic anemia Status: Acute (90) UTI (urinary tract infection) Status: Acute (91) Upper respiratory infection Status: Acute (92) VRE (vancomycin resistant enterococcus) culture positive Status: Acute (93) Viral syndrome Status: Acute (94) Vomiting Status: Acute (95) Anemia Status: Chronic (96) Cerebral palsy Status: Chronic (97) Chest pain Status: Chronic (98) Diabetes mellitus Status: Chronic (99) History of CVA with residual deficit Status: Chronic (100) Multiple sclerosis Status: Chronic (101) Uncontrolled hypertension Status: Chronic (102) Hypovitaminosis D Status: Suspected (103) Abdominal pain Status: Resolved (104) Chest pain Status: Resolved - Assessment and Plan (Free Text) Plan: Patient seen and examined at bedside Afebrile Continue current meds Zyvox DuoNeb Motrin DVT/GI prophylaxis ID on board
[2018-04-02] MEDS: Albuterol-Ipratrop 3 mg / 0.5 (3 ml) UD INH SCH ×4 (01:30→20:45)
[2018-04-02] MEDS: Enoxaparin 40 mg Syringe SC SCH ×2 (10:04→10:07)
[2018-04-02] MEDS: Pantoprazole 40 mg EC Tab PO SCH (10:04)
[2018-04-02] MEDS ORDERED: Pantoprazole 40 mg EC Tab PO SCH (11:30)
[2018-04-02] MEDS: Metoprolol Succinate 25 mg XL Tab PO SCH (12:28)
[2018-04-02] MEDS: Linezolid 600 mg in D5W 300 ml 600 MG/300 ML BAG IVPB SCH (12:29)
--- NOTE | 2018-04-02 13:11 | CP.PCM.PN ---
Subjective - Date & Time of Evaluation Date of Evaluation: 04/02/18 Time of Evaluation: 07:00 - Subjective Subjective: afeb oob to chairin nad Objective - Vital Signs/Intake and Output Vital Signs (last 24 hours): Temp Pulse Resp BP Pulse Ox 98.9 F 81 20 156/80 H 97 04/02/18 08:00 04/02/18 08:00 04/02/18 08:00 04/02/18 08:00 04/02/18 08:00 Intake and Output: 04/02/18 04/02/18 06:59 18:59 Intake Total 550 Balance 550 - Medications Medications: Current Medications Albuterol/Ipratropium (Duoneb 3 Mg/0.5 Mg (3 Ml) Ud) 3 ml INH RQ6 [facility] Last Admin: 04/02/18 10:34 Dose: Not Given Amlodipine Besylate (Norvasc) 10 mg PO DAILY [facility] Last Admin: 04/02/18 12:28 Dose: 10 mg Enoxaparin Sodium (Lovenox) 40 mg SC DAILY [facility] Last Admin: 04/02/18 10:07 Dose: Not Given Gabapentin (Neurontin) 300 mg PO TID [facility] Linezolid (Zyvox 600mg/300ml D5w) 600 mg in 300 mls @ 200 mls/hr IVPB Q12H [facility]; Protocol Last Admin: 04/02/18 12:29 Dose: 200 mls/hr Ibuprofen (Motrin Tab) 400 mg PO Q8 PRN PRN Reason: Pain, Mild (1-3) Last Admin: 04/02/18 05:33 Dose: 400 mg Losartan Potassium (Cozaar) 100 mg PO DAILY [facility] Last Admin: 04/02/18 12:28 Dose: 100 mg Metoprolol Succinate (Toprol Xl) 25 mg PO DAILY [facility] Last Admin: 04/02/18 12:28 Dose: 25 mg Pantoprazole Sodium (Protonix Ec Tab) 40 mg PO DAILY [facility] Last Admin: 04/02/18 10:04 Dose: 40 mg - Constitutional Appears: Non-toxic, Chronically Ill - Head Exam Head Exam: NORMOCEPHALIC - Eye Exam Eye Exam: PERRL - ENT Exam ENT Exam: Mucous Membranes Dry - Neck Exam Neck Exam: absent: Lymphadenopathy - Respiratory Exam Respiratory Exam: Decreased Breath Sounds - Cardiovascular Exam Cardiovascular Exam: REGULAR RHYTHM - GI/Abdominal Exam GI & Abdominal Exam: Distended - Rectal Exam Rectal Exam: Deferred - Exam Exam: NORMAL INSPECTION - Extremities Exam Extremities Exam: absent: Pedal Edema - Back Exam Back Exam: absent: CVA tenderness (L), CVA tenderness (R) Assessment and Plan (1) VRE (vancomycin resistant enterococcus) culture positive Status: Acute (2) UTI (urinary tract infection) Status: Acute
--- NOTE | 2018-04-02 16:42 | CP.PCM.PN ---
Subjective - Date & Time of Evaluation Date of Evaluation: 04/02/18 Time of Evaluation: 10:00 - Subjective Subjective: clinically same Objective - Vital Signs/Intake and Output Vital Signs (last 24 hours): Temp Pulse Resp BP Pulse Ox 98.3 F 63 20 102/65 99 04/02/18 15:37 04/02/18 15:37 04/02/18 15:37 04/02/18 15:37 04/02/18 15:37 Intake and Output: 04/02/18 04/02/18 06:59 18:59 Intake Total 550 500 Balance 550 500 - Medications Medications: Current Medications Albuterol/Ipratropium (Duoneb 3 Mg/0.5 Mg (3 Ml) Ud) 3 ml INH RQ6 [facility] Last Admin: 04/02/18 13:17 Dose: 3 ml Amlodipine Besylate (Norvasc) 10 mg PO DAILY [facility] Last Admin: 04/02/18 12:28 Dose: 10 mg Enoxaparin Sodium (Lovenox) 40 mg SC DAILY [facility] Last Admin: 04/02/18 10:07 Dose: Not Given Gabapentin (Neurontin) 300 mg PO TID [facility] Last Admin: 04/02/18 14:58 Dose: 300 mg Linezolid (Zyvox 600mg/300ml D5w) 600 mg in 300 mls @ 200 mls/hr IVPB Q12H [facility]; Protocol Last Admin: 04/02/18 12:29 Dose: 200 mls/hr Ibuprofen (Motrin Tab) 400 mg PO Q8 PRN PRN Reason: Pain, Mild (1-3) Last Admin: 04/02/18 14:58 Dose: 400 mg Losartan Potassium (Cozaar) 100 mg PO DAILY [facility] Last Admin: 04/02/18 12:28 Dose: 100 mg Metoprolol Succinate (Toprol Xl) 25 mg PO DAILY [facility] Last Admin: 04/02/18 12:28 Dose: 25 mg Pantoprazole Sodium (Protonix Ec Tab) 40 mg PO DAILY [facility] Last Admin: 04/02/18 10:04 Dose: 40 mg - Constitutional Appears: Well - Head Exam Head Exam: ATRAUMATIC, NORMAL INSPECTION, NORMOCEPHALIC - Eye Exam Eye Exam: EOMI, Normal appearance, PERRL Pupil Exam: NORMAL ACCOMODATION, PERRL - ENT Exam ENT Exam: Mucous Membranes Moist, Normal Exam - Neck Exam Neck Exam: Full ROM, Normal Inspection. absent: Lymphadenopathy - Respiratory Exam Respiratory Exam: Decreased Breath Sounds - Cardiovascular Exam Cardiovascular Exam: REGULAR RHYTHM, +S1, +S2 - GI/Abdominal Exam GI & Abdominal Exam: Soft, Diminished Bowel Sounds - Rectal Exam Rectal Exam: Deferred Assessment and Plan (1) Abdominal cramps Status: Acute (2) Abdominal pain Status: Acute (3) Abdominal pain Status: Acute (4) Abdominal pain in female Status: Acute (5) Acute bronchitis Status: Acute (6) Acute gastroenteritis Status: Acute (7) Anemia Status: Acute (8) Arm pain, left Status: Acute (9) Arthritis Status: Acute (10) Asthma Status: Acute (11) Atypical chest pain Status: Acute (12) Body aches Status: Acute (13) Bradycardia Status: Acute (14) Bronchitis Status: Acute (15) COPD (chronic obstructive pulmonary disease) Status: Acute (16) Cellulitis Status: Acute (17) Chest discomfort Status: Acute (18) Chest pain Status: Acute (19) Chest pain at rest Status: Acute (20) Chest wall discomfort Status: Acute (21) Chest wall pain Status: Acute (22) Chronic abdominal pain Status: Acute (23) Chronic anemia Status: Acute (24) Chronic chest pain Status: Acute (25) Chronic knee pain Status: Acute (26) Chronic pain Status: Acute (27) Chronic pain disorder Status: Acute (28) Common cold Status: Acute (29) Constipation Status: Acute (30) Constipation - functional Status: Acute (31) Contusion Status: Acute (32) Cough Status: Acute (33) DVT prophylaxis Status: Acute (34) Dehydration Status: Acute (35) Depressive disorder Status: Acute (36) Diarrhea Status: Acute (37) Diarrhea Status: Acute (38) Diarrhea with dehydration Status: Acute (39) Dizziness Status: Acute (40) Dizziness of unknown cause Status: Acute (41) Drug-seeking behavior Status: Acute (42) Dysmenorrhea Status: Acute (43) Dyspnea Status: Acute (44) Encounter for medical screening examination Status: Acute (45) Enteritis Status: Acute (46) Exacerbation of multiple sclerosis Status: Acute (47) External otitis of right ear Status: Acute (48) Flu-like symptoms Status: Acute (49) Fracture of finger of right hand Status: Acute (50) Gastroenteritis Status: Acute (51) Generalized pruritus Status: Acute (52) Generalized weakness Status: Acute (53) H/O TIA (transient ischemic attack) and stroke Status: Acute (54) History of CVA (cerebrovascular accident) Status: Acute (55) Hypercalcemia Status: Acute (56) Hyperlipidemia Status: Acute (57) Hyperparathyroidism Status: Acute (58) Hypertension Status: Acute (59) Hypokalemia Status: Acute (60) Influenza Status: Acute (61) Influenza-like illness Status: Acute (62) Iron deficiency anemia Status: Acute (63) Knee injury Status: Acute (64) Knee pain Status: Acute (65) LVH (left ventricular hypertrophy) Status: Acute (66) Left arm numbness Status: Acute (67) Leukocytopenia Status: Acute (68) Low back pain Status: Acute (69) Malingering Status: Acute (70) Moderate major depression Status: Acute (71) Moderate recurrent major depression Status: Acute (72) Mononucleosis syndrome Status: Acute (73) Multiple somatic complaints Status: Acute (74) Muscle ache Status: Acute (75) Muscle pain Status: Acute (76) Muscle strain Status: Acute (77) Musculoskeletal pain Status: Acute (78) Myalgia Status: Acute (79) Narcotic dependence Status: Acute (80) Nausea Status: Acute (81) Non-cardiac chest pain Status: Acute (82) Pain Status: Acute (83) Pleural effusion Status: Acute (84) Pleuritic pain Status: Acute (85) Pneumonia Status: Acute (86) Precordial pain Status: Acute (87) Prophylactic measure Status: Acute (88) Sprain of shoulder, right Status: Acute (89) Symptomatic anemia Status: Acute (90) UTI (urinary tract infection) Status: Acute (91) Upper respiratory infection Status: Acute (92) VRE (vancomycin resistant enterococcus) culture positive Status: Acute (93) Viral syndrome Status: Acute (94) Vomiting Status: Acute (95) Anemia Status: Chronic (96) Cerebral palsy Status: Chronic (97) Chest pain Status: Chronic (98) Diabetes mellitus Status: Chronic (99) History of CVA with residual deficit Status: Chronic (100) Multiple sclerosis Status: Chronic (101) Uncontrolled hypertension Status: Chronic (102) Hypovitaminosis D Status: Suspected (103) Abdominal pain Status: Resolved (104) Chest pain Status: Resolved - Assessment and Plan (Free Text) Plan: Patient hemodynamically stable Overnight events noted Discussed with DEVEN Ledezma Continue Zyvox DVT/GI prophylaxis Blood pressure meds Close monitoring
[2018-04-03] MEDS: Linezolid 600 mg in D5W 300 ml 600 MG/300 ML BAG IVPB SCH (00:22)
[2018-04-03] MEDS: Albuterol-Ipratrop 3 mg / 0.5 (3 ml) UD INH SCH ×4 (02:00→19:55)
[2018-04-03] MEDS: Enoxaparin 40 mg Syringe SC SCH (10:35)
[2018-04-03] MEDS: Metoprolol Succinate 25 mg XL Tab PO SCH (10:37)
[2018-04-03 13:57] LABS: BASO % 0.4 % (0.0-2.0); EOS # 0.1 K/uL (0.0-0.7); EOS % 0.8 % (0.0-4.0); HEMOGLOBIN 10.8 g/dL (11.0-16.0); LYMPH # 1.6 K/uL (1.0-4.3); LYMPH % 24.5 % (20.0-40.0); MEAN CELL VOLUME 86.5 fL (81.0-99.0); MEAN CORPUSCULAR HEMOGLOBIN 28.4 pg (27.0-31.0); MEAN CORPUSCULAR HGB CONC 32.9 g/dL (33.0-37.0); MEAN PLATELET VOLUME 8.6 fL (7.2-11.7); MONO # 0.4 K/uL (0.0-0.8); MONO % 6.9 % (0.0-10.0); NEUT # 4.3 K/uL (1.8-7.0); NEUT % 67.4 % (50.0-75.0); RBC 3.81 Mil/uL (3.80-5.20); RED CELL DISTRIBUTION WIDTH 14.1 % (11.5-14.5); WHITE BLOOD COUNT 6.4 K/uL (4.8-10.8)
[2018-04-03 14:01] LABS: ALB/GLOB RATIO 1.2 (1.0-2.1); ALBUMIN 3.9 g/dL (3.5-5.0); ALT/SGPT 23 U/L (9-52); AST/SGOT 16 U/L (14-36); BLOOD UREA NITROGEN 14 mg/dL (7-17); CALCIUM 11.6 mg/dl (8.6-10.4); GFR NON-AFRICAN AMERICAN > 60
--- NOTE | 2018-04-03 18:13 | CP.PCM.PN ---
Subjective - Date & Time of Evaluation Date of Evaluation: 04/03/18 Time of Evaluation: 08:15 - Subjective Subjective: clinically same Objective - Vital Signs/Intake and Output Vital Signs (last 24 hours): Temp Pulse Resp BP Pulse Ox 99.5 F 70 20 113/71 97 04/03/18 15:49 04/03/18 15:49 04/03/18 15:49 04/03/18 15:49 04/03/18 15:49 Intake and Output: 04/03/18 04/03/18 06:59 18:59 Intake Total 480 200 Balance 480 200 - Medications Medications: Current Medications Albuterol/Ipratropium (Duoneb 3 Mg/0.5 Mg (3 Ml) Ud) 3 ml INH RQ6 [facility] Last Admin: 04/03/18 13:06 Dose: 3 ml Amlodipine Besylate (Norvasc) 10 mg PO DAILY [facility] Last Admin: 04/03/18 10:37 Dose: 10 mg Enoxaparin Sodium (Lovenox) 40 mg SC DAILY [facility] Last Admin: 04/03/18 10:35 Dose: Not Given Famotidine (Pepcid) 20 mg PO BID [facility] Last Admin: 04/03/18 17:17 Dose: 20 mg Gabapentin (Neurontin) 300 mg PO TID [facility] Last Admin: 04/03/18 17:17 Dose: 300 mg Ibuprofen (Motrin Tab) 400 mg PO Q8 PRN PRN Reason: Pain, Mild (1-3) Last Admin: 04/02/18 21:39 Dose: 400 mg Linezolid (Zyvox) 600 mg PO Q12H [facility] Last Admin: 04/03/18 10:39 Dose: 600 mg Losartan Potassium (Cozaar) 100 mg PO DAILY [facility] Last Admin: 04/03/18 10:36 Dose: 100 mg Metoprolol Succinate (Toprol Xl) 25 mg PO DAILY [facility] Last Admin: 04/03/18 10:37 Dose: 25 mg - Labs Labs: 04/03/18 13:41 04/03/18 13:41 - Constitutional Appears: Well - Head Exam Head Exam: ATRAUMATIC, NORMAL INSPECTION, NORMOCEPHALIC - Eye Exam Eye Exam: EOMI, Normal appearance, PERRL Pupil Exam: NORMAL ACCOMODATION, PERRL - ENT Exam ENT Exam: Mucous Membranes Moist, Normal Exam - Neck Exam Neck Exam: Full ROM, Normal Inspection. absent: Lymphadenopathy - Respiratory Exam Respiratory Exam: Decreased Breath Sounds - Cardiovascular Exam Cardiovascular Exam: REGULAR RHYTHM, +S1, +S2 - GI/Abdominal Exam GI & Abdominal Exam: Soft, Diminished Bowel Sounds - Rectal Exam Rectal Exam: Deferred Assessment and Plan (1) Abdominal cramps Status: Acute (2) Abdominal pain Status: Acute (3) Abdominal pain Status: Acute (4) Abdominal pain in female Status: Acute (5) Acute bronchitis Status: Acute (6) Acute gastroenteritis Status: Acute (7) Anemia Status: Acute (8) Arm pain, left Status: Acute (9) Arthritis Status: Acute (10) Asthma Status: Acute (11) Atypical chest pain Status: Acute (12) Body aches Status: Acute (13) Bradycardia Status: Acute (14) Bronchitis Status: Acute (15) COPD (chronic obstructive pulmonary disease) Status: Acute (16) Cellulitis Status: Acute (17) Chest discomfort Status: Acute (18) Chest pain Status: Acute (19) Chest pain at rest Status: Acute (20) Chest wall discomfort Status: Acute (21) Chest wall pain Status: Acute (22) Chronic abdominal pain Status: Acute (23) Chronic anemia Status: Acute (24) Chronic chest pain Status: Acute (25) Chronic knee pain Status: Acute (26) Chronic pain Status: Acute (27) Chronic pain disorder Status: Acute (28) Common cold Status: Acute (29) Constipation Status: Acute (30) Constipation - functional Status: Acute (31) Contusion Status: Acute (32) Cough Status: Acute (33) DVT prophylaxis Status: Acute (34) Dehydration Status: Acute (35) Depressive disorder Status: Acute (36) Diarrhea Status: Acute (37) Diarrhea Status: Acute (38) Diarrhea with dehydration Status: Acute (39) Dizziness Status: Acute (40) Dizziness of unknown cause Status: Acute (41) Drug-seeking behavior Status: Acute (42) Dysmenorrhea Status: Acute (43) Dyspnea Status: Acute (44) Encounter for medical screening examination Status: Acute (45) Enteritis Status: Acute (46) Exacerbation of multiple sclerosis Status: Acute (47) External otitis of right ear Status: Acute (48) Flu-like symptoms Status: Acute (49) Fracture of finger of right hand Status: Acute (50) Gastroenteritis Status: Acute (51) Generalized pruritus Status: Acute (52) Generalized weakness Status: Acute (53) H/O TIA (transient ischemic attack) and stroke Status: Acute (54) History of CVA (cerebrovascular accident) Status: Acute (55) Hypercalcemia Status: Acute (56) Hyperlipidemia Status: Acute (57) Hyperparathyroidism Status: Acute (58) Hypertension Status: Acute (59) Hypokalemia Status: Acute (60) Influenza Status: Acute (61) Influenza-like illness Status: Acute (62) Iron deficiency anemia Status: Acute (63) Knee injury Status: Acute (64) Knee pain Status: Acute (65) LVH (left ventricular hypertrophy) Status: Acute (66) Left arm numbness Status: Acute (67) Leukocytopenia Status: Acute (68) Low back pain Status: Acute (69) Malingering Status: Acute (70) Moderate major depression Status: Acute (71) Moderate recurrent major depression Status: Acute (72) Mononucleosis syndrome Status: Acute (73) Multiple somatic complaints Status: Acute (74) Muscle ache Status: Acute (75) Muscle pain Status: Acute (76) Muscle strain Status: Acute (77) Musculoskeletal pain Status: Acute (78) Myalgia Status: Acute (79) Narcotic dependence Status: Acute (80) Nausea Status: Acute (81) Non-cardiac chest pain Status: Acute (82) Pain Status: Acute (83) Pleural effusion Status: Acute (84) Pleuritic pain Status: Acute (85) Pneumonia Status: Acute (86) Precordial pain Status: Acute (87) Prophylactic measure Status: Acute (88) Sprain of shoulder, right Status: Acute (89) Symptomatic anemia Status: Acute (90) UTI (urinary tract infection) Status: Acute (91) Upper respiratory infection Status: Acute (92) VRE (vancomycin resistant enterococcus) culture positive Status: Acute (93) Viral syndrome Status: Acute (94) Vomiting Status: Acute (95) Anemia Status: Chronic (96) Cerebral palsy Status: Chronic (97) Chest pain Status: Chronic (98) Diabetes mellitus Status: Chronic (99) History of CVA with residual deficit Status: Chronic (100) Multiple sclerosis Status: Chronic (101) Uncontrolled hypertension Status: Chronic (102) Hypovitaminosis D Status: Suspected (103) Abdominal pain Status: Resolved (104) Chest pain Status: Resolved - Assessment and Plan (Free Text) Plan: Patient seen and examined at bedside Labs and meds reviewed Overnight events noted Zyvox Blood pressure meds Copriscila Norvasc DVT prophylaxis ID follow-up
[2018-04-04] MEDS: Albuterol-Ipratrop 3 mg / 0.5 (3 ml) UD INH SCH ×4 (01:33→21:05)
[2018-04-04] MEDS: Enoxaparin 40 mg Syringe SC SCH ×2 (09:44→09:53)
[2018-04-04] MEDS: Metoprolol Succinate 25 mg XL Tab PO SCH (09:44)
--- NOTE | 2018-04-04 18:38 | CP.PCM.PN ---
Subjective - Date & Time of Evaluation Date of Evaluation: 04/04/18 Time of Evaluation: 07:00 - Subjective Subjective: afeb nad consider out pt rx repeat u/a and c/s Objective - Vital Signs/Intake and Output Vital Signs (last 24 hours): Temp Pulse Resp BP Pulse Ox 99.6 F 71 20 127/71 100 04/04/18 16:00 04/04/18 16:00 04/04/18 16:00 04/04/18 16:00 04/04/18 16:00 Intake and Output: 04/04/18 04/04/18 06:59 18:59 Intake Total 600 Balance 600 - Medications Medications: Current Medications Albuterol/Ipratropium (Duoneb 3 Mg/0.5 Mg (3 Ml) Ud) 3 ml INH RQ6 [facility] Last Admin: 04/04/18 13:08 Dose: 3 ml Amlodipine Besylate (Norvasc) 10 mg PO DAILY [facility] Last Admin: 04/04/18 09:43 Dose: 10 mg Enoxaparin Sodium (Lovenox) 40 mg SC DAILY [facility] Last Admin: 04/04/18 09:53 Dose: Not Given Famotidine (Pepcid) 20 mg PO BID [facility] Last Admin: 04/04/18 17:07 Dose: 20 mg Gabapentin (Neurontin) 300 mg PO TID [facility] Last Admin: 04/04/18 17:07 Dose: 300 mg Ibuprofen (Motrin Tab) 400 mg PO Q8 PRN PRN Reason: Pain, Mild (1-3) Last Admin: 04/04/18 12:05 Dose: 400 mg Linezolid (Zyvox) 600 mg PO Q12H [facility] Last Admin: 04/04/18 09:42 Dose: 600 mg Losartan Potassium (Cozaar) 100 mg PO DAILY [facility] Last Admin: 04/04/18 09:44 Dose: 100 mg Metoprolol Succinate (Toprol Xl) 25 mg PO DAILY [facility] Last Admin: 04/04/18 09:44 Dose: 25 mg - Labs Labs: 04/03/18 13:41 04/03/18 13:41 - Constitutional Appears: Non-toxic, Chronically Ill - Head Exam Head Exam: NORMOCEPHALIC - Eye Exam Eye Exam: PERRL - ENT Exam ENT Exam: Mucous Membranes Dry - Neck Exam Neck Exam: absent: Lymphadenopathy - Respiratory Exam Respiratory Exam: Decreased Breath Sounds Assessment and Plan (1) VRE (vancomycin resistant enterococcus) culture positive Status: Acute (2) UTI (urinary tract infection) Status: Acute
--- NOTE | 2018-04-04 20:40 | CP.PCM.PN ---
Subjective - Date & Time of Evaluation Date of Evaluation: 04/04/18 Time of Evaluation: 08:00 - Subjective Subjective: clinically same Objective - Vital Signs/Intake and Output Vital Signs (last 24 hours): Temp Pulse Resp BP Pulse Ox 99.6 F 71 20 127/71 100 04/04/18 16:00 04/04/18 16:00 04/04/18 16:00 04/04/18 16:00 04/04/18 16:00 - Medications Medications: Current Medications Albuterol/Ipratropium (Duoneb 3 Mg/0.5 Mg (3 Ml) Ud) 3 ml INH RQ6 [facility] Last Admin: 04/04/18 13:08 Dose: 3 ml Amlodipine Besylate (Norvasc) 10 mg PO DAILY [facility] Last Admin: 04/04/18 09:43 Dose: 10 mg Enoxaparin Sodium (Lovenox) 40 mg SC DAILY [facility] Last Admin: 04/04/18 09:53 Dose: Not Given Famotidine (Pepcid) 20 mg PO BID [facility] Last Admin: 04/04/18 17:07 Dose: 20 mg Gabapentin (Neurontin) 300 mg PO TID [facility] Last Admin: 04/04/18 17:07 Dose: 300 mg Ibuprofen (Motrin Tab) 400 mg PO Q8 PRN PRN Reason: Pain, Mild (1-3) Last Admin: 04/04/18 12:05 Dose: 400 mg Linezolid (Zyvox) 600 mg PO Q12H [facility] Last Admin: 04/04/18 09:42 Dose: 600 mg Losartan Potassium (Cozaar) 100 mg PO DAILY [facility] Last Admin: 04/04/18 09:44 Dose: 100 mg Metoprolol Succinate (Toprol Xl) 25 mg PO DAILY [facility] Last Admin: 04/04/18 09:44 Dose: 25 mg - Labs Labs: 04/03/18 13:41 04/03/18 13:41 - Constitutional Appears: Well, Non-toxic - Head Exam Head Exam: NORMAL INSPECTION - Eye Exam Eye Exam: EOMI, Normal appearance - ENT Exam ENT Exam: Mucous Membranes Moist - Neck Exam Neck Exam: Normal Inspection - Respiratory Exam Respiratory Exam: Decreased Breath Sounds - Cardiovascular Exam Cardiovascular Exam: +S1, +S2 - GI/Abdominal Exam GI & Abdominal Exam: Diminished Bowel Sounds - Rectal Exam Rectal Exam: Deferred Assessment and Plan (1) Abdominal cramps Status: Acute (2) Abdominal pain Status: Acute (3) Abdominal pain Status: Acute (4) Abdominal pain in female Status: Acute (5) Acute bronchitis Status: Acute (6) Acute gastroenteritis Status: Acute (7) Anemia Status: Acute (8) Arm pain, left Status: Acute (9) Arthritis Status: Acute (10) Asthma Status: Acute (11) Atypical chest pain Status: Acute (12) Body aches Status: Acute (13) Bradycardia Status: Acute (14) Bronchitis Status: Acute (15) COPD (chronic obstructive pulmonary disease) Status: Acute (16) Cellulitis Status: Acute (17) Chest discomfort Status: Acute (18) Chest pain Status: Acute (19) Chest pain at rest Status: Acute (20) Chest wall discomfort Status: Acute (21) Chest wall pain Status: Acute (22) Chronic abdominal pain Status: Acute (23) Chronic anemia Status: Acute (24) Chronic chest pain Status: Acute (25) Chronic knee pain Status: Acute (26) Chronic pain Status: Acute (27) Chronic pain disorder Status: Acute (28) Common cold Status: Acute (29) Constipation Status: Acute (30) Constipation - functional Status: Acute (31) Contusion Status: Acute (32) Cough Status: Acute (33) DVT prophylaxis Status: Acute (34) Dehydration Status: Acute (35) Depressive disorder Status: Acute (36) Diarrhea Status: Acute (37) Diarrhea Status: Acute (38) Diarrhea with dehydration Status: Acute (39) Dizziness Status: Acute (40) Dizziness of unknown cause Status: Acute (41) Drug-seeking behavior Status: Acute (42) Dysmenorrhea Status: Acute (43) Dyspnea Status: Acute (44) Encounter for medical screening examination Status: Acute (45) Enteritis Status: Acute (46) Exacerbation of multiple sclerosis Status: Acute (47) External otitis of right ear Status: Acute (48) Flu-like symptoms Status: Acute (49) Fracture of finger of right hand Status: Acute (50) Gastroenteritis Status: Acute (51) Generalized pruritus Status: Acute (52) Generalized weakness Status: Acute (53) H/O TIA (transient ischemic attack) and stroke Status: Acute (54) History of CVA (cerebrovascular accident) Status: Acute (55) Hypercalcemia Status: Acute (56) Hyperlipidemia Status: Acute (57) Hyperparathyroidism Status: Acute (58) Hypertension Status: Acute (59) Hypokalemia Status: Acute (60) Influenza Status: Acute (61) Influenza-like illness Status: Acute (62) Iron deficiency anemia Status: Acute (63) Knee injury Status: Acute (64) Knee pain Status: Acute (65) LVH (left ventricular hypertrophy) Status: Acute (66) Left arm numbness Status: Acute (67) Leukocytopenia Status: Acute (68) Low back pain Status: Acute (69) Malingering Status: Acute (70) Moderate major depression Status: Acute (71) Moderate recurrent major depression Status: Acute (72) Mononucleosis syndrome Status: Acute (73) Multiple somatic complaints Status: Acute (74) Muscle ache Status: Acute (75) Muscle pain Status: Acute (76) Muscle strain Status: Acute (77) Musculoskeletal pain Status: Acute (78) Myalgia Status: Acute (79) Narcotic dependence Status: Acute (80) Nausea Status: Acute (81) Non-cardiac chest pain Status: Acute (82) Pain Status: Acute (83) Pleural effusion Status: Acute (84) Pleuritic pain Status: Acute (85) Pneumonia Status: Acute (86) Precordial pain Status: Acute (87) Prophylactic measure Status: Acute (88) Sprain of shoulder, right Status: Acute (89) Symptomatic anemia Status: Acute (90) UTI (urinary tract infection) Status: Acute (91) Upper respiratory infection Status: Acute (92) VRE (vancomycin resistant enterococcus) culture positive Status: Acute (93) Viral syndrome Status: Acute (94) Vomiting Status: Acute (95) Anemia Status: Chronic (96) Cerebral palsy Status: Chronic (97) Chest pain Status: Chronic (98) Diabetes mellitus Status: Chronic (99) History of CVA with residual deficit Status: Chronic (100) Multiple sclerosis Status: Chronic (101) Uncontrolled hypertension Status: Chronic (102) Hypovitaminosis D Status: Suspected (103) Abdominal pain Status: Resolved (104) Chest pain Status: Resolved - Assessment and Plan (Free Text) Plan: Patient seen and examined at bedside Afebrile Antibiotic as per ID Continue current meds Blood pressure monitoring Nebulizer DVT/GI prophylaxis Pain meds Supportive care
[2018-04-05] MEDS: Albuterol-Ipratrop 3 mg / 0.5 (3 ml) UD INH SCH ×3 (02:00→13:13)
[2018-04-05 07:07] LABS: SQUAMOUS EPITHIAL 1 /hpf (0-5); URINE BILIRUBIN NEGATIVE (NEGATIVE); URINE BLOOD NEGATIVE (NEGATIVE); URINE CLARITY Clear (Clear); URINE COLOR Yellow (YELLOW); URINE GLUCOSE (UA) NORMAL (Normal); URINE HYALINE CAST 0-2 /lpf (0-2); URINE LEUKOCYTE ESTERASE NEG Leu/uL (Negative); URINE PROTEIN NEGATIVE (NEGATIVE); URINE UROBILINOGEN NORMAL mg/dL (0.2-1.0)
[2018-04-05] MEDS: Enoxaparin 40 mg Syringe SC SCH (10:21)
[2018-04-05] MEDS: Metoprolol Succinate 25 mg XL Tab PO SCH (10:22)
[2018-04-05] MEDS ORDERED: Influenza Vaccine 60 MCG/0.5 ML SYR (3 yr & up) IM ONE (16:08)
[2018-04-05 16:43] VITALS: BP 130/82; PULSE 84; TEMP 98.4; O2SAT 96
--- NOTE | 2018-04-05 17:35 | CP.PCM.PN ---
Subjective - Date & Time of Evaluation Date of Evaluation: 04/05/18 Time of Evaluation: 08:00 - Subjective Subjective: clinically same Objective - Vital Signs/Intake and Output Vital Signs (last 24 hours): Temp Pulse Resp BP Pulse Ox 98.4 F 84 20 130/82 96 04/05/18 16:00 04/05/18 16:00 04/05/18 16:00 04/05/18 16:00 04/05/18 16:00 Intake and Output: 04/05/18 04/05/18 06:59 18:59 Intake Total 500 500 Balance 500 500 - Medications Medications: Current Medications Albuterol/Ipratropium (Duoneb 3 Mg/0.5 Mg (3 Ml) Ud) 3 ml INH RQ6 [facility] Last Admin: 04/05/18 13:13 Dose: 3 ml Amlodipine Besylate (Norvasc) 10 mg PO DAILY [facility] Last Admin: 04/05/18 10:22 Dose: 10 mg Enoxaparin Sodium (Lovenox) 40 mg SC DAILY [facility] Last Admin: 04/05/18 10:21 Dose: Not Given Famotidine (Pepcid) 20 mg PO BID [facility] Last Admin: 04/05/18 10:22 Dose: 20 mg Gabapentin (Neurontin) 300 mg PO TID [facility] Last Admin: 04/05/18 14:52 Dose: 300 mg Ibuprofen (Motrin Tab) 400 mg PO Q8 PRN PRN Reason: Pain, Mild (1-3) Last Admin: 04/05/18 14:52 Dose: 400 mg Linezolid (Zyvox) 600 mg PO Q12H [facility] Last Admin: 04/05/18 10:22 Dose: 600 mg Losartan Potassium (Cozaar) 100 mg PO DAILY [facility] Last Admin: 04/05/18 10:21 Dose: 100 mg Metoprolol Succinate (Toprol Xl) 25 mg PO DAILY [facility] Last Admin: 04/05/18 10:22 Dose: 25 mg - Labs Labs: 04/03/18 13:41 04/03/18 13:41 - Constitutional Appears: Well, Non-toxic - Head Exam Head Exam: NORMAL INSPECTION - Eye Exam Eye Exam: EOMI, Normal appearance - ENT Exam ENT Exam: Mucous Membranes Moist - Neck Exam Neck Exam: Normal Inspection - Respiratory Exam Respiratory Exam: Decreased Breath Sounds - Cardiovascular Exam Cardiovascular Exam: +S1, +S2 - GI/Abdominal Exam GI & Abdominal Exam: Diminished Bowel Sounds - Rectal Exam Rectal Exam: Deferred Assessment and Plan (1) Abdominal cramps Status: Acute (2) Abdominal pain Status: Acute (3) Abdominal pain Status: Acute (4) Abdominal pain in female Status: Acute (5) Acute bronchitis Status: Acute (6) Acute gastroenteritis Status: Acute (7) Anemia Status: Acute (8) Arm pain, left Status: Acute (9) Arthritis Status: Acute (10) Asthma Status: Acute (11) Atypical chest pain Status: Acute (12) Body aches Status: Acute (13) Bradycardia Status: Acute (14) Bronchitis Status: Acute (15) COPD (chronic obstructive pulmonary disease) Status: Acute (16) Cellulitis Status: Acute (17) Chest discomfort Status: Acute (18) Chest pain Status: Acute (19) Chest pain at rest Status: Acute (20) Chest wall discomfort Status: Acute (21) Chest wall pain Status: Acute (22) Chronic abdominal pain Status: Acute (23) Chronic anemia Status: Acute (24) Chronic chest pain Status: Acute (25) Chronic knee pain Status: Acute (26) Chronic pain Status: Acute (27) Chronic pain disorder Status: Acute (28) Common cold Status: Acute (29) Constipation Status: Acute (30) Constipation - functional Status: Acute (31) Contusion Status: Acute (32) Cough Status: Acute (33) DVT prophylaxis Status: Acute (34) Dehydration Status: Acute (35) Depressive disorder Status: Acute (36) Diarrhea Status: Acute (37) Diarrhea Status: Acute (38) Diarrhea with dehydration Status: Acute (39) Dizziness Status: Acute (40) Dizziness of unknown cause Status: Acute (41) Drug-seeking behavior Status: Acute (42) Dysmenorrhea Status: Acute (43) Dyspnea Status: Acute (44) Encounter for medical screening examination Status: Acute (45) Enteritis Status: Acute (46) Exacerbation of multiple sclerosis Status: Acute (47) External otitis of right ear Status: Acute (48) Flu-like symptoms Status: Acute (49) Fracture of finger of right hand Status: Acute (50) Gastroenteritis Status: Acute (51) Generalized pruritus Status: Acute (52) Generalized weakness Status: Acute (53) H/O TIA (transient ischemic attack) and stroke Status: Acute (54) History of CVA (cerebrovascular accident) Status: Acute (55) Hypercalcemia Status: Acute (56) Hyperlipidemia Status: Acute (57) Hyperparathyroidism Status: Acute (58) Hypertension Status: Acute (59) Hypokalemia Status: Acute (60) Influenza Status: Acute (61) Influenza-like illness Status: Acute (62) Iron deficiency anemia Status: Acute (63) Knee injury Status: Acute (64) Knee pain Status: Acute (65) LVH (left ventricular hypertrophy) Status: Acute (66) Left arm numbness Status: Acute (67) Leukocytopenia Status: Acute (68) Low back pain Status: Acute (69) Malingering Status: Acute (70) Moderate major depression Status: Acute (71) Moderate recurrent major depression Status: Acute (72) Mononucleosis syndrome Status: Acute (73) Multiple somatic complaints Status: Acute (74) Muscle ache Status: Acute (75) Muscle pain Status: Acute (76) Muscle strain Status: Acute (77) Musculoskeletal pain Status: Acute (78) Myalgia Status: Acute (79) Narcotic dependence Status: Acute (80) Nausea Status: Acute (81) Non-cardiac chest pain Status: Acute (82) Pain Status: Acute (83) Pleural effusion Status: Acute (84) Pleuritic pain Status: Acute (85) Pneumonia Status: Acute (86) Precordial pain Status: Acute (87) Prophylactic measure Status: Acute (88) Sprain of shoulder, right Status: Acute (89) Symptomatic anemia Status: Acute (90) UTI (urinary tract infection) Status: Acute (91) Upper respiratory infection Status: Acute (92) VRE (vancomycin resistant enterococcus) culture positive Status: Acute (93) Viral syndrome Status: Acute (94) Vomiting Status: Acute (95) Anemia Status: Chronic (96) Cerebral palsy Status: Chronic (97) Chest pain Status: Chronic (98) Diabetes mellitus Status: Chronic (99) History of CVA with residual deficit Status: Chronic (100) Multiple sclerosis Status: Chronic (101) Uncontrolled hypertension Status: Chronic (102) Hypovitaminosis D Status: Suspected (103) Abdominal pain Status: Resolved (104) Chest pain Status: Resolved - Assessment and Plan (Free Text) Plan: Patient seen and examined at bedside Afebrile Hemodynamically stable No acute event overnight Plan discharge Follow-up as outpatient in 1 week Meds as advised Follow-up with DEVEN Ledezma as outpatient
== END 2018-04-05 20:00 | disposition home or self-care (01) | DRG 320 ==
LOC: C.ER 14:13 → C.9E 15:17 → C.3T 16:19
PROVIDERS: ADMIT Internal Medicine Nephrology; ATTEND Internal Medicine Nephrology
DX: N39.0 Urinary tract infection, site not specified (principal); I13.0 Hypertensive heart and chronic kidney disease with heart failure and stage 1 through stage 4 chronic kidney disease, or unspecified chronic kidney disease; E11.22 Type 2 diabetes mellitus with diabetic chronic kidney disease; G35 Multiple sclerosis; N18.9 Chronic kidney disease, unspecified; J44.9 Chronic obstructive pulmonary disease, unspecified; E78.00 Pure hypercholesterolemia, unspecified; I25.10 Atherosclerotic heart disease of native coronary artery without angina pectoris; G20 Parkinson's disease; Z86.73 Personal history of transient ischemic attack (TIA), and cerebral infarction without residual deficits; B95.2 Enterococcus as the cause of diseases classified elsewhere; Z16.21 Resistance to vancomycin

== ENCOUNTER 2018-04-11 13:52 | Emergency (ER) | payer MEDICAID ==
[2018-04-11 13:52] VITALS: BMI 22.3
[2018-04-11] MEDS ORDERED: Albuterol 0.083% Inhal Sol (2.5 mg/3 mL) UD IH STA (14:37)
[2018-04-11] MEDS ORDERED: Albuterol 0.083% Inhal Sol (2.5 mg/3 mL) UD ONE (14:49)
--- NOTE | 2018-04-11 15:15 | C.PDOC ---
History Of Present Illness 47 y/o female presents to the ER complaining of right ear pain. Patient denies having URI symptoms. Patient is also complaining of chest pain and shortness of breath. She was recently admitted for chronic abdominal pain in and she was discharged yesterday. During her admission, she had bronchospasm and she was treated with Albuterol. Patient is also complaining of chronic abdominal pain and chronic knee pain. Denies having fever, chills, nausea, vomiting, dysuria, and hematuria. Time Seen by Provider: 04/11/18 14:06 Chief Complaint (Nursing): Chest Pain History Per: Patient History/Exam Limitations: no limitations Onset/Duration Of Symptoms: Days Current Symptoms Are (Timing): Still Present Severity: Moderate Past Medical History Reviewed: Historical Data, Nursing Documentation, Vital Signs - Medical History PMH: Anemia, Anxiety, Arthritis, Asthma, Bronchitis, CAD, CHF, COPD, CVA, Depression, Diabetes, Gastritis, Gastrointestinal Ulcer, HTN, Hypercholesterolemia, Hyperlipidemia, Hyperthyroidism, Kidney Stones, Multiple Sclerosis, Parkinson's Disease, Pneumonia, Chronic Kidney Disease, TIA, Chronic Pain Denies: Benign Prostatic Hyperplasia, HIV Surgical History: Hernia Repair (Umbilical hernia repair), (1994) - [facility] Procedures CLOSURE SKIN & SUBCUTANEOUS NEC (01/07/13) ESOPHAGOGASTRODUODENOSCOPY [EGD] W/CLOSED BIOPSY (02/05/15) INJECT/INFUSE NEC (02/17/15) INSERTION OF INFUSION DEV INTO SUP VENA CAVA, PERC APPROACH (01/28/18) INTRODUCE OF OTH THERAP SUBST INTO RESP TRACT, VIA OPENING (03/26/18) NEBULIZER THERAPY (06/20/13) PACKED CELL TRANSFUSION (01/28/15) REMOVAL OF INFUSION DEV FROM GREAT VESSEL, HOME HEALTH NURSE APPROACH (12/02/16) TETANUS TOXOID ADMINIST (01/07/13) TRANSFUSE NONAUT RED BLOOD CELLS IN PERIPH VEIN, PERC (03/17/17) VACCINATION NEC (08/03/14) Family History: States: No Known Family Hx - Social History Hx Tobacco Use: No Hx Alcohol Use: No Hx Substance Use: No - Immunization History Hx Tetanus Toxoid Vaccination: No Hx Influenza Vaccination: Yes Hx Pneumococcal Vaccination: Yes Review Of Systems Except As Marked, All Systems Reviewed And Found Negative. Constitutional: Negative for: Fever, Chills ENT: Positive for: Ear Pain (right ear pain) Cardiovascular: Positive for: Chest Pain Respiratory: Positive for: Shortness of Breath Gastrointestinal: Positive for: Abdominal Pain. Negative for: Nausea, Vomiting Genitourinary: Negative for: Dysuria, Hematuria Musculoskeletal: Positive for: Other (knee pain) Physical Exam - Physical Exam Appears: Non-toxic, No Acute Distress Skin: Normal Color, Warm, Dry Head: Atraumatic, Normacephalic Eye(s): bilateral: Normal Inspection Ear(s): Left: Normal, Right: Other (swelling in canal, tender to palpation) Nose: Normal Oral Mucosa: Moist Neck: Supple Chest: Symmetrical Cardiovascular: Rhythm Regular Respiratory: No Rales, No Rhonchi, No Wheezing (mild expiratory wheezing) Neurological/Psych: Oriented x3, Normal Speech ED Course And Treatment Reevaluation Time: 15:44 Reassessment Condition: Improved (ater Albuterol. Lungs clear without wheezing. Cortisporin Otic solution applied to right ear.) Medical Decision Making Medical Decision Making: Plan: --Labs --EKG --Albuterol Disposition - Disposition Referrals: Ranulfo Corley MD [Staff Provider] - Disposition: HOME/ ROUTINE Disposition Time: 15:45 Condition: IMPROVED Additional Instructions: Apply 4 drops to the right ear canal 4 times a day. Use your albuterol as needed for wheezing. Instructions: Outer Ear Infection, Asthma in Adults Forms: [facility] (Armenian) - Clinical Impression Clinical Impression: Asthma, External otitis of right ear - Scribe Statement The provider has reviewed the documentation as recorded by the Christina Nolan Provider Attestation: All medical record entries made by the Christina were at my direction and personally dictated by me. I have reviewed the chart and agree that the record accurately reflects my personal performance of the history, physical exam, medical decision making, and the department course for this patient. I have also personally directed, reviewed, and agree with the discharge instructions and disposition.
[2018-04-11] MEDS ORDERED: Neomycin/Polymyxin/Hydrocort Otic Soln BOTTLE AD STA (15:42)
[2018-04-11 16:29] VITALS: BP 120/74; PULSE 96; RESP 20; TEMP 98.3; O2SAT 96
--- NOTE | 2018-04-16 07:37 | CARD ---
APPROVED REPORT Date of service: 04/11/2018 EKG Measurement Heart [id number] <Conclusion> Normal sinus rhythm Moderate voltage criteria for LVH, may be normal variant Borderline ECG
--- NOTE | 2018-04-16 07:38 | CARD ---
APPROVED REPORT Date of service: 04/11/2018 EKG Measurement Heart [id number] <Conclusion> Normal sinus rhythm Moderate voltage criteria for LVH, may be normal variant T wave abnormality, consider anterior ischemia Abnormal ECG
== END 2018-04-11 21:37 | disposition home or self-care (01) ==
LOC: C.ER 13:52
DX: H60.91 Unspecified otitis externa, right ear (principal); J45.909 Unspecified asthma, uncomplicated

== ENCOUNTER 2018-04-14 16:54 | Emergency (ER) | payer MEDICAID ==
[2018-04-14 16:55] VITALS: BMI 22.3
[2018-04-14 19:04] VITALS: BP 137/78; PULSE 77; RESP 18; TEMP 99.1; O2SAT 97
--- NOTE | 2018-04-14 19:56 | C.PDOC ---
History Of Present Illness 47 y/o female pt presents to the ER with c/o cough and body aches for x2 days. Pt had many prior visits and her recent visit was x2 days ago. Pt denies fever, chills, vomiting, nausea, chest pain and SOB. Time Seen by Provider: 04/14/18 17:05 Chief Complaint (Nursing): Cough, Cold, Congestion History Per: Patient History/Exam Limitations: no limitations Onset/Duration Of Symptoms: Days (x2) Current Symptoms Are (Timing): Still Present Past Medical History Reviewed: Historical Data, Nursing Documentation, Vital Signs Vital Signs: Last Vital Signs Temp 99.1 F 04/14/18 19:03 Pulse 77 04/14/18 19:03 Resp 18 04/14/18 19:03 BP 137/78 04/14/18 19:03 Pulse Ox 97 04/14/18 19:03 - Medical History PMH: Anemia, Anxiety, Arthritis, Asthma, Bronchitis, CAD, CHF, COPD, CVA, Depression, Diabetes, Gastritis, Gastrointestinal Ulcer, HTN, Hypercholesterolemia, Hyperlipidemia, Hyperthyroidism, Kidney Stones, Multiple Sclerosis, Parkinson's Disease, Pneumonia, Chronic Kidney Disease, TIA, Chronic Pain Surgical History: Hernia Repair (Umbilical hernia repair), (1994) - [facility] Procedures CLOSURE SKIN & SUBCUTANEOUS NEC (01/07/13) ESOPHAGOGASTRODUODENOSCOPY [EGD] W/CLOSED BIOPSY (02/05/15) INJECT/INFUSE NEC (02/17/15) INSERTION OF INFUSION DEV INTO SUP VENA CAVA, PERC APPROACH (01/28/18) INTRODUCE OF OTH THERAP SUBST INTO RESP TRACT, VIA OPENING (03/26/18) NEBULIZER THERAPY (06/20/13) PACKED CELL TRANSFUSION (01/28/15) REMOVAL OF INFUSION DEV FROM GREAT VESSEL, FELT CHECKER APPROACH (12/02/16) TETANUS TOXOID ADMINIST (01/07/13) TRANSFUSE NONAUT RED BLOOD CELLS IN PERIPH VEIN, PERC (03/17/17) VACCINATION NEC (08/03/14) Family History: States: Unknown Family Hx - Social History Hx Tobacco Use: No Hx Alcohol Use: No Hx Substance Use: No - Immunization History Hx Tetanus Toxoid Vaccination: No Hx Influenza Vaccination: Yes Hx Pneumococcal Vaccination: Yes Review Of Systems Except As Marked, All Systems Reviewed And Found Negative. Constitutional: Positive for: Other (body aches). Negative for: Fever, Chills Cardiovascular: Negative for: Chest Pain Respiratory: Positive for: Cough. Negative for: Shortness of Breath Gastrointestinal: Negative for: Nausea, Vomiting Physical Exam - Physical Exam Appears: Non-toxic, No Acute Distress Skin: Normal Color, Warm, Dry Head: Normacephalic Eye(s): bilateral: Normal Inspection, EOMI Ear(s): Bilateral: Normal Nose: Normal Oral Mucosa: Moist Throat: Normal Neck: Normal ROM, Supple Chest: Symmetrical, No Deformity Cardiovascular: Rhythm Regular Respiratory: Normal Breath Sounds Gastrointestinal/Abdominal: Soft, No Tenderness Back: No CVA Tenderness Extremity: Normal ROM (x4) Neurological/Psych: Oriented x3, Normal Speech ED Course And Treatment O2 Sat by Pulse Oximetry: 97 (RA) Pulse Ox Interpretation: Normal Medical Decision Making Medical Decision Making: Impression: body aches and cough Plans: -- CXR -- motrin -- pepcid -- influenza A B Reassess: On reassessment, patient is resting comfortably, with improvement of body aches. Patient remains afebrile, with no bony tenderness, extremity numbness or weakness, or abdominal pain. Patient is ambulatory in the emergency department with no signs of discomfort. Patient was advised to follow up with clinic in 1-2 days. Disposition - Disposition Referrals: Ranulfo Corley MD [Staff Provider] - Disposition: HOME/ ROUTINE Disposition Time: 18:10 Condition: GOOD Additional Instructions: JUAN HASSAN, thank you for letting us take care of you today. The emergency medical care you received today was directed at your acute symptoms. If you were prescribed any medication, please fill it and take as directed. It may take several days for your symptoms to resolve. Return to the Emergency Department if your symptoms worsen, do not improve, or if you have any other problems. Please contact your doctor or call one of the physicians/clinics you have been referred to that are listed on the Patient Visit Information form that is included in your discharge packet. Bring any paperwork you were given at discharge with you along with any medications you are taking to your follow up visit. Our treatment cannot replace ongoing medical care by a primary care provider outside of the emergency department. Thank you for allowing the [facility] team to be part of your care today. Follow up with your primary care doctor in 2-3 days for re-evaluation and further management. Prescriptions: Ibuprofen [Motrin] 600 mg PO Q6 PRN #20 tab PRN Reason: Pain, Moderate (4-7) Instructions: Cough in Adults Forms: [facility] (Moldovan) - Clinical Impression Clinical Impression: Cough - Scribe Statement The provider has reviewed the documentation as recorded by the Scribe Ava Lopez Provider Attestation: All medical record entries made by the Scribe were at my direction and personally dictated by me. I have reviewed the chart and agree that the record accurately reflects my personal performance of the history, physical exam, medical decision making, and the department course for this patient. I have also personally directed, reviewed, and agree with the discharge instructions and disposition.
--- NOTE | 2018-04-15 10:37 | RAD ---
Date of service: 04/14/2018 HISTORY: cough r/o infiltrate COMPARISON: Frontal chest radiograph 03/19/2018. FINDINGS: LUNGS: No active pulmonary disease. PLEURA: No significant pleural effusion identified, no pneumothorax apparent. CARDIOVASCULAR: No aortic atherosclerotic calcification present. However, prominent upper thoracic silhouette is again evident. Cardiomegaly is reiterated with [id number] pulmonary vascular congestion suspected. OSSEOUS STRUCTURES: No significant abnormalities. VISUALIZED UPPER ABDOMEN: Normal. OTHER FINDINGS: None. IMPRESSION: No acute infiltrate bilaterally. Cardiomegaly appears stable with [id number] pulmonary vascular congestion suspected. Clinically correlate further. Prominent upper mediastinum stable.
== END 2018-04-14 20:10 | disposition home or self-care (01) ==
LOC: C.ER 16:54
DX: R05 Cough (principal)

== ENCOUNTER 2018-04-28 10:25 | Emergency (ER) | payer MEDICAID ==
[2018-04-28 10:27] VITALS: BMI 25.1
[2018-04-28 10:36] VITALS: BP 128/61; PULSE 99; RESP 20; TEMP 99.6; O2SAT 96
--- NOTE | 2018-04-28 10:59 | C.PDOC ---
History Of Present Illness 47 y/o female pt with PMHx of asthma and cerebral palsy presents to the ER for c/o chest pain. Associated sx includes abdominal pain and diarrhea. Pt has had multiple visits in the ER for similar sx, previous workups shows negatives. Pt denies fever, chills, nausea, vomiting, SOB, headaches and dizziness. Time Seen by Provider: 04/28/18 10:54 Chief Complaint (Nursing): Chest Pain History Per: Patient History/Exam Limitations: no limitations Onset/Duration Of Symptoms: Hrs Current Symptoms Are (Timing): Still Present Past Medical History Reviewed: Historical Data, Nursing Documentation, Vital Signs Vital Signs: Last Vital Signs Temp 99.6 F 04/28/18 10:32 Pulse 99 H 04/28/18 10:32 Resp 20 04/28/18 10:32 BP 128/61 04/28/18 10:32 Pulse Ox 96 04/28/18 10:32 - Medical History PMH: Anemia, Anxiety, Arthritis, Asthma, Bronchitis, CAD, CHF, COPD, CVA, Depression, Diabetes, Gastritis, Gastrointestinal Ulcer, HTN, Hypercholesterolemia, Hyperlipidemia, Hyperthyroidism, Kidney Stones, Multiple Sclerosis, Parkinson's Disease, Pneumonia, Chronic Kidney Disease, TIA, Chronic Pain Surgical History: Hernia Repair (Umbilical hernia repair), (1994) - [facility] Procedures CLOSURE SKIN & SUBCUTANEOUS NEC (01/07/13) ESOPHAGOGASTRODUODENOSCOPY [EGD] W/CLOSED BIOPSY (02/05/15) INJECT/INFUSE NEC (02/17/15) INSERTION OF INFUSION DEV INTO SUP VENA CAVA, PERC APPROACH (01/28/18) INTRODUCE OF OTH THERAP SUBST INTO RESP TRACT, VIA OPENING (03/26/18) NEBULIZER THERAPY (06/20/13) PACKED CELL TRANSFUSION (01/28/15) REMOVAL OF INFUSION DEV FROM GREAT VESSEL, INSTRUMENT ROOM TECHNICIAN APPROACH (12/02/16) TETANUS TOXOID ADMINIST (01/07/13) TRANSFUSE NONAUT RED BLOOD CELLS IN PERIPH VEIN, PERC (03/17/17) VACCINATION NEC (08/03/14) Family History: States: Unknown Family Hx - Social History Hx Tobacco Use: No Hx Alcohol Use: No Hx Substance Use: No - Immunization History Hx Tetanus Toxoid Vaccination: No Hx Influenza Vaccination: Yes Hx Pneumococcal Vaccination: Yes Review Of Systems Except As Marked, All Systems Reviewed And Found Negative. Constitutional: Negative for: Fever, Chills Cardiovascular: Positive for: Chest Pain Respiratory: Negative for: Shortness of Breath Gastrointestinal: Positive for: Abdominal Pain, Diarrhea. Negative for: Nausea, Vomiting Neurological: Negative for: Headache, Dizziness Physical Exam - Physical Exam Appears: Well, Non-toxic, No Acute Distress Skin: Normal Color, Warm, Dry Head: Normacephalic Eye(s): bilateral: Normal Inspection, EOMI Nose: Normal Oral Mucosa: Moist Throat: Normal Neck: Normal ROM, Supple Chest: Symmetrical, No Deformity Cardiovascular: Rhythm Regular Respiratory: Normal Breath Sounds, No Rales, No Rhonchi, No Wheezing Gastrointestinal/Abdominal: Soft, No Tenderness, No Mass, No Distention, No Guarding, No Rebound Back: No CVA Tenderness Extremity: Normal ROM (x4) Neurological/Psych: Oriented x3, Normal Speech Gait: Steady ED Course And Treatment ECG: Interpreted By Me, Viewed By Me ECG Rhythm: Sinus Rhythm, Nonspecific Changes ECG Interpretation: Normal, No Acute Changes Interpretation Of ECG: non-specific ST/T changes Rate From EC O2 Sat by Pulse Oximetry: 96 (RA) Pulse Ox Interpretation: Normal - Radiology CXR: Interpreted by Me, Viewed By Me CXR Interpretation: Yes: No Acute Disease. No: Infiltrates Medical Decision Making Medical Decision Making: Impression: chest pain with abdominal pain and diarrhea Plans: -- CXR Reassess: Patient is resting comfortably, is no longer having chest pain or shortness of breath. Patient has no risk factors for pulmonary emboli or DVT. Clinical presentation is not suggestive of aortic dissection, abdomen remains soft. Patient is being discharged home and is being advised to follow up with PMD in 1-2 days. numerous visits for ismilar. ekg no change cxr neg. pt well known to er. malingering . Disposition - Disposition Disposition: HOME/ ROUTINE Disposition Time: 11:32 Condition: STABLE Additional Instructions: return to er with worsening symptoms or concenrs. Instructions: Chest Pain Forms: [facility] (Azerbaijani) - Clinical Impression Clinical Impression: Malingering, Chest pain, Abdominal pain - Scribe Statement The provider has reviewed the documentation as recorded by the Christina Escalante Do Provider Attestation: All medical record entries made by the Scribe were at my direction and personally dictated by me. I have reviewed the chart and agree that the record accurately reflects my personal performance of the history, physical exam, medical decision making, and the department course for this patient. I have also personally directed, reviewed, and agree with the discharge instructions and disposition.
--- NOTE | 2018-04-28 14:55 | RAD ---
Date of service: 04/28/2018 HISTORY: cp COMPARISON: Comparison chest 04/14/2018 FINDINGS: LUNGS: Poor inspiration with low lung volumes, crowded bronchovascular markings and mild bibasilar atelectasis PLEURA: No significant pleural effusion identified, no pneumothorax apparent. CARDIOVASCULAR: No aortic atherosclerotic calcification present. Cardiomegaly. No pulmonary vascular congestion. OSSEOUS STRUCTURES: No significant abnormalities. VISUALIZED UPPER ABDOMEN: Normal. OTHER FINDINGS: None. IMPRESSION: Poor inspiration with low lung volumes, crowded bronchovascular markings and mild bibasilar atelectasis
== END 2018-04-28 16:33 | disposition home or self-care (01) ==
LOC: C.ER 10:25
DX: R07.9 Chest pain, unspecified (principal); R10.9 Unspecified abdominal pain; Z76.5 Malingerer [conscious simulation]; E78.00 Pure hypercholesterolemia, unspecified; G20 Parkinson's disease; G35 Multiple sclerosis; I25.10 Atherosclerotic heart disease of native coronary artery without angina pectoris; I50.9 Heart failure, unspecified; I12.9 Hypertensive chronic kidney disease with stage 1 through stage 4 chronic kidney disease, or unspecified chronic kidney disease; N18.9 Chronic kidney disease, unspecified

== ENCOUNTER 2018-05-03 09:19 | Emergency (ER) | payer MEDICAID ==
[2018-05-03 09:19] VITALS: BMI 25.1
[2018-05-03 09:29] VITALS: TEMP 99.6
[2018-05-03 10:07] VITALS: PULSE 83
--- NOTE | 2018-05-03 10:15 | C.PDOC ---
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 Patient reprots symptoms unchanged from 04/28/18 when seen at ED. Patient states she was Short of breath ANTENNA INSTALLER, resolved now and currently denies fever, chills, nausea, vomiting, leg swelling or any other complaints at this time. Time Seen by Provider: 05/03/18 09:36 Chief Complaint (Nursing): Chest Pain History Per: Patient History/Exam Limitations: no limitations Onset/Duration Of Symptoms: Days Current Symptoms Are (Timing): Still Present Past Medical History Reviewed: Historical Data, Nursing Documentation, Vital Signs Vital Signs: Last Vital Signs Temp 99.6 F 05/03/18 09:25 Pulse 83 05/03/18 09:50 Resp 14 05/03/18 09:25 BP 125/81 05/03/18 09:25 Pulse Ox 94 L 05/03/18 09:25 - Medical History PMH: Anemia, Anxiety, Arthritis, Asthma, Bronchitis, CAD, CHF, COPD, CVA, Depression, Diabetes, Gastritis, Gastrointestinal Ulcer, HTN, Hypercholesterolemia, Hyperlipidemia, Hyperthyroidism, Kidney Stones, Multiple Sclerosis, Parkinson's Disease, Pneumonia, Chronic Kidney Disease, TIA, Chronic Pain Surgical History: Hernia Repair (Umbilical hernia repair), (1994) - [facility] Procedures CLOSURE SKIN & SUBCUTANEOUS NEC (01/07/13) ESOPHAGOGASTRODUODENOSCOPY [EGD] W/CLOSED BIOPSY (02/05/15) INJECT/INFUSE NEC (02/17/15) INSERTION OF INFUSION DEV INTO SUP VENA CAVA, PERC APPROACH (01/28/18) INTRODUCE OF OTH THERAP SUBST INTO RESP TRACT, VIA OPENING (03/26/18) NEBULIZER THERAPY (06/20/13) PACKED CELL TRANSFUSION (01/28/15) REMOVAL OF INFUSION DEV FROM GREAT VESSEL, FURNACE REPAIRER HELPER APPROACH (12/02/16) TETANUS TOXOID ADMINIST (01/07/13) TRANSFUSE NONAUT RED BLOOD CELLS IN PERIPH VEIN, PERC (03/17/17) VACCINATION NEC (08/03/14) Family History: States: No Known Family Hx - Social History Hx Tobacco Use: No Hx Alcohol Use: No Hx Substance Use: No - Immunization History Hx Tetanus Toxoid Vaccination: No Hx Influenza Vaccination: Yes Hx Pneumococcal Vaccination: Yes Review Of Systems Constitutional: Positive for: Other (body aches). Negative for: Fever, Chills Cardiovascular: Positive for: Chest Pain Respiratory: Negative for: Cough, Shortness of Breath Gastrointestinal: Negative for: Nausea, Vomiting Skin: Negative for: Rash Physical Exam - Physical Exam Appears: Non-toxic, No Acute Distress Skin: Warm, Dry, No Rash Head: Atraumatic, Normacephalic Eye(s): bilateral: Normal Inspection Oral Mucosa: Moist Neck: Normal ROM, Supple Chest: Symmetrical Cardiovascular: Rhythm Regular Respiratory: Normal Breath Sounds, No Rales, No Rhonchi, No Wheezing Gastrointestinal/Abdominal: Soft, No Tenderness, No Guarding, No Rebound Extremity: Normal ROM, No Pedal Edema, Capillary Refill (<2 seconds) Neurological/Psych: Oriented x3, Normal Speech, Normal Cognition ED Course And Treatment ECG: Interpreted By Me, Viewed By Me ECG Rhythm: Sinus Rhythm Interpretation Of ECG: Normal Intervals, Normal access, No ST elevations, Non specific T wave changes Rate From EC O2 Sat by Pulse Oximetry: 94 (RA) Pulse Ox Interpretation: Normal Medical Decision Making Medical Decision Making: Plan: Flu swab, EKG ordered Progress: 11:25am- Discussed results with patient, all results within normal limits. Patient discharged with follow up to PMD in 2 days. Disposition Counseled Patient/Family Regarding: Studies Performed, Diagnosis, Need For Followup - Disposition Referrals: Ranulfo Corley MD [Staff Provider] - Disposition: HOME/ ROUTINE Disposition Time: 11:22 Condition: STABLE Instructions: Chronic Pain (DC), Muscle and Bone Pain (DC) Forms: [facility] (German), General Discharge Instructions - POA Present On Arrival: None - Clinical Impression Clinical Impression: Chronic chest pain, Musculoskeletal pain - Scribe Statement The provider has reviewed the documentation as recorded by the Christina Valencia All medical record entries made by the Owenibsoha were at my direction and personally dictated by me. I have reviewed the chart and agree that the record accurately reflects my personal performance of the history, physical exam, medical decision making, and the department course for this patient. I have also personally directed, reviewed, and agree with the discharge instructions and disposition.
[2018-05-03 11:35] VITALS: BP 114/63; RESP 19
[2018-05-03 11:39] VITALS: O2SAT 94
--- NOTE | 2018-05-04 19:54 | CARD ---
APPROVED REPORT Date of service: 05/03/2018 EKG Measurement Heart [id number] <Conclusion> Sinus rhythm baseline artifact. Abnormal ECG
== END 2018-05-03 12:50 | disposition home or self-care (01) ==
LOC: C.ER 09:19
DX: G89.29 Other chronic pain (principal); R07.9 Chest pain, unspecified; M79.10 Myalgia, unspecified site